=== PATIENT | female | born 1960 | race Caucasian/White ===

== ENCOUNTER 2019-06-02 14:32 | Outpatient (CLI) | payer OTHER, SELFPAY ==
[2019-06-02 16:37] LABS: Vitamin D 25 Hydroxy 18.7 ng/mL
== END 2019-06-02 14:33 | disposition home or self-care (01) ==
LOC: ANHIMG 14:39
PROVIDERS: PCP Family Medicine; Visit Provider Family Medicine
DX: E55.9 Vitamin D deficiency, unspecified (principal)
CPT/HCPCS: 36415; 82306

== ENCOUNTER 2019-06-17 10:12 | Outpatient (CLI) | payer OTHER, SELFPAY ==
--- NOTE | ~2019-06-17 | US_ITS ---
EXAMINATION: US carotid duplex BI DATE: 06/17/2019 10:43 INDICATION: Postural dizziness. TECHNIQUE: Grayscale, color Doppler, and pulsed Doppler images of the cervical carotid arteries were obtained. The degree of vessel stenosis is placed in one of the following categories: normal, <50%, 5 0-69%, >=70% but less than near-occlusion, near-occlusion, or total occlusion. Note that percent sten osis relative to normal distal artery lumen diameter is indirectly measured from velocity measurement s as described by Lazarus, et al. Radiology 2003; 229:340-346. COMPARISON: None. FINDINGS: RIGHT: The right common carotid artery (CCA) peak systolic velocity (PSV) is 67 cm/s. The right internal car otid artery (ICA) PSV is 73 cm/s. The right ICA end-diastolic velocity (EDV) is 26 cm/s. The right IC A/CCA PSV ratio is 1.1. Grayscale and color Doppler images yield an estimate of <50% diameter reducti on from plaque in the ICA. There is antegrade flow in the right vertebral artery. LEFT: The left CCA PSV is 85 cm/s. The left ICA PSV is 62 cm/s. The left ICA EDV is 21 cm/s. The left ICA/C CA PSV ratio is 0.7. Grayscale and color Doppler images yield an estimate of <50% diameter reduction from plaque in the ICA. There is antegrade flow in the left vertebral artery. IMPRESSION: 1. <50% stenosis in the right internal carotid artery. 2. <50% stenosis in the left internal carotid artery. Reviewed, dictated and finalized at location A. E BUSINESS SPECIALIST
== END 2019-06-17 10:13 | disposition home or self-care (01) ==
LOC: ANHIMG 10:14
PROVIDERS: PCP Family Medicine; Visit Provider Family Medicine
DX: I65.23 Occlusion and stenosis of bilateral carotid arteries (principal); R42 Dizziness and giddiness
CPT/HCPCS: 93880

== ENCOUNTER 2019-08-30 10:30 | Outpatient (RCR) | payer OTHER, SELFPAY ==
--- NOTE | 2019-06-08 09:20 | PTOPEVAL ---
PHYSICAL THERAPY EVALUATION AND PLAN OF CARE Thank you for referring this patient to [facility]. Katherine will be seen in PT 2x/week for 4-6weeks for treatment of low back pain and balance impairment. Please review, sign, date and return this plan of care TERI. I agree with and certify that the following plan of care is medically necessary. Referring Physician Date Attending Provider: Rashmi Purvis, Assessment Status Evaluation Outpatient Past Medical History Cardiovascular History Hx Mitral Valve Prolapse Yes Evaluation Information Problem Diagnosis back pain; poor balance Onset 05/18/2018 Cause fall Subjective Information Katherine is here today 1 year Query Text:As Reported By Patient/ after a fall resulting in back Family pain and neck pain. She states she has tried to stay mobile and her neck has more motion than it did. Also reports that she is here today because she would really like to impove her balance. She has stairs to enter/exit her home and is able to negotiate them with rails. Medial Spine, Lumbar Reported Pain Level 8 Current Pain Intensity 8 Lowest Pain Intensity 3 Greatest Pain Intensity 10 Pain Aggravating Factors Exercise/Activity,Walking, Weight Bearing/Standing Other Pain Aggravating Factors standing >15minutes Pain Behaviors None Pain Relief Interventions Used By Heat,Lying Supine,Medication Patient Interventions Used By Clinicians Exercise,Heat,Joint Mobilization Lumbar ROM Lumbar Flexion (0-90) 10 Lumbar Extension (0-40) 0 Lateral Rotation Right (0-45) 18 Lateral Rotation Left (0-45) 11 Hip Range of Motion Right Hip Medial Rotation - Passive 33 Left Hip Medial Rotation - Passive 7 Lower Extremity Muscle Strength Testing Hip Strength Right Hip Flexion Strength 4- Good - Hip Abduction Strength 3 Fair Left Hip Flexion Strength 3+ Fair + Hip Extension Strength 3 Fair Hip Abduction Strength 3 Fair Knee Strength Right Knee Flexion Strength 4- Good - Knee Extension Strength 4 Good Left Knee Flexion Strength 3+ Fair + Knee Extension Strength 3+ Fair + Posture Standing Position Posture Evaluation View Posterior Thoracic Spine Posture Increased Kyphosis Lumbar Spine Posture
--- NOTE | 2019-07-06 13:35 | PTOPEVAL ---
PHYSICAL THERAPY PLAN OF CARE UPDATE AND PROGRESS REPORT Thank you for referring this patient to [facility]. I recommend Katherine continue physical therapy 1x/week for 4 weeks. Please review, sign, date and return this plan of care TERI. I agree with and certify that the following plan of care is medically necessary. Referring Physician Date Attending Provider: Rashmi Purvis, Re-evaluation Outpatient Past Medical History Cardiovascular History Hx Mitral Valve Prolapse Yes Evaluation Information Problem Diagnosis back pain; poor balance Onset 05/18/2018 Cause fall Subjective Information Katherine is here today after 4 Query Text:As Reported By Patient/ weeks of physical therapy. Family Feels as though she is improving, but feels like she could benefit from more strengthening to improve her balance. Pain Assessment Self Report Pain Assessment Medial Spine, Lumbar Reported Pain Level 8 Pain Description Throbbing,Tightness Pain Frequency Intermittent Pain Aggravating Factors Walking,Weight Bearing/ Standing Pain Behaviors None Interventions Used By Clinicians Education,Electrical Stimulation,Exercise,Heat Lumbar ROM Lumbar Flexion (0-90) 40 Query Text:Active in Degrees Lumbar Flexion Active Mid Garcia Query Text:Hands to: Lumbar Extension (0-40) 8 Query Text:Active i Degrees Lateral Rotation Right (0-45) 20 Query Text:Active in Degrees Lateral Rotation Left (0-45) 20 Query Text:Active in Degrees Lower Extremity Range of Motion Hip Range of Motion Right Hip Medial Rotation - Passive 20 Left Hip Medial Rotation - Passive 30 Lower Extremity Muscle Strength Testing Hip Strength Right Hip Flexion Strength 4+ Good + Hip Extension Strength 4- Good - Hip Abduction Strength 4- Good - Left Hip Flexion Strength 4+ Good + Hip Extension Strength 4- Good - Hip Abduction Strength 4- Good - Knee Strength Right Knee Flexion Strength 4 Good Knee Extension Strength 4 Good Left Knee Flexion Strength 4 Good Knee Extension Strength 4 Good Muscle Length Testing Muscle Length Testing Left Hamstring Length -35 Query Text:(90 - 90 Position) Right Hamstring Length -30 Query Text:(90 - 90 Position) Posture Posture Standing Position Posture Evaluation View Posterior Thoracic Spine Posture Increased Kyphosis Lumbar Spine Posture Flattened,Flexible Sco
--- NOTE | 2019-08-08 11:00 | PTOPEVAL ---
PHYSICAL THERAPY PLAN OF CARE UPDATE AND PROGRESS REPORT Thank you for referring Katherine Beckett to [facility]. I recommend continuing PT 1x/week for 4 weeks. Please review, sign, date and return this plan of care TERI. I agree with and certify that the following plan of care is medically necessary. Referring Physician Date Attending Provider: Rashmi Purvis, Re-evaluation Diagnosis back pain; poor balance Onset 05/18/2018 Cause fall Subjective Information feels her balance is improving Query Text:As Reported By Patient/ and tries not to use her cane Family at home. Feels as though she could walk to the convenience store but would not be able to get back. Pain Assessment Timing of Pain Assessment Timing of Pain Assessment Pre-Treatment Pain Scale Pain Scale Used Numeric (1 - 10) Self Report Pain Assessment Medial Spine, Lumbar Reported Pain Level 4 Pain Description Throbbing,Tightness Pain Frequency Intermittent Pain Aggravating Factors Walking,Weight Bearing/ Standing Pain Behaviors None Interventions Used By Clinicians Electrical Stimulation, Exercise,Heat Pain Score Pain Score 4: Self Report Additional Pain Score Comments increase in symptoms but not sure why Cervical and Lumbar ROM Lumbar ROM Lumbar Flexion (0-90) 40 Query Text:Active in Degrees Lumbar Flexion Active Mid Garcia Query Text:Hands to: Lumbar Extension (0-40) 10 Query Text:Active in Degrees Lateral Rotation Right (0-45) 20 Query Text:Active in Degrees Lateral Rotation Left (0-45) 20 Query Text:Active in Degrees Lumbar Comments improved segmental motion compared to prior visits Lower Extremity Range of Motion Hip Range of Motion Right Hip Medial Rotation - Passive 30 Left Hip Medial Rotation - Passive 30 Lower Extremity Muscle Strength Testing Hip Strength Right Hip Flexion Strength 5 Normal Hip Extension Strength 4 Good Hip Abduction Strength 4- Good - Left Hip Flexion Strength 5 Normal Hip Extension Strength 4- Good - Hip Abduction Strength 4- Good - Knee Strength Right Knee Flexion Strength 4+ Good + Knee Extension Strength 4+ Good + Left Knee Flexion Strength 4+ Good + Knee Extension Strength 4+ Good + Muscle Length Testing Piriformis w/Hip Flexion >90 Degrees (R) Mild Tightness,(L)
--- NOTE | 2019-09-06 15:12 | PCPTNOTE ---
This treatment is being continued on visit number [id number]. Please see documentation on both accounts to view progress. Completed interventions, outcomes, and problems have been marked as Inactive to facilitate the copying of the Care plan routine for recurring accounts.
== END 2019-09-06 12:35 | disposition home or self-care (01) ==
LOC: ANHPT 10:30
PROVIDERS: PCP Family Medicine; Visit Provider Family Medicine
DX: M54.9 Dorsalgia, unspecified (principal); G89.29 Other chronic pain
CPT/HCPCS: 97014; 97110; 97140; 97161; G0283

== ENCOUNTER 2019-09-14 09:00 | Outpatient (RCR) | payer OTHER, SELFPAY ==
--- NOTE | 2019-09-06 15:19 | PCPTNOTE ---
The treatment documented on this account is a continuation of the treatment documented on visit number [id number]. Please see documentation on both accounts to view progress. The Plan of Care has been transitioned and updated within the new V#. I have addressed and agree with the discipline specific Problems, Interventions, and Goals for the current certification period. Completed interventions, outcomes, and problems have been marked as Inactive to facilitate the copying of the Care plan routine for recurring accounts.
--- NOTE | 2019-09-14 09:51 | PTOPEVAL ---
PHYSICAL THERAPY DISCHARGE NOTE Thank you for referring Katherine Beckett to [facility]. I recommend Katherine discharge from skilled PT at this time and proceed with HEP. Please review, sign, date and return this plan of care TERI. I agree with and certify that the following plan of care is medically necessary. Referring Physician Date Attending Provider: Rashmi Purvis, MD Discharge Outpatient Past Medical History Cardiovascular History Hx Mitral Valve Prolapse Yes Evaluation Information Problem Diagnosis back pain; poor balance Onset 05/18/2018 Cause fall Subjective Information continues to feel improvement Query Text:As Reported By Patient/ and feels like she is able to Family get out and about more. She is walking in her house and her yard. When the weather is nicer, she wants to get out to the park to go for walks where they have benches to be able to rest. Lower Back Reported Pain Level 5 Pain Description Aching,Tightness Pain Frequency Intermittent Pain Aggravating Factors None Interventions Used By Clinicians Exercise Pain Score Pain Score 5: Self Report Lumbar ROM Lumbar Flexion (0-90) 45 Query Text:Active in Degrees Lumbar Flexion Active Mid Garcia Query Text:Hands to: Lumbar Extension (0-40) 15 Query Text:Active in Degrees Lateral Rotation Right (0-45) 25 Query Text:Active in Degrees Lateral Rotation Left (0-45) 25 Query Text:Active in Degrees Lower Extremity Muscle Strength Testing General Lower Extremity Strength Reason Not Measured WFL/Left,WFL/Right Powers Balance Assessment Sitting to Standing Independent w/out Hands Unsupported Stance Ability Safely- 2 minutes Sitting Unsupported, Feet on Floor Safely- 2 minutes Standing to Sitting Safely, Minimal Hand Use Transfer Ability Safely, Minimal Hand Use Unsupported Stance- Eyes Closed Safely, 10 seconds Unsupported Stance- Feet Together Independent, 1 minute Reaching Forward while Standing Safely, 5 inches computer analyst supervisor Object From Floor Supervision Look Behind Shoulder - Standing Shifts Weight Well Turning 360 Degrees Turns Bilateral, < 4 secs Unsupported Stance, Alternating Feet on (I)- 8 Steps in 20 secs Stair Unsupported Tandem Stance Holds Tandem- 30 seconds Unilateral Leg Stance Lifts Leg/Holds 5-10 secs POWERS Balance Evaluation Total Score (/56 52 points) Timed Up and Go Test (TUG) (Seconds) 12 Assistive Devices
== END 2019-09-14 11:34 | disposition home or self-care (01) ==
LOC: ANHPT 09:00
PROVIDERS: PCP Family Medicine; Visit Provider Family Medicine
DX: M54.9 Dorsalgia, unspecified (principal); G89.29 Other chronic pain
CPT/HCPCS: 97014; 97110; G0283

== ENCOUNTER → 2020-03-20 10:06 | Outpatient (CLI) | payer OTHER, SELFPAY ==
--- NOTE | ~2020-03-20 | XR_ITS ---
EXAMINATION: XR knee LT 3V DATE: 03/20/2020 10:41 INDICATION: Left knee pain. TECHNIQUE: 3 views of left knee were obtained. COMPARISON: None. FINDINGS: Bone alignment is normal. There is deformity of the articular surface of lateral tibial clementine teau. There is mild osteoarthritis of medial and patellofemoral compartments and moderate osteoarthri tis of lateral compartment. No knee joint effusion. IMPRESSION: 1. Deformity of the articular surface of lateral tibial plateau, which may be an old fracture deformi ty. 2. Moderate left knee osteoarthritis. Reviewed, dictated and finalized at location A. SETTER IMPRESSION: 1. Deformity of the articular surface of lateral tibial plateau, which may be a n old fracture deformity. 2. Moderate left knee osteoarthritis.
--- NOTE | ~2020-03-20 | XR_ITS ---
[XR ribs LT 2V ] INDICATION: Left rib pain TECHNIQUE: Frontal projection of the upper left ribs, frontal projection of the lower left ribs, obli que projection of all the left ribs, frontal inspiratory chest x-ray for interpretation. FINDINGS: There are no displaced rib fractures identified. There are no soft tissue abnormality see n. The lungs are clear. IMPRESSION: 1:No displaced rib fractures. Reviewed, dictated and finalized at location A. TERIA SUPERVISOR
== END ==
PROVIDERS: PCP Family Medicine; Visit Provider Family Medicine
DX: S20.20XA Contusion of thorax, unspecified, initial encounter (principal); M17.12 Unilateral primary osteoarthritis, left knee; M21.962 Unspecified acquired deformity of left lower leg
CPT/HCPCS: 71100; 73562

== ENCOUNTER 2020-11-02 09:02 | Outpatient (CLI) | payer MEDICARE, SELFPAY ==
--- NOTE | ~2020-11-02 | MM_ITS ---
EXAMINATION: MM screening kemi BI w danita HISTORY: Screening mammogram TECHNIQUE: Craniocaudal and mediolateral oblique 3-D tomosynthesis images were obtained and synthetic 2-D images were generated. CAD analysis was submitted and interpreted. COMPARISON: No prior mammogram is available for comparison at this institution. BREAST PARENCHYMAL COMPOSITION: The breasts are heterogeneously dense, which may obscure small masses . FINDINGS: RIGHT BREAST: There is focal asymmetry in the middle and posterior third of the upper outer quadrant of the breast. LEFT BREAST: There is a possible mass in the middle third of the outer breast best appreciated 6 cm f rom the nipple on mediolateral oblique tomosynthesis image . IMPRESSION: 1. Bilateral breast findings as the above. 2. Additional mammographic views and possible breast ultrasound are recommended. BI-RADS Category 0: Incomplete: Needs additional imaging evaluation. Reviewed, dictated and finalized at location A. IMPRESSION: 1. Bilateral breast findings as the above. 2. Additional mammographic views and possible breast ultrasound are recommended . BI-RADS Category 0: Incomplete: Needs additional imaging evaluation.
== END 2020-11-02 09:03 | disposition home or self-care (01) ==
PROVIDERS: PCP Family Medicine; Visit Provider Family Medicine
DX: Z12.31 Encounter for screening mammogram for malignant neoplasm of breast (principal); R92.8 Other abnormal and inconclusive findings on diagnostic imaging of breast
CPT/HCPCS: 77063; 77067

== ENCOUNTER 2020-12-05 13:44 | Outpatient (CLI) | payer MEDICARE, SELFPAY ==
--- NOTE | ~2020-12-05 | US_ITS ---
Please refer to diagnostic mammogram report dated 12/05/2020 for details. Reviewed, dictated and finalized at location A.
--- NOTE | ~2020-12-05 | MM_ITS ---
EXAMINATION: MM diagnostic kemi BI w danita HISTORY: Follow-up breast asymmetries TECHNIQUE: Additional 3-D tomosynthesis images of the breasts were performed and synthetic 2-D images were generated. CAD analysis was submitted and interpreted. High resolution complete bilateral breas t ultrasound was performed. COMPARISON: 11/02/2020 BREAST PARENCHYMAL COMPOSITION: The breasts are heterogenously dense, which may obscure small masses FINDINGS: MAMMOGRAPHIC FINDINGS: There is persistent asymmetry scattered throughout the upper outer quadrant of the right breast, alth ough no discrete mass identified. In the left breast there is a mass in the lateral aspect of the lef t breast measuring 11 mm. ULTRASOUND: Right breast ultrasound: At 5:00 near the nipple there is an irregular shaped hypoechoic mass measuri ng 5 x 3 x 3 mm with mixed posterior attenuation, no internal vascularity. Left breast ultrasound: At 3:00, 5 cm from the nipple, there is a hypoechoic mass with parallel orien tation, no posterior features and no internal vascularity measuring 11 x 9 x 6 mm. At 10:00, 6 cm fro m the nipple, there is an oval hypoechoic mass measuring 6 mm without posterior features or internal vascularity, likely benign. IMPRESSION: 1. Abnormal bilateral sonographic breast masses including 5 mm mass in the right breast at 5:00 near the nipple and in the left breast at 3:00, 5 cm from the nipple there is an 11 mm mass. 2. Ultrasound-guided bilateral breast biopsy recommended. BI-RADS category 4, suspicious findings. Reviewed, dictated and finalized at location A. IMPRESSION: 1. Abnormal bilateral sonographic breast masses including 5 mm mass in the righ t breast at 5:00 near the nipple and in the left breast at 3:00, 5 cm from the nipple there is an 11 mm mass. 2. Ultrasound-guided bilateral breast biopsy recommended. BI-RADS category 4, suspicious findings.
== END 2020-12-05 13:45 | disposition home or self-care (01) ==
LOC: ANHIMG 13:46
PROVIDERS: PCP Family Medicine; Visit Provider Family Medicine
DX: R92.8 Other abnormal and inconclusive findings on diagnostic imaging of breast (principal)
CPT/HCPCS: 76641; 77062; 77066; G0279

== ENCOUNTER 2021-02-05 12:56 | Outpatient (CLI) | payer MEDICARE, MEDICAID, SELFPAY ==
--- NOTE | ~2021-02-05 | MMUS_ITS ---
US breast biopsy LT w image, MM post biopsy invasive BI, US breast biopsy RT w image EXAMINATION: US GUIDED NEEDLE BIOPSY WITH VACUUM ASSISTANCE DATE: 02/05/2021 15:56 CDT INDICATION: Bilateral breast masses seen on recent examination. Ultrasound-guided core biopsy is req uested to evaluate for malignancy. TECHNIQUE AND FINDINGS: The risks and potential benefits of the procedure were discussed with the patient, and written inform ed consent was obtained. After sterile preparation of the breasts, 1% lidocaine was utilized for loc al anesthesia. 1% lidocaine with epinephrine was used for deep anesthesia. Breast masses were locali zed bilaterally in the right breast at 5:00 near the nipple and in the left breast at 3:00, 5 cm from the nipple. Right breast biopsy: A 10G vacuum-assisted biopsy gun needle was advanced through to the outer edge o f the region of interest from a superior approach utilizing sonographic guidance. A total of 2 tissu e core samples were obtained through the lesion. An Inrad tissue marker clip was then placed at the biopsy site. Hemostasis was achieved. Left breast biopsy: A 10G vacuum-assisted biopsy gun needle was advanced through to the outer edge of the region of interest from a superior approach utilizing sonographic guidance. A total of 4 tissue core samples were obtained through the lesion. An Inrad tissue marker clip was then placed at the b iopsy site. Hemostasis was achieved. The patient tolerated procedure well and there was no evidence of immediate complication. The patien t was given verbal instructions partly is from the department. Bilateral breast mammograms to docume nt tissue marker clip placement. The tissue samples were submitted to surgical pathology for histolog ic analysis. IMPRESSION: 1. Successful ultrasound-guided vacuum-assisted biopsy of bilateral breast masses with tissue marker placement. Please refer to pathology report for histologic analysis. Reviewed, dictated and finalized at location A. IMPRESSION: 1. Successful ultrasound-guided vacuum-assisted biopsy of bilateral breast mas ses with tissue marker placement. Please refer to pathology report for histolog ic analysis. IMPRESSION: 1. Successful ultrasound-guided vacuum-assisted biopsy of bilateral breast mas ses with tissue marker placement. Please refer to pathology report for histolog ic analysis.
== END 2021-02-05 12:57 | disposition home or self-care (01) ==
LOC: ANHIMG 13:02
PROVIDERS: PCP Family Medicine
DX: D24.2 Benign neoplasm of left breast (principal); D24.1 Benign neoplasm of right breast
CPT/HCPCS: 19083; 19084; 88305; A4648

== ENCOUNTER 2021-06-22 09:27 | Outpatient (CLI) | payer MEDICARE, MEDICAID, SELFPAY ==
--- NOTE | 2021-06-22 09:44 | ECG_ITS ---
Measurements Intervals [place] Rate: 129 P: -78 ID: [id number] QRS: -6 QRSD: 122 T: 171 QT: 321 QTc: 471 Interpretive Statements ATRIAL FLUTTER/TACHYCARDIA WITH RAPID VENTRICULAR RESPONSE RSR' IN V1 OR V2, CONSIDER RIGHT VENTRICULAR HYPERTROPHY OR RIGHT VCD ST-T WAVE ABNORMALITY IN HIGH LATERAL LEADS- CONSIDER ISCHEMIA BASELINE ARTIFACT- II, III, AVF ABNORMAL ECG Electronically Signed On 06-22-2021 14:10:58 SIGNAL HELPER by Juan Mcrae D.O.
== END 2021-06-22 09:28 | disposition home or self-care (01) ==
LOC: ANHCARD 09:32
PROVIDERS: PCP Family Medicine; Visit Provider Physician Assistant
DX: R00.0 Tachycardia, unspecified (principal); R94.31 Abnormal electrocardiogram [ECG] [EKG]
CPT/HCPCS: 93005

== ENCOUNTER 2021-07-24 13:07 | Observation (INO) | payer MEDICARE, MEDICAID, SELFPAY ==
[2021-07-24] VITALS (10 sets, daily range): BP systolic 123–156; BP diastolic 62–96; PULSE 64–138; RESP 14–22; TEMP 36.5–36.6; O2SAT 95–100; BMI 27.1
--- NOTE | 2021-07-24 | ECHO_ITS ---
Patient Info Name: Katherine Beckett Age: 61 years : 1960 Gender: Female Ht: 66 in Wt: 156 lbs BSA: 1.83 m2 HR: 101 bpm BP: 140 / 87 mmHg Technical Quality: Fair Exam Date: 07/24/2021 4:38 PM Exam Location: [facility] Patient Status: Outpatient Admit Date: 07/24/2021 Staff Ordering Physician: Freddy Beasley MD Bilingual Branch Manager: Alicia Brown RDCS Attending Provider: Terry Galan MD Exam Type: CA echo doppler color flow Study Info Indications - new onset afib Complete two-dimensional, color flow and Doppler transthoracic echocardiogram is performed. Summary 1. Complete two-dimensional, color flow and Doppler transthoracic echocardiogram is performed. 2. Left ventricular chamber dimension is normal. 3. Left ventricular systolic function is normal, estimated at 60-65%. 4. The left ventricular diastolic function is abnormal. 5. E/e' 10 is mildly elevated. 6. There is mild mitral valve regurgitation. Left Ventricle E/e' 10 is mildly elevated. Left ventricular chamber dimension is normal. Left ventricular systolic function is normal, estimated at 60-65%. The left ventricular diastolic function is abnormal. Right Ventricle Right ventricular chamber dimension is normal. Right ventricular systolic function is normal. Left Atria Left atrial chamber dimension is normal. Right Atria Right atrial chamber dimension is normal. Aortic Valve The aortic valve is probable trileaflet. There is no aortic valve stenosis. There is no aortic valve regurgitation. Pulmonic Valve There is no pulmonic regurgitation. Mitral Valve There is no mitral valve stenosis. There is mild mitral valve regurgitation. Tricuspid Valve There is no tricuspid valve regurgitation. Pericardium/Pleural There is no pericardial effusion. Inferior Vena Cava Normal inferior vena cava with >50% collapse upon inspiration consistent with normal right atrial pressure, 5 mmHg. Aorta The aortic root size at the sinus of Valsalva is normal. Left Ventricular Outflow Tract Name Value Normal LVOT Doppler LVOT Peak Gradient 3 mmHg LVOT Mean Gradient 2 mmHg LVOT VTI 14 cm LVOT VTI/AV VTI Ratio 0.6 Pulmonic Valve Name Value Normal PV Doppler PV Peak Gradient 2 mmHg Mitral Valve Name Value Normal MV Doppler MV Decel Hutchinson 1,061 cm/s2 MV PHT 28 ms MV Area (PHT) 7.8 cm2 4.0-5.0 MV Diastolic Function MV E Peak Velocity
--- NOTE | ~2021-07-24 | XR_ITS ---
EXAMINATION: XR chest 2V EXAM DATE: 07/24/2021 13:54 INDICATION: SOB, palpitations, abnormal EKG , hx: DM, HTN. TECHNIQUE: Frontal and lateral projections of the chest obtained and reviewed. There is no prior alma dy for comparison. FINDINGS: The lungs are clear. There are no pleural effusions. The cardiomediastinal silhouette is within normal limits. There is no pneumothorax suspected. The bones and soft tissues are unremarkab le. IMPRESSION: Unremarkable chest x-ray exam. Reviewed, dictated and finalized at location B.
--- NOTE | 2021-07-24 13:14 | ECG_ITS ---
Measurements Intervals [place] Rate: 137 P: TN: 0 QRS: -14 QRSD: 91 T: 127 QT: 296 QTc: 448 Interpretive Statements ATRIAL FLUTTER/TACHYCARDIA WITH RAPID VENTRICULAR RESPONSE LOW QRS VOLTAGE IN PRECORDIAL LEADS [QRS DEFLECTION < 1.0 mV IN CHEST LEADS] ST DEVIATION AND MODERATE T-WAVE ABNORMALITY, CONSIDER LATERAL ISCHEMIA [-0.1+ mV T WAVE IN I/aVL/V5/V6] RSR' V1 AND V2 CONSIDER RIGHT VENTRICULAR HYPERTROPHY OR RIGHT VENTRICULAR CONDUCTION DELAY ABNORMAL ECG COMPARED TO ECG 06/22/2021 09:49:06 NO SIGNIFICANT CHANGES Electronically Signed On 07-24-2021 13:50:58 CDT by Kamron Dudley M.D.
[2021-07-24] MEDS: SODIUM CHLORIDE 0.9% IV 1,000 ML 150 ML IV CONT (13:38)
[2021-07-24] MEDS: dilTIAZem HCl INJ 25 MG/5 ML VIAL 10 MG IV PUSH (13:38)
[2021-07-24] MEDS: ASPIRIN 81 MG CHEWABLE TABLET 324 MG PO (13:39)
[2021-07-24 13:47] LABS: Basophils Absolute Auto 0.1 K/mm3 (0.0-0.1); Basophils Percent Auto 0.6 % (0.2-1.2); Eosinophils Absolute Auto 0.3 K/mm3 (0-0.3); Eosinophils Percent Auto 2.3 % (0-4.4); Hematocrit 36.2 % (37.0-47.0); Hemoglobin 12.1 g/dL (12.0-15.0); Immature Granulocyte Absolute 0.03 K/mm3 (0.00-0.031); Immature Granulocyte Percent A 0.3 % (0-0.5); Lymphocytes Absolute Auto 2.54 K/mm3 (0.9-3.2); Lymphocytes Percent Auto 23.1 % (18.3-44.2); Mean Corpuscular HGB Conc 33.4 g/dl (32-36); Mean Corpuscular Hemoglobin 31.1 pg (26-34); Mean Corpuscular Volume 93.1 fl (80-100); Mean Platelet Volume 10.6 fl (7.4-10.4); Monocytes Absolute Auto 0.9 K/mm3 (0.1-0.6); Monocytes Percent Auto 7.8 % (2.6-8.5); Neutrophils Absolute Auto 7.3 K/mm3 (1.3-6.7); Neutrophils Percent Auto 65.9 % (45.5-73.1); Platelet Count Result 301 k/mm3 (150-375); Red Blood Count 3.89 M/mm3 (4.2-5.4); Red Cell Distribution Width 12.7 % (11.5-14.5)
[2021-07-24 13:57] LABS: Alanine Aminotransferase 20 U/L (4-35); Albumin Level 4.7 g/dL (3.5-5.1); Alkaline Phosphatase 60 U/L (38-126); Anion Gap 14 mmol/L (8-16); Aspartate Amino Transferase 25 U/L (14-36); Bilirubin,Total 0.7 mg/dL (0.2-1.3); Blood Urea Nitrogen 13 mg/dL (7-17); Calcium 9.3 mg/dL (8.4-10.2); Carbon Dioxide 22 mmol/L (22-30); Chloride 103 mmol/L (98-107); Estimated CRCL calculation 61 ml/min; Estimated Glomerular Filt Rate > 60; Glucose 125 mg/dL (65-110); Lipase 78 U/L (23-300); Sodium 139 mmol/L (137-145)
[2021-07-24 14:07] LABS: Partial Thromboplastin Time 25.9 SECONDS (22.3-36.8); Prothrombin Time 12.8 Seconds (11.1-14.7)
[2021-07-24 14:08] LABS: Troponin I < 0.012 ng/mL (0.000-0.034)
--- NOTE | 2021-07-24 15:00 | ED.ARRPALP ---
HPI - Arrhythmia/Palpitations General Chief Complaint: Arrhythmia/Palpitations Stated Complaint: abnormal ekg Time Seen by Provider: 07/24/21 13:22 Source: patient Mode of arrival: ambulatory Limitations: no limitations History of Present Illness HPI narrative: 61-year-old with a history of hypertension, diabetes here with complaints of palpitations for approximately 1 month. Patient states that she has seen a nurse practitioner a month ago had an EKG done at that time and was notified this morning to come to the ER for abnormal EKG. Patient presently states that her heart rate is in 130s which has been ongoing for 1 month. She denies any chest pain or shortness of breath. She states occasionally she feels dizzy. No history of nausea or vomiting. MD complaint: heart racing Onset (ago): week(s) (4) Duration: constant Severity: moderate Arrhythmia history: atrial fibrillation Associated symptoms: denies other symptoms Related Data Home Medications Medication Instructions Recorded Confirmed amitriptyline 25 mg tablet 25 mg PO BID tablet 07/04/21 07/04/21 amlodipine 5 mg tablet 5 mg PO DAILY 07/04/21 07/04/21 atorvastatin 10 mg tablet 10 mg PO DAILY 07/04/21 07/04/21 cyclobenzaprine 10 mg tablet 10 mg PO TID 07/04/21 07/04/21 empagliflozin 10 mg tablet 10 mg PO DAILY 07/04/21 07/04/21 ergocalciferol (vitamin D2) 1,250 1,250 mcg PO MONTHLY 07/04/21 07/04/21 mcg (50,000 unit) capsule folic acid 1 mg tablet 1 mg PO DAILY 07/04/21 07/04/21 hydrochlorothiazide 25 mg tablet 25 mg PO DAILY 07/04/21 07/04/21 insulin detemir U-100 100 unit/mL 10 unit SUBCUT QHS 07/04/21 07/04/21 (3 mL) subcutaneous pen lisinopril 40 mg tablet 40 mg PO DAILY 07/04/21 07/04/21 meloxicam 15 mg tablet 15 mg PO DAILY 07/04/21 07/04/21 metformin 1,000 mg tablet 1,000 mg PO BID 07/04/21 07/04/21 pantoprazole 40 mg tablet,delayed 40 mg PO BID tablet 07/04/21 07/04/21 release Allergies Allergy/AdvReac Type Severity Reaction Status Date / Time hydrocodone Allergy Unknown Unknown Verified 07/04/21 11:13 iodine Allergy Unknown Unknown Verified 07/04/21 11:13 SHELL FISH Allergy Mild Unknown Uncoded 07/04/21 11:13 CODEINE (Generic Allergy) Allergy Unknown Unknown Uncoded 07/04/21 11:13 SHRIMP Allergy Unknown Unknown Uncoded 07/04/21 11:13 Review of Systems Review of Systems: All systems reviewed & are unremarkable except as noted in HPI and below Constitutional: Constitutional: Reports no additional constitutional complaints Eyes: Eyes: Reports no additional eye complaints ENT: Reports system reviewed and no additional complaints, except as documented Cardiovascular: Cardiovascular: Reports as per HPI Respiratory: Respiratory: Reports no additional respiratory complaints Gastrointestinal: Gastrointestinal: Reports no additional gastrointestinal complaints Musculoskeletal: Musculoskeletal: Reports no additional musculoskeletal complaints Integumentary/Breasts: Skin/Breast: Reports system reviewed and no additional complaints, except as docu Neurologic: Reports system reviewed and no additional complaints, except as documented Psychiatric: Psychiatric: Reports no additional psychiatric complaints PMFSH Past Medical History Medical History Allergies Anxiety Arthritis Diabetes Hypertension Positive colorectal cancer screening using Cologuard test Social History Social History Smoking status: Former smoker Alcohol intake: current Drinks per week: 3 Substance use: current Substance use type: marijuana Exam Narrative: GENERAL: Well-appearing, well-nourished, and in no acute distress. HEAD: Normocephalic, atraumatic. EYES: PERRLA and EOMI. NECK: Supple. CHEST: Clear to auscultation HEART: Tachycardic irregularly irregular ABDOMEN: Soft, nontender, nondistended, normal active bowel sounds. EXTREMITIES: Normal range o
[2021-07-24] MEDS: dilTIAZem 100 MG/100 ML 100 MG/100 ML BAG IV CONT (15:21)
--- NOTE | 2021-07-24 15:59 | PM.IMHP ---
H&P: HPI History of Present Illness Date/Time: Patient was placed observation status for expected length of stay less than 23 hours for management, will plan to re-evaluate tomorrow for improvement. 07/24/21 15:59 Chief Complaint: Abnormal EKG Narrative: Ms. Beckett is a 61-year-old female who presented to the emergency room because she was told to come by her primary care provider. Patient states approximately 1 month ago she was seen by her primary care provider for a routine follow-up and her primary care provider checked her pulse and thought it was very fast and told patient come to the hospital have an EKG performed. Patient states she was also told to follow her pulse daily and she was checking her pulse with her blood pressure cuff at home. Patient states that every day her pulse was running approximately in the 130s. Patient denies any chest pain, shortness a breath, palpitations, lightheadedness, dizziness, syncopal, or near syncopal episodes. Patient denies any past cardiac history except for mitral valve prolapse. Patient denies any abdominal pain, nausea, vomiting, constipation, or diarrhea. Patient denies any dysuria, hematuria, frequency, or urgency. Patient states she does have a history of hypertension diabetes mellitus for which she was recently placed on medication she has been compliant with all of her medication. Patient denies any history of hyper or hypothyroidism. Review of Systems Review of Systems: A 12 point review of systems was completed patient all pertinent positive and negative per HPI the remainder are unremarkable. [facility] Past Medical History Medical History (Updated 07/24/21 @ 16:13 by Denisa Cheney APRN) Allergies Anxiety Arthritis Diabetes Hypertension Positive colorectal cancer screening using Cologuard test Social History Social History (Updated 07/24/21 @ 16:11 by Denisa Cheney APRN) Smoking packs per day: 2 Smoking cigarettes per day: 40.0 Years smoked: 20 Smoking pack-years: 40.00 Smoking status: Former smoker Alcohol intake: current Drinks per week: 3 Substance use: current Substance use type: marijuana Meds Home Medications and Allergies Home Medications Medication Instructions Recorded Confirmed Type amitriptyline 25 mg tablet 25 mg PO BID tablet 07/04/21 07/04/21 History amlodipine 5 mg tablet 5 mg PO DAILY 07/04/21 07/04/21 History atorvastatin 10 mg tablet 10 mg PO DAILY 07/04/21 07/04/21 History cyclobenzaprine 10 mg tablet 10 mg PO TID 07/04/21 07/04/21 History empagliflozin 10 mg tablet 10 mg PO DAILY 07/04/21 07/04/21 History ergocalciferol (vitamin D2) 1,250 1,250 mcg PO MONTHLY 07/04/21 07/04/21 History mcg (50,000 unit) capsule folic acid 1 mg tablet 1 mg PO DAILY 07/04/21 07/04/21 History hydrochlorothiazide 25 mg tablet 25 mg PO DAILY 07/04/21 07/04/21 History lisinopril 40 mg tablet 40 mg PO DAILY 07/04/21 07/04/21 History meloxicam 15 mg tablet 15 mg PO DAILY 07/04/21 07/04/21 History metformin 1,000 mg tablet 1,000 mg PO BID 07/04/21 07/04/21 History pantoprazole 40 mg tablet,delayed 40 mg PO BID tablet 07/04/21 07/04/21 History release insulin detemir U-100 [Levemir 20 unit SUBCUT HS 07/24/21 07/24/21 History Flexpen] Allergies Allergy/AdvReac Type Severity Reaction Status Date / Time hydrocodone Allergy Unknown Unknown Verified 07/24/21 15:23 iodine Allergy Unknown Unknown Verified 07/24/21 15:23 SHELL FISH Allergy Mild Unknown Uncoded 07/04/21 11:13 CODEINE (Generic Allergy) Allergy Unknown Unknown Uncoded 07/04/21 11:13 SHRIMP Allergy Unknown Unknown Uncoded 07/04/21 11:13 Vital Signs Vital Signs - 24 hr 07/24/21 13:19 07/24/21 13:43 07/24/21 13:54 Temperature 36.6 C Pulse Rate 138 H 72 96 Respiratory Rate 22 H 18 Blood Pressure 129/81 123/69 123/69 Pulse Oximetry 98 97 07/24/21 15:00 07/24/21 15:21 Temperature Pulse Rate 98 108 H Respiratory Rate 18 Blood Pressure 140/87 140/87 Pu
[2021-07-24 17:42] LABS: Troponin I < 0.012 ng/mL (0.000-0.034)
[2021-07-24 18:31] LABS: Glucose Point of Care 93 mg/dl (65-105)
--- NOTE | 2021-07-24 18:47 | ADMGEN ---
This patient, Katherine Beckett, was admitted to IMU Room 206-01, at 1720. Patient/family oriented to hospital policies and general routines including ID bracelet, bed and alarms, visiting hours, pain management, procedures, bathroom and other care routines, personal items, smoking policy, room service/diet, and visiting hours. Information on how to activate the Rapid Response Team has been discussed. Patient/Family are encouraged to report perceived risks to care and to ask questions if they do not understand what they are told or what they should do.
[2021-07-24 20:29] LABS: Troponin I < 0.012 ng/mL (0.000-0.034)
[2021-07-24 21:08] LABS: Glucose Point of Care 107 mg/dl (65-105)
[2021-07-24] MEDS: ACETAMINOPHEN 325 MG TABLET 650 MG PO (21:26)
[2021-07-24 23:36] LABS: Glucose Point of Care 92 mg/dl (65-105)
[2021-07-25] VITALS (19 sets, daily range): BP systolic 129–143; BP diastolic 65–79; PULSE 60–94; RESP 16–20; TEMP 36–36.7; O2SAT 95–99
[2021-07-25 05:13] LABS: Basophils Absolute Auto 0.1 K/mm3 (0.0-0.1); Basophils Percent Auto 0.8 % (0.2-1.2); Eosinophils Absolute Auto 0.4 K/mm3 (0-0.3); Eosinophils Percent Auto 4.6 % (0-4.4); Hematocrit 34.6 % (37.0-47.0); Hemoglobin 11.3 g/dL (12.0-15.0); Immature Granulocyte Absolute 0.02 K/mm3 (0.00-0.031); Immature Granulocyte Percent A 0.3 % (0-0.5); Lymphocytes Percent Auto 37.2 % (18.3-44.2); Mean Corpuscular HGB Conc 32.7 g/dl (32-36); Mean Corpuscular Hemoglobin 30.8 pg (26-34); Mean Corpuscular Volume 94.3 fl (80-100); Mean Platelet Volume 10.8 fl (7.4-10.4); Monocytes Absolute Auto 0.7 K/mm3 (0.1-0.6); Monocytes Percent Auto 8.6 % (2.6-8.5); Neutrophils Absolute Auto 3.7 K/mm3 (1.3-6.7); Neutrophils Percent Auto 48.5 % (45.5-73.1); Platelet Count Result 260 k/mm3 (150-375); Red Blood Count 3.67 M/mm3 (4.2-5.4); Red Cell Distribution Width 12.7 % (11.5-14.5); White Blood Count 7.5 K/mm3 (4.5-10.0)
[2021-07-25 05:39] LABS: Anion Gap 9 mmol/L (8-16); Blood Urea Nitrogen 13 mg/dL (7-17); Calcium 9.3 mg/dL (8.4-10.2); Carbon Dioxide 26 mmol/L (22-30); Chloride 102 mmol/L (98-107); Estimated CRCL calculation 57 ml/min; Estimated Glomerular Filt Rate > 60; Glucose 109 mg/dL (65-110); Potassium 3.5 mmol/L (3.4-5.0); Sodium 137 mmol/L (137-145)
[2021-07-25] MEDS: ENOXAPARIN 80 MG/0.8 ML SYRINGE 70 MG SUB-Q (06:22)
--- NOTE | 2021-07-25 09:01 | PM.CNCAR ---
Assessment and Plan Assessment and plan (1) Atrial flutter with rapid ventricular response: Code(s): I48.92 - Unspecified atrial flutter Status: Acute Assessment and Plan: Patient is completely asymptomatic. Heart rate very well control with IV diltiazem 5 milligrams/hour. Transition to oral regimen metoprolol tartrate 25 mg p.o. q.8 hours anticipate need to up titrate to least 50 mg b.i.d.. Monitor for bradycardia. Discussed rate versus rhythm control strategies. Discussed KATLIN guidance prior to cardioversion given unknown duration of her atrial flutter with variable AV block to exclude intracardiac thrombus and reduce stroke risk. Patient states she would prefer to to pursue more conservative medical management and forego cardioversion at this time. Unless her heart rate is poorly controlled this is reasonable as she is currently asymptomatic. Explained potential longer-term risks with ongoing atrial fibrillation and/or atrial flutter. She understands the above but prefers to take a more conservative route at this time. Discussed concept of radiofrequency ablation for atrial flutter reducing risk for recurrent atrial flutter as well as atrial fibrillation. We discussed this would be an outpatient consideration as these procedures are not performed at this institution and would require referral to electrophysiology. CHADS2 Vasc score 3, systemic anticoagulation advised. Discussed balance of bleeding versus embolic stroke risk and the anticoagulation was in her favor in this regard. Caution to monitor for bleeding, ambulate with caution. If she does not respond favorably to metoprolol may transition back to oral diltiazem but discontinuation of amlodipine would be required. Transition to oral anticoagulation with Xarelto 20 mg at bedtime. Care coordination to [place] with insurance. Depending on patient's response to medical therapy and heart rate control we discussed possibility of proceeding with KATLIN guided cardioversion tomorrow morning if she is failing oral medical therapy. She is in agreement with this consideration but wishes to observe response of medications initially. Would recommend to keep patient in house overnight and NPO in a.m. on the off chance she may require and she agrees to proceeding with KATLIN guided cardioversion. Apnea link overnight. (2) Hypertension: Qualifiers: Hypertension type: secondary to endocrine disorders Qualified Code(s): I15.2 - Hypertension secondary to endocrine disorders Code(s): I10 - Essential (primary) hypertension Status: Acute Assessment and Plan: Marginal control at this time. Continue current medical therapy. (3) Mixed hyperlipidemia due to type 2 diabetes mellitus: Code(s): E11.69 - Type 2 diabetes mellitus with other specified complication; E78.2 - Mixed hyperlipidemia Status: Acute Assessment and Plan: Continue atorvastatin. (4) Diabetes: Qualifiers: Diabetes mellitus type: type 2 Diabetes mellitus mcc insulin use: with watermaster use Diabetes mellitus complication status: with other specified complication Qualified Code(s): E11.69 - Type 2 diabetes mellitus with other specified complication; Z79.4 - skilled nursing (current) use of insulin Code(s): E11.9 - Type 2 diabetes mellitus without complications Status: Acute Assessment and Plan: Type 2 diabetes mellitus managed by primary service. History of Present Illness History of Present Illness Consult date/time: Date of service: 07/25/21 09:01 Cardiology consultation at the request of Denisa Cheney of the [facility] service for opinion regarding atrial fibrillation with rapid ventricular response. Requesting physician: Denisa Cheney APRN Consult reason: atrial fibrillation Reason For Visit: New onset Afib with RVR Narrative: Patient is a pleasant 61-year-old female with a past medical history for hypertension
[2021-07-25 09:11] LABS: Glucose Point of Care 128 mg/dl (65-105)
[2021-07-25] MEDS: lisinopriL 20 MG TABLET 40 MG PO (09:23)
[2021-07-25] MEDS: PANTOPRAZOLE 40 MG TABLET PO ×2 (09:23→18:49)
[2021-07-25] MEDS: FOLIC ACID 1 MG TABLET PO (09:23)
[2021-07-25] MEDS: CYCLOBENZAPRINE HCL 10 MG TABLET PO ×3 (09:23→18:49)
[2021-07-25] MEDS: AMITRIPTYLINE HCL 25 MG TABLET PO ×2 (09:23→18:49)
[2021-07-25] MEDS: POTASSIUM CHLORIDE 20 MEQ TABLET 40 MEQ PO (09:23)
[2021-07-25] MEDS: EMPAGLIFLOZIN 10 MG TABLET PO (09:24)
[2021-07-25] MEDS: hydroCHLOROthiazide 25 MG TABLET PO (09:24)
[2021-07-25] MEDS: ATORVASTATIN 10 MG TABLET PO (09:24)
[2021-07-25] MEDS: MELOXICAM 7.5 MG TABLET 15 MG PO (09:24)
--- NOTE | 2021-07-25 09:24 | ECG_ITS ---
Measurements Intervals [place] Rate: 70 P: WV: 0 QRS: -7 QRSD: 94 T: 141 QT: 388 QTc: 420 Interpretive Statements ATRIAL FLUTTER WITH VARIABLE AV BLOCK LOW QRS VOLTAGE IN PRECORDIAL LEADS [QRS DEFLECTION < 1.0 mV IN CHEST LEADS] MODERATE T-WAVE ABNORMALITY, CONSIDER LATERAL ISCHEMIA [-0.1+ mV T WAVE IN I/aVL/V5/V6] RSR' V1 AND V2 ABNORMAL ECG COMPARED TO ECG 07/24/2021 13:16:57 NO SIGNIFICANT CHANGES Electronically Signed On 07-25-2021 15:46:05 CDT by Kamron Dudley M.D.
--- NOTE | 2021-07-25 09:51 | PM.IMPN ---
Progress Note: A&P Assessment and Plan (1) Atrial flutter with rapid ventricular response: Code(s): I48.92 - Unspecified atrial flutter Status: Acute Assessment and Plan: Diltiazem ggt stopped and patient rate controlled asymptomatic. Echo w/ EF 60-65% w/ elevated E/e' and abnormal diastolic function. -Appreciate recommendations from Cardiology -Check TSH with AM labs (2) Atrial fibrillation with RVR: Code(s): I48.91 - Unspecified atrial fibrillation Status: Acute Assessment and Plan: Patient was given 10 mg of IV Cardizem x1 in the emergency room with a started on a Cardizem drip at 5 milligrams/hour. Echo Doppler has been ordered. TSH with reflux per T4 has been ordered. Cardiology has been consult and appreciate further recommendations. Patient has also been placed on full-dose Lovenox at this time. 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 Will check A1C with AM labs. (4) Hypertension: Qualifiers: Hypertension type: secondary to endocrine disorders Qualified Code(s): I15.2 - Hypertension secondary to endocrine disorders Code(s): I10 - Essential (primary) hypertension Status: Acute Assessment and Plan: Hold amlodipine. Continue HCTZ and lisinopril. 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 She denies chest pain, shortness of breath, palpitations, lightheadedness. She says once in the ED when she walked to radiology she felt a little weak but this resolved quickly. Review of Systems Cardiovascular: Cardiovascular: Denies chest pain, Denies lightheadedness and Denies palpitations Respiratory: Respiratory: Denies dyspnea and Denies dyspnea on exertion Exam Narrative: GENERAL: NAD, cooperative HEENT: Normocephalic, atraumatic, anicteric, nares clear, oropharynx moist and clear, poor dentition NECK: Supple CV: Rate regular no murmurs, rubs or gallops RESP: CTAB, Normal work of breathing. EXTREMITIES: Warm and well perfused, no clubbing, cyanosis, or edema. SKIN: warm, dry and intact. NEURO: CN 2-12 grossly intact. Objective Data Vital Signs Vital Signs: Vital Signs - 24 hr 07/24/21 15:00 07/24/21 15:21 07/24/21 16:14 Temperature 97.7 F Pulse Rate 98 108 H 136 H Respiratory Rate 18 14 Blood Pressure 140/87 140/87 156/88 H Pulse Oximetry 98 100 07/24/21 17:15 07/24/21 20:00 07/24/21 20:12 Temperature 98 F Pulse Rate 106 H 106 H Respiratory Rate 22 H 16 Blood Pressure 131/62 130/96 H Pulse Oximetry 98 96 95 07/24/21 22:00 07/25/21 00:00 07/25/21 02:00 Temperature 97.4 F L Pulse Rate 64 63 64 Respiratory Rate 16 Blood Pressure 135/65 Pulse Oximetry 98 07/25/21 04:00 07/25/21 06:00 07/25/21 08:00 Temperature 97.4 F L Pulse Rate 80 66 67 Respiratory Rate 18 Blood Pressure 143/68 H Pulse Oximetry 98 07/25/21 08:53 07/25/21 09:28 07/25/21 10:00 Temperature 98.0 F Pulse Rate 66 94 Respiratory Rate 20 Blood Pressure 136/71 Pulse Oximetry 95 98 07/25/21 12:28 07/25/21 13:00 Temperature 98.1 F Pulse Rate 70 68 Respiratory Rate 20 Blood Pressure 129/72 Pulse Oximetry 95 Intake/Output Intake/Output: Intake & Output 07/22/21 07/23/21 07/24/21 07/25/21 23:59 23:59 23:59 23:59 Intake Total 740 Output Total 2100 Balance -1360 Meds/Results Medications: Active Medications Generic Name Do
[2021-07-25 12:15] LABS: Glucose Point of Care 186 mg/dl (65-105)
[2021-07-25] MEDS: METOPROLOL TARTRATE 25 MG TABLET PO ×2 (12:28→19:17)
[2021-07-25 16:51] LABS: Glucose Point of Care 105 mg/dl (65-105)
[2021-07-25] MEDS: RIVAROXABAN 20 MG TABLET PO (18:49)
[2021-07-25] MEDS: ACETAMINOPHEN 325 MG TABLET 650 MG PO (20:06)
[2021-07-25 21:02] LABS: Glucose Point of Care 131 mg/dl (65-105)
[2021-07-26] VITALS (12 sets, daily range): BP systolic 133–143; BP diastolic 79–92; PULSE 64–96; RESP 18–20; TEMP 36.6–36.7; O2SAT 96–100
[2021-07-26] MEDS: METOPROLOL TARTRATE 25 MG TABLET PO (05:48)
[2021-07-26 06:05] LABS: Basophils Absolute Auto 0.1 K/mm3 (0.0-0.1); Basophils Percent Auto 0.9 % (0.2-1.2); Eosinophils Absolute Auto 0.4 K/mm3 (0-0.3); Eosinophils Percent Auto 4.9 % (0-4.4); Hematocrit 41.9 % (37.0-47.0); Hemoglobin 13.6 g/dL (12.0-15.0); Immature Granulocyte Absolute 0.02 K/mm3 (0.00-0.031); Immature Granulocyte Percent A 0.2 % (0-0.5); Lymphocytes Absolute Auto 3.06 K/mm3 (0.9-3.2); Lymphocytes Percent Auto 34.1 % (18.3-44.2); Mean Corpuscular HGB Conc 32.5 g/dl (32-36); Mean Corpuscular Hemoglobin 30.2 pg (26-34); Mean Corpuscular Volume 93.1 fl (80-100); Mean Platelet Volume 10.6 fl (7.4-10.4); Monocytes Absolute Auto 0.7 K/mm3 (0.1-0.6); Monocytes Percent Auto 7.8 % (2.6-8.5); Neutrophils Absolute Auto 4.7 K/mm3 (1.3-6.7); Neutrophils Percent Auto 52.1 % (45.5-73.1); Platelet Count Result 285 k/mm3 (150-375); Red Cell Distribution Width 12.4 % (11.5-14.5)
[2021-07-26 06:23] LABS: Anion Gap 7 mmol/L (8-16); Blood Urea Nitrogen 13 mg/dL (7-17); Calcium 9.8 mg/dL (8.4-10.2); Carbon Dioxide 26 mmol/L (22-30); Chloride 101 mmol/L (98-107); Estimated CRCL calculation 50 ml/min; Estimated Glomerular Filt Rate > 60; Glucose 147 mg/dL (65-110); Sodium 134 mmol/L (137-145)
[2021-07-26] MEDS: lisinopriL 20 MG TABLET 40 MG PO (08:18)
[2021-07-26] MEDS: MELOXICAM 7.5 MG TABLET 15 MG PO (08:18)
[2021-07-26] MEDS: hydroCHLOROthiazide 25 MG TABLET PO (08:18)
[2021-07-26] MEDS: CYCLOBENZAPRINE HCL 10 MG TABLET PO ×2 (08:18→13:22)
[2021-07-26] MEDS: ATORVASTATIN 10 MG TABLET PO (08:18)
[2021-07-26] MEDS: AMITRIPTYLINE HCL 25 MG TABLET PO (08:19)
[2021-07-26] MEDS: FOLIC ACID 1 MG TABLET PO (08:19)
[2021-07-26] MEDS: EMPAGLIFLOZIN 10 MG TABLET PO (08:19)
[2021-07-26] MEDS: PANTOPRAZOLE 40 MG TABLET PO (08:19)
[2021-07-26 08:30] LABS: Glucose Point of Care 142 mg/dl (65-105)
[2021-07-26 08:41] LABS: Hemoglobin A1C 5.7 % (<5.7)
--- NOTE | 2021-07-26 10:35 | PM.PNCARD ---
Progress Note: A&P Assessment and Plan (1) Atrial flutter with rapid ventricular response: Code(s): I48.92 - Unspecified atrial flutter Status: Acute Assessment and Plan: Patient is completely asymptomatic. Heart rate very well controlled on oral metoprolol. Simplify regimen to 50 mg twice daily. Continue Xarelto 20 mg at bedtime. 72 hour Holter monitor upon discharge from our office. She will follow-up with me in our office in the next 2-3 weeks. Will discuss cardioversion and or referral to electrophysiology for atrial flutter ablation considerations based on her preference is. We discussed his options at length once again. Discussed potential KATLIN guided cardioversion prior to discharge to restore sinus rhythm. Patient is doing very well and is comfortable with her current regimen and does not wish to proceed at this time but was willing to consider at some point in the future. CHADS2 Vasc score 3, systemic anticoagulation advised. Discussed balance of bleeding versus embolic stroke risk and the anticoagulation was in her favor in this regard. Caution to monitor for bleeding, ambulate with caution. Stable for discharge home to follow-up in the next 2-3 weeks as above. Disposition per hospitalist service. All questions answered to patient's satisfaction. She was very comfortable plan of care as outlined. Potential transient intermittent atrial fibrillation observed yet predominant underlying rhythm has been atrial flutter. Ambulate with caution to avoid risk for falls and bleeding. Monitor bright red blood per rectum, black tarry stools. Go to ER with falls and or head injury. (2) Hypertension: Qualifiers: Hypertension type: secondary to endocrine disorders Qualified Code(s): I15.2 - Hypertension secondary to endocrine disorders Code(s): I10 - Essential (primary) hypertension Status: Acute Assessment and Plan: Marginal control at this time. Continue current medical therapy. (3) Mixed hyperlipidemia due to type 2 diabetes mellitus: Code(s): E11.69 - Type 2 diabetes mellitus with other specified complication; E78.2 - Mixed hyperlipidemia Status: Acute Assessment and Plan: Continue atorvastatin. 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 (5) TREVOR (obstructive sleep apnea): Code(s): G47.33 - Obstructive sleep apnea (adult) (pediatric) Status: Acute Assessment and Plan: AHI on apnea link significantly elevated at 22 consistent with suspicion for clinically significant TREVOR. Outpatient sleep study referral advised. Discussed with patient. She agrees. Discussed potential contribution to recurrence of atrial flutter and/or atrial fibrillation. Subjective Date/time seen: Date of service: 07/26/21 10:35 Follow-up for atrial fibrillation with RVR Patient feels very well. No palpitation, dizziness, chest pain or shortness of breath. Apnea link performed overnight. Heart rate very well controlled in the 60s generally 1 occasion were heart rate increased to 130s early this morning with activity. Tolerating medications. She is still not particularly interested in proceeding with cardioversion at this time. Review of Systems Review of Systems: All systems reviewed & are unremarkable except as noted in HPI and below Constitutional: Constitutional: Reports as per HPI, Reports no additional constitutional complaints and Denies fatigue Eyes: Eyes: Reports as per HPI and Reports no additional
[2021-07-26 11:13] LABS: SARS-CoV-2 RNA PCR Negative
[2021-07-26 12:04] LABS: Glucose Point of Care 139 mg/dl (65-105)
--- NOTE | 2021-07-26 14:48 | PM.DS ---
DS: Admitting Diagnosis Discharge Date 07/27/2019 Admitting Diagnosis Atrial Flutter DS: Discharge Diagnosis Discharge Diagnosis (1) Atrial flutter with rapid ventricular response: Code(s): I48.92 - Unspecified atrial flutter Status: Acute Assessment and Plan: Diltiazem ggt stopped and patient rate controlled asymptomatic. Echo w/ EF 60-65% w/ elevated E/e' and abnormal diastolic function. TSH normal. 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 A1c was 5.7. (3) Hypertension: Qualifiers: Hypertension type: secondary to endocrine disorders Qualified Code(s): I15.2 - Hypertension secondary to endocrine disorders Code(s): I10 - Essential (primary) hypertension Status: Acute Assessment and Plan: Controlled. Amlodipine discontinued. Lisinopril and HCTZ continued for discharge. DS: Summary Hospital Course Hospital Course: 61F with a past medical history of mitral valve prolapse, HTN, DM, anxiety, and arthritis who presented to the ED due to a call back from the [employer] she sees for primary care. Patient was asymptomatic with no chest pain, shortness of breath, palpitations, lightheadedness, dizziness, syncopal episodes, or near syncopal episodes but had been checking her heart rate at home per the instruction of the [employer] P[employer] and it had been in the 130s for the past month. In the ED, the patient was found to be in atrial flutter. A diltiazem drip was started and responded well with rate control. Cardiology was consulted and started the patient on metoprolol plus xaralto. Patient was observed overnight on the metoprolol and had appropriate rate control, so patient was discharged with metoprolol 50 mg BID and rivaroxaban 20 mg qhs. Patient instructed to follow up with Cardiology outpatient. Time Spent with Patient Time attestation: Total time spent providing and/or coordinating discharge services: Exam Narrative: GENERAL: NAD, cooperative HEENT: Normocephalic, atraumatic, anicteric, nares clear, oropharynx moist and clear, poor dentition NECK: Supple CV: Rate regular no murmurs, rubs or gallops RESP: CTAB, Normal work of breathing. EXTREMITIES: Warm and well perfused, no clubbing, cyanosis, or edema. SKIN: warm, dry and intact. NEURO: CN 2-12 grossly intact. DS: Data Data Completed and Pending Labs on day of discharge: Labs from last 24 hours 07/26/21 07/26/21 07/26/21 11:50 10:27 08:23 WBC RBC Hgb Hct MCV MCH MCHC RDW Plt Count MPV Immature Gran % (Auto) Neut % (Auto) Lymph % (Auto) Keith % (Auto) Eos % (Auto) Baso % (Auto) Lymph # (Auto) Keith # (Auto) Eos # (Auto) Baso # (Auto) Abs Immat Gran (auto) Absolute Neuts (auto) Absolute Nucleated RBC Nucleated RBC % Sodium Potassium Chloride Carbon Dioxide Anion Gap BUN Creatinine Estim Creat Clear Calc Estimated GFR Glucose POC Capillary Glucose 139 H 142 H Hemoglobin A1c Calcium TSH SARS-CoV-2 RNA (RT-PCR) Negative 07/26/21 07/26/21 07/26/21 05:56 05:56 05:56 WBC 9.0 RBC 4.50 Hgb 13.6 Hct 41.9 MCV 93.1 MCH 30.2 MCHC 32.5 RDW 12.4 Plt Count 285 MPV 10.6 H Immature Gran % (Auto) 0.2 Neut % (Auto) 52.1 Lymph
== END 2021-07-26 15:10 | disposition home or self-care (01) ==
LOC: ANHED 15:08 → ANHIMU 17:32
PROVIDERS: Emergency Medicine; Nurse Practitioner Adult Health; Admitting Provider Internal Medicine; Emergency Provider Family Medicine; PCP Physician Assistant; Visit Provider Family Medicine
DX: I48.92 Unspecified atrial flutter (principal); I48.91 Unspecified atrial fibrillation; I10 Essential (primary) hypertension; I34.1 Nonrheumatic mitral (valve) prolapse; E11.9 Type 2 diabetes mellitus without complications; E78.2 Mixed hyperlipidemia; M19.90 Unspecified osteoarthritis, unspecified site; F41.9 Anxiety disorder, unspecified; Z20.822 Contact with and (suspected) exposure to COVID-19; Z87.891 Personal history of nicotine dependence; G47.33 Obstructive sleep apnea (adult) (pediatric); Z79.4 Long term (current) use of insulin; Z79.84 Long term (current) use of oral hypoglycemic drugs
CPT/HCPCS: 36415; 71046; 80048; 80053; 82948; 83036; 83690; 84443; 84484; 85025; 85610; 85730; 93005; 93306; 94762; 96372; 96374; 96376; 99285; A9270; C9803; G0378; J1650; J7030; U0003; U0005

== ENCOUNTER 2021-11-25 02:16 | Day surgery (SDC) | payer MEDICARE, MEDICAID, SELFPAY ==
[2021-11-15 15:07] VITALS: BMI 27.4
--- NOTE | 2021-11-22 10:08 | SUR.PREOP ---
Spoke with patient, Instructed to not take the magnesium citrate due to recall. Patient voiced understanding.
[2021-11-25 10:17] VITALS: BMI 24.5
[2021-11-25 10:23] VITALS: BP 130/85; PULSE 80; RESP 17; TEMP 36.6; O2SAT 100
[2021-11-25] MEDS: LACTATED RINGERS 1,000 ML 150 ML IV CONT (10:33)
[2021-11-25 10:35] LABS: Glucose Point of Care 117 mg/dl (65-105)
--- NOTE | 2021-11-25 10:54 | WPDANESEPPF ---
Anes - Initial Pre Proc Eval Procedure: Operation Date: 11/25/21 11:30 Proposed Procedures p Colonoscopy - Prateek Benjamin MD Date/Time: 11/25/21 10:54 Surgeon: Prateek Benjamin MD Pre Op Diagnosis: positive cologuard Patient Data Age: 61 Gender: F Height: 1.63 m Weight: 64.8 kg Last Vital Signs Temp 97.8 F 11/25/21 10:23 Pulse 80 11/25/21 10:23 Resp 17 11/25/21 10:23 BP 130/85 11/25/21 10:23 Pulse Ox 100 11/25/21 10:23 O2 Del Method Room Air 11/25/21 10:23 Allergies Allergy/AdvReac Type Severity Reaction Status Date / Time iodine Allergy Severe Anaphylaxis Verified 11/15/21 15:42 hydrocodone AdvReac Mild Nausea and Verified 11/15/21 15:42 Vomiting SHELL FISH Allergy Severe Anaphylaxis Uncoded 11/15/21 15:42 SHRIMP Allergy Severe Anaphylaxis Uncoded 11/15/21 15:42 CODEINE (Generic Allergy) AdvReac Mild Nausea and Uncoded 11/15/21 15:42 Vomiting Home Medications Medication Instructions Recorded Confirmed Type amitriptyline 25 mg tablet 25 mg PO BID 07/04/21 11/15/21 History atorvastatin 10 mg tablet 10 mg PO DAILY 07/04/21 11/15/21 History cyclobenzaprine 10 mg tablet 10 mg PO TID 07/04/21 11/15/21 History empagliflozin 10 mg tablet 10 mg PO DAILY 07/04/21 11/15/21 History (Jardiance) folic acid 1 mg tablet 1 mg PO DAILY 07/04/21 11/15/21 History hydrochlorothiazide 25 mg tablet 25 mg PO DAILY 07/04/21 11/15/21 History lisinopril 40 mg tablet 40 mg PO DAILY 07/04/21 11/15/21 History meloxicam 15 mg tablet 15 mg PO DAILY 07/04/21 11/15/21 History metformin 1,000 mg tablet 1,000 mg PO BID 07/04/21 11/15/21 History pantoprazole 40 mg tablet,delayed 40 mg PO BID 07/04/21 11/15/21 History release metoprolol tartrate 50 mg tablet 50 mg PO BID #60 tabs 07/26/21 11/15/21 Rx rivaroxaban 20 mg tablet (Xarelto) 20 mg PO DAILY@1700 #30 tabs 07/26/21 11/15/21 Rx oxybutynin chloride 5 mg 5 mg PO DAILY 11/15/21 11/15/21 History tablet,extended release 24 hr Laboratory Tests 11/25/21 10:32 POC Capillary Glucose 117 mg/dl H mg/dl (65-105) Patient hx anesthesia problems: none Family hx anesthesia problems: none Results Review: All pre-operative results and documents have been reviewed as part of the pre-operative evaluation. [facility] Past Medical History Medical History Allergies Anxiety Arthritis Diabetes Hypertension Positive colorectal cancer screening using Cologuard test Family History Family History Sibling Cerebrovascular accident Mother Cerebrovascular accident Father Diabetes mellitus Father Hypertension Social History Social History Smoking packs per day: 2 Smoking cigarettes per day: 40.0 Years smoked: 20 Smoking pack-years: 40.00 Smoking status: Former smoker Tobacco type: cigarettes Second hand tobacco smoke exposure: Yes Smoking end date: 07/24/21 Alcohol intake: current Drinks per week: 12 Substance use: current Substance use type: marijuana Other substance usage details: COUPLE TIMES A WEEK Living arrangements: with family Spiritual care concerns: No Anes - Eval Final PreProcedure Day of Procedure 11/25/21 10:54 Patient weight: normal Heart: regular rate and rhythm Lungs: clear to auscultation Airway: Mallampati scale class II Neurological: alert and oriented Last oral intake: >/= 8 hours ASA classification: III Emergent: no Anesthetic plan: proceed Anesthesia type and monitoring: general GIVS and standard monitoring Results Review: All pre-operative results and documents have been reviewed as part of the pre-operative evaluation. Informed Consent: The patient's anesthetic plan and its attendant risks and benefits were discussed with the patient/family/POA. Questions were solicited and answ
--- NOTE | 2021-11-25 10:54 | PM.HPGS ---
History of Present Illness History of Present Illness Consent: Risks, benefits, and alternatives have been discussed and questions answered. Patient agrees to proceed with procedure. Chief complaint: positive cologuard Narrative: Katherine Beckett is a 61 year old female here for first colonoscopy, had + cologuard Review of Systems Constitutional: Constitutional: Denies headache(s) and Denies weakness Eyes: Eyes: Denies blurry vision ENT: Reports Normal hearing present, Denies headache(s) and Denies neck pain Cardiovascular: Cardiovascular: Denies chest pain and Denies dyspnea Respiratory: Respiratory: Denies dyspnea Gastrointestinal: Gastrointestinal: Reports no additional gastrointestinal complaints Genitourinary: Genitourinary: Denies dysuria Musculoskeletal: Musculoskeletal: Denies neck pain Integumentary/Breasts: Skin/Breast: Denies dry skin Neurologic: Reports Normal hearing present, Denies headache(s) and Denies weakness Psychiatric: Psychiatric: Denies anxiety Endocrine: Endocrine: Denies change in body appearance Hematologic/Lymphatic: Hematologic/Lymphatic: Denies easy bleeding Allergic/Immunologic: Allergic/Immunologic: Denies urticaria PMFSH Past Medical History Medical History Allergies Anxiety Arthritis Diabetes Hypertension Positive colorectal cancer screening using Cologuard test Family History Family History Sibling Cerebrovascular accident Mother Cerebrovascular accident Father Diabetes mellitus Father Hypertension Social History Social History Smoking packs per day: 2 Smoking cigarettes per day: 40.0 Years smoked: 20 Smoking pack-years: 40.00 Smoking status: Former smoker Tobacco type: cigarettes Second hand tobacco smoke exposure: Yes Smoking end date: 07/24/21 Alcohol intake: current Drinks per week: 12 Substance use: current Substance use type: marijuana Other substance usage details: COUPLE TIMES A WEEK Living arrangements: with family Spiritual care concerns: No Meds Home Medications and Allergies Home Medications Medication Instructions Recorded Confirmed Type amitriptyline 25 mg tablet 25 mg PO BID 07/04/21 11/15/21 History atorvastatin 10 mg tablet 10 mg PO DAILY 07/04/21 11/15/21 History cyclobenzaprine 10 mg tablet 10 mg PO TID 07/04/21 11/15/21 History empagliflozin 10 mg tablet 10 mg PO DAILY 07/04/21 11/15/21 History (Jardiance) folic acid 1 mg tablet 1 mg PO DAILY 07/04/21 11/15/21 History hydrochlorothiazide 25 mg tablet 25 mg PO DAILY 07/04/21 11/15/21 History lisinopril 40 mg tablet 40 mg PO DAILY 07/04/21 11/15/21 History meloxicam 15 mg tablet 15 mg PO DAILY 07/04/21 11/15/21 History metformin 1,000 mg tablet 1,000 mg PO BID 07/04/21 11/15/21 History pantoprazole 40 mg tablet,delayed 40 mg PO BID 07/04/21 11/15/21 History release metoprolol tartrate 50 mg tablet 50 mg PO BID #60 tabs 07/26/21 11/15/21 Rx rivaroxaban 20 mg tablet (Xarelto) 20 mg PO DAILY@1700 #30 tabs 07/26/21 11/15/21 Rx oxybutynin chloride 5 mg 5 mg PO DAILY 11/15/21 11/15/21 History tablet,extended release 24 hr Allergies Allergy/AdvReac Type Severity Reaction Status Date / Time iodine Allergy Severe Anaphylaxis Verified 11/15/21 15:42 hydrocodone AdvReac Mild Nausea and Verified 11/15/21 15:42 Vomiting SHELL FISH Allergy Severe Anaphylaxis Uncoded 11/15/21 15:42 SHRIMP Allergy Severe Anaphylaxis Uncoded 11/15/21 15:42 CODEINE (Generic Allergy) AdvReac Mild Nausea and Uncoded 11/15/21 15:42 Vomiting Vital Signs Vital Signs - 24 hr 11/25/21 10:23 Temperature 97.8 F Pulse Rate 80 Respiratory Rate 17 Blood Pressure 130/85 Pulse Oximetry 100 Oxygen Delivery Room Air Exam Const: General: comfortable and no acute distress HENMT: General
[2021-11-25 11:21] VITALS: BP 104/68; PULSE 104; RESP 14; O2SAT 100
[2021-11-25 11:31] VITALS: BP 102/66; PULSE 94; RESP 14; O2SAT 100
[2021-11-25 11:41] VITALS: BP 123/75; PULSE 94; RESP 14; O2SAT 98
== END 2021-11-25 11:57 | disposition home or self-care (01) ==
PROVIDERS: PCP Physician Assistant; Visit Provider Internal Medicine Gastroenterology
PROC: 0DJD8ZZ Inspection of Lower Intestinal Tract, Via Natural or Artificial Opening Endoscopic (ICD-10-PCS; CPT 45378; principal; 2021-11-25 11:30)
DX: R19.5 Other fecal abnormalities (principal); D12.2 Benign neoplasm of ascending colon; K63.5 Polyp of colon; K64.8 Other hemorrhoids; K64.4 Residual hemorrhoidal skin tags; F41.9 Anxiety disorder, unspecified; M19.90 Unspecified osteoarthritis, unspecified site; E11.9 Type 2 diabetes mellitus without complications; I10 Essential (primary) hypertension; Z87.891 Personal history of nicotine dependence; F12.90 Cannabis use, unspecified, uncomplicated; Z79.01 Long term (current) use of anticoagulants; Z79.84 Long term (current) use of oral hypoglycemic drugs
CPT/HCPCS: 45380; 82948; 88305; J2704; J7120

== ENCOUNTER 2022-05-14 09:46 | Outpatient (CLI) | payer MEDICARE, MEDICAID, SELFPAY ==
--- NOTE | ~2022-05-14 | MM_ITS ---
EXAMINATION: MM screening kemi BI w danita HISTORY: Screening mammogram TECHNIQUE: Craniocaudal and mediolateral oblique 3-D tomosynthesis images were obtained and synthetic 2-D images were generated. CAD analysis was submitted and interpreted. COMPARISON: 12/05/2020, 11/02/2020 BREAST PARENCHYMAL COMPOSITION: The breasts are heterogeneously dense, which may obscure small masses . FINDINGS: No suspicious mass, calcification, or architectural distortion are identified in either zhang ast to suggest malignancy. There has been no suspicious interval change. IMPRESSION: 1. No mammographic evidence of malignancy. 2. Recommend routine screening mammography in one year. BI-RADS Category 1: Negative Reviewed, dictated and finalized at location A. [employer]
== END 2022-05-14 09:47 | disposition home or self-care (01) ==
LOC: ANHIMG 09:48
PROVIDERS: PCP Physician Assistant; Visit Provider Physician Assistant
DX: Z12.31 Encounter for screening mammogram for malignant neoplasm of breast (principal)
CPT/HCPCS: 77063; 77067

== ENCOUNTER 2022-10-22 10:46 | Outpatient (CLI) | payer MEDICARE, SELFPAY ==
[2022-10-22 11:34] LABS: Basophils Percent Auto 0.7 % (0.2-1.2); Eosinophils Absolute Auto 0.2 K/mm3 (0-0.3); Eosinophils Percent Auto 2.7 % (0-4.4); Hematocrit 32.8 % (37.0-47.0); Hemoglobin 10.7 g/dL (12.0-15.0); Immature Granulocyte Absolute 0.01 K/mm3 (0.00-0.031); Immature Granulocyte Percent A 0.2 % (0-0.5); Lymphocytes Absolute Auto 1.55 K/mm3 (0.9-3.2); Lymphocytes Percent Auto 27.5 % (18.3-44.2); Mean Corpuscular HGB Conc 32.6 g/dl (32-36); Mean Corpuscular Hemoglobin 30.1 pg (26-34); Mean Corpuscular Volume 92.1 fl (80-100); Mean Platelet Volume 11.2 fl (7.4-10.4); Monocytes Absolute Auto 0.6 K/mm3 (0.1-0.6); Monocytes Percent Auto 9.8 % (2.6-8.5); Neutrophils Absolute Auto 3.3 K/mm3 (1.3-6.7); Neutrophils Percent Auto 59.1 % (45.5-73.1); Platelet Count Result 226 k/mm3 (150-375); Red Blood Count 3.56 M/mm3 (4.2-5.4); Red Cell Distribution Width 13.2 % (11.5-14.5); White Blood Count 5.6 K/mm3 (4.5-10.0)
[2022-10-22 11:44] LABS: Alanine Aminotransferase 33 U/L (6-35); Albumin Level 4.2 g/dL (3.5-5.1); Alkaline Phosphatase 92 U/L (38-126); Anion Gap 7 mmol/L (8-16); Aspartate Amino Transferase 24 U/L (14-36); Bilirubin,Total 0.7 mg/dL (0.2-1.3); Blood Urea Nitrogen 20 mg/dL (7-17); Carbon Dioxide 28 mmol/L (22-30); Chloride 100 mmol/L (98-107); Estimated Glomerular Filt Rate 50; Glucose 150 mg/dL (65-110); Magnesium 1.7 mg/dL (1.6-2.3); Sodium 135 mmol/L (137-145)
== END 2022-10-22 10:47 | disposition home or self-care (01) ==
PROVIDERS: PCP Physician Assistant; Visit Provider Internal Medicine Cardiovascular Disease
DX: I49.5 Sick sinus syndrome (principal); R00.1 Bradycardia, unspecified; I48.0 Paroxysmal atrial fibrillation
CPT/HCPCS: 36415; 80053; 83735; 84443; 85025

== ENCOUNTER 2022-10-23 09:07 | Inpatient (IN) | payer MEDICARE, MEDICAID, SELFPAY ==
[2022-10-23] VITALS (17 sets, daily range): BP systolic 158–203; BP diastolic 56–97; PULSE 38–73; RESP 12–20; TEMP 36.2–37.3; O2SAT 95–100; BMI 23.6
--- NOTE | ~2022-10-23 | XR_ITS ---
EXAMINATION: XR chest 1V portable DATE: 10/27/2022 10:19 INDICATION: Pacer placement. TECHNIQUE: A single frontal view of the chest was obtained. COMPARISON: Chest single view 10/23/2022 FINDINGS: There is mild atelectasis in right lower lung zone. No pleural effusion or pneumothorax. Th e heart size is normal. There is a left chest wall pacer with leads in the right atrium and right sindy tricle. IMPRESSION: 1. Mild atelectasis in right lower lung zone. Reviewed, dictated and finalized at location A.
--- NOTE | ~2022-10-23 | XR_ITS ---
EXAMINATION: XR chest 1V portable INDICATION: Irregular heartbeat TECHNIQUE: Portable AP chest at 0944 hours COMPARISON: 07/24/2021 FINDINGS: The heart size is limits of normal for technique. No pleural effusion or pneumothorax. The lungs are free of acute opacities. An electronic device projects over the left upper chest. IMPRESSION: 1. No acute cardiopulmonary abnormality. Reviewed, dictated and finalized at location L.
--- NOTE | ~2022-10-23 | XR_ITS ---
EXAMINATION: XR chest 2V DATE: 10/28/2022 10:09 INDICATION: Pacemaker insertion TECHNIQUE: AP and lateral views of the chest are obtained. COMPARISON: 10/27/2022 FINDINGS: The lungs are free of acute opacities. No pleural effusion or pneumothorax. The cardiomedia stinal silhouette is normal. There is moderate thoracic spondylosis. A dual-lead cardiac pacemaker of the left chest wall ends with leads in expected locations. IMPRESSION: 1. No acute cardiopulmonary abnormality. Reviewed, dictated and finalized at location A.
--- NOTE | 2022-10-23 09:09 | ECG_ITS ---
Measurements Intervals [place] Rate: 57 P: MT: 0 QRS: -11 QRSD: 105 T: 107 QT: 485 QTc: 476 Interpretive Statements SINUS RHYTHM WITH HIGH GRADE AV BLOCK ST DEVIATION AND MODERATE T-WAVE ABNORMALITY, CONSIDER LATERAL ISCHEMIA [-0.1+ mV T- WAVE IN I/aVL/V5/V6] CRITICAL TEST RESULT COMPARED TO ECG 07/25/2021 10:02:44 HIGH GRADE AV BLOCK NOW PRESENT Electronically Signed On 10-23-2022 11:47:33 CDT by Mandy Barahona M.D.
--- NOTE | 2022-10-23 09:13 | ED.ARRPALP ---
HPI - Arrhythmia/Palpitations General Chief Complaint: Arrhythmia/Palpitations <FRANK Mcgowan Last Filed: 10/23/22 16:10> Stated Complaint: irregular reading on heart monitor <FRANK Mcgowan Last Filed: 10/23/22 16:10> Time Seen by Provider: 10/23/22 09:10 <RFANK Mcgowan Last Filed: 10/23/22 16:10> Source: patient and old records reviewed <FRANK Mcgowan Last Filed: 10/23/22 16:10> Mode of arrival: ambulatory <FRANK Mcgowan Last Filed: 10/23/22 16:10> Limitations: no limitations <FRANK Mcgowan Last Filed: 10/23/22 16:10> History of Present Illness HPI narrative: Patient is a 62 y/o female, with PMH of AFIB on Xarelto, who presents to the ED with c/o abnormal reading on her Holter monitor. Patient reports she has been having intermittent/positional dizziness/lightheadedness and a slow heart rate for the last several weeks. She was seen in the office by Dr. Dudley yesterday and taken off of her metoprolol and had a Holter monitor placed. Patient received a phone call from Dr. Dudley this morning stating that he saw abnormal prolonged pauses on her monitor overnight. He advised her to come into the ED. Patient does c/o dizziness currently, denies any further symptoms. She denies feeling any palpitations. She denies any chest pain, no shortness of breath, lower extremity pain or swelling. Denies any nausea, vomiting, vision changes, headache. <FRANK Mcgowan Last Filed: 10/23/22 16:10> Related Data Home Medications: Home Medications Medication Instructions Recorded Confirmed amitriptyline 25 mg tablet 25 mg PO BID 07/04/21 10/23/22 folic acid 1 mg tablet 1 mg PO DAILY 07/04/21 10/23/22 lisinopril 40 mg tablet 40 mg PO DAILY 07/04/21 10/23/22 metformin 1,000 mg tablet 1,000 mg PO BID 07/04/21 10/23/22 pantoprazole 40 mg tablet,delayed 40 mg PO BID 07/04/21 10/23/22 release oxybutynin chloride 5 mg 5 mg PO DAILY 11/15/21 10/23/22 tablet,extended release 24 hr atorvastatin 20 mg tablet 20 mg PO HS 10/23/22 10/23/22 tizanidine 4 mg tablet 4 mg PO Q6H PRN Muscle Spasms 10/23/22 10/23/22 <Giovanna Castillo PA-C - Last Filed: 10/23/22 16:10> Allergies/Adverse Reactions: Allergies Allergy/AdvReac Type Severity Reaction Status Date / Time iodine Allergy Severe Anaphylaxis Verified 10/23/22 09:21 hydrocodone AdvReac Mild Nausea and Verified 10/23/22 12:16 Vomiting SHELL FISH Allergy Severe Anaphylaxis Uncoded 10/23/22 09:21 SHRIMP Allergy Severe Anaphylaxis Uncoded 10/23/22 09:21 CODEINE (Generic Allergy) AdvReac Mild Hives Uncoded 10/23/22 12:16 <Giovanna Castillo PA-C - Last Filed: 10/23/22 16:10> Review of Systems Review of Systems: CONSTITUTIONAL: Denies fever, chills, or sweats. EYES: Denies visual changes. CARDIOVASCULAR: See HPI. RESPIRATORY: Denies cough or dyspnea. GASTROINTESTINAL: Denies abdominal pain, nausea, vomiting. MUSCULOSKELETAL: Denies back pain, joint pain, or myalgia. NEUROLOGIC: See HPI. <Giovanna Castillo PA-C - Last Filed: 10/23/22 16:10> All systems reviewed & are unremarkable except as noted in HPI and below <Giovanna Castillo PA-C - Last Filed: 10/23/22 16:10> [facility] Past Medical History Medical History: Medical History Allergies Anxiety Arthritis Diabetes Hypertension Positive colorectal cancer screening using Cologuard test <Giovanna Castillo PA-C - Last Filed: 10/23/22 16:10> Family History Family History: Family History Sibling Cerebrovascular accident Mother Cerebrovascular accident Father Diabetes mellitus Acute myocardial infarction Father Hypertension <Giovanna Castillo PA-C - Last Filed: 10/23/22 16:10> Social History Social History: Social History
[2022-10-23] MEDS: ASPIRIN 81 MG CHEWABLE TABLET 324 MG PO (09:24)
[2022-10-23] MEDS: hydrALAZINE HCL 20 MG/ML VIAL 10 MG IV PUSH (09:45)
[2022-10-23] MEDS: ATROPINE SULFATE 1 MG/10 ML SYRINGE (09:46)
[2022-10-23 10:10] LABS: Basophils Absolute Auto 0.1 K/mm3 (0.0-0.1); Eosinophils Absolute Auto 0.1 K/mm3 (0-0.3); Eosinophils Percent Auto 2.6 % (0-4.4); Hematocrit 33.6 % (37.0-47.0); Hemoglobin 10.8 g/dL (12.0-15.0); Immature Granulocyte Absolute 0.01 K/mm3 (0.00-0.031); Immature Granulocyte Percent A 0.2 % (0-0.5); Lymphocytes Absolute Auto 1.44 K/mm3 (0.9-3.2); Lymphocytes Percent Auto 28.7 % (18.3-44.2); Mean Corpuscular HGB Conc 32.1 g/dl (32-36); Mean Corpuscular Hemoglobin 29.9 pg (26-34); Mean Corpuscular Volume 93.1 fl (80-100); Mean Platelet Volume 11.2 fl (7.4-10.4); Monocytes Absolute Auto 0.4 K/mm3 (0.1-0.6); Monocytes Percent Auto 8.4 % (2.6-8.5); Neutrophils Percent Auto 59.1 % (45.5-73.1); Platelet Count Result 197 k/mm3 (150-375); Red Blood Count 3.61 M/mm3 (4.2-5.4); Red Cell Distribution Width 13.4 % (11.5-14.5)
[2022-10-23 10:23] LABS: Magnesium 1.8 mg/dL (1.6-2.3)
[2022-10-23 10:24] LABS: Alanine Aminotransferase 33 U/L (6-35); Albumin Level 4.6 g/dL (3.5-5.1); Alkaline Phosphatase 99 U/L (38-126); Anion Gap 9 mmol/L (8-16); Aspartate Amino Transferase 26 U/L (14-36); Bilirubin,Total 0.8 mg/dL (0.2-1.3); Blood Urea Nitrogen 23 mg/dL (7-17); Calcium 9.5 mg/dL (8.4-10.2); Carbon Dioxide 25 mmol/L (22-30); Chloride 104 mmol/L (98-107); Estimated CRCL calculation 41 ml/min; Estimated Glomerular Filt Rate 50; Glucose 143 mg/dL (65-110); Lipase 103 U/L (23-300); Potassium 3.7 mmol/L (3.4-5.0); Sodium 138 mmol/L (137-145)
--- NOTE | 2022-10-23 10:25 | ECG_ITS ---
Measurements Intervals [place] Rate: 58 P: CT: 0 QRS: 3 QRSD: 99 T: 100 QT: 468 QTc: 461 Interpretive Statements SINUS BRADYCARDIA WITH HIGH GRADE AV BLOCK ST DEVIATION AND MODERATE T-WAVE ABNORMALITY, CONSIDER LATERAL ISCHEMIA [-0.1+ mV T- WAVE IN I/aVL/V5/V6] COMPARED TO ECG 10/23/2022 09:16:23 NO SIGNIFICANT CHANGES Electronically Signed On 10-23-2022 11:51:04 CDT by Mandy Barahona M.D.
[2022-10-23 10:27] LABS: INR 2.7; Partial Thromboplastin Time 40.5 SECONDS (22.3-36.8); Prothrombin Time 30.9 Seconds (11.1-14.7)
[2022-10-23 10:36] LABS: Troponin I 0.019 ng/mL (0.000-0.034)
[2022-10-23 11:33] LABS: Glucose Point of Care 116 mg/dl (65-105)
--- NOTE | 2022-10-23 11:56 | ADMGEN ---
This patient, Katherine Beckett, was admitted to IMU Room 209-01. Patient/family oriented to hospital policies and general routines including ID bracelet, bed and alarms, visiting hours, pain management, procedures, bathroom and other care routines, personal items, smoking policy, room service/diet, and visiting hours. Information on how to activate the Rapid Response Team has been discussed. Patient/Family are encouraged to report perceived risks to care and to ask questions if they do not understand what they are told or what they should do.
[2022-10-23 13:12] LABS: Troponin I 0.023 ng/mL (0.000-0.034)
--- NOTE | 2022-10-23 14:44 | PM.IMHP ---
H&P: HPI History of Present Illness Date/Time: 10/23/22 14:44 Chief Complaint: Arrhythmia with palpitations. Narrative: This is a 62-year-old female patient who has a history of atrial fibrillation and is on Xarelto. The patient lost Abhijeet Xarelto yesterday at 5:00 p.m. is with the patient told me. The patient stated that she would has been having some postural dizziness lightheadedness and a slow heart rate for the last several weeks. The patient was seen by Dr. Dudley in his office yesterday. At Holter monitor was placed on the patient she was taken off of her metoprolol. However the patient was called by Dr. Dudley this morning was told that she was having several pauses on her monitor overnight. The patient was advice to come to the emergency room. Cardiology had been consulted. The patient stated that she has been holding her metoprolol. The patient was given aspirin, Apresoline, atropine, prednisone, Benadryl, and Tylenol. The patient is being admitted to inpatient status on the date of service of 10/23/2022 Review of Systems Review of Systems: All systems reviewed & are unremarkable except as noted in HPI and below Constitutional: Constitutional: Reports as per HPI and Reports no additional constitutional complaints Eyes: Eyes: Reports as per HPI and Reports no additional eye complaints ENT: Reports system reviewed and no additional complaints, except as documented and Reports Normal hearing present Cardiovascular: Cardiovascular: Reports no additional cardiovascular complaints Respiratory: Respiratory: Reports no additional respiratory complaints and Reports no additional respiratory complaints Gastrointestinal: Gastrointestinal: Reports as per HPI and Reports no additional gastrointestinal complaints Musculoskeletal: Musculoskeletal: Reports no additional musculoskeletal complaints Integumentary/Breasts: Skin/Breast: Reports system reviewed and no additional complaints, except as docu and Reports as per HPI Neurologic: Reports system reviewed and no additional complaints, except as documented, Reports as per HPI and Reports Normal hearing present Psychiatric: Psychiatric: Reports no additional psychiatric complaints and Reports as per HPI Endocrine: Endocrine: Reports no additional endocrine complaints Hematologic/Lymphatic: Hematologic/Lymphatic: Reports no additional hematologic/lymphatic complaints Allergic/Immunologic: Allergic/Immunologic: Reports no additional allergic/immunologic complaints [facility] Past Medical History Medical History (Updated 10/23/22 @ 22:22 by Angie Pedro NP) Allergies Anxiety Arthritis Asthma Depression Diabetes Hypertension Mitral valve prolapse Positive colorectal cancer screening using Cologuard test Surgical History Surgical History (Updated 10/23/22 @ 22:22 by Angie Pedro NP) H/O section times three H/O tubal ligation Hx of cholecystectomy Family History Family History Sibling Cerebrovascular accident Mother Cerebrovascular accident Father Diabetes mellitus Acute myocardial infarction Father Hypertension Social History Social History (Updated 10/23/22 @ 22:23 by Angie Pedro NP) Social History: The patient lives with her sister and has 3 children. She is . She is not working. She is a former smoker. She does not have a durable power city attorney for healthcare. Code status full code Smoking packs per day: 2 Smoking cigarettes per day: 40.0 Years smoked: 20 Smoking pack-years: 40.00 Smoking status: Former smoker Tobacco type: cigars Second hand tobacco smoke exposure: No Smoking end date: 07/24/21 Alcohol intake: current Drinks per week: 6 Substance use: never Substance use type: marijuana Other substance usage details: COUPLE TIMES A WEEK Lack of Transportation: No Lack of Food: Sometimes True Current Housing: I Have Ho
--- NOTE | 2022-10-23 15:32 | PM.CNCAR ---
Assessment and Plan Assessment and plan (1) Sinus node dysfunction: Code(s): I49.5 - Sick sinus syndrome Status: Acute (2) Tachy-jovita syndrome: Code(s): I49.5 - Sick sinus syndrome Status: Acute (3) Hypertension: Qualifiers: Hypertension type: secondary to endocrine disorders Qualified Code(s): I15.2 - Hypertension secondary to endocrine disorders Code(s): I10 - Essential (primary) hypertension Status: Acute Plan Patient clearly has evidence of sinus node dysfunction, and in setting of known paroxysmal atrial flutter, concern for tachybrady syndrome. I think she would benefit from a pacemaker. Avoid all AV love blocking agents for now. Hold Xarelto in preparation for pacemaker implantation. Will plan for permanent pacemaker placement on 10/[address] Hansen. Patient has iodine allergy -- will premedicate with prednisone 50mg 13 hours, 7 hours, and 1 hour prior to procedure along with Benadryl 50mg 1 hour prior to procedure. As for hypertension, uncontrolled. Resume home Lisinopril. Will add in PRN Hydralazine. If patient needs additional blood pressure control, consider Amlodipine. History of Present Illness History of Present Illness Consult date/time: 10/23/22 15:32 Requesting physician: Giovanna Castillo PA-C Consult reason: Other (Bradycardia) Reason For Visit: Symptomatic bradycardia, abnormarl Holter monitor Narrative: We are consulted for bradycardia. This is a patient with atrial flutter on Metoprolol and Xarelto who has been feeling episodes of lightheadedness for the past few weeks. Saw Dr. Dudley in clinic yesterday where EKG showed junctional escape with competing sinus bradycardia with first-degree AVB. Patient instructed to stop her Metoprolol and HCTZ. A 7 day monitor was placed. Overnight, the monitor showed a junctional rate with HR as low as 20s-30s, along with a 3.9 second pause, 6.9 second pause, and 5 second pause. Patient was then instructed to come to the ER given concerning findings. EKGs in the ER show sinus bradycardia with intermittent junctional beats with concern for possible high grade AVB. No evidence of complete heart block. Review of Systems Review of Systems: All systems reviewed & are unremarkable except as noted in HPI and below (HPI) [facility] Past Medical History Medical History Allergies Anxiety Arthritis Diabetes Hypertension Positive colorectal cancer screening using Cologuard test Family History Family History Sibling Cerebrovascular accident Mother Cerebrovascular accident Father Diabetes mellitus Acute myocardial infarction Father Hypertension Social History Social History Smoking packs per day: 2 Smoking cigarettes per day: 40.0 Years smoked: 20 Smoking pack-years: 40.00 Smoking status: Former smoker Tobacco type: cigars Second hand tobacco smoke exposure: No Smoking end date: 07/24/21 Alcohol intake: current Drinks per week: 6 Substance use: never Substance use type: marijuana Other substance usage details: COUPLE TIMES A WEEK Lack of Transportation: No Lack of Food: Sometimes True Current Housing: I Have Housing Concerned About Future Housing: No Difficulty Paying Gas/Electric Bills: No Difficulty Paying for Meds: No Currently Unemployed: No Education: High School Diploma/GED Difficulty w/ Childcare or Family Care: No Living arrangements: with family Spiritual care concerns: No Meds Home Medications and Allergies Home Medications Medication Instructions Recorded Confirmed Type amitriptyline 25 mg tablet 25 mg PO BID 07/04/21 10/23/22 History folic acid 1 mg tablet 1 mg PO DAILY 07/04/21 10/23/22 History lisinopril 40 mg tablet 40 mg PO DAILY 07/04/21 10/23/22 History metformin 1,000 mg tabl
[2022-10-23 15:38] LABS: Troponin I 0.026 ng/mL (0.000-0.034)
[2022-10-23] MEDS: hydrALAZINE HCL 25 MG TABLET PO ×2 (16:44→22:38)
[2022-10-23] MEDS: ACETAMINOPHEN 325 MG TABLET 650 MG PO ×2 (17:59→22:38)
[2022-10-23] MEDS: AMITRIPTYLINE HCL 25 MG TABLET PO (22:39)
[2022-10-23] MEDS: TIZANIDINE HCL 4 MG TABLET PO (22:39)
[2022-10-23] MEDS: ATORVASTATIN 20 MG TABLET PO (22:39)
[2022-10-24] VITALS (18 sets, daily range): BP systolic 137–204; BP diastolic 59–93; PULSE 37–133; RESP 18–20; TEMP 35.7–37.3; O2SAT 96–100
[2022-10-24 04:52] LABS: Basophils Absolute Auto 0.1 K/mm3 (0.0-0.1); Basophils Percent Auto 0.9 % (0.2-1.2); Eosinophils Absolute Auto 0.2 K/mm3 (0-0.3); Eosinophils Percent Auto 3.6 % (0-4.4); Hematocrit 34.6 % (37.0-47.0); Hemoglobin 11.2 g/dL (12.0-15.0); Lymphocytes Absolute Auto 1.79 K/mm3 (0.9-3.2); Lymphocytes Percent Auto 33.5 % (18.3-44.2); Mean Corpuscular HGB Conc 32.4 g/dl (32-36); Mean Corpuscular Hemoglobin 30.1 pg (26-34); Mean Platelet Volume 11.2 fl (7.4-10.4); Monocytes Absolute Auto 0.5 K/mm3 (0.1-0.6); Monocytes Percent Auto 9.9 % (2.6-8.5); Neutrophils Absolute Auto 2.8 K/mm3 (1.3-6.7); Neutrophils Percent Auto 52.1 % (45.5-73.1); Platelet Count Result 198 k/mm3 (150-375); Red Blood Count 3.72 M/mm3 (4.2-5.4); Red Cell Distribution Width 13.4 % (11.5-14.5); White Blood Count 5.3 K/mm3 (4.5-10.0)
[2022-10-24 05:01] LABS: Alanine Aminotransferase 33 U/L (6-35); Albumin Level 4.2 g/dL (3.5-5.1); Alkaline Phosphatase 86 U/L (38-126); Anion Gap 7 mmol/L (8-16); Aspartate Amino Transferase 33 U/L (14-36); Bilirubin,Total 1.2 mg/dL (0.2-1.3); Blood Urea Nitrogen 19 mg/dL (7-17); Calcium 9.3 mg/dL (8.4-10.2); Carbon Dioxide 26 mmol/L (22-30); Chloride 106 mmol/L (98-107); Estimated CRCL calculation 50 ml/min; Estimated Glomerular Filt Rate > 60; Glucose 125 mg/dL (65-110); Magnesium 1.9 mg/dL (1.6-2.3); Potassium 3.8 mmol/L (3.4-5.0); Sodium 139 mmol/L (137-145)
[2022-10-24 05:32] LABS: Hemoglobin A1C 6.1 % (<5.7)
[2022-10-24 07:57] LABS: Glucose Point of Care 138 mg/dl (65-105)
[2022-10-24] MEDS: AMITRIPTYLINE HCL 25 MG TABLET PO ×2 (09:37→20:08)
[2022-10-24] MEDS: FOLIC ACID 1 MG TABLET PO (09:37)
[2022-10-24] MEDS: lisinopriL 20 MG TABLET 40 MG PO (09:37)
[2022-10-24] MEDS: PANTOPRAZOLE 40 MG TABLET PO ×2 (09:38→17:17)
[2022-10-24] MEDS: oxyBUTYnin CHLORIDE XL 5 MG TAB.ER.24 PO (09:38)
[2022-10-24] MEDS: ACETAMINOPHEN 325 MG TABLET 650 MG PO ×2 (09:52→20:07)
[2022-10-24 11:56] LABS: Glucose Point of Care 143 mg/dl (65-105)
--- NOTE | 2022-10-24 12:15 | PM.IMPN ---
Progress Note: A&P Assessment and Plan (1) Sinus node dysfunction: Code(s): I49.5 - Sick sinus syndrome Status: Acute (2) Mixed hyperlipidemia due to type 2 diabetes mellitus: Code(s): E11.69 - Type 2 diabetes mellitus with other specified complication; E78.2 - Mixed hyperlipidemia Status: Acute Assessment and Plan: Do (3) Tachy-jovita syndrome: Code(s): I49.5 - Sick sinus syndrome Status: Acute Assessment and Plan: A (4) Asthma: Code(s): J45.909 - Unspecified asthma, uncomplicated Status: Acute Assessment and Plan: P.r.n. albuterol (5) Abnormal Holter monitor finding: Code(s): R94.31 - Abnormal electrocardiogram [ECG] [EKG] Status: Acute Assessment and Plan: Please refer to cardiology notes. Patient clearly has evidence of sinus node dysfunction, and in setting of known paroxysmal atrial flutter, concern for tachybrady syndrome. I think she would benefit from a pacemaker. Avoid all AV love blocking agents for now. Hold Xarelto in preparation for pacemaker implantation. Will plan for permanent pacemaker placement on 10/[address] Hansen. Patient has iodine allergy -- will premedicate with prednisone 50mg 13 hours, 7 hours, and 1 hour prior to procedure along with Benadryl 50mg 1 hour prior to procedure. (6) Elevated blood pressure reading with diagnosis of hypertension: Code(s): I10 - Essential (primary) hypertension Status: Acute Assessment and Plan: P.r.n. hydralazine (7) TREVOR (obstructive sleep apnea): Code(s): G47.33 - Obstructive sleep apnea (adult) (pediatric) Status: Acute Assessment and Plan: Continue with home CPAP (8) Diabetes: Qualifiers: Diabetes mellitus type: type 2 Diabetes mellitus longterm insulin use: with longterm use Diabetes mellitus complication status: with other specified complication Qualified Code(s): E11.69 - Type 2 diabetes mellitus with other specified complication; Z79.4 - skilled nursing (current) use of insulin Code(s): E11.9 - Type 2 diabetes mellitus without complications Status: Acute Assessment and Plan: Accu-Cheks AC and HS with sliding scale insulin. Hold metformin. And check A1c (9) Hypertension: Qualifiers: Hypertension type: secondary to endocrine disorders Qualified Code(s): I15.2 - Hypertension secondary to endocrine disorders Code(s): I10 - Essential (primary) hypertension Status: Acute Assessment and Plan: Continue with lisinopril and p.r.n. hydralazine. The patient was taken off metoprolol and hydrochlorothiazide. Plan 10/24/2022: 62-year-old female presented with post oral dizziness lightheadedness and a slow heart rate for last several weeks. She had been on a Holter monitor and noted to have several pauses. She is off metoprolol. Received atropine in the ER and admitted diagnosed with sick sinus syndrome planned for pacemaker implantation however due to Xarelto wound be done until Thursday pacer pads on. Blood pressure elevated. Xarelto on hold. Had amlodipine for blood pressure control. Subjective Date/time seen: 10/24/22 12:15 Interval history: 62-year-old female presented with post oral dizziness lightheadedness and a slow heart rate for last several weeks. She had been on a Holter monitor and noted to have several pauses. She is off metoprolol. Received atropine in the ER and admitted diagnosed with sick sinus syndrome planned for pacemaker implantation however due to Xarelto wound be done until Thursday pacer pads on. Blood pressure elevated. Xarelto on hold Review of Systems Review of Systems: All systems reviewed & are unremarkable except as noted in HPI and below Exam Narrative: GENERAL: The patient is well developed, not in acute distress HEENT: Nonicteric sclerae, PERRLA, EOMI. Oropharynx clear. Moist mucous membranes. Conjunctivae appear well perfused. CHEST:
[2022-10-24] MEDS: amLODIPine BESYLATE 5 MG TABLET PO (13:31)
--- NOTE | 2022-10-24 14:00 | PM.PNCARD ---
Progress Note: A&P Assessment and Plan (1) Sinus node dysfunction: Code(s): I49.5 - Sick sinus syndrome Status: Acute Plan 62-year-old lady with episodes of presyncope found on outpatient Holter monitor to be having intermittent significant AV node dysfunction for which pacemaker implantation has been recommended. Device implant to scheduled for Thursday. All questions were answered to the patient's satisfaction. Wilmer Hansen MD [facility] Subjective Date/time seen: Date of service: 10/24/22 14:00 Interval history: Follow-up visit in this 62-year-old lady with: Intermittent degrees of AV node dysfunction resulting in significant asystolic pauses noted on Holter monitor as an outpatient. Patient has been admitted to the hospital for further treatment and anticipating pacemaker implantation on Thursday. Systemic anticoagulation has to be withdrawn for a sufficient period of time for this to be occur safely. Patient seen in the IMU room 2 known 9 this afternoon along with her family all of their questions were answered regarding the cardiac arrhythmias and the nature of the pacemaker implant procedure. Exam Const: General: comfortable and no acute distress Other: Well-developed well-nourished white female appearing her stated age no distress of any kind HENMT: Mouth: Yes moist mucous membranes Eyes: Sclera: sclerae normal Neck: Neck: supple and no JVD Thyroid: thyroid normal Resp: Effort & Inspection: normal respiratory effort Auscultation: clear to auscultation bilaterally Cardio: Rate: regular rate Rhythm: regular rhythm Other: No murmur no gallop GI: GI Palp: Yes Soft to palpation Auscultation: normal bowel sounds Skin: General skin exam: normal color Neuro: Other: Alert and oriented x3 Extrem: Other: No edema, adequate perfusion Objective Data Vital Signs Vital Signs: Vital Signs - 24 hr 10/23/22 16:18 10/23/22 16:00 10/23/22 18:00 Temperature 36.3 C L Pulse Rate 52 L 56 L 63 Respiratory Rate 20 Blood Pressure 196/66 H Pulse Oximetry 100 Oxygen Delivery 10/23/22 19:53 10/23/22 20:00 10/23/22 20:00 Temperature 36.2 C L Pulse Rate 55 L 55 L 55 L Respiratory Rate 18 Blood Pressure 175/56 H Pulse Oximetry 100 Oxygen Delivery Room Air 10/23/22 22:00 10/23/22 23:03 10/23/22 23:07 Temperature 37.3 C Pulse Rate 57 L 57 L 59 L Respiratory Rate 18 Blood Pressure 188/63 H Pulse Oximetry 100 Oxygen Delivery Room Air 10/24/22 00:00 10/24/22 00:00 10/24/22 04:00 Temperature Pulse Rate 55 L 37 L Respiratory Rate Blood Pressure 172/59 H Pulse Oximetry Oxygen Delivery 10/24/22 04:00 10/24/22 04:00 10/24/22 06:00 Temperature 36.5 C Pulse Rate 47 L 52 L 49 L Respiratory Rate 20 Blood Pressure 137/63 Pulse Oximetry 100 Oxygen Delivery Room Air 10/24/22 07:57 10/24/22 08:34 10/24/22 12:01 Temperature 35.7 C L 35.8 C L Pulse Rate 53 L 58 L Respiratory Rate 20 20 Blood Pressure 185/79 H 198/71 H Pulse Oximetry 100 96 99 Oxygen Delivery Room Air Intake/Output Intake/Output: Intake & Output 10/21/22 10/22/22 10/23/22 10/24/22 23:59 23:59 23:59 23:59 Intake Total 1420 840 Output Total 1000 Balance 420 840 Meds/Results Medications: Active Medications Generic Name Dose Route Start Last Admin Trade Name Freq PRN Reason Stop Dose Admin Acetaminophen 650 mg 10/23/22 22:12 10/24/22 09:52 Acetaminophen 325 Mg Tablet PO 650 mg Q4H PRN Administration Mild Pain (1-3) or Fever Albuterol 2 puff 10/23/22 22:31 Albuterol Sulfate (*Sp) Aerosol 1 Puff INHALATION Q6HRT PRN Shortness Of Breath Amitriptyline HCl 25 mg 10/23/22 22:15 10/24/22 09:37 Amitriptyline Hcl 25 Mg Tablet PO 25 mg Q12HR VALENCIA Administration Amlodipine Besylate 5 mg 10/24/22 13:00 10/24/22 13:31 Amlodipine Besylate 5 Mg Tab
[2022-10-24 16:10] LABS: Glucose Point of Care 112 mg/dl (65-105)
--- NOTE | 2022-10-24 18:13 | PC.NURSE ---
slab lifting supervisor called requesting that a good IV is started in the patient's left arm before her pacemaker placement on Thursday. Sister would also like to make sure that she will be called post procedure with an update. Will pass on to nightshift to pass on in report.
[2022-10-24] MEDS: ATORVASTATIN 20 MG TABLET PO (20:07)
[2022-10-24 20:21] LABS: Glucose Point of Care 119 mg/dl (65-105)
[2022-10-24] MEDS: hydrALAZINE HCL 20 MG/ML VIAL 10 MG IV PUSH (20:42)
--- NOTE | 2022-10-24 22:53 | ECG_ITS ---
Measurements Intervals [place] Rate: 104 P: 67 MA: 214 QRS: -10 QRSD: 93 T: 97 QT: 356 QTc: 469 Interpretive Statements SINUS TACHYCARDIA WITH FIRST DEGREE AV BLOCK POSSIBLE LEFT ATRIAL ENLARGEMENT BORDERLINE R WAVE PROGRESSION, ANTERIOR LEADS MINIMAL Q WAVES- ANTEROLATERAL LEADS CONSIDER INFERIOR INFARCT, AGE INDETERMINATE ST-T WAVE ABNORMALITY IN HIGH LATERAL LEADS- CONSIDER ISCHEMIA BASELINE ARTIFACT- I, II, AVR, AVL, AVF, V1, V3 ABNORMAL ECG COMPARED TO ECG 10/23/2022 10:01:07 SINUS TACHYCARDIA NOW PRESENT FIRST DEGREE AV BLOCK NOW PRESENT Electronically Signed On 10-25-2022 7:30:08 CDT by Juan Mcrae D.O.
[2022-10-24] MEDS: ONDANSETRON INJ 4 MG/2 ML VIAL IV PUSH (23:29)
[2022-10-24 23:36] LABS: Glucose Point of Care 161 mg/dl (65-105)
--- NOTE | 2022-10-24 23:43 | PC.NURSE ---
Pt called c/o nausea. RN obtained order for zofran. Upon entering room pt had vomited a small amount and felt shaky and diaphoretic. Pt reported she had been laying flat when symptoms came on. Ordered zofran administered and blood sugar checked. Blood sugar 161. Pt reported that nausea had subsided a few minutes after administration of zofran.
[2022-10-25] VITALS (16 sets, daily range): BP systolic 150–171; BP diastolic 77–127; PULSE 85–167; RESP 18–20; TEMP 35.8–37.1; O2SAT 96–100
[2022-10-25] MEDS: ACETAMINOPHEN 325 MG TABLET 650 MG PO ×2 (02:06→22:52)
--- NOTE | 2022-10-25 05:45 | PCRCNOTE ---
patient does not use a home cpap unit (refused use of hospital unit)
[2022-10-25 08:08] LABS: Glucose Point of Care 164 mg/dl (65-105)
[2022-10-25] MEDS: PANTOPRAZOLE 40 MG TABLET PO ×2 (09:17→21:32)
[2022-10-25] MEDS: AMITRIPTYLINE HCL 25 MG TABLET PO ×2 (09:17→21:32)
[2022-10-25] MEDS: oxyBUTYnin CHLORIDE XL 5 MG TAB.ER.24 PO (09:17)
[2022-10-25] MEDS: lisinopriL 20 MG TABLET 40 MG PO (09:18)
[2022-10-25] MEDS: amLODIPine BESYLATE 5 MG TABLET PO (09:18)
[2022-10-25] MEDS: FOLIC ACID 1 MG TABLET PO (09:18)
--- NOTE | 2022-10-25 11:29 | PM.PNCARD ---
Progress Note: A&P Assessment and Plan (1) Atrial flutter with rapid ventricular response: Code(s): I48.92 - Unspecified atrial flutter Status: Acute Assessment and Plan: This is a new development this hospitalization which further complicates her management in the interval prior to pacemaker implantation. Patient developed atrial flutter with rapid ventricular response and variable AV block although it appears she may been asymptomatic upon initiation she is not at this time. We discussed the risks in this regard particular she is off systemic anticoagulation which may lead to increased risk for stroke. However, she must remain off anticoagulation in anticipation for pacemaker implantation to minimize bleeding complication risk with that procedure. However given her symptomatic bradycardia, pauses upon presentation necessitating discontinuation metoprolol she has now reverted back to tachyarrhythmia as high as the 160s. Therefore very cautious rate control efforts will be necessary. Discussed with the patient. She verbalized understanding. Will give metoprolol tartrate IV 2.5 mg x 1 and observe tolerance and she remains significantly tachycardic with given additional 2.5 mg IV x1 in attempt to control heart rate. This is a very difficult and risky situation as we need to avoid symptomatic bradycardia and or high-grade AV block and or asystole. Continue close observation. Clearly she must have pacemaker implanted will try to avoid need for temporary transvenous pacemaker in the interval. Furthermore, we were unable to cardiovert due to lack of systemic anticoagulation which has been held in order to reduce bleeding complications with permanent pacemaker implantation. (2) Sinus node dysfunction: Code(s): I49.5 - Sick sinus syndrome Status: Acute Assessment and Plan: Symptomatic sinus node dysfunction with intermittent high-grade AV block, pathologic pauses/asystole on beta-elier therapy prior to admission. She has had intermittent high-grade AV block as well as sinus rhythm noted on telemetry until late last night and early this morning with sustained atrial flutter with variable AV block. See above. Furthermore, she has a contrast allergy necessitating pretreatment with steroids and antihistamines to reduce potential risk for life-threatening allergic reaction. (3) Tachy-jorge syndrome: Code(s): I49.5 - Sick sinus syndrome Status: Acute Assessment and Plan: See above. Pacemaker implantation clearly necessary. Difficult and risky management to avoid symptomatic bradycardia and or hemodynamic collapse with the use of AV love blocking agents but given persistent tachyarrhythmia will need to in the interval attempt to control her heart rate with metoprolol as tolerated. (4) TREVOR (obstructive sleep apnea): Code(s): G47.33 - Obstructive sleep apnea (adult) (pediatric) Status: Acute Assessment and Plan: Abnormal ApneaLink AHI 22 on 07/26/2021. Discussed sleep apnea contribution to Jorge and/or tachyarrhythmias. I encouraged her to wear CPAP if they bring it in this evening. Patient states that she understands she will comply. This could potentially exacerbate risk for tachy-jorge arrhythmias counseled among other risks. Subjective Date/time seen: Date of service: 10/25/22 11:29 Interval history: Follow-up visit in this 62-year-old lady with: Intermittent degrees of high-grade AV block, symptomatic bradycardia and asystolic pauses noted on Holter monitor as an outpatient. Patient has been admitted to the hospital for further treatment and anticipating pacemaker implantation on Thursday morning. Systemic anticoagulation has to be withdrawn for a sufficient period of time for this to be occur safely. Patient seen in the IMU room 2 known 9 this afternoon along with her family all of their questions were answered regarding the cardiac arrhythmias and the nature of the pac
[2022-10-25] MEDS: METOPROLOL TARTRATE INJ 5 MG/5 ML VIAL 2.5 MG IV PUSH ×2 (11:37→13:39)
[2022-10-25 12:00] LABS: Anion Gap 12 mmol/L (8-16); Blood Urea Nitrogen 16 mg/dL (7-17); Carbon Dioxide 20 mmol/L (22-30); Chloride 107 mmol/L (98-107); Estimated CRCL calculation 56 ml/min; Estimated Glomerular Filt Rate > 60; Glucose 158 mg/dL (65-110); Magnesium 1.7 mg/dL (1.6-2.3); Potassium 3.8 mmol/L (3.4-5.0); Sodium 139 mmol/L (137-145)
[2022-10-25 12:12] LABS: Glucose Point of Care 189 mg/dl (65-105)
--- NOTE | 2022-10-25 14:01 | PM.IMPN ---
Progress Note: A&P Assessment and Plan (1) Sinus node dysfunction: Code(s): I49.5 - Sick sinus syndrome Status: Acute (2) Mixed hyperlipidemia due to type 2 diabetes mellitus: Code(s): E11.69 - Type 2 diabetes mellitus with other specified complication; E78.2 - Mixed hyperlipidemia Status: Acute (3) Tachy-jovita syndrome: Code(s): I49.5 - Sick sinus syndrome Status: Acute (4) Asthma: Code(s): J45.909 - Unspecified asthma, uncomplicated Status: Acute (5) Abnormal Holter monitor finding: Code(s): R94.31 - Abnormal electrocardiogram [ECG] [EKG] Status: Acute (6) Elevated blood pressure reading with diagnosis of hypertension: Code(s): I10 - Essential (primary) hypertension Status: Acute (7) TREVOR (obstructive sleep apnea): Code(s): G47.33 - Obstructive sleep apnea (adult) (pediatric) Status: Acute (8) Diabetes: Qualifiers: Diabetes mellitus type: type 2 Diabetes mellitus long term care social worker insulin use: with long term care social worker use Diabetes mellitus complication status: with other specified complication Qualified Code(s): E11.69 - Type 2 diabetes mellitus with other specified complication; Z79.4 - long-term (current) use of insulin Code(s): E11.9 - Type 2 diabetes mellitus without complications Status: Acute (9) Hypertension: Qualifiers: Hypertension type: secondary to endocrine disorders Qualified Code(s): I15.2 - Hypertension secondary to endocrine disorders Code(s): I10 - Essential (primary) hypertension Status: Acute Plan 10/24/2022: 62-year-old female presented with post oral dizziness lightheadedness and a slow heart rate for last several weeks. She had been on a Holter monitor and noted to have several pauses. She is off metoprolol. Received atropine in the ER and admitted diagnosed with sick sinus syndrome planned for pacemaker implantation however due to Xarelto wound be done until Thursday pacer pads on. Blood pressure elevated. Xarelto on hold. Had amlodipine for blood pressure control. 10/25/2022: 62-year-old female presented with post oral dizziness lightheadedness and a slow heart rate for last several weeks. She had been on a Holter monitor and noted to have several pauses. She is off metoprolol. Received atropine in the ER and admitted diagnosed with sick sinus syndrome planned for pacemaker implantation however due to Xarelto wound be done until Thursday pacer pads on. Blood pressure elevated. Xarelto on hold. Had amlodipine for blood pressure control. Overnight 10/24/2022 went into AFib with RVR. Rate control with p.r.n. metoprolol plan per Cardiology. No formal diagnosis of sleep apnea. AHI off 22 on 07/26/2021 noted. Subjective Date/time seen: 10/25/22 14:01 Interval history: 62-year-old female presented with post oral dizziness lightheadedness and a slow heart rate for last several weeks. She had been on a Holter monitor and noted to have several pauses. She is off metoprolol. Received atropine in the ER and admitted diagnosed with sick sinus syndrome planned for pacemaker implantation however due to Xarelto wound be done until Thursday pacer pads on. Blood pressure elevated. Xarelto on hold 10/25/2022: Patient went into a flutter with rapid ventricular rate last night. [place] nauseous dizzy and shaky. Has been getting metoprolol IV p.r.n.. Review of Systems Review of Systems: All systems reviewed & are unremarkable except as noted in HPI and below Exam Narrative: GENERAL: The patient is well developed, not in acute distress HEENT: Nonicteric sclerae, PERRLA, EOMI. Oropharynx clear. Moist mucous membranes. Conjunctivae appear well perfused. CHEST: Chest wall is nontender. HEART: Tachycardic irregular irregular rhythm without murmur, rubs, or gallops LUNGS: Clear to auscultation bilaterally. no respiratory distress ABDOMEN: Soft, positive bowel sounds, non-tender, no organomegal
--- NOTE | 2022-10-25 14:02 | ECG_ITS ---
Measurements Intervals [place] Rate: 126 P: -61 FL: 221 QRS: -16 QRSD: 113 T: 128 QT: 309 QTc: 449 Interpretive Statements ATRIAL FLUTTER/TACHYCARDIA WITH RAPID VENTRICULAR RESPONSE INTRAVENTRICULAR CONDUCTION DELAY DELAYED PRECORDIAL R/S TRANSITION ST-T WAVE ABNORMALITY IN HIGH LATERAL LEADS- CONSIDER ISCHEMIA ABNORMAL ECG COMPARED TO ECG 10/24/2022 22:56:46 ATRIAL FLUTTER/TACHYCARDIA NOW PRESENT Electronically Signed On 10-25-2022 15:56:48 CDT by Juan Mcrae D.O.
[2022-10-25 17:05] LABS: Glucose Point of Care 139 mg/dl (65-105)
[2022-10-25 19:45] LABS: Glucose Point of Care 199 mg/dl (65-105)
[2022-10-25] MEDS: hydrALAZINE HCL 20 MG/ML VIAL 10 MG IV PUSH (21:20)
[2022-10-25] MEDS: ATORVASTATIN 20 MG TABLET PO (21:32)
[2022-10-25] MEDS: METOPROLOL TARTRATE INJ 5 MG/5 ML VIAL IV PUSH (22:20)
[2022-10-25] MEDS: ONDANSETRON INJ 4 MG/2 ML VIAL IV PUSH (22:53)
[2022-10-26] VITALS (89 sets, daily range): BP systolic 97–150; BP diastolic 61–129; PULSE 76–159; RESP 12–39; TEMP 36.7–37.2; O2SAT 94–99
--- NOTE | 2022-10-26 03:59 | PC.NURSE ---
10/31/22 at 2245 patient called with complaint of nausea. Zofran was given at 2253.
[2022-10-26] MEDS: METOPROLOL TARTRATE INJ 5 MG/5 ML VIAL IV PUSH ×3 (04:13→16:51)
[2022-10-26 04:46] LABS: Basophils Absolute Auto 0.1 K/mm3 (0.0-0.1); Basophils Percent Auto 0.7 % (0.2-1.2); Eosinophils Absolute Auto 0.1 K/mm3 (0-0.3); Hematocrit 45.3 % (37.0-47.0); Hemoglobin 13.9 g/dL (12.0-15.0); Immature Granulocyte Absolute 0.04 K/mm3 (0.00-0.031); Immature Granulocyte Percent A 0.4 % (0-0.5); Immature Platelet Fraction Pct 13.6 % (0.9-11.2); Lymphocytes Percent Auto 21.5 % (18.3-44.2); Mean Corpuscular HGB Conc 30.7 g/dl (32-36); Mean Corpuscular Hemoglobin 29.8 pg (26-34); Mean Corpuscular Volume 97.2 fl (80-100); Mean Platelet Volume 12.2 fl (7.4-10.4); Monocytes Absolute Auto 0.8 K/mm3 (0.1-0.6); Monocytes Percent Auto 7.6 % (2.6-8.5); Neutrophils Absolute Auto 7.4 K/mm3 (1.3-6.7); Neutrophils Percent Auto 68.8 % (45.5-73.1); Platelet Count Result 175 k/mm3 (150-375); Red Blood Count 4.66 M/mm3 (4.2-5.4); Red Cell Distribution Width 13.8 % (11.5-14.5); White Blood Count 10.7 K/mm3 (4.5-10.0)
[2022-10-26 04:51] LABS: Alanine Aminotransferase 32 U/L (6-35); Albumin Level 4.5 g/dL (3.5-5.1); Alkaline Phosphatase 106 U/L (38-126); Anion Gap 10 mmol/L (8-16); Aspartate Amino Transferase 35 U/L (14-36); Bilirubin,Total 1.5 mg/dL (0.2-1.3); Blood Urea Nitrogen 17 mg/dL (7-17); Calcium 9.6 mg/dL (8.4-10.2); Carbon Dioxide 22 mmol/L (22-30); Chloride 104 mmol/L (98-107); Estimated CRCL calculation 63 ml/min; Estimated Glomerular Filt Rate > 60; Glucose 167 mg/dL (65-110); Magnesium 1.8 mg/dL (1.6-2.3); Sodium 136 mmol/L (137-145)
[2022-10-26] MEDS: hydrALAZINE HCL 20 MG/ML VIAL 10 MG IV PUSH (05:25)
[2022-10-26] MEDS: amLODIPine BESYLATE 5 MG TABLET PO (08:14)
[2022-10-26] MEDS: PANTOPRAZOLE 40 MG TABLET PO ×2 (08:14→16:50)
[2022-10-26] MEDS: FOLIC ACID 1 MG TABLET PO (08:15)
[2022-10-26] MEDS: lisinopriL 20 MG TABLET 40 MG PO (08:16)
[2022-10-26] MEDS: oxyBUTYnin CHLORIDE XL 5 MG TAB.ER.24 PO (08:16)
[2022-10-26] MEDS: AMITRIPTYLINE HCL 25 MG TABLET PO ×2 (08:16→20:19)
--- NOTE | 2022-10-26 10:39 | PM.IMPN ---
Progress Note: A&P Assessment and Plan (1) Sinus node dysfunction: Code(s): I49.5 - Sick sinus syndrome Status: Acute (2) Mixed hyperlipidemia due to type 2 diabetes mellitus: Code(s): E11.69 - Type 2 diabetes mellitus with other specified complication; E78.2 - Mixed hyperlipidemia Status: Acute (3) Tachy-jovita syndrome: Code(s): I49.5 - Sick sinus syndrome Status: Acute (4) Asthma: Code(s): J45.909 - Unspecified asthma, uncomplicated Status: Acute (5) Abnormal Holter monitor finding: Code(s): R94.31 - Abnormal electrocardiogram [ECG] [EKG] Status: Acute (6) Elevated blood pressure reading with diagnosis of hypertension: Code(s): I10 - Essential (primary) hypertension Status: Acute (7) TREVOR (obstructive sleep apnea): Code(s): G47.33 - Obstructive sleep apnea (adult) (pediatric) Status: Acute (8) Diabetes: Qualifiers: Diabetes mellitus type: type 2 Diabetes mellitus truck terminal manager insulin use: with truck terminal manager use Diabetes mellitus complication status: with other specified complication Qualified Code(s): E11.69 - Type 2 diabetes mellitus with other specified complication; Z79.4 - custodial (current) use of insulin Code(s): E11.9 - Type 2 diabetes mellitus without complications Status: Acute (9) Hypertension: Qualifiers: Hypertension type: secondary to endocrine disorders Qualified Code(s): I15.2 - Hypertension secondary to endocrine disorders Code(s): I10 - Essential (primary) hypertension Status: Acute Plan 10/24/2022: 62-year-old female presented with post oral dizziness lightheadedness and a slow heart rate for last several weeks. She had been on a Holter monitor and noted to have several pauses. She is off metoprolol. Received atropine in the ER and admitted diagnosed with sick sinus syndrome planned for pacemaker implantation however due to Xarelto wound be done until Thursday pacer pads on. Blood pressure elevated. Xarelto on hold. Had amlodipine for blood pressure control. 10/25/2022: 62-year-old female presented with post oral dizziness lightheadedness and a slow heart rate for last several weeks. She had been on a Holter monitor and noted to have several pauses. She is off metoprolol. Received atropine in the ER and admitted diagnosed with sick sinus syndrome planned for pacemaker implantation however due to Xarelto wound be done until Thursday pacer pads on. Blood pressure elevated. Xarelto on hold. Had amlodipine for blood pressure control. Overnight 10/24/2022 went into AFib with RVR. Rate control with p.r.n. metoprolol plan per Cardiology. No formal diagnosis of sleep apnea. AHI off 22 on 07/26/2021 noted. 10/26/2022: 62-year-old female presented with post oral dizziness lightheadedness and a slow heart rate for last several weeks. She had been on a Holter monitor and noted to have several pauses. She is off metoprolol. Received atropine in the ER and admitted diagnosed with sick sinus syndrome planned for pacemaker implantation however due to Xarelto wound be done until Thursday pacer pads on. Blood pressure elevated. Xarelto on hold. Had amlodipine for blood pressure control. Overnight 10/24/2022 went into AFib with RVR. Rate control with p.r.n. metoprolol plan per Cardiology. No formal diagnosis of sleep apnea. AHI off 22 on 07/26/2021 noted. Subjective Date/time seen: 10/26/22 10:39 Interval history: 62-year-old female presented with post oral dizziness lightheadedness and a slow heart rate for last several weeks. She had been on a Holter monitor and noted to have several pauses. She is off metoprolol. Received atropine in the ER and admitted diagnosed with sick sinus syndrome planned for pacemaker implantation however due to Xarelto wound be done until Thursday pacer pads on. Blood pressure elevated. Xarelto on hold 10/25/2022: Patient went into a flutter with rapid sindy
[2022-10-26 10:43] LABS: Glucose Point of Care 189 mg/dl (65-105)
[2022-10-26 11:27] LABS: Glucose Point of Care 180 mg/dl (65-105)
--- NOTE | 2022-10-26 13:23 | PM.PNCARD ---
Progress Note: A&P Assessment and Plan (1) Atrial flutter with rapid ventricular response: Code(s): I48.92 - Unspecified atrial flutter Status: Acute Assessment and Plan: This is a new development this hospitalization which further complicates her management in the interval prior to pacemaker implantation. Patient developed atrial flutter with rapid ventricular response and variable AV block although it appears she may been asymptomatic upon initiation she is not at this time. We discussed the risks in this regard particular she is off systemic anticoagulation which may lead to increased risk for stroke. However, she must remain off anticoagulation in anticipation for pacemaker implantation to minimize bleeding complication risk with that procedure. However given her symptomatic bradycardia, pauses upon presentation necessitating discontinuation metoprolol she has now reverted back to tachyarrhythmia as high as the 160s. Therefore very cautious rate control efforts will be necessary. Discussed with the patient. She verbalized understanding. Need to be extremely cautious in this regard. Patient remains unacceptably tachycardic but unable to cardiovert as she is not on a coagulation and concern for symptomatic bradycardia. She has been receiving metoprolol IV 5 mg q.6h without adequate heart rate control. We need to reasonably control her heart rate but not aggressively. However she frequently finds herself with heart rates 140-160 beats per minute range so will increase metoprolol 5 mg IV to q.4 hours, hold if heart rate less than 100 beats per minute, high-grade AV block, or symptomatic hypotension. NPO after midnight for pacemaker implantation. She is off anticoagulation in preparation for pacemaker. Continue DVT prophylaxis. Continue retail agent. We discussed potentially grave risk in this regard if she were to develop bradycardia on beta-elier therapy used to control her rapid tachyarrhythmia. She is not demonstrating signs or symptoms of heart failure or tachycardia induced cardiomyopathy as yet. (2) Sinus node dysfunction: Code(s): I49.5 - Sick sinus syndrome Status: Acute Assessment and Plan: Symptomatic sinus node dysfunction with intermittent high-grade AV block, pathologic pauses/asystole on beta-elier therapy prior to admission. She has had intermittent high-grade AV block as well as sinus rhythm noted on telemetry until late last night and early this morning with sustained atrial flutter with variable AV block. See above. Furthermore, she has a contrast allergy necessitating pretreatment with steroids and antihistamines to reduce potential risk for life-threatening allergic reaction. She will begin pretreatment for contrast allergy per protocol as ordered with prednisone and diphenhydramine. (3) Tachy-jorge syndrome: Code(s): I49.5 - Sick sinus syndrome Status: Acute Assessment and Plan: See above. Pacemaker implantation clearly necessary. Difficult and risky management to avoid symptomatic bradycardia and or hemodynamic collapse with the use of AV love blocking agents but given persistent tachyarrhythmia will need to in the interval attempt to control her heart rate with metoprolol 5 mg IV q.4 hours as tolerated. (4) TREVOR (obstructive sleep apnea): Code(s): G47.33 - Obstructive sleep apnea (adult) (pediatric) Status: Acute Assessment and Plan: Abnormal ApneaLink AHI 22 on 07/26/2021. Discussed sleep apnea contribution to Jorge and/or tachyarrhythmias. Advised compliance with CPAP and formal sleep study as an outpatient. Subjective Date/time seen: Date of service: 10/26/22 13:23 Interval history: Follow-up visit in this 62-year-old lady with: Intermittent degrees of high-grade AV block, symptomatic bradycardia and asystolic pauses noted on Holter monitor as an outpatient. Patient has been admitted to the hospital for further treatment
[2022-10-26 16:59] LABS: Glucose Point of Care 182 mg/dl (65-105)
[2022-10-26] MEDS: predniSONE 40 MG, predniSONE 10 MG 50 MG PO (20:19)
[2022-10-26] MEDS: ATORVASTATIN 20 MG TABLET PO (20:20)
[2022-10-26 22:45] LABS: Glucose Point of Care 136 mg/dl (65-105)
[2022-10-27] VITALS (26 sets, daily range): BP systolic 116–140; BP diastolic 76–108; PULSE 70–136; RESP 16–20; TEMP 36.2–36.6; O2SAT 97–100
[2022-10-27] MEDS: METOPROLOL TARTRATE INJ 5 MG/5 ML VIAL IV PUSH ×3 (00:23→20:49)
[2022-10-27] MEDS: predniSONE 40 MG, predniSONE 10 MG 50 MG PO ×2 (02:42→08:03)
[2022-10-27 07:54] LABS: Glucose Point of Care 223 mg/dl (65-105)
[2022-10-27] MEDS: diphenhydrAMINE HCl CAP 25 MG CAPSULE 50 MG PO (08:03)
[2022-10-27] MEDS: PANTOPRAZOLE 40 MG TABLET PO ×2 (08:04→16:18)
[2022-10-27] MEDS: lisinopriL 20 MG TABLET 40 MG PO (08:04)
[2022-10-27] MEDS: amLODIPine BESYLATE 5 MG TABLET PO (08:05)
[2022-10-27] MEDS: oxyBUTYnin CHLORIDE XL 5 MG TAB.ER.24 PO (08:05)
[2022-10-27] MEDS: AMITRIPTYLINE HCL 25 MG TABLET PO ×2 (08:05→20:55)
--- NOTE | 2022-10-27 09:46 | ECG_ITS ---
Measurements Intervals [place] Rate: 110 P: SD: 0 QRS: -30 QRSD: 89 T: 126 QT: 359 QTc: 486 Interpretive Statements ATRIAL FLUTTER/TACHYCARDIA WITH RAPID VENTRICULAR RESPONSE BORDERLINE R WAVE PROGRESSION, ANTERIOR LEADS CONSIDER INFERIOR INFARCT, AGE INDETERMINATE ST-T WAVE ABNORMALITY IN HIGH LATERAL LEADS- CONSIDER ISCHEMIA BASELINE ARTIFACT- I, II, AVR ABNORMAL ECG COMPARED TO ECG 10/25/2022 14:49:07 NO SIGNIFICANT CHANGES Electronically Signed On 10-27-2022 10:54:24 CDT by Juan Mcrae D.O.
--- NOTE | 2022-10-27 09:47 | WPDCARDPROC ---
Cardiac Cath Procedure Note Date of procedure:: 10/27/22 Performing physician:: Wilmer Hansen MD Indication:: episodes of high-grade AV block with symptomatic pauses. Paroxysmal atrial fib /flutter Brief clinical history:: this is a 62-year-old patient with a history of paroxysmal AFib who also has history of asthma. She is hospitalized with symptomatic bradycardic pauses and has Holter monitor demonstrating evidence of significant AV node dysfunction. She also has paroxysmal AFib and flutter. Over the weekend she has reverted to atrial flutter with 2-1 conduction. Procedure Procedure performed:: Permanent pacemaker implantation Sedation/Medication given:: fentanyl 50 mg Versed 2 mg Access site:: left subclavian Estimated blood loss:: 20 cc Procedure note:: patient was brought to the cardiac catheterization lab in the postabsorptive state where the left anterior chest wall was prepped and draped in the usual fashion. Anesthesia was provided with 1% lidocaine infiltrated locally. an incision was then made midclavicular line to the deltopectoral groove about 1 in below the clavicle. The electrocautery was used for cutaneous hemostasis. Using blunt dissection the subcutaneous tissue was to the down to the level of the prepectoral fascia. Using blunt dissection a pacemaker pocket was created inferior to the incision and packed with antibiotic soaked 4 x 4. Following this attention was turned to venous access. Using the 2 6 [place] SafeSheath kits the subclavian vein was punctured twice using the modified Seldinger technique and 2 guidewires were placed under fluoroscopic visualization into the venous circulation and advanced to the level of the right atrium. The 2 6 [place] safe sheaths were then used to access the venous circulation and the pacemaker leads detailed below word a placed into the level of the right atrium. Both sheaths were peeled away. Following this I removed the stylet from the ventricular lead formed a J-tip stylet using a 3 cc syringe use this to severely to the right ventricle out into the PA position. A straight set was placed into the lead was withdrawn and placed into the right ventricular apical position. Fixation screw was deployed and using the analyzer appropriate pacing and sensing performance was demonstrated and a 10 volt stimulus failed to show any evidence of extracardiac stimulation. Following this attention was turned to placing the atrial lead. The straight stylet was withdrawn a preformed atrial J was placed into the lead was placed into the right atrial appendage position. The fixation screw was deployed upon withdrawal of the stylet the lead tip was fixed into position and again appropriate pacing and sensing performance was demonstrated. The patient was in atrial flutter with a flutter rate of 290 beats per minute. I attempted several times to burst pace her out of atrial flutter without success. Following this the leads were secured to the base of the pocket using the suture sleeves and 2-0 silk ties. The retained sponge was removed and the pocket was irrigated with antibiotic infused saline. The pacemaker generator was then connected to the leads using the torque wrench the entire assembly was placed into the newly created pocket. The pocket was then closed in layers using 3-0 Vicryl in an interrupted fashion for the subcutaneous tissue and 4-0 Vicryl in a running subcuticular fashion for the skin. The wound was dressed with an Aquacel dressing postop antibiotics chest x-ray and ECG were ordered. Procedure was well tolerated and uncomplicated. Findings:: The patient received a permanent Biotronik dual-chamber pacemaker model Edora [id number]. the serial number is [id number]. The device is programmed in the DDD mode. The atrial lead is a Biotronik screw-in bipolar lead model Solia [id number]. Serial number [id number]. flutter waves are sensed at 3.0 mV impedance 76
[2022-10-27] MEDS: INSULIN ASPART (*BKC) 100 UNITS/ML SUB-Q ×3 (11:51→21:30)
[2022-10-27] MEDS: ACETAMINOPHEN 325 MG TABLET 650 MG PO ×3 (11:52→21:02)
[2022-10-27 12:26] LABS: Glucose Point of Care 240 mg/dl (65-105)
--- NOTE | 2022-10-27 14:22 | PM.IMPN ---
Progress Note: A&P Assessment and Plan (1) Sinus node dysfunction: Code(s): I49.5 - Sick sinus syndrome Status: Acute (2) Mixed hyperlipidemia due to type 2 diabetes mellitus: Code(s): E11.69 - Type 2 diabetes mellitus with other specified complication; E78.2 - Mixed hyperlipidemia Status: Acute (3) Tachy-jovita syndrome: Code(s): I49.5 - Sick sinus syndrome Status: Acute (4) Asthma: Code(s): J45.909 - Unspecified asthma, uncomplicated Status: Acute (5) Abnormal Holter monitor finding: Code(s): R94.31 - Abnormal electrocardiogram [ECG] [EKG] Status: Acute (6) Elevated blood pressure reading with diagnosis of hypertension: Code(s): I10 - Essential (primary) hypertension Status: Acute (7) TREVOR (obstructive sleep apnea): Code(s): G47.33 - Obstructive sleep apnea (adult) (pediatric) Status: Acute (8) Diabetes: Qualifiers: Diabetes mellitus type: type 2 Diabetes mellitus resident services manager insulin use: with resident services manager use Diabetes mellitus complication status: with other specified complication Qualified Code(s): E11.69 - Type 2 diabetes mellitus with other specified complication; Z79.4 - MCFP (current) use of insulin Code(s): E11.9 - Type 2 diabetes mellitus without complications Status: Acute (9) Hypertension: Qualifiers: Hypertension type: secondary to endocrine disorders Qualified Code(s): I15.2 - Hypertension secondary to endocrine disorders Code(s): I10 - Essential (primary) hypertension Status: Acute Plan 10/24/2022: 62-year-old female presented with post oral dizziness lightheadedness and a slow heart rate for last several weeks. She had been on a Holter monitor and noted to have several pauses. She is off metoprolol. Received atropine in the ER and admitted diagnosed with sick sinus syndrome planned for pacemaker implantation however due to Xarelto wound be done until Thursday pacer pads on. Blood pressure elevated. Xarelto on hold. Had amlodipine for blood pressure control. 10/25/2022: 62-year-old female presented with post oral dizziness lightheadedness and a slow heart rate for last several weeks. She had been on a Holter monitor and noted to have several pauses. She is off metoprolol. Received atropine in the ER and admitted diagnosed with sick sinus syndrome planned for pacemaker implantation however due to Xarelto wound be done until Thursday pacer pads on. Blood pressure elevated. Xarelto on hold. Had amlodipine for blood pressure control. Overnight 10/24/2022 went into AFib with RVR. Rate control with p.r.n. metoprolol plan per Cardiology. No formal diagnosis of sleep apnea. AHI off 22 on 07/26/2021 noted. 10/26/2022: 62-year-old female presented with post oral dizziness lightheadedness and a slow heart rate for last several weeks. She had been on a Holter monitor and noted to have several pauses. She is off metoprolol. Received atropine in the ER and admitted diagnosed with sick sinus syndrome planned for pacemaker implantation however due to Xarelto wound be done until Thursday pacer pads on. Blood pressure elevated. Xarelto on hold. Had amlodipine for blood pressure control. Overnight 10/24/2022 went into AFib with RVR. Rate control with p.r.n. metoprolol plan per Cardiology. No formal diagnosis of sleep apnea. AHI off 22 on 07/26/2021 noted. 10/27/2022:62-year-old female presented with post oral dizziness lightheadedness and a slow heart rate for last several weeks. She had been on a Holter monitor and noted to have several pauses. She is off metoprolol. Received atropine in the ER and admitted diagnosed with sick sinus syndrome planned for pacemaker implantation however due to Xarelto wound be done until Thursday pacer pads on. Blood pressure elevated. Xarelto on hold. Had amlodipine for blood pressure control. Overnight 10/24/2022 went into AFib with RVR. Rate control with p.r
[2022-10-27] MEDS: METOPROLOL TARTRATE 50 MG TAB PO ×2 (16:09→23:49)
[2022-10-27] MEDS: ceFAZolin 1 GM/NS 50 ML 1 GM/50 ML BAG IVPB ×2 (16:17→23:48)
[2022-10-27 16:55] LABS: Glucose Point of Care 306 mg/dl (65-105)
[2022-10-27 20:12] LABS: Glucose Point of Care 334 mg/dl (65-105)
[2022-10-27] MEDS: ATORVASTATIN 20 MG TABLET PO (20:55)
[2022-10-28] VITALS (20 sets, daily range): BP systolic 111–141; BP diastolic 69–93; PULSE 64–122; RESP 16–20; TEMP 36.3–36.6; O2SAT 98–100
[2022-10-28 05:13] LABS: Basophils Absolute Auto 0.1 K/mm3 (0.0-0.1); Basophils Percent Auto 0.3 % (0.2-1.2); Hematocrit 41.2 % (37.0-47.0); Hemoglobin 13.3 g/dL (12.0-15.0); Immature Granulocyte Absolute 0.15 K/mm3 (0.00-0.031); Immature Granulocyte Percent A 0.6 % (0-0.5); Lymphocytes Absolute Auto 2.08 K/mm3 (0.9-3.2); Mean Corpuscular HGB Conc 32.3 g/dl (32-36); Mean Corpuscular Hemoglobin 30.2 pg (26-34); Mean Corpuscular Volume 93.4 fl (80-100); Mean Platelet Volume 11.4 fl (7.4-10.4); Monocytes Absolute Auto 1.2 K/mm3 (0.1-0.6); Monocytes Percent Auto 5.4 % (2.6-8.5); Neutrophils Absolute Auto 19.6 K/mm3 (1.3-6.7); Neutrophils Percent Auto 84.7 % (45.5-73.1); Platelet Count Result 294 k/mm3 (150-375); Red Blood Count 4.41 M/mm3 (4.2-5.4); Red Cell Distribution Width 13.1 % (11.5-14.5); White Blood Count 23.1 K/mm3 (4.5-10.0)
[2022-10-28] MEDS: ACETAMINOPHEN 325 MG TABLET 650 MG PO ×2 (05:13→12:21)
[2022-10-28 05:44] LABS: Alanine Aminotransferase 39 U/L (6-35); Albumin Level 4.6 g/dL (3.5-5.1); Alkaline Phosphatase 101 U/L (38-126); Anion Gap 11 mmol/L (8-16); Aspartate Amino Transferase 35 U/L (14-36); Bilirubin,Total 0.9 mg/dL (0.2-1.3); Blood Urea Nitrogen 20 mg/dL (7-17); Calcium 10.3 mg/dL (8.4-10.2); Carbon Dioxide 22 mmol/L (22-30); Chloride 102 mmol/L (98-107); Estimated CRCL calculation 63 ml/min; Estimated Glomerular Filt Rate > 60; Glucose 171 mg/dL (65-110); Magnesium 1.8 mg/dL (1.6-2.3); Sodium 135 mmol/L (137-145)
[2022-10-28 08:12] LABS: Glucose Point of Care 178 mg/dl (65-105)
[2022-10-28] MEDS: oxyBUTYnin CHLORIDE XL 5 MG TAB.ER.24 PO (09:13)
[2022-10-28] MEDS: lisinopriL 20 MG TABLET 40 MG PO (09:13)
[2022-10-28] MEDS: FOLIC ACID 1 MG TABLET PO (09:13)
[2022-10-28] MEDS: METOPROLOL TARTRATE 50 MG TAB PO ×3 (09:14→22:53)
[2022-10-28] MEDS: AMITRIPTYLINE HCL 25 MG TABLET PO ×2 (09:14→21:27)
[2022-10-28] MEDS: amLODIPine BESYLATE 5 MG TABLET PO (09:14)
[2022-10-28] MEDS: PANTOPRAZOLE 40 MG TABLET PO ×2 (09:15→18:57)
--- NOTE | 2022-10-28 10:02 | PM.PNCARD ---
Progress Note: A&P Assessment and Plan (1) Atrial flutter with rapid ventricular response: Code(s): I48.92 - Unspecified atrial flutter Status: Acute Assessment and Plan: Currently rate controlled on metoprolol. Holding anticoagulation for now given recent pacer implant. (2) Sinus node dysfunction: Code(s): I49.5 - Sick sinus syndrome Status: Acute Assessment and Plan: Status post Biotronik device, dual chamber: Function normally. Chest x-ray pending. (3) Tachy-jovita syndrome: Code(s): I49.5 - Sick sinus syndrome Status: Acute Assessment and Plan: See above. Dual-chamber pacer implantation yesterday. (4) TREVOR (obstructive sleep apnea): Code(s): G47.33 - Obstructive sleep apnea (adult) (pediatric) Status: Acute Assessment and Plan: Abnormal ApneaLink AHI 22 on 07/26/2021. Discussed sleep apnea contribution to Jovita and/or tachyarrhythmias. Advised compliance with CPAP and formal sleep study as an outpatient. (5) Elevated white blood cell count: Code(s): D72.829 - Elevated white blood cell count, unspecified Status: Acute Assessment and Plan: White count has significantly risen. Could be related to prednisone from yesterday but given her poor dentition and recent implant, would like to keep her in observation another 24 hours and repeat a CBC tomorrow. Hospitalist to be notified. Consider Panorex and cultures Subjective Date/time seen: 10/28/22 10:02 Interval history: Follow-up visit in this 62-year-old lady with: Intermittent degrees of high-grade AV block, symptomatic bradycardia and asystolic pauses noted on Holter monitor as an outpatient. Patient has been admitted to the hospital for further treatment and anticipating pacemaker implantation on Thursday morning. Systemic anticoagulation has to be withdrawn for a sufficient period of time for this to be occur safely. Patient seen in the IMU room 2 known 9 this afternoon along with her family all of their questions were answered regarding the cardiac arrhythmias and the nature of the pacemaker implant procedure. Date of service: 10/25/2022 patient felt poorly last night, nauseous, dizzy, near syncopal between 11 and 12 which appeared to correspond to association with intermittent pauses and development of atrial flutter with RVR heart rates in 130s to 140s. However, patient states she feels fine now after receiving Zofran last night. Denies palpitations, shortness of breath or chest pain or dizziness. She currently is in atrial flutter with variable AV block heart rates in the 130s to 150 beat per minute range. She denies chest pain, fevers, chills. Apparently they tried to apply CPAP last night which she refused stating she did not know why this is being brought in as nobody told her she needed to wear it. I discussed this with her she is agreeable now. Date of service 10/26/2022: Patient states she feels fine this morning. No chest pain, heart racing or shortness of breath. Patient had mild nausea last night but no where near severe the day before. She remains in atrial flutter with variable AV block with rapid ventricular response heart rate in 120s 150s. She has been receiving IV metoprolol 5 mg q.6 hours remains tachycardic although tolerating well hemodynamically. She was transferred to a room in the ICU due to bed availability and flooding in her room secondary to the extreme whether the night before and not due to a change in her clinical status. Date of service 10/28/2022: Intermittent heart block/pauses status post dual-chamber Biotronik device. Still or an atrial flutter. Feels okay and denies any chest pain or shortness breath. Review of Systems Review of Systems: Remainder of the review of systems is otherwise negative aside from that noted in the HPI. All systems reviewed & are unremarkable except as noted in HPI and below Constitutional: Constitutional
[2022-10-28 12:01] LABS: Glucose Point of Care 280 mg/dl (65-105)
[2022-10-28] MEDS: INSULIN ASPART (*BKC) 100 UNITS/ML SUB-Q (12:22)
--- NOTE | 2022-10-28 13:35 | PM.IMPN ---
Progress Note: A&P Assessment and Plan (1) Sinus node dysfunction: Code(s): I49.5 - Sick sinus syndrome Status: Acute (2) Mixed hyperlipidemia due to type 2 diabetes mellitus: Code(s): E11.69 - Type 2 diabetes mellitus with other specified complication; E78.2 - Mixed hyperlipidemia Status: Acute (3) Tachy-jovita syndrome: Code(s): I49.5 - Sick sinus syndrome Status: Acute (4) Asthma: Code(s): J45.909 - Unspecified asthma, uncomplicated Status: Acute (5) Abnormal Holter monitor finding: Code(s): R94.31 - Abnormal electrocardiogram [ECG] [EKG] Status: Acute (6) Elevated blood pressure reading with diagnosis of hypertension: Code(s): I10 - Essential (primary) hypertension Status: Acute (7) TREVOR (obstructive sleep apnea): Code(s): G47.33 - Obstructive sleep apnea (adult) (pediatric) Status: Acute (8) Diabetes: Qualifiers: Diabetes mellitus type: type 2 Diabetes mellitus intermediate manager insulin use: with intermediate manager use Diabetes mellitus complication status: with other specified complication Qualified Code(s): E11.69 - Type 2 diabetes mellitus with other specified complication; Z79.4 - alf (current) use of insulin Code(s): E11.9 - Type 2 diabetes mellitus without complications Status: Acute (9) Hypertension: Qualifiers: Hypertension type: secondary to endocrine disorders Qualified Code(s): I15.2 - Hypertension secondary to endocrine disorders Code(s): I10 - Essential (primary) hypertension Status: Acute Plan 10/24/2022: 62-year-old female presented with post oral dizziness lightheadedness and a slow heart rate for last several weeks. She had been on a Holter monitor and noted to have several pauses. She is off metoprolol. Received atropine in the ER and admitted diagnosed with sick sinus syndrome planned for pacemaker implantation however due to Xarelto wound be done until Thursday pacer pads on. Blood pressure elevated. Xarelto on hold. Had amlodipine for blood pressure control. 10/25/2022: 62-year-old female presented with post oral dizziness lightheadedness and a slow heart rate for last several weeks. She had been on a Holter monitor and noted to have several pauses. She is off metoprolol. Received atropine in the ER and admitted diagnosed with sick sinus syndrome planned for pacemaker implantation however due to Xarelto wound be done until Thursday pacer pads on. Blood pressure elevated. Xarelto on hold. Had amlodipine for blood pressure control. Overnight 10/24/2022 went into AFib with RVR. Rate control with p.r.n. metoprolol plan per Cardiology. No formal diagnosis of sleep apnea. AHI off 22 on 07/26/2021 noted. 10/26/2022: 62-year-old female presented with post oral dizziness lightheadedness and a slow heart rate for last several weeks. She had been on a Holter monitor and noted to have several pauses. She is off metoprolol. Received atropine in the ER and admitted diagnosed with sick sinus syndrome planned for pacemaker implantation however due to Xarelto wound be done until Thursday pacer pads on. Blood pressure elevated. Xarelto on hold. Had amlodipine for blood pressure control. Overnight 10/24/2022 went into AFib with RVR. Rate control with p.r.n. metoprolol plan per Cardiology. No formal diagnosis of sleep apnea. AHI off 22 on 07/26/2021 noted. 10/27/2022:62-year-old female presented with post oral dizziness lightheadedness and a slow heart rate for last several weeks. She had been on a Holter monitor and noted to have several pauses. She is off metoprolol. Received atropine in the ER and admitted diagnosed with sick sinus syndrome planned for pacemaker implantation however due to Xarelto wound be done until Thursday pacer pads on. Blood pressure elevated. Xarelto on hold. Had amlodipine for blood pressure control. Overnight 10/24/2022 went into AFib with RVR. Rate control with p.r
[2022-10-28 14:07] LABS: Basophils Absolute Auto 0.1 K/mm3 (0.0-0.1); Basophils Percent Auto 0.3 % (0.2-1.2); Eosinophils Percent Auto 0.2 % (0-4.4); Hematocrit 41.1 % (37.0-47.0); Hemoglobin 13.1 g/dL (12.0-15.0); Immature Granulocyte Absolute 0.07 K/mm3 (0.00-0.031); Immature Granulocyte Percent A 0.4 % (0-0.5); Lymphocytes Absolute Auto 3.42 K/mm3 (0.9-3.2); Lymphocytes Percent Auto 19.4 % (18.3-44.2); Mean Corpuscular HGB Conc 31.9 g/dl (32-36); Mean Corpuscular Hemoglobin 29.9 pg (26-34); Mean Corpuscular Volume 93.8 fl (80-100); Mean Platelet Volume 11.3 fl (7.4-10.4); Monocytes Absolute Auto 1.3 K/mm3 (0.1-0.6); Monocytes Percent Auto 7.3 % (2.6-8.5); Neutrophils Absolute Auto 12.8 K/mm3 (1.3-6.7); Neutrophils Percent Auto 72.4 % (45.5-73.1); Platelet Count Result 282 k/mm3 (150-375); Red Blood Count 4.38 M/mm3 (4.2-5.4); Red Cell Distribution Width 13.2 % (11.5-14.5); White Blood Count 17.6 K/mm3 (4.5-10.0)
[2022-10-28 16:32] LABS: Glucose Point of Care 144 mg/dl (65-105)
[2022-10-28 20:18] LABS: Glucose Point of Care 161 mg/dl (65-105)
[2022-10-28] MEDS: ATORVASTATIN 20 MG TABLET PO (21:27)
[2022-10-29] VITALS (9 sets, daily range): BP systolic 137; BP diastolic 87; PULSE 68–73; RESP 16; TEMP 36.6; O2SAT 99
[2022-10-29 04:29] LABS: Hematocrit 40.9 % (37.0-47.0); Mean Corpuscular HGB Conc 31.8 g/dl (32-36); Mean Corpuscular Hemoglobin 29.5 pg (26-34); Mean Corpuscular Volume 92.7 fl (80-100); Mean Platelet Volume 11.3 fl (7.4-10.4); Platelet Count Result 239 k/mm3 (150-375); Red Blood Count 4.41 M/mm3 (4.2-5.4); White Blood Count 13.8 K/mm3 (4.5-10.0)
[2022-10-29 04:41] LABS: Anion Gap 6 mmol/L (8-16); Blood Urea Nitrogen 22 mg/dL (7-17); Calcium 9.5 mg/dL (8.4-10.2); Carbon Dioxide 26 mmol/L (22-30); Chloride 104 mmol/L (98-107); Estimated CRCL calculation 63 ml/min; Estimated Glomerular Filt Rate > 60; Glucose 148 mg/dL (65-110); Sodium 136 mmol/L (137-145)
[2022-10-29 07:50] LABS: Glucose Point of Care 185 mg/dl (65-105)
[2022-10-29] MEDS: AMITRIPTYLINE HCL 25 MG TABLET PO (08:15)
[2022-10-29] MEDS: oxyBUTYnin CHLORIDE XL 5 MG TAB.ER.24 PO (08:15)
[2022-10-29] MEDS: amLODIPine BESYLATE 5 MG TABLET PO (08:15)
[2022-10-29] MEDS: METOPROLOL TARTRATE 50 MG TAB PO ×2 (08:15→09:36)
[2022-10-29] MEDS: lisinopriL 20 MG TABLET 40 MG PO (08:15)
[2022-10-29] MEDS: FOLIC ACID 1 MG TABLET PO (08:16)
[2022-10-29] MEDS: PANTOPRAZOLE 40 MG TABLET PO (08:16)
[2022-10-29] MEDS: ACETAMINOPHEN 325 MG TABLET 650 MG PO (08:19)
--- NOTE | 2022-10-29 08:20 | PM.IMPN ---
Progress Note: A&P Assessment and Plan (1) Sinus node dysfunction: Code(s): I49.5 - Sick sinus syndrome Status: Acute (2) Mixed hyperlipidemia due to type 2 diabetes mellitus: Code(s): E11.69 - Type 2 diabetes mellitus with other specified complication; E78.2 - Mixed hyperlipidemia Status: Acute (3) Tachy-jovita syndrome: Code(s): I49.5 - Sick sinus syndrome Status: Acute (4) Asthma: Code(s): J45.909 - Unspecified asthma, uncomplicated Status: Acute (5) Abnormal Holter monitor finding: Code(s): R94.31 - Abnormal electrocardiogram [ECG] [EKG] Status: Acute (6) Elevated blood pressure reading with diagnosis of hypertension: Code(s): I10 - Essential (primary) hypertension Status: Acute (7) TREVOR (obstructive sleep apnea): Code(s): G47.33 - Obstructive sleep apnea (adult) (pediatric) Status: Acute (8) Diabetes: Qualifiers: Diabetes mellitus complication status: with other specified complication Diabetes mellitus usp insulin use: with usp use Diabetes mellitus type: type 2 Qualified Code(s): E11.69 - Type 2 diabetes mellitus with other specified complication; Z79.4 - jail (current) use of insulin Code(s): E11.9 - Type 2 diabetes mellitus without complications Status: Acute (9) Hypertension: Qualifiers: Hypertension type: secondary to endocrine disorders Qualified Code(s): I15.2 - Hypertension secondary to endocrine disorders Code(s): I10 - Essential (primary) hypertension Status: Acute Plan 10/24/2022: 62-year-old female presented with post oral dizziness lightheadedness and a slow heart rate for last several weeks. She had been on a Holter monitor and noted to have several pauses. She is off metoprolol. Received atropine in the ER and admitted diagnosed with sick sinus syndrome planned for pacemaker implantation however due to Xarelto wound be done until Thursday pacer pads on. Blood pressure elevated. Xarelto on hold. Had amlodipine for blood pressure control. 10/25/2022: 62-year-old female presented with post oral dizziness lightheadedness and a slow heart rate for last several weeks. She had been on a Holter monitor and noted to have several pauses. She is off metoprolol. Received atropine in the ER and admitted diagnosed with sick sinus syndrome planned for pacemaker implantation however due to Xarelto wound be done until Thursday pacer pads on. Blood pressure elevated. Xarelto on hold. Had amlodipine for blood pressure control. Overnight 10/24/2022 went into AFib with RVR. Rate control with p.r.n. metoprolol plan per Cardiology. No formal diagnosis of sleep apnea. AHI off 22 on 07/26/2021 noted. 10/26/2022: 62-year-old female presented with post oral dizziness lightheadedness and a slow heart rate for last several weeks. She had been on a Holter monitor and noted to have several pauses. She is off metoprolol. Received atropine in the ER and admitted diagnosed with sick sinus syndrome planned for pacemaker implantation however due to Xarelto wound be done until Thursday pacer pads on. Blood pressure elevated. Xarelto on hold. Had amlodipine for blood pressure control. Overnight 10/24/2022 went into AFib with RVR. Rate control with p.r.n. metoprolol plan per Cardiology. No formal diagnosis of sleep apnea. AHI off 22 on 07/26/2021 noted. 10/27/2022:62-year-old female presented with post oral dizziness lightheadedness and a slow heart rate for last several weeks. She had been on a Holter monitor and noted to have several pauses. She is off metoprolol. Received atropine in the ER and admitted diagnosed with sick sinus syndrome planned for pacemaker implantation however due to Xarelto wound be done until Thursday pacer pads on. Blood pressure elevated. Xarelto on hold. Had amlodipine for blood pressure control. Overnight 10/24/2022 went into AFib with RVR. Rate control with p.r
--- NOTE | 2022-10-29 09:32 | PCNWS ---
Weekly nutritional screen. Patient is tolerating current diet with adequate intake. No weight loss reported. No nutritional needs at this time.
[2022-10-29 12:09] LABS: Glucose Point of Care 247 mg/dl (65-105)
[2022-10-29] MEDS: INSULIN ASPART (*BKC) 100 UNITS/ML SUB-Q (12:09)
--- NOTE | 2022-10-29 12:40 | PCPTNOTE ---
On 10/29/22, the student, [Niki Warner], provided care and completed [facility] documentation on this patient. I have reviewed the student's documentation and agree with the findings.
--- NOTE | 2022-10-29 12:50 | PM.DS ---
DS: Admitting Diagnosis Discharge Date Today Admitting Diagnosis [facility] [address] [place] [address] Hospitalist Progress Note Signed Patient: Katherine Beckett MR#: [id number] : 1960 Acct:[id number] Age/Sex: 62 / F ADM Date: 10/23/22 Loc: [facility] [id number]: Valeria Molina MD cc: ~ Progress Note: A&P Assessment and Plan (1) Sinus node dysfunction: ?Code(s): I49.5 - Sick sinus syndrome ?Status:?Acute (2) Mixed hyperlipidemia due to type 2 diabetes mellitus: ?Code(s): E11.69 - Type 2 diabetes mellitus with other specified complication; E78.2 - Mixed hyperlipidemia ?Status:?Acute (3) Tachy-jovita syndrome: ?Code(s): I49.5 - Sick sinus syndrome ?Status:?Acute (4) Asthma: ?Code(s): J45.909 - Unspecified asthma, uncomplicated ?Status:?Acute (5) Abnormal Holter monitor finding: ?Code(s): R94.31 - Abnormal electrocardiogram [ECG] [EKG] ?Status:?Acute (6) Elevated blood pressure reading with diagnosis of hypertension: ?Code(s): I10 - Essential (primary) hypertension ?Status:?Acute (7) TREVOR (obstructive sleep apnea): ?Code(s): G47.33 - Obstructive sleep apnea (adult) (pediatric) ?Status:?Acute (8) Diabetes: DS: Discharge Diagnosis Discharge Diagnosis (1) Sinus node dysfunction: Code(s): I49.5 - Sick sinus syndrome Status: Acute (2) Mixed hyperlipidemia due to type 2 diabetes mellitus: Code(s): E11.69 - Type 2 diabetes mellitus with other specified complication; E78.2 - Mixed hyperlipidemia Status: Acute (3) Tachy-jovita syndrome: Code(s): I49.5 - Sick sinus syndrome Status: Acute (4) Asthma: Code(s): J45.909 - Unspecified asthma, uncomplicated Status: Acute (5) Abnormal Holter monitor finding: Code(s): R94.31 - Abnormal electrocardiogram [ECG] [EKG] Status: Acute (6) Elevated blood pressure reading with diagnosis of hypertension: Code(s): I10 - Essential (primary) hypertension Status: Acute (7) TREVOR (obstructive sleep apnea): Code(s): G47.33 - Obstructive sleep apnea (adult) (pediatric) Status: Acute (8) Diabetes: Qualifiers: Diabetes mellitus type: type 2 Diabetes mellitus chcf insulin use: with chcf use Diabetes mellitus complication status: with other specified complication Qualified Code(s): E11.69 - Type 2 diabetes mellitus with other specified complication; Z79.4 - nursing home (current) use of insulin Code(s): E11.9 - Type 2 diabetes mellitus without complications Status: Acute (9) Hypertension: Qualifiers: Hypertension type: secondary to endocrine disorders Qualified Code(s): I15.2 - Hypertension secondary to endocrine disorders Code(s): I10 - Essential (primary) hypertension Status: Acute Plan 10/24/2022: 62-year-old female presented with post oral dizziness lightheadedness and a slow heart rate for last several weeks. She had been on a Holter monitor and noted to have several pauses. She is off metoprolol. Received atropine in the ER and admitted diagnosed with sick sinus syndrome planned for pacemaker implantation however due to Xarelto wound be done until Thursday pacer pads on. Blood pressure elevated. Xarelto on hold. Had amlodipine for blood pressure control. 10/25/2022: 62-year-old female presented with post oral dizziness lightheadedness and a slow heart rate for last several weeks. She had been on a Holter monitor and noted to have several pauses. She is off metoprolol. Received atropine in the ER and admitted diagnosed with sick sinus syndrome planned for pacemaker implantation however due to Xarelto wound be done until Thursday pacer pads on. Blood pressure elevated. Xarelto on hold. Had amlodipine for blood pressure control. Overnight 10/24/2022 went into [facility]
--- NOTE | 2022-10-29 14:35 | PM.PNCARD ---
Progress Note: A&P Assessment and Plan (1) Atrial flutter with rapid ventricular response: Code(s): I48.92 - Unspecified atrial flutter Status: Acute Assessment and Plan: Currently rate controlled on metoprolol. Holding anticoagulation for now given recent pacer implant which will continue 5 days post implant per Dr. Hansen to resume Xarelto 20 mg at bedtime on 11/02/2022. Metoprolol tartrate increased to 100 mg twice daily for better control of heart rate with intermittent RVR in atrial flutter. When she is back on anticoagulation when safe if persistent atrial flutter rate consider repeat cardioversion on an outpatient basis. Patient stable for discharge from cardiac perspective at this time. Follow up as an outpatient as scheduled within the next 2-4 weeks. Post pacemaker precautions per Dr Hansen. Routine pacemaker interrogation in the office. (2) Sinus node dysfunction: Code(s): I49.5 - Sick sinus syndrome Status: Acute Assessment and Plan: Status post Biotronik device, dual chamber 10/28/2022: Function normally. Chest x-ray stable. (3) Tachy-jorge syndrome: Code(s): I49.5 - Sick sinus syndrome Status: Acute Assessment and Plan: Atrial flutter and symptomatic bradycardia, high-grade AV block. See above. Dual-chamber pacer implantation 10/28/2022. (4) TREVOR (obstructive sleep apnea): Code(s): G47.33 - Obstructive sleep apnea (adult) (pediatric) Status: Acute Assessment and Plan: Abnormal ApneaLink AHI 22 on 07/26/2021. Discussed sleep apnea contribution to Jorge and/or tachyarrhythmias. Advised compliance with CPAP and formal sleep study as an outpatient. (5) Elevated white blood cell count: Code(s): D72.829 - Elevated white blood cell count, unspecified Status: Acute Assessment and Plan: White count has significantly risen now improving likely secondary to prednisone for pretreatment of contrast allergy. Subjective Date/time seen: Date of service: 10/29/22 14:35 Interval history: Follow-up visit in this 62-year-old lady with: Intermittent degrees of high-grade AV block, symptomatic bradycardia and asystolic pauses noted on Holter monitor as an outpatient. Patient has been admitted to the hospital for further treatment and anticipating pacemaker implantation on Rohan morning. Systemic anticoagulation has to be withdrawn for a sufficient period of time for this to be occur safely. Patient seen in the IMU room 2 known 9 this afternoon along with her family all of their questions were answered regarding the cardiac arrhythmias and the nature of the pacemaker implant procedure. Date of service: 10/25/2022 patient felt poorly last night, nauseous, dizzy, near syncopal between 11 and 12 which appeared to correspond to association with intermittent pauses and development of atrial flutter with RVR heart rates in 130s to 140s. However, patient states she feels fine now after receiving Zofran last night. Denies palpitations, shortness of breath or chest pain or dizziness. She currently is in atrial flutter with variable AV block heart rates in the 130s to 150 beat per minute range. She denies chest pain, fevers, chills. Apparently they tried to apply CPAP last night which she refused stating she did not know why this is being brought in as nobody told her she needed to wear it. I discussed this with her she is agreeable now. Date of service 10/26/2022: Patient states she feels fine this morning. No chest pain, heart racing or shortness of breath. Patient had mild nausea last night but no where near severe the day before. She remains in atrial flutter with variable AV block with rapid ventricular response heart rate in 120s 150s. She has been receiving IV metoprolol 5 mg q.6 hours remains tachycardic although tolerating well hemodynamically. She was transferred to a room in the ICU due to bed availability and flooding in her flavio
== END 2022-10-29 14:00 | disposition home or self-care (01) | DRG 243 ==
LOC: ANHED 10:25 → ANHIMU 10:50 → ANHICU 10-25 17:26 → ANHIMU 10-26 17:15
PROVIDERS: Emergency Medicine; Internal Medicine; Internal Medicine Cardiovascular Disease; Nurse Practitioner; Specialist; Admitting Provider Family Medicine; Emergency Provider Physician Assistant; PCP Physician Assistant; Visit Provider Hospitalist
PROC: 0JH606Z Insertion of Pacemaker, Dual Chamber into Chest Subcutaneous Tissue and Fascia, Open Approach (ICD-10-PCS; CPT 33208; principal; 2022-10-27 08:30)
DX: I49.5 Sick sinus syndrome (principal); I48.20 Chronic atrial fibrillation, unspecified; I48.92 Unspecified atrial flutter; I10 Essential (primary) hypertension; I44.30 Unspecified atrioventricular block; J45.909 Unspecified asthma, uncomplicated; E11.9 Type 2 diabetes mellitus without complications; M19.90 Unspecified osteoarthritis, unspecified site; G47.33 Obstructive sleep apnea (adult) (pediatric); F41.9 Anxiety disorder, unspecified; Z79.01 Long term (current) use of anticoagulants; Z87.891 Personal history of nicotine dependence
CPT/HCPCS: 33208; 36415; 71045; 71046; 80048; 80053; 82948; 83036; 83690; 83735; 84443; 84484; 85025; 85027; 85055; 85610; 85730; 93005; 96374; 96375; 97161; 97165; 97530; 97535; 99285; A9270; C1779; C1785; G0378; J0360; J0461; J0690; J1815; J2250; J2405; J3010; J7040; J7512

== ENCOUNTER 2022-12-07 01:29 | Emergency (ER) | payer MEDICARE, MEDICAID, SELFPAY ==
--- NOTE | ~2022-12-07 | XR_ITS ---
EXAMINATION: XR ankle RT min 3V INDICATION: Right ankle pain, initial encounter TECHNIQUE: Four views of the right ankle are obtained. COMPARISON: None available FINDINGS: There is an oblique fracture of the distal fibula which extends to the level of the tibial plafond. There is a transverse fracture of the medial malleolus. There is an oblique fracture of the posterior malleolus of the distal tibia. The talus demonstrates 5 mm of lateral subluxation relative to the tibial plafond. There is also minimal posterior subluxation of the talus relative to the dista l tibia. There is soft tissue swelling of ankle. Posterior and plantar calcaneal enthesophytes are no kendra. IMPRESSION: 1. Trimalleolar fracture/subluxation of the right ankle. Reviewed, dictated and finalized at location A.
--- NOTE | ~2022-12-07 | XR_ITS ---
EXAMINATION: XR ankle RT min 3V INDICATION: Right ankle fracture post reduction TECHNIQUE: Three views of the right ankle are obtained. COMPARISON: 0154 hours FINDINGS: A trimalleolar fracture of the right ankle is again seen. Overall alignment of the fracture fragments is not significantly changed. A posterior splint has been applied. IMPRESSION: 1. Splinted trimalleolar fracture of the right ankle without significant change in alignment of fract ure fragments. Reviewed, dictated and finalized at location A. IMPRESSION: 1. Splinted trimalleolar fracture of the right ankle without significant change in alignment of fracture fragments.
[2022-12-07 01:30] VITALS: BP 118/80; PULSE 61; RESP 16; TEMP 36.4; O2SAT 100
--- NOTE | 2022-12-07 01:36 | ED.GENADULT ---
HPI - General Adult General Chief complaint: Extremity Injury, Lower Stated complaint: fall, ankle deformity Time Seen by Provider: 12/07/22 01:31 History of Present Illness HPI narrative: This is a 62-year-old female presenting ED with chief complaint of ankle pain. Patient is coming out bathroom when she slipped and twisted her right ankle. She notes she had swelling over the medial aspect. She has been unable to bear weight and called an ambulance, hospital. Patient denies any other injuries. She did not strike her head. Patient is on anti-coagulation Related Data Home Medications Medication Instructions Recorded Confirmed amitriptyline 25 mg tablet 25 mg PO BID 07/04/21 10/23/22 folic acid 1 mg tablet 1 mg PO DAILY 07/04/21 10/23/22 lisinopril 40 mg tablet 40 mg PO DAILY 07/04/21 10/23/22 metformin 1,000 mg tablet 1,000 mg PO BID 07/04/21 10/23/22 pantoprazole 40 mg tablet,delayed 40 mg PO BID 07/04/21 10/23/22 release oxybutynin chloride 5 mg 5 mg PO DAILY 11/15/21 10/23/22 tablet,extended release 24 hr atorvastatin 20 mg tablet 20 mg PO HS 10/23/22 10/23/22 tizanidine 4 mg tablet 4 mg PO Q6H PRN Muscle Spasms 10/23/22 10/23/22 Allergies Allergy/AdvReac Type Severity Reaction Status Date / Time iodine Allergy Severe Anaphylaxis Verified 10/23/22 09:21 codeine Allergy Mild Hives, N/V Verified 10/27/22 11:12 hydrocodone AdvReac Mild Nausea and Verified 10/23/22 12:16 Vomiting SHELL FISH Allergy Severe Anaphylaxis Uncoded 10/23/22 09:21 SHRIMP Allergy Severe Anaphylaxis Uncoded 10/23/22 09:21 [facility] Past Medical History Medical History (Updated 12/07/22 @ 06:32 by Quang Sims MD) Allergies Anxiety Arthritis Asthma Depression Diabetes Hypertension Mitral valve prolapse Positive colorectal cancer screening using Cologuard test Surgical History Surgical History (Updated 10/23/22 @ 22:22 by Angie Pedro NP) H/O section times three H/O tubal ligation Hx of cholecystectomy Family History Family History Sibling Cerebrovascular accident Mother Cerebrovascular accident Father Diabetes mellitus Acute myocardial infarction Father Hypertension Social History Social History (Updated 10/23/22 @ 22:23 by Angie Pedro NP) Social History: The patient lives with her sister and has 3 children. She is . She is not working. She is a former smoker. She does not have a durable power trade mark attorney for healthcare. Code status full code Smoking packs per day: 2 Smoking cigarettes per day: 40.0 Years smoked: 20 Smoking pack-years: 40.00 Smoking status: Former smoker Tobacco type: cigars Second hand tobacco smoke exposure: No Smoking end date: 07/24/21 Alcohol intake: current Drinks per week: 6 Substance use: never Substance use type: marijuana Other substance usage details: COUPLE TIMES A WEEK Lack of Transportation: No Lack of Food: Sometimes True Current Housing: I Have Housing Concerned About Future Housing: No Difficulty Paying Gas/Electric Bills: No Difficulty Paying for Meds: No Currently Unemployed: No Education: High School Diploma/GED Difficulty w/ Childcare or Family Care: No Living arrangements: with family Spiritual care concerns: No Course Vital Signs Vital signs: Vital Signs Temperature 97.6 F 12/07/22 01:30 Pulse Rate 61 12/07/22 01:30 Respiratory Rate 16 12/07/22 01:30 Blood Pressure 118/80 12/07/22 01:30 Pulse Oximetry 100 12/07/22 01:30 Oxygen Delivery Room Air 12/07/22 01:30 Temperature 97.6 F 12/07/22 01:30 Pulse Rate 60 12/07/22 02:49 Respiratory Rate 15 12/07/22 02:49 Blood Pressure 123/76 12/07/22 02:49 Pulse Oximetry 100 12/07/22 02:49 Oxygen Delivery Room Air 12/07/22 01:30 Procedures Orthopedic Fracture Reduction Fracture #1: Fracture Reduction date: 12/07/22
[2022-12-07] MEDS: ACETAMINOPHEN 500 MG TABLET 1000 MG PO (01:41)
[2022-12-07] MEDS: oxyCODONE HCL (*CRX) 5 MG TAB IR PO (02:37)
[2022-12-07 02:49] VITALS: BP 123/76; PULSE 60; RESP 15; O2SAT 100
[2022-12-07 06:54] VITALS: BP 125/77; PULSE 65; RESP 15; O2SAT 100
--- NOTE | 2022-12-07 06:56 | PC.NURSE ---
Posterior and stirrup splint applied to pt's right leg by this RN per verbal order from Dr. Sims. CSM intact following splint application.
== END 2022-12-07 06:57 | disposition home or self-care (01) ==
PROVIDERS: Emergency Provider Emergency Medicine; PCP Physician Assistant
DX: S82.851A Displaced trimalleolar fracture of right lower leg, initial encounter for closed fracture (principal); J45.909 Unspecified asthma, uncomplicated; E11.9 Type 2 diabetes mellitus without complications; I10 Essential (primary) hypertension; I34.1 Nonrheumatic mitral (valve) prolapse; M19.90 Unspecified osteoarthritis, unspecified site; F41.9 Anxiety disorder, unspecified; Z87.891 Personal history of nicotine dependence; Z90.49 Acquired absence of other specified parts of digestive tract; Z79.84 Long term (current) use of oral hypoglycemic drugs; W01.0XXA Fall on same level from slipping, tripping and stumbling without subsequent striking against object, initial encounter; X50.9XXA Other and unspecified overexertion or strenuous movements or postures, initial encounter
CPT/HCPCS: 27818; 73610; 99285; A9270

== ENCOUNTER 2022-12-09 12:21 | Outpatient (CLI) | payer MEDICARE, MEDICAID, SELFPAY ==
--- NOTE | ~2022-12-09 | CT_ITS ---
EXAMINATION: CT ankle RT wo con DATE: 12/09/2022 12:58 INDICATION: Right ankle fracture. TECHNIQUE: Computed tomography (CT) of the right ankle was performed without intravenous contrast. Au tomated exposure control and iterative reconstruction technique were employed. The dose-length produc t was 424.31 mGy-cm. COMPARISON: Right ankle radiographs 12/07/2022 FINDINGS: There is a comminuted fracture of posterior malleolus with 10 mm fracture gap at the articu lar surface. There is a transverse fracture of medial malleolus. The distal fracture fragment demonst rates 11 mm lateral displacement and 4 mm posterior displacement. There is an oblique fracture of dis alexander fibula with medial aspect of the fracture line at the level of the tibial plafond. The distal fra cture fragment demonstrates one shaft width posterior displacement, 28 degrees posterior angulation, shortening, and 20 degrees lateral angulation. The talar dome is normal. Other joint spaces are luis miguel l. There are enthesophytes at the posterior and plantar aspects of calcaneal tuberosity. There is ank le soft tissue swelling. IMPRESSION: 1. Trimalleolar ankle fracture. Reviewed, dictated and finalized at location A.
== END 2022-12-09 12:22 | disposition home or self-care (01) ==
PROVIDERS: PCP Physician Assistant; Visit Provider Orthopaedic Surgery
DX: S82.851A Displaced trimalleolar fracture of right lower leg, initial encounter for closed fracture (principal)
CPT/HCPCS: 73700

== ENCOUNTER 2022-12-16 02:31 | Day surgery (SDC) | payer MEDICARE, MEDICAID, SELFPAY ==
[2022-12-10 14:49] VITALS: BMI 24.0
--- NOTE | 2022-12-10 15:02 | PC.NURSE ---
Report to the Outpatient Waiting Room, entrance under the green pavilion located off [facility], at time _1130_ on date 12-16-2022_. Planned Procedure Time: _130pm_. Time changes happen often and if your time is changed the preop area will call you the afternoon before. - You and your visitor will be asked to self-screen and do not enter if you have any COVID symptoms. - A mask is optional within the hospital at this time. Patients may have clear liquids (water, carbonated beverages, clear teas, apple juice) until 3 hours prior to surgery with a maximum of 20 ounces. - No food from midnight until time of surgery Take the following medications with a SIP of water the morning of surgery: __Metoprolol and Amitriptyline DO NOT STOP ANY OF YOUR OTHER PRESCRIPTION MEDICATIONS PRIOR TO SURGERY ?EXCEPT THE FOLLOWING Medications to discontinue per physician ____Taking last dose of Xarelto 12-13-[address] Caballero's instructions. Date to take last dose Please no make-up, nail kazakh, hairspray, perfume, deodorant, or body powder the day of surgery. No jewelry (including any body piercings) or valuables the day of surgery, leave them at home. Please take a shower or bath the night before, or the morning of, surgery with an antibacterial soap. Wear comfortable, loose fitting clothing. - Jewelry must be removed prior to entering the operating room. Rings and piercings that are not removed may be cut off. - The hospital will not accept responsibility for valuables. - Please leave all valuables, including medications, at home the day of surgery. If you are going home after surgery, a licensed water truck driver must drive you home. - NO public transportation without another adult if you receive anesthesia. - We recommend that an adult stay with you for 24 hours following discharge. - We also recommend that you do not drive, make important decision, drink alcoholic beverages, or take any drugs that were not prescribed by your health care provider for at least 24 hours after your discharge time. Follow any additional instructions given to you from your surgeon. If you or anyone in your household have experienced Covid symptoms in the past week, please notify your surgeon or the nurse liaison at the phone number below for possible testing. Telephone instructions given to __Patient___and asked if any additional questions and then verbalized understanding. Patient advised to call surgeon office or pre surgery nurse liaison [phone] if any additional questions.
[2022-12-16] VITALS (15 sets, daily range): BP systolic 118–180; BP diastolic 62–118; PULSE 56–133; RESP 12–24; TEMP 36.1–37.2; O2SAT 92–100; BMI 23.8
--- NOTE | ~2022-12-16 | XR_ITS ---
EXAMINATION: XR surgery orthopedic DATE: 12/16/2022 15:20 INDICATION: ORIF right ankle fracture TECHNIQUE: 6 fluoroscopic images of the right ankle were obtained during procedure performed by Dr. Daisy mendes. Radiologist was not present for the imaging or procedure. The amount of fluoroscopy time u sed during this procedure was 1.3 minutes. COMPARISON: 12/09/2022 FINDINGS: Interval open reduction internal fixation of the previously seen right ankle trimalleolar f racture which is now near-anatomic alignment. The medial malleolar fractures fixed with a pair of can nulated lag screws. The lateral malleolar fractures fixed with a lateral plate and screws. The incident engineer ior malleolar fracture is been reduced but remains unfixed. There is a congruent ankle mortise. Joint spaces appear normal with expected small amount of postoperative gas in the anterior recess of the a nkle joint. IMPRESSION: 1. Near-anatomic alignment post open reduction internal fixation of a previously noted right ankle tr imalleolar fracture. Reviewed, dictated and finalized at location A. IMPRESSION: 1. Near-anatomic alignment post open reduction internal fixation of a previousl y noted right ankle trimalleolar fracture.
--- NOTE | 2022-12-16 10:12 | WPDHPUPDATE1 ---
History and Physical Update Update Date/Time: 12/16/22 10:12 History and Physical has been reviewed, including an updated exam of the patient. There are NO changes in the patient's condition. Risks, benefits, and alternatives have been discussed and questions answered. Patient agrees to proceed with procedure.
--- NOTE | 2022-12-16 11:10 | ECG_ITS ---
Measurements Intervals [place] Rate: 65 P: [place]: 0 QRS: 37 QRSD: 103 T: 1 QT: 427 QTc: 445 Interpretive Statements ATRIAL FLUTTER/TACHYCARDIA POSSIBLE LATERAL MYOCARDIAL INFARCTION , OF INDETERMINATE AGE [30 ms Q WAVE IN I/aVL/V5/V6] COMPARED TO ECG 10/27/2022 10:21:22 NO SIGNIFICANT CHANGES Electronically Signed On 12-17-2022 11:27:39 CDT by Mandy Barahona M.D.
[2022-12-16] MEDS: ACETAMINOPHEN 500 MG TABLET 1000 MG PO (11:49)
[2022-12-16] MEDS: KETOROLAC 15 MG/ML VIAL (*BKC) IV PUSH (12:11)
[2022-12-16 12:12] LABS: Glucose Point of Care 150 mg/dl (65-105)
[2022-12-16] MEDS: LACTATED RINGERS 1,000 ML 30 ML IV CONT ×2 (12:15→15:25)
[2022-12-16 12:27] LABS: Prothrombin Time 13.4 Seconds (11.1-14.7)
[2022-12-16 12:28] LABS: Partial Thromboplastin Time 27.8 SECONDS (22.3-36.8)
--- NOTE | 2022-12-16 13:17 | WPDANESEPPF ---
Anes - Initial Pre Proc Eval Procedure: Operation Date: 12/16/22 13:30 Proposed Procedures p Right Ankle Open Reduction Internal Fixation Trimalleolar Fracture - Alexis Caballero MD Date/Time: 12/16/22 13:17 Surgeon: Alexis Caballero MD Pre Op Diagnosis: right ankle trimalleolar fracture Patient Data Age: 62 Gender: F Height: 1.63 m Weight: 63.1 kg Last Vital Signs Temp 36.2 C L 12/16/22 12:17 Pulse 65 12/16/22 12:17 Resp 16 12/16/22 12:17 BP 152/69 H 12/16/22 12:17 Pulse Ox 100 12/16/22 12:17 O2 Del Method Room Air 12/16/22 12:17 Allergies Allergy/AdvReac Type Severity Reaction Status Date / Time iodine Allergy Severe Anaphylaxis Verified 12/16/22 11:45 shellfish derived Allergy Severe Anaphylaxis Verified 12/16/22 11:45 codeine Allergy Mild Hives, N/V Verified 12/16/22 11:45 Home Medications Medication Instructions Recorded Confirmed Type folic acid 1 mg tablet 1 mg PO DAILY 07/04/21 12/11/22 History lisinopril 40 mg tablet 40 mg PO DAILY 07/04/21 12/11/22 History pantoprazole 40 mg tablet,delayed 40 mg PO BID 07/04/21 12/11/22 History release rivaroxaban 20 mg tablet (Xarelto) 20 mg PO DAILY@1700 #30 tabs 07/26/21 12/11/22 Rx oxybutynin chloride 5 mg 5 mg PO DAILY 11/15/21 12/11/22 History tablet,extended release 24 hr atorvastatin 20 mg tablet 20 mg PO HS 10/23/22 12/11/22 History tizanidine 4 mg tablet 4 mg PO Q6H PRN Muscle Spasms 10/23/22 12/11/22 History metoprolol tartrate 50 mg tablet 100 mg PO BID #60 tabs 10/29/22 12/11/22 Rx methocarbamol 750 mg tablet 1,500 mg PO TID #35 tabs 12/07/22 12/11/22 Rx cyclobenzaprine 10 mg tablet 10 mg PO TID #10 tabs 12/09/22 12/10/22 Rx acetaminophen 500 mg tablet 1,000 mg PO TID PRN Pain 12/10/22 12/10/22 History amitriptyline 25 mg tablet 25 mg PO BID 12/10/22 12/10/22 History oxycodone-acetaminophen 5 mg-325 1 - 2 tablet PO Q4-6H PRN pain #30 12/16/22 Rx mg tablet tabs Laboratory Tests 12/16/22 12/16/22 12:01 12:10 PT 13.4 Seconds (11.1-14.7) INR 1.0 APTT 27.8 SECONDS (22.3-36.8) POC Capillary Glucose 150 H mg/dl (65-105) Patient hx anesthesia problems: none Family hx anesthesia problems: none Results Review: All pre-operative results and documents have been reviewed as part of the pre-operative evaluation. [facility] Past Medical History Medical History Allergies Anxiety Arthritis Asthma Depression Diabetes Hypertension Mitral valve prolapse Positive colorectal cancer screening using Cologuard test Surgical History Surgical History H/O section times three H/O tubal ligation Hx of cholecystectomy Family History Family History Sibling Cerebrovascular accident Mother Cerebrovascular accident Father Diabetes mellitus Acute myocardial infarction Father Hypertension Social History Social History Social History: The patient lives with her sister and has 3 children. She is . She is not working. She is a former smoker. 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 Code status full code Smoking packs per day: 2 Smoking cigarettes per day: 40.0 Years smoked: 30 Smoking pack-years: 60.00 Smoking status: Former smoker Tobacco type: cigarettes Second hand tobacco smoke exposure: No Smoking end date: 07/09/21 Alcohol intake: current Drinks per week: 6 Substance use: never Substance use type: marijuana Other substance usage details: cbd for anxiety Lack of Transportation: No Lack of Food: Sometimes True Current Housing: I Have Housing Concerned About Future Housing: No Difficulty Paying Gas/Electric Bills: No Difficulty Paying for Meds: No Currently Unempl
[2022-12-16] MEDS: ceFAZolin 2 GM/D5W 50 ML 2 GM/50 ML BAG IVPB (13:44)
[2022-12-16] MEDS: BUPIVACAINE/EPINEPHRINE 0.5% 50 ML VIAL 30 ML INFILTRATE (14:10)
[2022-12-16] MEDS: fentaNYL CITRATE INJ (*CRX) 100 MCG/2 ML VIAL 25 MCG IV PUSH ×4 (15:45→16:39)
[2022-12-16 15:58] LABS: Glucose Point of Care 127 mg/dl (65-105)
--- NOTE | 2022-12-16 15:58 | P.OP_ITS ---
Procedure Note - Detailed Date of Procedure 12/16/22 Pre-op Diagnosis Right ankle trimalleolar fracture dislocation. Post-op Diagnosis Same Procedure Performed ORIF trimalleolar ankle fracture dislocation with internal fixation of the med ial and lateral malleoli. Surgeon Alexis Caballero MD Anesthesia General Findings The previous blister healed with there was an additional more posterior medial blister out of the way of the incision. No signs of infection. Remainder of the skin was quite soft and had good wrinkles. The syndesmosis was stable confirmed by CT scan and clinically. Posterior fragment was fairly small and did not involve the syndesmosis. Reduction of the medial and lateral malleoli rendered the ankle very stable and congruous. Description of Procedure A general anesthetic was administered. The limb was prepped and draped in the usual sterile fashion with a well-padded tourniquet high on the thigh. A bump was placed under the hip. The limb was exsanguinated and the tourniquet inflated to 275 millimeters of mercury during the procedure. A longitudinal incision was created at the distal fibula. Careful dissection was carried down to bone. Perineal nerve branches were identified in the proximal wound, and protected. The fracture was carefully exposed. Callus and debris was irrigated from the wound. The fracture was brought out to length. Reduction was accomplished with the reduction forceps. The fixation plate was precontoured, and fit very nicely. Fixation was performed with a locking screws due to the poor bone quality. Fluoroscopy was used throughout the procedure to confirm anatomic reduction and appropriate placement of the implants. The medial malleolus was exposed with a longitudinal incision. The fracture was cleared of debris and irrigated. Anatomic reduction was obtained with the reduction tool. Biplanar fluoroscopy was used to assess the fracture reduction and guide placement of the K-wire. Two K-wires were placed parallel across the fracture site. The screw lengths were measured and drilled distally only. The long, partially threaded screws were placed, and the K-wires removed. The tourniquet was released. Meticulous hemostasis was obtained. Wound was closed in layers with 2-0 Vicryl suture 3-0 Monocryl suture and kaycee. A sterile dressing with well padded splint was applied. The patient was extubated and brought to the recovery room in stable condition. There were no c omplications. Estimated Blood Loss 100
--- NOTE | 2022-12-16 16:06 | SUR.PHASEI ---
1605: Simple mask removed.
[2022-12-16] MEDS: diphenhydrAMINE HCl INJ 50 MG/ML VIAL 12.5 MG IV PUSH ×2 (16:44→16:59)
--- NOTE | 2022-12-16 17:31 | ADMGEN ---
This patient, Katherine Beckett, was admitted to 3 [facility] Surg Room 300-01. Patient/family oriented to hospital policies and general routines including ID bracelet, bed and alarms, visiting hours, pain management, procedures, bathroom and other care routines, personal items, smoking policy, room service/diet, and visiting hours. Information on how to activate the Rapid Response Team has been discussed. Patient/Family are encouraged to report perceived risks to care and to ask questions if they do not understand what they are told or what they should do.
[2022-12-16] MEDS: SODIUM CHLORIDE 0.9% IV 1,000 ML 125 ML IV CONT (17:48)
[2022-12-16] MEDS: SENNA/DOCUSATE SODIUM TABLET 2 TAB PO (17:50)
[2022-12-16] MEDS: methocarbamoL 750 MG TABLET 1500 MG PO (17:50)
[2022-12-16] MEDS: AMITRIPTYLINE HCL 25 MG TABLET PO (17:50)
[2022-12-16] MEDS: PANTOPRAZOLE 40 MG TABLET PO ×2 (17:51→21:08)
[2022-12-16] MEDS: oxyCODONE HCL (*CRX) 5 MG TAB IR 10 MG PO ×2 (17:52→21:57)
[2022-12-16 20:43] LABS: Glucose Point of Care 139 mg/dl (65-105)
[2022-12-16] MEDS: ATORVASTATIN 20 MG TABLET PO (21:06)
[2022-12-16] MEDS: METOPROLOL TARTRATE 50 MG TAB 100 MG PO (21:06)
[2022-12-16] MEDS: TIZANIDINE HCL 4 MG TABLET PO (21:06)
[2022-12-16] MEDS: ceFAZolin 1 GM/NS 50 ML 1 GM/50 ML BAG IVPB (21:58)
[2022-12-16] MEDS: lisinopriL 20 MG TABLET 40 MG PO (23:32)
[2022-12-17] VITALS (9 sets, daily range): BP systolic 101–160; BP diastolic 57–96; PULSE 50–114; RESP 14–18; TEMP 37–37.5; O2SAT 96–99
[2022-12-17] MEDS: oxyCODONE HCL (*CRX) 5 MG TAB IR 10 MG PO ×3 (01:52→09:41)
[2022-12-17] MEDS: TIZANIDINE HCL 4 MG TABLET PO ×2 (03:33→09:42)
[2022-12-17] MEDS: ceFAZolin 1 GM/NS 50 ML 1 GM/50 ML BAG IVPB (05:43)
[2022-12-17 07:07] LABS: Hematocrit 28.1 % (37.0-47.0); Mean Corpuscular Volume 93.7 fl (80-100); Mean Platelet Volume 9.7 fl (7.4-10.4); Platelet Count Result 225 k/mm3 (150-375); Red Cell Distribution Width 13.5 % (11.5-14.5); White Blood Count 8.1 K/mm3 (4.5-10.0)
[2022-12-17 07:16] LABS: Alanine Aminotransferase 38 U/L (6-35); Albumin Level 3.5 g/dL (3.5-5.1); Alkaline Phosphatase 130 U/L (38-126); Anion Gap 7 mmol/L (8-16); Aspartate Amino Transferase 37 U/L (14-36); Bilirubin,Total 0.6 mg/dL (0.2-1.3); Blood Urea Nitrogen 14 mg/dL (7-17); Calcium 8.6 mg/dL (8.4-10.2); Carbon Dioxide 25 mmol/L (22-30); Chloride 98 mmol/L (98-107); Estimated CRCL calculation 56 ml/min; Estimated Glomerular Filt Rate > 60; Glucose 174 mg/dL (65-110); Sodium 130 mmol/L (137-145)
[2022-12-17 08:00] LABS: Glucose Point of Care 162 mg/dl (65-105)
--- NOTE | 2022-12-17 08:02 | PM.IMCN ---
Assessment and Plan Assessment and plan (1) Closed right trimalleolar fracture: Code(s): S82.851A - Displaced trimalleolar fracture of right lower leg, initial encounter for closed fracture Status: Acute Assessment and Plan: Management per orthopedic surgery. Pain control postoperative, possibly might need rehabilitation but she describes she gets into and out of her home with steps and is able to pivot on the other foot. (2) Tachy-jovita syndrome: Code(s): I49.5 - Sick sinus syndrome Status: Acute Assessment and Plan: Patient currently in a rapid AFib but will also get is bradycardic at 50 with pacemaker backup. Telemetry ordered to monitor for severe tachycardia (3) Sinus node dysfunction: Code(s): I49.5 - Sick sinus syndrome Status: Acute Assessment and Plan: See 2. (4) Diabetes: Qualifiers: Diabetes mellitus complication status: with other specified complication Diabetes mellitus terminal clerk insulin use: with terminal clerk use Diabetes mellitus type: type 2 Qualified Code(s): E11.69 - Type 2 diabetes mellitus with other specified complication; Z79.4 - group home (current) use of insulin Code(s): E11.9 - Type 2 diabetes mellitus without complications Status: Acute Assessment and Plan: Patient reports she is in the prediabetic range with good glycemic control at home. Monitor a.c. HS Accu-Cheks with supplemental insulin as needed (5) Hypertension: Qualifiers: Hypertension type: secondary to endocrine disorders Qualified Code(s): I15.2 - Hypertension secondary to endocrine disorders Code(s): I10 - Essential (primary) hypertension Status: Acute Assessment and Plan: Continue home medications (6) Mixed hyperlipidemia due to type 2 diabetes mellitus: Code(s): E11.69 - Type 2 diabetes mellitus with other specified complication; E78.2 - Mixed hyperlipidemia Status: Acute Assessment and Plan: Continue home medications (7) Anxiety: Code(s): F41.9 - Anxiety disorder, unspecified Status: Acute Assessment and Plan: Continue home medications Plan Pain control per primary service. PT OT for discharge recommendations, possible rehabilitation placement Continue home medications. Telemetry monitoring for tachy-jovita syndrome with pacemaker backup HPI Data of Consult Consult date: 12/17/22 Requesting Physician: Alexis Caballero MD Primary Care Provider: Kathleen Perera, PA Consult Narrative Narrative: Katherine Beckett is a 62 year old female with right trimalleolar ankle fracture underwent ORIF. Patient has history of tachy-jovita syndrome with recent pacemaker placement as well as type 2 diabetes and anxiety. Hospitalist Service asked to consult on medical comorbidities into manage patient if prolonged hospitalization became necessary. Patient reports significant right ankle pain but denies any other acute complaints at this time. No chest pain no shortness of breath no vomiting. She did have some nausea overnight due to pain but that is resolved and she is eating breakfast. Patient denies any abdominal pain, constipation, diarrhea. Review of Systems Review of Systems: All systems reviewed & are unremarkable except as noted in HPI and below PMFSH Past Medical History Medical History Allergies Anxiety Arthritis Asthma Depression Diabetes Hypertension Mitral valve prolapse Positive colorectal cancer screening using Cologuard test Surgical History Surgical History H/O section times three H/O tubal ligation Hx of cholecystectomy Family History Family History Sibling Cerebrovascular accident Mother Cerebrovascular accident Father Diabetes mellitus Acute myocardial infarc
[2022-12-17] MEDS: METOPROLOL TARTRATE 50 MG TAB 100 MG PO (09:05)
[2022-12-17] MEDS: oxyBUTYnin CHLORIDE XL 5 MG TAB.ER.24 PO (09:09)
[2022-12-17] MEDS: SENNA/DOCUSATE SODIUM TABLET 2 TAB PO (09:09)
[2022-12-17] MEDS: methocarbamoL 750 MG TABLET 1500 MG PO ×2 (09:09→14:46)
[2022-12-17] MEDS: FOLIC ACID 1 MG TABLET PO (09:09)
[2022-12-17] MEDS: PANTOPRAZOLE 40 MG TABLET PO (09:09)
[2022-12-17] MEDS: lisinopriL 20 MG TABLET 40 MG PO (09:09)
[2022-12-17] MEDS: AMITRIPTYLINE HCL 25 MG TABLET PO (09:09)
[2022-12-17 11:53] LABS: Glucose Point of Care 239 mg/dl (65-105)
--- NOTE | 2022-12-17 12:18 | PM.DS ---
DS: Admitting Diagnosis Discharge Date 12/17/22 Admitting Diagnosis Right ankle trimalleolar fracture dislocation. DS: Discharge Diagnosis Discharge Diagnosis Plan Postop day 1: ORIF trimalleolar ankle fracture dislocation with internal fixation of the medial and lateral malleoli. Patient tolerated procedure well. No complications. Pain manageable with pain medication. No numbness or tingling. Leave splint intact. She has an ankle sprain on the left ankle. She will need a wheelchair at home. She is toe touch weight bearing. Agree with recommendation for home health. Follow up in office. DS: Summary Hospital Course Hospital Course: Patient tolerated surgery well. Admitted for initial edema and pain control. Has had physical therapy. Time Spent with Patient Time attestation: Total time spent providing and/or coordinating discharge services: Exam Narrative: 62 y/o normal weight female. Resting comfortably in chair. Splint intact. Wiggles toes. Good capillary refill. Light touch sensation intact. DS: Data Data Completed and Pending Labs on day of discharge: Labs from last 24 hours 12/17/22 12/17/22 12/17/22 11:50 07:51 06:58 WBC 8.1 RBC 3.00 L Hgb 9.0 L D Hct 28.1 L MCV 93.7 MCH 30.0 MCHC 32.0 RDW 13.5 Plt Count 225 MPV 9.7 PT INR APTT Sodium 130 L Potassium 4.0 Chloride 98 Carbon Dioxide 25 Anion Gap 7 L BUN 14 D Creatinine 0.80 Estim Creat Clear Calc 56 Estimated GFR > 60 Glucose 174 H POC Capillary Glucose 239 H 162 H Calcium 8.6 Total Bilirubin 0.6 AST 37 H ALT 38 H Alkaline Phosphatase 130 H Total Protein 7.0 Albumin 3.5 12/16/22 12/16/22 12/16/22 20:41 15:54 12:01 WBC RBC Hgb Hct MCV MCH MCHC RDW Plt Count MPV PT 13.4 INR 1.0 APTT 27.8 Sodium Potassium Chloride Carbon Dioxide Anion Gap BUN Creatinine Estim Creat Clear Calc Estimated GFR Glucose POC Capillary Glucose 139 H 127 H Calcium Total Bilirubin AST ALT Alkaline Phosphatase Total Protein Albumin Discharge Plan Discharge Patient Disposition: Home, Self-Care Discharge Instructions: Toe-touch weight bearing. Use wheelchair or walker. See green instruction sheets. Stand Alone Forms: General Discharge Instructions Follow-up/Referrals: Karine Vaughan PA [Physician Supervisor [facility]chlor[facility] Area] - Discharge Medications: New oxycodone-acetaminophen 5-325 mg tablet 1 - 2 tablet PO Q4-6H MDD 6 PRN (Reason: pain) Qty: 30 0RF Continued folic acid 1 mg tablet 1 mg PO DAILY lisinopril 40 mg tablet 40 mg PO DAILY pantoprazole 40 mg tablet,delayed release (DR/EC) 40 mg PO BID cyclobenzaprine 10 mg tablet 10 mg PO TID Qty: 10 0RF Rx Instructions: Do not take muscle relaxer and oxycodone at the same time. oxybutynin chloride 5 mg tablet extended release 24hr 5 mg PO DAILY atorvastatin 20 mg tablet 20 mg PO HS tizanidine 4 mg tablet 4 mg PO Q6H PRN (Reason: Muscle Spasms) metoprolol tartrate 50 mg Tablet 100 mg PO BID Qty: 60 1RF Xarelto 20 mg Tablet 20 mg PO DAILY@1700 Qty: 30 3RF Hold Instructions: Resume on 10/29/22. Per silk soaker recommendation methocarbamol 750 mg tablet 1,500 mg PO TID Qty: 35 0RF amitriptyline 25 mg tablet 25 mg PO BID acetaminophen 500 mg tablet 1,000 mg PO TID PRN (Reason: Pain) Discontinued oxycodone-acetaminophen [Percocet] 5-325 mg tablet 1 - 2 tablet PO Q4-6H PRN (Reason: pain) Qty: 40 0RF oxycodone 5 mg tablet 5 mg PO Q4H PRN (Reason: pain) Qty: 14 0RF
== END 2022-12-17 15:52 | disposition home health service (06) ==
LOC: ANHSURGERY 11:20 → ANH3MEDSUR 17:09
PROVIDERS: Anesthesiology; Nurse Practitioner; PCP Physician Assistant; Visit Provider Orthopaedic Surgery
PROC: (CPT 27814; principal; 2022-12-16 13:30)
DX: S82.851A Displaced trimalleolar fracture of right lower leg, initial encounter for closed fracture (principal); X50.0XXA Overexertion from strenuous movement or load, initial encounter; I10 Essential (primary) hypertension; I34.1 Nonrheumatic mitral (valve) prolapse; E11.9 Type 2 diabetes mellitus without complications; J45.909 Unspecified asthma, uncomplicated; E78.2 Mixed hyperlipidemia; I49.5 Sick sinus syndrome; F41.9 Anxiety disorder, unspecified; F32.A Depression, unspecified; Z87.891 Personal history of nicotine dependence; F12.90 Cannabis use, unspecified, uncomplicated; Z79.01 Long term (current) use of anticoagulants
CPT/HCPCS: 27814; 36415; 80053; 82948; 85027; 85610; 85730; 93005; 97161; 97166; 99199; A9270; C1713; C1769; J0690; J1170; J1200; J1885; J2250; J2405; J2704; J3010; J7030; J7120

== ENCOUNTER 2023-08-19 13:38 | Outpatient (CLI) | payer MEDICARE, MEDICAID, SELFPAY ==
--- NOTE | ~2023-08-19 | MM_ITS ---
EXAMINATION: MM screening kemi BI w danita HISTORY: Screening mammogram TECHNIQUE: Craniocaudal and mediolateral oblique 3-D tomosynthesis images were obtained and synthetic 2-D images were generated. CAD analysis was submitted and interpreted. COMPARISON: 05/14/2022 bilateral screening mammogram BREAST PARENCHYMAL COMPOSITION: The breasts are heterogeneously dense, which may obscure small masses . FINDINGS: Biopsy marker on the left. No suspicious mass, calcification, or architectural distortion t o suggest malignancy is noted in either breast. There has been no suspicious interval change. IMPRESSION: 1. No mammographic evidence of malignancy. 2. Recommend routine screening mammography in one year. BI-RADS Category 1: Negative Reviewed, dictated and finalized at location A.
== END 2023-08-19 13:39 | disposition home or self-care (01) ==
LOC: ANHIMG 13:41
PROVIDERS: PCP Physician Assistant; Visit Provider Physician Assistant
DX: Z12.31 Encounter for screening mammogram for malignant neoplasm of breast (principal)
CPT/HCPCS: 77063; 77067

== ENCOUNTER 2023-09-23 13:38 | Outpatient (CLI) | payer MEDICARE, MEDICAID, SELFPAY ==
--- NOTE | ~2023-09-23 | CT_ITS ---
CT Scan of the Chest without Contrast: Clinical Indication: Lung cancer screening, nicotine dependence Technique: Contiguous sections were acquired throughout the chest without intravenous contrast. Dose reduction technique was used on this scan by utilizing automated exposure control and iterative recon struction technique. The dose-length product (DLP) was 105.64 mGy-cm. Findings: There is no evidence of any significant mediastinal, hilar or axillary lymphadenopathy. Pacemaker dev ice in place. There is atherosclerotic calcifications of the aorta and coronary arteries. There is no evidence of pleural or pericardial effusion. There is linear bibasilar scarring or atelectasis. No discrete pulmonary nodule evident. Images through the upper abdomen reveal no abnormalities. Impression: Lung RADS 1: Negative. 12 month follow-up screening CT advised. Reviewed, dictated and finalized at [facility]. Impression: Lung RADS 1: Negative. 12 month follow-up screening CT advised.
== END 2023-09-23 13:39 | disposition home or self-care (01) ==
PROVIDERS: PCP Physician Assistant; Visit Provider Physician Assistant
DX: Z12.2 Encounter for screening for malignant neoplasm of respiratory organs (principal); Z87.891 Personal history of nicotine dependence
CPT/HCPCS: 71271

== ENCOUNTER 2024-03-23 20:31 | Inpatient (IN) | payer MEDICARE, MEDICAID, SELFPAY ==
--- NOTE | ~2024-03-23 | XR_ITS ---
EXAMINATION: XR knee RT 3V DATE: 03/23/2024 21:38 INDICATION: Right knee pain post fall TECHNIQUE: Anteroposterior, oblique and crosstable lateral views of the affected knee were obtained COMPARISON: None. FINDINGS: Alignment is normal. No fracture. There is mild patellofemoral osteoarthritis with mild narrowing of the profiled portion of the joint space and small marginal osteophytes. Small marginal heterotopic o ssicle projecting along the superficial margin of the distal quadriceps tendon. No joint effusion/lay ering lipohemarthrosis. Soft tissues are unremarkable. IMPRESSION: 1. No right knee joint effusion or acute osseous abnormality. Reviewed, dictated and finalized at location A. GER PAYER
--- NOTE | ~2024-03-23 | XR_ITS ---
EXAMINATION: XR ankle RT 2V DATE: 03/23/2024 21:38 INDICATION: Right ankle post fall TECHNIQUE: Anteroposterior and lateral views of the right ankle were obtained. COMPARISON: 02/25/2023 FINDINGS: Diffuse osteopenia. Bone alignment is normal. No acute fracture. Lateral plate and screw fixation kai ng the distal fibula and pair of cannulated lag screws, one with washer at the medial malleolus. Mild osteoarthritis at a few of the profiled tarsal metatarsal joints. Small Achilles and plantar calcane al spurs. IMPRESSION: 1. No acute osseous abnormality. Reviewed, dictated and finalized at location A. MONIUM HYDROXIDE OPERATOR
--- NOTE | ~2024-03-23 | XR_ITS ---
XR hip RT min 2V DATE: 03/26/2024 11:12 INDICATION: Postoperative examination TECHNIQUE: Postoperative AP and cross table lateral views of right hip COMPARISON: 03/24/2024 right hip FINDINGS: Status post right femoral head and neck resection and placement of a right total hip prosth esis in expected position with normal alignment of the acetabular and femoral components. There is expected postoperative mild subcutaneous emphysema. IMPRESSION: Status post right total hip arthroplasty Reviewed, dictated and finalized at location A. GER IMMUNOLOGY
--- NOTE | ~2024-03-23 | XR_ITS ---
EXAMINATION: XR chest 1V DATE: 03/23/2024 21:38 INDICATION: Chest pain post fall TECHNIQUE: frontal view of the chest was obtained. COMPARISON: Chest radiograph dated 10/28/[address] dated 09/23/2023 FINDINGS: Chronic mild linear and bandlike discoid atelectasis/scarring at the left lower lung zone and medial aspect of the right lower lung zone. No new airspace opacities, pulmonary edema, pleural effusion or pneumothorax. The cardiomediastinal silhouette is normal. Dual lead pacemaker seen with leads project ing over the expected locations of the right atrium and right ventricle. Cholecystectomy clips in rig ht upper quadrant. IMPRESSION: 1. Chronic linear discoid atelectasis/scarring in the bilateral lower lungs. Reviewed, dictated and finalized at location A. APPLIANCE TECH
--- NOTE | ~2024-03-23 | XR_ITS ---
EXAMINATION: XR hip RT 1V DATE: 03/24/2024 10:22 INDICATION: Right hip fracture TECHNIQUE: Anteroposterior view of the right hip were obtained. COMPARISON: None. FINDINGS: Again seen is a transcervical fracture of the proximal right femur with no significant change in appr oximately 1 cm superomedial displacement. No other fractures identified. Mild right hip osteoarthriti s. IMPRESSION: 1. 1 cm superomedial displacement of a transcervical fracture of the proximal right femur. Reviewed, dictated and finalized at location A. RICT RESOURCE OFFICER IMPRESSION: 1. 1 cm superomedial displacement of a transcervical fracture of the proximal r ight femur.
--- NOTE | ~2024-03-23 | CT_ITS ---
EXAMINATION: CT cervical spine wo con DATE: 03/23/2024 22:07 INDICATION: Fall down stairs TECHNIQUE: Computed tomography (CT) of the cervical spine was performed without intravenous contrast. Automated exposure control and iterative reconstruction technique were employed. The dose-length pro duct was 535.44 mGy-cm. COMPARISON: 05/18/2018 FINDINGS: Alignment is normal. The previously seen fracture at the anterior-inferior endplate of C4 has healed with no significant residual deformity. No acute fractures identified. Moderate disc height loss at C 6-C7. Mild disc height loss at the remaining cervical levels. Disc bulge at C5-C6 and posterior disc osteophyte complex at C6-C7 contribute to mild central canal stenosis at both levels. There is multil evel mild to moderate lower cervical predominant uncovertebral osteoarthritis. There is also multilev el mild bilateral cervical facet osteoarthritis and moderate to severe facet osteoarthritis in the vi sualized upper thoracic spine. There is moderate neural foraminal stenosis on the left at C6-C7 with mild neural from stenosis on the right at C5-C6 and C6-C7. Small amount of atherosclerotic calcificat ions at the bilateral carotid bulbs. Cervical soft tissues are otherwise unremarkable. Partially visu alized cardiac pacemaker leads extending across the left subclavian vein into the superior vena cava and beyond the inferior margin of the [id number]. Visualized portions of the upper lungs are clear . IMPRESSION: 1. Mild to moderate cervical spondylosis with no acute osseous abnormality. Reviewed, dictated and finalized at location A. ING TESTER
--- NOTE | ~2024-03-23 | XR_ITS ---
EXAMINATION: XR hip RT 2V w AP pelvis DATE: 03/23/2024 21:38 INDICATION: Right hip pain post fall TECHNIQUE: Anteroposterior view of the pelvis and anteroposterior and cross-table lateral views of th e right hip were obtained. COMPARISON: None. FINDINGS: Approximately 1 cm medial and proximal displacement of a transcervical fracture of the proximal right femur. No other fractures identified. Mild right hip and bilateral sacroiliac osteoarthritis. IMPRESSION: 1. Displaced transcervical fracture of the proximal right femur. Reviewed, dictated and finalized at location A. P ROOMS COORDINATOR
--- NOTE | ~2024-03-23 | CT_ITS ---
EXAMINATION: CT brain wo con DATE: 03/23/2024 22:07 INDICATION: Fall down stairs TECHNIQUE: Computed tomography (CT) of the head was performed without intravenous contrast. Sagittal and coronal reconstructions were performed. The mA was adjusted according to patient size. Iterative reconstruction technique was employed. The dose-length product was 756.67 mGy-cm. COMPARISON: head CT dated 05/18/2018 FINDINGS: No fracture. No acute intracranial hemorrhage, acute infarction or abnormal extra axial fluid collect ion. There is mild scattered white matter hypoattenuation consistent with chronic small vessel ischem ic disease. Symmetric prominence of the sulci consistent with mild age-appropriate diffuse cerebral v olume loss. Ventricles are normal and symmetric. No mass/mass effect. Mucous retention cyst in the ri ght sphenoid sinus. The orbits and mastoid air cells are normal. IMPRESSION: 1. Normal aging brain. No fracture or acute intracranial process Reviewed, dictated and finalized at location A. WRECKER
[2024-03-23 20:29] VITALS: BP 157/90; PULSE 78; RESP 19; TEMP 36.6; O2SAT 95
[2024-03-23 21:53] LABS: Alanine Aminotransferase 25 U/L (6-35); Albumin Level 4.7 g/dL (3.5-5.1); Alkaline Phosphatase 69 U/L (38-126); Anion Gap 20 mmol/L (4-12); Aspartate Amino Transferase 27 U/L (14-36); Bilirubin,Total 0.6 mg/dL (0.2-1.3); Blood Urea Nitrogen 20 mg/dL (7-17); Calcium 9.2 mg/dL (8.4-10.2); Carbon Dioxide 15 mmol/L (22-30); Chloride 104 mmol/L (98-107); Estimated CRCL calculation 36 ml/min; Estimated Glomerular Filt Rate 38; Glucose 214 mg/dL (65-110); Potassium 3.8 mmol/L (3.4-5.0); Sodium 139 mmol/L (137-145)
[2024-03-23] MEDS: MORPHINE SULFATE (*CRX) 4 MG/ML INJ IV PUSH (21:55)
[2024-03-23] MEDS: ONDANSETRON INJ 4 MG/2 ML VIAL IV PUSH (21:55)
[2024-03-23 22:01] LABS: Basophils Absolute Auto 0.1 K/mm3 (0.0-0.1); Basophils Percent Auto 0.4 % (0.2-1.2); Eosinophils Absolute Auto 0.3 K/mm3 (0-0.3); Eosinophils Percent Auto 2.4 % (0-4.4); Hematocrit 35.8 % (37.0-47.0); Hemoglobin 11.6 g/dL (12.0-15.0); Immature Granulocyte Absolute 0.06 K/mm3 (0.00-0.031); Immature Granulocyte Percent A 0.5 % (0-0.5); Lymphocytes Absolute Auto 2.19 K/mm3 (0.9-3.2); Lymphocytes Percent Auto 19.5 % (18.3-44.2); Mean Corpuscular HGB Conc 32.4 g/dl (32-36); Mean Corpuscular Hemoglobin 30.6 pg (26-34); Mean Corpuscular Volume 94.5 fl (80-100); Mean Platelet Volume 11.2 fl (7.4-10.4); Monocytes Absolute Auto 0.7 K/mm3 (0.1-0.6); Monocytes Percent Auto 5.9 % (2.6-8.5); Neutrophils Percent Auto 71.3 % (45.5-73.1); Platelet Count Result 244 k/mm3 (150-375); Red Blood Count 3.79 M/mm3 (4.2-5.4); Red Cell Distribution Width 13.1 % (11.5-14.5); White Blood Count 11.3 K/mm3 (4.5-10.0)
[2024-03-23 22:10] LABS: INR 1.4; Partial Thromboplastin Time 28.5 Seconds (22.3-36.8); Prothrombin Time 17.5 Seconds (11.1-14.7)
--- NOTE | 2024-03-23 22:11 | ED_ITS ---
HPI - General Adult General Chief complaint: Extremity Injury, Lower Stated complaint: FALL, R HIP PAIN AND DEFORMITY Time Seen by Provider: 03/23/24 20:39 History of Present Illness HPI narrative: patient is a 7-year-old female who presents emergency department with chief complaint of right hip pain Patient reports that she slipped down approximately 2 steps and reports that she landed on her right hip the patient reports that she has pain and shortening of her right leg the patient states she feels as though she has a hip fracture the patient states she is on anticoagulants rep orts she had no loss of consciousness reports that she has a pacemaker. Related Data Home Medications Medication Instructions Recorded Confirmed folic acid 1 mg tablet 1 mg PO DAILY 07/04/21 01/02/23 lisinopril 40 mg tablet 40 mg PO DAILY 07/04/21 01/02/23 pantoprazole 40 mg tablet,delayed 40 mg PO BID 07/04/21 01/02/23 release oxybutynin chloride 5 mg 5 mg PO DAILY 11/15/21 01/02/23 tablet,extended release 24 hr atorvastatin 20 mg tablet 20 mg PO HS 10/23/22 01/02/23 tizanidine 4 mg tablet 4 mg PO Q6H PRN Muscle Spasms 10/23/22 01/02/23 acetaminophen 500 mg tablet 1,000 mg PO TID PRN Pain 12/10/22 01/02/23 amitriptyline 25 mg tablet 25 mg PO BID 12/10/22 01/02/23 Allergies Allergy/AdvReac Type Severity Reaction Status Date / Time iodine Allergy Severe Anaphylaxis Verified 03/27/23 10:48 shellfish derived Allergy Severe Anaphylaxis Verified 03/27/23 10:48 codeine Allergy Mild Hives, N/V Verified 03/27/23 10:48 Review of Systems Review of Systems: A 10 system review of systems was completed on the patient and is negative except for what is stated in the HPI. Nursing and ancillary documentation was reviewed. [facility] Past Medical History Medical History Allergies Anxiety Arthritis Asthma Depression Diabetes Hypertension Mitral valve prolapse Positive colorectal cancer screening using Cologuard test Surgical History Surgical History H/O section times three H/O tubal ligation Hx of cholecystectomy Status post ORIF of fracture of ankle (~12/16/22) Rt Family History Family History Sibling Cerebrovascular accident Mother Cerebrovascular accident Father Diabetes mellitus Acute myocardial infarction Father Hypertension Social History Social History Social History: The patient lives with her sister and has 3 children. She is . She is not working. She is a former smoker. She does not have a durable power insurance attorney for healthcare. Code status full code Smoking packs per day: 2 Smoking cigarettes per day: 40.0 Years smoked: 30 Smoking pack-years: 60.00 Smoking status: Former smoker Second hand tobacco smoke exposure: No Alcohol intake: current Drinks per week: 6 Substance use: never Substance use type: marijuana Other substance usage details: cbd for anxiety Lack of Transportation: No Lack of Food: Sometimes True Current Housing: I Have Housing Concerned About Future Housing: No Difficulty Paying Gas/Electric Bills: No Difficulty Paying for Meds: No Currently Unemployed: No Education: High School Diploma/GED Difficulty w/ Childcare or Family Care: No Living arrangements: with family Spiritual care concerns: No Exam Narrative: GENERAL: Well-appearing, well-nourished, and in no acute distress. HEAD: Normocephalic, atraumatic. EYES: PERRLA and EOMI. ENT: Nares clear, no rhinorrhea or epistaxis. Mucous membranes moist. NECK: Supple. CHEST: Clear to auscultation. No respiratory distress. HEART: Regular rate and rhythm. No murmur heard. Normal peripheral pulses. ABDOMEN: Soft, nontender, nondistended, normal active bowel sounds. EXTREMITIES: Normal range of motion In all extremities except for right lower extremity. Right lower extremity shortened and externally rotated intact pulses. No edema. SKIN: Warm, dry, no rash. NEURO: No focal deficits. Alert and oriented x3. PSYCH: Normal mood and affect. Course Vital Signs Vital signs: Vital Signs Temperature 36.6 C 03/23/24 20:29 Pulse Rate 78 03/23/24 20:29 Respiratory Rate 19 03/23/24 20:29 Blood Pressure 157/90 H 03/23/24 20:29 Pulse Oximetry 95 03/23/24 20:29 Oxygen Delivery Room Air 03/23/24 20:29 Temperature 36.6 C 03/23/24 20:29 Pulse Rate 76 03/24/24 01:13 Respiratory Rate 13 03/24/24 01:13 Blood Pressure 133/72 03/24/24 01:13 Pulse Oximetry 97 03/24/24 01:13 Oxygen Delivery Room Air 03/23/24 20:29 Medical Decision Making Vital Signs Vital Signs: Vital Signs Temperature 36.6 C 03/23/24 20:29 Pulse Rate 78 03/23/24 20:29 Respiratory Rate 19 03/23/24 20:29 Blood Pressure 157/90 H 03/23/24 20:29 Pulse Oximetry 95 03/23/24 20:29 Oxygen Delivery Room Air 03/23/24 20:29 Temperature 36.6 C 03/23/24 20:29 Pulse Rate 76 03/24/24 01:13 Respiratory Rate 13 03/24/24 01:13 Blood Pressure 133/72 03/24/24 01:13 Pulse Oximetry 97 03/24/24 01:13 Oxygen Delivery Room Air 03/23/24 20:29 Lab Data 03/23/24 21:37 03/23/24 21:37 Labs: Lab Results 03/23/24 03/23/24 Range/Units 21:37 22:46 WBC 11.3 H (4.5-10.0) K/mm3 RBC 3.79 L (4.2-5.4) M/mm3 Hgb 11.6 L (12.0-15.0) g/dL Hct 35.8 L (37.0-47.0) % MCV 94.5 (80-100) fl MCH 30.6 (26-34) pg MCHC 32.4 (32-36) g/dl RDW 13.1 (11.5-14.5) % Plt Count 244 (150-375) k/mm3 MPV 11.2 H (7.4-10.4) fl Immature Gran % (Auto) 0.5 (0-0.5) % Neut % (Auto) 71.3 (45.5-73.1) % Lymph % (Auto) 19.5 (18.3-44.2) % [place] % (Auto) 5.9 (2.6-8.5) % Eos % (Auto) 2.4 (0-4.4) % Baso % (Auto) 0.4 (0.2-1.2) % Lymph # (Auto) 2.19 (0.9-3.2) K/mm3 [place] # (Auto) 0.7 H (0.1-0.6) K/mm3 Eos # (Auto) 0.3 (0-0.3) K/mm3 Baso # (Auto) 0.1 (0.0-0.1) K/mm3 Abs Immat Gran (auto) 0.06 H (0.00-0.031) K/mm3 Absolute Neuts (auto) 8.0 H (1.3-6.7) K/mm3 Absolute Nucleated RBC 0.000 (0.0-0.012) K/mm3 Nucleated RBC % 0.0 (0.0-0.2) % PT 17.5 H (11.1-14.7) Seconds INR 1.4 APTT 28.5 (22.3-36.8) Seconds Sodium 139 (137-145) mmol/L Potassium 3.8 (3.4-5.0) mmol/L Chloride 104 (98-107) mmol/L Carbon Dioxide 15 L (22-30) mmol/L Anion Gap 20 H (4-12) mmol/L BUN 20 H (7-17) mg/dL Creatinine 1.40 H (0.7-1.0) mg/dL Estim Creat Clear Calc 36 ml/min Estimated GFR 38 L (59 - ) Glucose 214 H (65-110) mg/dL Calcium 9.2 (8.4-10.2) mg/dL Total Bilirubin 0.6 (0.2-1.3) mg/dL AST 27 (14-36) U/L ALT 25 (6-35) U/L Alkaline Phosphatase 69 (38-126) U/L Total Protein 8.0 (6.3-8.2) g/dL Albumin 4.7 (3.5-5.1) g/dL Urine Color Yellow (Yellow) Urine Appearance Clear (Clear) Urine pH 5.0 (5.0-9.0) Ur Specific [place] 1.024 (1.001-1.035) Urine Protein Negative (Negative) mg/dL Urine Glucose (UA) 3+ H (Negative) mg/dL Urine Ketones Negative (Negative) mg/dL Ur Blood (Man) Negative (Negative) Urine Nitrate Negative (Negative) Urine Bilirubin Negative (Negative) Urine Urobilinogen 0.2 (<2.0) mg/dL Leukocyte Esterase Rfl Trace H (Negative) SARAH/UL Urine RBC 0-2 (0-2) /hpf Urine WBC 21-50 H (0-3) /hpf Ur Squamous Epith Cells Occasional (Few) /hpf Urine Bacteria None seen /hpf Urine Casts 3-5 Discharge Plan Discharge Clinical Impression: Closed fracture of right hip Patient Disposition: Still a Patient Condition: Stable
[2024-03-23] MEDS: diazePAM INJ (*CRX) 10 MG/2 ML SYRINGE 2.5 MG IV PUSH (22:44)
--- NOTE | 2024-03-23 22:44 | ECG_ITS ---
Test Date: 2024-03-23 22:55:46 Measurements Intervals [place] Rate: 81 P: 50 ME: 315 QRS: 11 QRSD: 101 T: 101 QT: 398 QTc: 464 Interpretive Statements ELECTRONIC ATRIAL PACEMAKER NONSPECIFIC ST-T WAVE ABNORMALITY- HIGH LATERAL LEADS BASELINE ARTIFACT- I, II, III, AVR, AVL, AVF BORDERLINE ECG No previous ECG available for comparison Electronically Signed On 03-24-2024 07:15:06 FAMILY RESOURCE SPECIALIST by Juan Mcrae D.O.
[2024-03-23 23:00] LABS: Add Urine Microscopic? YES; Appearance Urine Clear (Clear); Bacteria Urine None Seen /hpf; Bilirubin Urine Negative (Negative); Blood Urine Negative (Negative); Color Urine Yellow (Yellow); Glucose Urine UA 3+ mg/dL (Negative); Ketones Urine Negative (Negative); Leukocyte Esterase Ur Trace LEU/UL (Negative); Nitrate Urine Negative (Negative); Protein Urine Negative (Negative); RBC Urine 0-2 /hpf (0-2); Specific Grav Ur 1.024 (1.001-1.035); Squamous Epithelial Cell Urine Occasional /hpf (Few); Urobilinogen Urine 0.2 mg/dL (<2.0); WBC Urine 21-50 /hpf (0-3)
[2024-03-23 23:44] VITALS: BP 113/63; PULSE 79; RESP 15; O2SAT 97
[2024-03-24] MEDS: MORPHINE SULFATE (*CRX) 2 MG/ML INJ IV PUSH ×6 (00:35→20:41)
[2024-03-24] MEDS: ONDANSETRON INJ 4 MG/2 ML VIAL IV PUSH (00:35)
[2024-03-24] MEDS: SODIUM CHLORIDE 0.9% IV 1,000 ML 125 ML IV CONT ×2 (00:35→09:08)
[2024-03-24 01:13] VITALS: BP 133/72; PULSE 76; RESP 13; O2SAT 97
[2024-03-24 01:39] VITALS: BP 115/70; PULSE 69; RESP 16; TEMP 36.6; O2SAT 94; BMI 28.5
--- NOTE | 2024-03-24 01:39 | ADMGEN ---
This patient, Katherine Beckett, was admitted to [facility] Surg Room 328-01. Patient/family oriented to hospital policies and general routines including ID bracelet, bed and alarms, visiting hours, pain management, procedures, bathroom and other care routines, personal items, smoking policy, room service/diet, and visiting hours. Information on how to activate the Rapid Response Team has been discussed. Patient/Family are encouraged to report perceived risks to care and to ask questions if they do not understand what they are told or what they should do.
[2024-03-24 05:49] VITALS: BP 121/61; PULSE 60; RESP 14; TEMP 36.1; O2SAT 94
--- NOTE | 2024-03-24 07:09 | P.HP_ITS ---
H&P: HPI History of Present Illness Date/Time: 03/24/24 07:09 Chief Complaint: Fall Narrative: This is a 63 year old female with a past medical history of arthritis, asthma, depression, diabetes, HTN, dual chamber pacemaker, and mitral valve prolapse who presented after sustaining a ground level fall. The patient provides the following history. She lives in a split level home and was walking down to the landing when she slipped, missing the last two steps and fell on her right hip. She struck her right elbow on the wall trying to catch herself and suffered a skin tear. She did not hit her head or experience loss of consciousness. She lives with her sister and each of their sons who contacted EMS for emergency room evaluation. In the ED labs were significant for a white blood cell count mildly elevated at 11.3, hemoglobin 11.6, CO2 15, anion gap 20, BUN 20, creatinine 1.4, and glucose 214. UA shows 3+ glucose, trace leukocyte, and wbc's 21-50 per high-power field with no bacteria seen. Chest x-ray showed chronic linear discoid atelectasis and scarring to the bilateral lower lung bases. Right knee x-ray completed showing no knee joint effusion or acute osseous abnormality. Right ankle x-ray with no acute osseous abnormality. Right hip x-ray showed a displaced transcervical fracture of the proximal right femur. Head CT and cervical spine CT showed no acute fracture or intracranial process. The patient was started on normal saline at 1:25 a.m. mils an hour, given a 1 time dose of Valium 2.5 mg, Zofran 4 mg, and 4 mg of IV morphine. Orthopedics was consulted for right hip fracture. Patient was admitted in this setting for further pain management surgical intervention. Review of Systems Review of Systems: All systems reviewed & are unremarkable except as noted in HPI and below PMFSH Past Medical History Medical History Allergies Anxiety Arthritis Asthma Cardiac pacemaker Depression Diabetes Fracture of C3-C4 vertebra, open Hypertension Mitral valve prolapse Right orbital fracture Surgical History Surgical History H/O section times three H/O tubal ligation Hx of cholecystectomy Status post ORIF of fracture of ankle (~12/16/22) Rt Family History Family History Sibling Cerebrovascular accident Mother Cerebrovascular accident Father Diabetes mellitus Acute myocardial infarction Father Hypertension Social History Social History Social History: The patient lives with her sister and has 3 children. She is . She is not working. She is a former smoker, quit four years ago. She does not have a durable power water quality control engineer for healthcare. She lists her sister, Sherri Jeronimo as her emergency contact. Code status full code Smoking packs per day: 2 Smoking cigarettes per day: 40.0 Years smoked: 30 Smoking pack-years: 60.00 Smoking status: Former smoker Second hand tobacco smoke exposure: No Alcohol intake: current Drinks per week: 9 Alcohol use details: no history of withdrawal Substance use: unknown Substance use type: marijuana Other substance usage details: cbd for anxiety Do You Feel Safe in your Home?: Yes Lack of Transportation: No Lack of Food: Never True Current Housing: I Have Housing Concerned About Future Housing: No Difficulty Paying Gas/Electric Bills: No Difficulty Paying for Meds: No Currently Unemployed: No Education: High School Diploma/GED Difficulty w/ Childcare or Family Care: No Living arrangements: with family Occupation/Education: unemployed Spiritual care concerns: No Meds Home Medications and Allergies Home Medications Medication Instructions Recorded Confirmed Type lisinopril 40 mg tablet 40 mg PO DAILY 07/04/21 03/24/24 History pantoprazole 40 mg tablet,delayed 40 mg PO BID 07/04/21 03/24/24 History release rivaroxaban 20 mg tablet (Xarelto) 20 mg PO DAILY@1700 #30 tabs 07/26/21 03/24/24 Rx oxybutynin chloride 5 mg 5 mg PO DAILY 11/15/21 03/24/24 History tablet,extended release 24 hr atorvastatin 20 mg tablet 20 mg PO HS 10/23/22 03/24/24 History tizanidine 4 mg tablet 4 mg PO Q6H PRN Muscle Spasms 10/23/22 03/24/24 History metoprolol tartrate 50 mg tablet 100 mg PO BID #60 tabs 10/29/22 03/24/24 Rx acetaminophen 500 mg tablet 1,000 mg PO TID PRN Pain 12/10/22 03/24/24 History amitriptyline 25 mg tablet 25 mg PO BID 12/10/22 03/24/24 History empagliflozin 25 mg tablet 25 mg PO DAILY 03/24/24 03/24/24 History (Jardiance) hydrochlorothiazide 25 mg tablet 20 mg PO DAILY 03/24/24 03/24/24 History metformin 500 mg tablet 500 mg PO BID 03/24/24 03/24/24 History Allergies Allergy/AdvReac Type Severity Reaction Status Date / Time iodine Allergy Severe Anaphylaxis Verified 03/27/23 10:48 shellfish derived Allergy Severe Anaphylaxis Verified 03/27/23 10:48 codeine Allergy Mild Hives, N/V Verified 03/27/23 10:48 Vital Signs Vital Signs - 24 hr 03/23/24 20:29 03/23/24 23:44 03/24/24 01:13 Temperature 97.9 F Pulse Rate 78 79 76 Respiratory Rate 19 15 13 Blood Pressure 157/90 H 113/63 133/72 Pulse Oximetry 95 97 97 Oxygen Delivery Room Air 03/24/24 01:39 03/24/24 05:05 03/24/24 05:49 Temperature 97.8 F 96.9 F L Pulse Rate 69 60 Respiratory Rate 16 14 Blood Pressure 115/70 121/61 Pulse Oximetry 94 94 Oxygen Delivery Room Air Exam Narrative: General: appears comfortable, in no acute distress Respiratory: breathing is unlabored with even chest rise/fall, lungs are clear without wheezing, rhonchi, and crackles Cardiovascular: Rate and rhythm regular, normal s1s2, no murmur Abdomen: Soft, round, non-tender, active bowel sounds Extremities: No cyanosis, edema, clubbing. Pulses 2/2, limited ROM to right hip Neuro: A&O x 4 Skin: Warm, dry, intact. Skin tear to right elbow covered with mepilex dressing. H&P: Results Labs Labs: Short CBC 03/23/24 Range/Units 21:37 WBC 11.3 H (4.5-10.0) K/mm3 Hgb 11.6 L (12.0-15.0) g/dL Hct 35.8 L (37.0-47.0) % Plt Count 244 (150-375) k/mm3 BMP 03/23/24 21:37 Sodium 139 Potassium 3.8 Chloride 104 Carbon Dioxide 15 L BUN 20 H Creatinine 1.40 H Glucose 214 H Calcium 9.2 Liver Function 03/23/24 Range/Units 21:37 Total Bilirubin 0.6 (0.2-1.3) mg/dL AST 27 (14-36) U/L ALT 25 (6-35) U/L Alkaline Phosphatase 69 (38-126) U/L Albumin 4.7 (3.5-5.1) g/dL Urine 03/23/24 Range/Units 22:46 Urine Color Yellow (Yellow) Urine Appearance Clear (Clear) Urine pH 5.0 (5.0-9.0) Ur Specific [place] 1.024 (1.001-1.035) Urine Protein Negative (Negative) mg/dL Urine Glucose (UA) 3+ H (Negative) mg/dL Assessment and Plan Assessment and plan (1) Closed fracture of right hip: Code(s): S72.001A - Fracture of unspecified part of neck of right femur, initial encounter for closed fracture Status: Acute Assessment and Plan: Patient is seen a fall after slipping on the stairs and landing on her right hip. X-ray imaging concerning for displaced transcervical fracture of the proximal right femur. * Bed rest * Orthopedics was consulted, recs appreciated. * NPO at midnight. Hoping to go for hip replacement tomorrow, 03/25 * Tylenol, [place], and Morphine as needed for pain. Flexeril PRN for muscle spasms. Zofran for nausea. * SCD for DVT prophylaxis pending possible surgery. Patient is normally on Xarelto for a-fib. Last dose was 03/22. (2) VARGHESE (acute kidney injury): Code(s): N17.9 - Acute kidney failure, unspecified Status: Acute Assessment and Plan: Creatinine bump 1.4 on admission. No history of CKD. Suspect pre-renal. * started on IV fluids at 125 ml per hour. Rate decreased to 75 ml per hour since taking a diet. * Repeat BMP this morning shows improved Cr at 1.2 and resolution of metabolic acidosis. (3) Diabetes: Qualifiers: Diabetes mellitus complication status: with other specified complication Diabetes mellitus longwall shearer operator insulin use: with longwall shearer operator use Diabetes mellitus type: type 2 Qualified Code(s): E11.69 - Type 2 diabetes mellitus with other specified complication; Z79.4 - terminal manager (current) use of insulin Code(s): E11.9 - Type 2 diabetes mellitus without complications Status: Acute Assessment and Plan: Hemoglobin A1C 6.3% from last year. Hemoglobin A1C today 7.4%. On Metformin 500 mg BID * AC/HS accu checks * Low dose SSI, holding metformin while inpatient * Hypoglycemia protocol * Diabetic diet when okay with surgery (4) Mixed hyperlipidemia due to type 2 diabetes mellitus: Code(s): E11.69 - Type 2 diabetes mellitus with other specified complication; E78.2 - Mixed hyperlipidemia Status: Acute Assessment and Plan: Continue atorvastatin (5) Hypertension: Qualifiers: Hypertension type: secondary to endocrine disorders Qualified Code(s): I15.2 - Hypertension secondary to endocrine disorders Code(s): I10 - Essential (primary) hypertension Status: Acute Assessment and Plan: On hydrochlorothiazide 20 mg daily, lisinopril 40 mg daily, metoprolol tartrate 100 mg p.o. b.i.d. * Blood pressures reviewed and are stable 121/61, pulse 60 * Resume metoprolol. Holding hydrochlorothiazide and lisinopril in setting of VARGHESE. (6) Atrial fibrillation with RVR: Code(s): I48.91 - Unspecified atrial fibrillation Status: Acute Assessment and Plan: History of atrial fibrillation and sinus node dysfunction with dual chamber pacemaker. Patient is on metoprolol and Xarelto. * EKG in the ER showed electronic atrial pacemaker with nonspecific ST-T wave abnormality with heart rate of 81. * Continue metoprolol. Xarelto was on hold for possible surgery. Quality VTE Prophylaxis VTE prophylaxis: mechanical ordered Hospitalist MIPS Advance Care Plan I have confirmed that the patient's Advanced Care Plan is present, code status is documented, or surrogate decision maker is listed in patient medical record.: Yes Medication Reconciliation I have utilized all available resources to obtain, update and review the patients current medications (includes all prescriptions, OTC, herbals, cannabis, and nutritional supplements).: Yes
[2024-03-24 08:39] LABS: Basophils Absolute Auto 0.1 K/mm3 (0.0-0.1); Basophils Percent Auto 0.6 % (0.2-1.2); Eosinophils Absolute Auto 0.3 K/mm3 (0-0.3); Hematocrit 34.7 % (37.0-47.0); Hemoglobin 10.9 g/dL (12.0-15.0); Immature Granulocyte Absolute 0.02 K/mm3 (0.00-0.031); Immature Granulocyte Percent A 0.2 % (0-0.5); Lymphocytes Percent Auto 26.7 % (18.3-44.2); Mean Corpuscular HGB Conc 31.4 g/dl (32-36); Mean Corpuscular Volume 95.6 fl (80-100); Mean Platelet Volume 10.8 fl (7.4-10.4); Monocytes Absolute Auto 0.8 K/mm3 (0.1-0.6); Monocytes Percent Auto 9.1 % (2.6-8.5); Neutrophils Absolute Auto 4.9 K/mm3 (1.3-6.7); Neutrophils Percent Auto 59.4 % (45.5-73.1); Platelet Count Result 188 k/mm3 (150-375); Red Blood Count 3.63 M/mm3 (4.2-5.4); Red Cell Distribution Width 13.1 % (11.5-14.5); White Blood Count 8.2 K/mm3 (4.5-10.0)
[2024-03-24 08:44] LABS: Alanine Aminotransferase 40 U/L (6-35); Albumin Level 3.9 g/dL (3.5-5.1); Alkaline Phosphatase 70 U/L (38-126); Anion Gap 9 mmol/L (4-12); Aspartate Amino Transferase 43 U/L (14-36); Bilirubin,Total 0.7 mg/dL (0.2-1.3); Blood Urea Nitrogen 19 mg/dL (7-17); Calcium 8.6 mg/dL (8.4-10.2); Carbon Dioxide 24 mmol/L (22-30); Chloride 105 mmol/L (98-107); Estimated CRCL calculation 43 ml/min; Estimated Glomerular Filt Rate 46; Glucose 147 mg/dL (65-110); Sodium 138 mmol/L (137-145)
[2024-03-24 08:58] LABS: Hemoglobin A1C 7.4 % (<5.7)
[2024-03-24 09:14] LABS: Glucose Point of Care 135 mg/dl (65-105)
[2024-03-24] MEDS: EMPAGLIFLOZIN 25 MG TABLET PO (09:15)
[2024-03-24] MEDS: oxyBUTYnin CHLORIDE XL 5 MG TAB.ER.24 PO (09:15)
[2024-03-24] MEDS: PANTOPRAZOLE 40 MG TABLET PO ×2 (09:15→17:11)
[2024-03-24] MEDS: METOPROLOL TARTRATE 50 MG TAB 100 MG PO ×2 (09:15→20:41)
[2024-03-24] MEDS: AMITRIPTYLINE HCL 25 MG TABLET PO ×2 (09:15→17:11)
--- NOTE | 2024-03-24 10:10 | PM.CNOR ---
Assessment and Plan Assessment and plan (1) Fractured femoral neck: Qualifiers: Encounter type: initial encounter Fracture type: closed Laterality: right Qualified Code(s): S72.001A - Fracture of unspecified part of neck of right femur, initial encounter for closed fracture Code(s): S72.009A - Fracture of unspecified part of neck of unspecified femur, initial encounter for closed fracture Status: Acute Plan KATELYNN IS HERE FOR S/P FALL AND INJURY TO THE RIGHT HIP. SHE NOW HAS A RIGHT DISPLACED FEMORAL NECK FRACTURE. SHE WILL REQUIRE OPERATIVE TREATMENT WITH RIGHT TOTAL HIP REPLACEMENT. SHE IS ON XARELTO SO IT WOULD BE TO HER ADVANTAGE IF WE WAITED AT LEAST ANOTHER DAY TO PREFORM SURGERY. SHE WILL NEED INTERNAL MEDICINE AND CARDIAC CLEARANCE HISTORY, EXAM AND RADIOGRAPHS REVIEWED WITH THE PATIENT. REFERRING PHYSICIAN RECORDS AND IMAGES REVIEWED. CONDITION, NATURE, ETIOLOGY AND COURSE OF NATURAL HISTORY REVIEWED. CONSERVATIVE AND OPERATIVE TREATMENT OPTIONS REVIEWED WELL THE RISKS AND BENEFITS OF EACH. DISCUSSED NONOPERATIVE AND OPERATIVE TREATMENT OPTIONS WITH THE PATIENT. THE PATIENT'S QUESTIONS WERE ANSWERED. THE PATIENT DESIRES OPERATIVE TREATMENT. DISCUSSED RIGHT HIP REPLACEMENT . RISKS OF SURGERY INCLUDING BUT NOT LIMITED TO NEUROVASCULAR DAMAGE, WOUND COMPLICATIONS, BLOOD CLOT, PULMONARY EMBOLUS, STROKE, KS, ANESTHETIC RISKS UP TO AND INCLUDING WERE REVIEWED. CONTINUED PAIN AND POSSIBLE DYSFUNCTION WERE EXPLAINED. NO GUARANTEES WERE OFFERED. THE PATIENT UNDERSTANDS AND WISHES TO PROCEED. WE WILL PROCEED ONCE SHE IS CLEARED BY MEDICINE History of Present Illness HPI Consult date: 03/24/24 Chief complaint: right hip fracture Narrative: KATELYNN IS HERE FOR RIGHT HIP ,PAIN AFTER A FALL. SHE HAS PAIN AND INABILITY TO BEAR WEIGHT OR MOVE THE RIGHT HIP. SHE DENIES ANY OTHER EXTREMITY PROBLEMS OR BACKOR NECK PAIN. HISTORY, EXAM AND RADIOGRAPHS REVIEWED WITH THE PATIENT. REFERRING PHYSICIAN RECORDS AND IMAGES REVIEWED. CONDITION, NATURE, ETIOLOGY AND COURSE OF NATURAL HISTORY REVIEWED. CONSERVATIVE AND OPERATIVE TREATMENT OPTIONS REVIEWED WELL THE RISKS AND BENEFITS OF EACH. Review of Systems Review of Systems: All systems reviewed & are unremarkable except as noted in HPI and below PMFSH Past Medical History Medical History Allergies Anxiety Arthritis Asthma Depression Diabetes Hypertension Mitral valve prolapse Positive colorectal cancer screening using Cologuard test Surgical History Surgical History H/O section times three H/O tubal ligation Hx of cholecystectomy Status post ORIF of fracture of ankle (~12/16/22) Rt Family History Family History Sibling Cerebrovascular accident Mother Cerebrovascular accident Father Diabetes mellitus Acute myocardial infarction Father Hypertension Social History Social History Social History: The patient lives with her sister and has 3 children. She is . She is not working. She is a former smoker. She does not have a durable power criminal attorney for healthcare. Code status full code Smoking packs per day: 2 Smoking cigarettes per day: 40.0 Years smoked: 30 Smoking pack-years: 60.00 Smoking status: Former smoker Second hand tobacco smoke exposure: No Alcohol intake: current Drinks per week: 9 Substance use: unknown Substance use type: marijuana Other substance usage details: cbd for anxiety Do You Feel Safe in your Home?: Yes Lack of Transportation: No Lack of Food: Never True Current Housing: I Have Housing Concerned About Future Housing: No Difficulty Paying Gas/Electric Bills: No Difficulty Paying for Meds: No Currently Unemployed: No Education: High School Diploma/GED Difficulty w/ Childcare or Family Care: No Living arrangements: with family Spiritual care concerns: No Meds Home Medications and Allergies Home Medications Medication Instructions Recorded Confirmed Type lisinopril 40 mg tablet 40 mg PO DAILY 07/04/21 03/24/24 History pantoprazole 40 mg tablet,delayed 40 mg PO BID 07/04/21 03/24/24 History release rivaroxaban 20 mg tablet (Xarelto) 20 mg PO DAILY@1700 #30 tabs 07/26/21 03/24/24 Rx oxybutynin chloride 5 mg 5 mg PO DAILY 11/15/21 03/24/24 History tablet,extended release 24 hr atorvastatin 20 mg tablet 20 mg PO HS 10/23/22 03/24/24 History tizanidine 4 mg tablet 4 mg PO Q6H PRN Muscle Spasms 10/23/22 03/24/24 History metoprolol tartrate 50 mg tablet 100 mg PO BID #60 tabs 10/29/22 03/24/24 Rx acetaminophen 500 mg tablet 1,000 mg PO TID PRN Pain 12/10/22 03/24/24 History amitriptyline 25 mg tablet 25 mg PO BID 12/10/22 03/24/24 History empagliflozin 25 mg tablet 25 mg PO DAILY 03/24/24 03/24/24 History (Jardiance) hydrochlorothiazide 25 mg tablet 20 mg PO DAILY 03/24/24 03/24/24 History metformin 500 mg tablet 500 mg PO BID 03/24/24 03/24/24 History Allergies Allergy/AdvReac Type Severity Reaction Status Date / Time iodine Allergy Severe Anaphylaxis Verified 03/27/23 10:48 shellfish derived Allergy Severe Anaphylaxis Verified 03/27/23 10:48 codeine Allergy Mild Hives, N/V Verified 03/27/23 10:48 Vital Signs Vital Signs - 24 hr 03/23/24 20:29 03/23/24 23:44 03/24/24 01:13 Temperature 36.6 C Pulse Rate 78 79 76 Respiratory Rate 19 15 13 Blood Pressure 157/90 H 113/63 133/72 Pulse Oximetry 95 97 97 Oxygen Delivery Room Air 03/24/24 01:39 03/24/24 05:05 03/24/24 05:49 Temperature 36.6 C 36.1 C L Pulse Rate 69 60 Respiratory Rate 16 14 Blood Pressure 115/70 121/61 Pulse Oximetry 94 94 Oxygen Delivery Room Air Exam Back/Spine/Pelvis: Back: No back tenderness Cervical Spine: normal cervical lordosis, cervical ROM normal, No cervical muscular tenderness, No pain with cervical ROM and No Cervical spine tenderness Thoracic/Lumbar Spine: thoracic and lumbar spine normal to inspection, thoraco-lumbar ROM normal, No paraspinal muscle tenderness, No thoracic spinal tenderness and No lumbar spinal tenderness Sacrum: no tenderness Extrem: Right upper extremity: normal to inspection, shoulder/upper arm normal to inspection and normal ROM; no tenderness, elbow/forearm normal to inspection and normal ROM; no tenderness and no swelling, wrist normal to inspection and swelling; no tenderness and Extremity exam: right hand normal to inspection, normal capillary refill, neuromotor exam normal and tendon exam normal Left upper extremity: shoulder/upper arm inspection abnormal, axillary nerve sensory function normal and normal ROM; no tenderness and no swelling, elbow/forearm normal to inspection and normal ROM; no tenderness and no swelling, wrist normal to inspection and normal ROM; no tenderness and no swelling and hand normal to inspection, normal capillary refill, neuromotor exam normal, neurosensory exam normal and tendon exam normal Right lower extremity: hip/thigh Details: tenderness, swelling, abnormal ROM, ecchymosis and crepitus, knee Details: normal to inspection and normal ROM; no tenderness and no swelling, lower leg Details: normal to inspection and palpable cord; no tenderness, ankle Details: normal to inspection and normal ROM; no tenderness and no swelling and foot Details: normal capillary refill, toes with normal ROM, vascular exam Details: dorsalis pedis pulse present and posterior tibial pulse present and motor-sensory exam Details: light-touch normal; no tenderness Left lower extremity: normal to inspection, hip/thigh Details: normal to inspection and normal ROM; no tenderness, knee Details: normal to inspection and normal ROM; no tenderness and no swelling, lower leg Details: normal to inspection and palpable cord; no tenderness and no localized swelling, ankle Details: normal to inspection and normal ROM; no tenderness and no swelling and foot Details: normal capillary refill, toes with normal ROM, vascular exam Details: dorsalis pedis pulse present and posterior tibial pulse present, tendon exam active flexion normal and active extension normal and motor-sensory exam light-touch normal; no tenderness Results Labs 03/24/24 08:12 03/24/24 08:12 Labs: Abnormal lab results 03/23/24 03/23/24 03/24/24 Range/Units 21:37 22:46 08:12 WBC 11.3 H (4.5-10.0) K/mm3 RBC 3.79 L 3.63 L (4.2-5.4) M/mm3 Hgb 11.6 L 10.9 L (12.0-15.0) g/dL Hct 35.8 L 34.7 L (37.0-47.0) % MCHC 31.4 L (32-36) g/dl MPV 11.2 H 10.8 H (7.4-10.4) fl [place] % (Auto) 9.1 H (2.6-8.5) % [place] # (Auto) 0.7 H 0.8 H (0.1-0.6) K/mm3 Abs Immat Gran (auto) 0.06 H (0.00-0.031) K/mm3 Absolute Neuts (auto) 8.0 H (1.3-6.7) K/mm3 PT 17.5 H (11.1-14.7) Seconds Carbon Dioxide 15 L (22-30) mmol/L Anion Gap 20 H (4-12) mmol/L BUN 20 H 19 H (7-17) mg/dL Creatinine 1.40 H 1.20 H (0.7-1.0) mg/dL Estimated GFR 38 L 46 L (59 - ) Glucose 214 H 147 H (65-110) mg/dL POC Capillary Glucose (65-105) mg/dl Hemoglobin A1c 7.4 H (<5.7) % AST 43 H (14-36) U/L ALT 40 H (6-35) U/L Urine Glucose (UA) 3+ H (Negative) mg/dL Leukocyte Esterase Rfl Trace H (Negative) SARAH/UL Urine WBC 21-50 H (0-3) /hpf 03/24/24 Range/Units 09:12 WBC (4.5-10.0) K/mm3 RBC (4.2-5.4) M/mm3 Hgb (12.0-15.0) g/dL Hct (37.0-47.0) % MCHC (32-36) g/dl MPV (7.4-10.4) fl [place] % (Auto) (2.6-8.5) % [place] # (Auto) (0.1-0.6) K/mm3 Abs Immat Gran (auto) (0.00-0.031) K/mm3 Absolute Neuts (auto) (1.3-6.7) K/mm3 PT (11.1-14.7) Seconds Carbon Dioxide (22-30) mmol/L Anion Gap (4-12) mmol/L BUN (7-17) mg/dL Creatinine (0.7-1.0) mg/dL Estimated GFR (59 - ) Glucose (65-110) mg/dL POC Capillary Glucose 135 H (65-105) mg/dl Hemoglobin A1c (<5.7) % AST (14-36) U/L ALT (6-35) U/L Urine Glucose (UA) (Negative) mg/dL Leukocyte Esterase Rfl (Negative) SARAH/UL Urine WBC (0-3) /hpf H & H 03/23/24 03/24/24 Range/Units 21:37 08:12 Hgb 11.6 L 10.9 L (12.0-15.0) g/dL Hct 35.8 L 34.7 L (37.0-47.0) % Coagulation 03/23/24 Range/Units 21:37 INR 1.4 All other labs normal.
[2024-03-24] MEDS: HYDROcodone/acetaminophen (*CRX) 5-325 MG TABLET 1 TAB PO ×3 (11:53→22:47)
[2024-03-24] MEDS: INSULIN ASPART (*BKC) 100 UNITS/ML SUB-Q (11:55)
[2024-03-24 12:00] LABS: Glucose Point of Care 207 mg/dl (65-105)
[2024-03-24 14:00] VITALS: BP 134/73; PULSE 72; RESP 16; TEMP 36.4; O2SAT 93
[2024-03-24] MEDS: CYCLOBENZAPRINE HCL 5 MG TABLET PO ×2 (15:30→23:47)
[2024-03-24 16:32] LABS: Glucose Point of Care 145 mg/dl (65-105)
[2024-03-24] MEDS: SODIUM CHLORIDE 0.9% IV 1,000 ML 75 ML IV CONT (17:11)
[2024-03-24 20:16] LABS: Glucose Point of Care 221 mg/dl (65-105)
[2024-03-24 20:21] VITALS: BP 147/73; PULSE 69; RESP 19; TEMP 37; O2SAT 90
[2024-03-24 20:41] VITALS: PULSE 72
[2024-03-24] MEDS: ATORVASTATIN 20 MG TABLET PO (20:41)
[2024-03-24] MEDS: diphenhydrAMINE HCl CAP 25 MG CAPSULE PO (22:32)
[2024-03-25] VITALS (7 sets, daily range): BP systolic 137–158; BP diastolic 67–80; PULSE 69–82; RESP 16–20; TEMP 36.8–37.8; O2SAT 90–99
[2024-03-25] MEDS: SODIUM CHLORIDE 0.9% IV 1,000 ML 75 ML IV CONT ×2 (06:01→19:52)
[2024-03-25] MEDS: MORPHINE SULFATE (*CRX) 2 MG/ML INJ IV PUSH ×6 (06:01→23:53)
[2024-03-25 06:21] LABS: Basophils Absolute Auto 0.1 K/mm3 (0.0-0.1); Basophils Percent Auto 0.6 % (0.2-1.2); Eosinophils Absolute Auto 0.4 K/mm3 (0-0.3); Eosinophils Percent Auto 4.4 % (0-4.4); Hematocrit 35.1 % (37.0-47.0); Hemoglobin 11.5 g/dL (12.0-15.0); Immature Granulocyte Absolute 0.03 K/mm3 (0.00-0.031); Immature Granulocyte Percent A 0.3 % (0-0.5); Lymphocytes Absolute Auto 1.71 K/mm3 (0.9-3.2); Lymphocytes Percent Auto 19.6 % (18.3-44.2); Mean Corpuscular HGB Conc 32.8 g/dl (32-36); Mean Corpuscular Hemoglobin 30.7 pg (26-34); Mean Corpuscular Volume 93.6 fl (80-100); Mean Platelet Volume 10.9 fl (7.4-10.4); Monocytes Absolute Auto 0.7 K/mm3 (0.1-0.6); Neutrophils Absolute Auto 5.9 K/mm3 (1.3-6.7); Neutrophils Percent Auto 67.1 % (45.5-73.1); Platelet Count Result 162 k/mm3 (150-375); Red Blood Count 3.75 M/mm3 (4.2-5.4); Red Cell Distribution Width 13.2 % (11.5-14.5); White Blood Count 8.7 K/mm3 (4.5-10.0)
[2024-03-25 06:33] LABS: INR 1.1; Prothrombin Time 14.6 Seconds (11.1-14.7)
[2024-03-25 06:34] LABS: Partial Thromboplastin Time 27.7 Seconds (22.3-36.8)
[2024-03-25 06:40] LABS: Alanine Aminotransferase 46 U/L (6-35); Albumin Level 3.8 g/dL (3.5-5.1); Alkaline Phosphatase 78 U/L (38-126); Anion Gap 9 mmol/L (4-12); Aspartate Amino Transferase 33 U/L (14-36); Bilirubin,Total 0.9 mg/dL (0.2-1.3); Blood Urea Nitrogen 17 mg/dL (7-17); Carbon Dioxide 26 mmol/L (22-30); Chloride 102 mmol/L (98-107); Estimated CRCL calculation 51 ml/min; Estimated Glomerular Filt Rate 56; Glucose 176 mg/dL (65-110); Magnesium 1.5 mg/dL (1.6-2.3); Potassium 4.1 mmol/L (3.4-5.0); Sodium 137 mmol/L (137-145)
[2024-03-25 07:42] LABS: Glucose Point of Care 162 mg/dl (65-105)
--- NOTE | 2024-03-25 08:11 | P.PNIM_ITS ---
Progress Note: A&P Assessment and Plan (1) Closed fracture of right hip: Code(s): S72.001A - Fracture of unspecified part of neck of right femur, initial encounter for closed fracture Status: Acute Assessment and Plan: Patient is seen a fall after slipping on the stairs and landing on her right hip. X-ray imaging concerning for displaced transcervical fracture of the proximal right femur. * Bed rest * Orthopedics was consulted, recs appreciated. * NPO at midnight. Hoping to go for hip replacement tomorrow, 03/26 * Tylenol, Cambria, and Morphine as needed for pain. Flexeril for muscle spasms. Zofran for nausea. * SCD for DVT prophylaxis pending possible surgery. Patient is normally on Xarelto for a-fib. Last dose was 03/22. * 1 time dose of 40 mg of Lovenox given on 03/25 (2) VARGHESE (acute kidney injury): Code(s): N17.9 - Acute kidney failure, unspecified Status: Acute Assessment and Plan: Creatinine bump 1.4 on admission. No history of CKD. Suspect pre-renal. resolved (3) UTI (urinary tract infection): Code(s): N39.0 - Urinary tract infection, site not specified Status: Acute Assessment and Plan: started on Rocephin (4) Diabetes: Qualifiers: Diabetes mellitus complication status: with other specified complication Diabetes mellitus terminal manager insulin use: with [facility] use Diabetes mellitus type: type 2 Qualified Code(s): E11.69 - Type 2 diabetes mellitus with other specified complication; Z79.4 - FPC (current) use of insulin Code(s): E11.9 - Type 2 diabetes mellitus without complications Status: Acute Assessment and Plan: Hemoglobin A1C 6.3% from last year. Hemoglobin A1C today 7.4%. On Metformin 500 mg BID * AC/HS accu checks * Low dose SSI, holding metformin while inpatient * Hypoglycemia protocol * Diabetic diet when okay with surgery (5) Atrial fibrillation with RVR: Code(s): I48.91 - Unspecified atrial fibrillation Status: Acute Assessment and Plan: History of atrial fibrillation and sinus node dysfunction with dual chamber pacemaker. Patient is on metoprolol and Xarelto. * EKG in the ER showed electronic atrial pacemaker with nonspecific ST-T wave abnormality with heart rate of 81. * Continue metoprolol. Xarelto was on hold for possible surgery. (6) Hypertension: Qualifiers: Hypertension type: secondary to endocrine disorders Qualified Code(s): I15.2 - Hypertension secondary to endocrine disorders Code(s): I10 - Essential (primary) hypertension Status: Acute Assessment and Plan: On hydrochlorothiazide 20 mg daily, lisinopril 40 mg daily, metoprolol tartrate 100 mg p.o. b.i.d. * Blood pressures reviewed and are stable 121/61, pulse 60 * Resume metoprolol. Holding hydrochlorothiazide and lisinopril in setting of VARGHESE. (7) Mixed hyperlipidemia due to type 2 diabetes mellitus: Code(s): E11.69 - Type 2 diabetes mellitus with other specified complication; E78.2 - Mixed hyperlipidemia Status: Acute Assessment and Plan: Continue atorvastatin Time Spent With Patient Time with patient: Greater than 35 minutes Subjective Date/time seen: 03/25/24 08:11 Interval history: 63 year old female with a past medical history of arthritis, asthma, depression, diabetes, HTN, dual chamber pacemaker, and mitral valve prolapse who presented after sustaining a ground level fall with a right hip fracture Patient's urinary culture is positive for Gram-negative bacilli started on Rocephin Review of Systems Review of Systems: All systems reviewed & are unremarkable except as noted in HPI and below Exam Narrative: General: appears comfortable, in no acute distress Respiratory: breathing is unlabored with even chest rise/fall, lungs are clear without wheezing, rhonchi, and crackles Cardiovascular: Rate and rhythm regular, normal s1s2, no murmur Abdomen: Soft, round, non-tender, active bowel sounds Extremities: No cyanosis, edema, clubbing. Pulses 2/2, limited ROM to right hip Neuro: A&O x 4 Skin: Warm, dry, intact. Skin tear to right elbow covered with mepilex dressing. Objective Data Vital Signs Vital Signs: Vital Signs - 24 hr 03/24/24 14:00 03/24/24 20:21 03/24/24 20:41 Temperature 97.5 F L 98.6 F Pulse Rate 72 69 72 Respiratory Rate 16 19 Blood Pressure 134/73 147/73 H Pulse Oximetry 93 90 Oxygen Delivery 03/24/24 20:00 03/25/24 05:33 Temperature 98.2 F Pulse Rate 70 Respiratory Rate 19 Blood Pressure 158/80 H Pulse Oximetry 91 Oxygen Delivery Room Air Intake/Output Intake/Output: Intake & Output 03/22/24 03/23/24 03/24/24 03/25/24 23:59 23:59 23:59 23:59 Intake Total 2338.0 962.5 Output Total 1900 2650 Balance 438.0 -1687.5 Meds/Results Medications: Active Medications Generic Name Dose Route Start Last Admin Trade Name Freq PRN Reason Stop Dose Admin Acetaminophen 1,000 mg 03/24/24 07:41 Acetaminophen 500 Mg Tablet PO TID PRN Pain Rated 1-3 Hydrocodone Bitart/Acetaminophen 1 tab 03/24/24 07:40 03/24/24 22:47 Hydrocodone/Acetaminophen (*Crx) 5-325 Mg Tablet PO 1 tab Q4H PRN Administration Pain Rated 4-6 Amitriptyline HCl 25 mg 03/24/24 09:00 03/24/24 17:11 Amitriptyline Hcl 25 Mg Tablet PO 25 mg BID VALENCIA Administration Atorvastatin Calcium 20 mg 03/24/24 21:00 03/24/24 20:41 Atorvastatin 20 Mg Tablet PO 20 mg HS VALENCIA Administration Cyclobenzaprine HCl 5 mg 03/24/24 07:41 03/24/24 23:47 Cyclobenzaprine Hcl 5 Mg Tablet PO 5 mg Q8HR PRN Administration Muscle spasm Dextrose 12.5 gm 03/24/24 07:49 Dextrose 50% 25 Gm/50 Ml Syringe IV PUSH PRN PRN Hypoglycemia Protocol Diphenhydramine HCl 25 mg 03/24/24 07:40 03/24/24 22:32 Diphenhydramine Hcl Cap 25 Mg Capsule PO 25 mg Q6H PRN Administration Itching Empagliflozin 25 mg 03/24/24 09:00 03/24/24 09:15 Empagliflozin 25 Mg Tablet PO 25 mg DAILY VALENCIA Administration Glucagon 1 mg 03/24/24 07:49 Glucagon For Inj 1 Mg Vial IM PRN PRN Hypoglycemia Protocol Glucose 15 gm 03/24/24 07:49 Glucose Oral Gel 15 Gm Of Glucse In 37.5 Gm Tube PO PRN PRN Hypoglycemia Protocol Hydrochlorothiazide 20 mg 03/24/24 09:00 Hydrochlorothiazide 25 Mg Tablet PO DAILY VALENCIA Sodium Chloride 1,000 mls @ 75 mls/hr 03/23/24 23:50 03/25/24 06:01 Normal Saline Iv IV CONT 75 mls/hr .[id number] VALENCIA Administration Dextrose 1,000 mls @ 100 mls/hr 03/24/24 07:49 Dextrose 5% 1,000 Ml IVPB PRN PRN Hypoglycemia Protocol Insulin Aspart 2 - 5 units 03/24/24 08:00 03/25/24 07:58 Insulin Aspart (*Bkc) 100 Units/Ml SUB-Q Not Given TIDWM [facility] Protocol Lisinopril 40 mg 03/24/24 09:00 Lisinopril 20 Mg Tablet PO DAILY [facility] Metoprolol Tartrate 100 mg 03/24/24 09:00 03/24/24 20:41 Metoprolol Tartrate 50 Mg Tab PO 100 mg Q12HR VALENCIA Administration Morphine Sulfate 2 mg 03/23/24 23:50 03/25/24 06:01 Morphine Sulfate (*Crx) 2 Mg/Ml Inj IV PUSH 2 mg Q2H PRN Administration Pain Rated 7-10 Ondansetron HCl 4 mg 03/23/24 23:50 03/24/24 00:35 Ondansetron Inj 4 Mg/2 Ml Vial IV PUSH 4 mg Q4H PRN Administration Nausea Oxybutynin Chloride 5 mg 03/24/24 09:00 03/24/24 09:15 Oxybutynin Chloride Xl 5 Mg Tab.Er.24 PO 5 mg DAILY VALENCIA Administration Pantoprazole Sodium 40 mg 03/24/24 09:00 03/24/24 17:11 Pantoprazole 40 Mg Tablet PO 40 mg BID VALENCIA Administration Radiology Results: ITS Impressions Chest X-Ray 03/23/24 21:42 IMPRESSION: 1. Chronic linear discoid atelectasis/scarring in the bilateral lower lungs. Knee X-Ray 03/23/24 21:44 IMPRESSION: 1. No right knee joint effusion or acute osseous abnormality. Ankle X-Ray 03/23/24 21:46 IMPRESSION: 1. No acute osseous abnormality. Hip/Pelvis X-Ray 03/23/24 21:49 IMPRESSION: 1. Displaced transcervical fracture of the proximal right femur. Head CT 03/23/24 22:10 IMPRESSION: 1. Normal aging brain. No fracture or acute intracranial process Cervical Spine CT 03/23/24 22:13 IMPRESSION: 1. Mild to moderate cervical spondylosis with no acute osseous abnormality. Hip X-Ray 03/24/24 10:34 IMPRESSION: 1. 1 cm superomedial displacement of a transcervical fracture of the proximal right femur. Labs Labs: Laboratory Results - last 24 hr 03/24/24 03/24/24 03/24/24 08:12 09:12 10:39 WBC 8.2 RBC 3.63 L Hgb 10.9 L Hct 34.7 L MCV 95.6 MCH 30.0 MCHC 31.4 L RDW 13.1 Plt Count 188 MPV 10.8 H Immature Gran % (Auto) 0.2 Neut % (Auto) 59.4 Lymph % (Auto) 26.7 [place] % (Auto) 9.1 H Eos % (Auto) 4.0 Baso % (Auto) 0.6 Lymph # (Auto) 2.20 [place] # (Auto) 0.8 H Eos # (Auto) 0.3 Baso # (Auto) 0.1 Abs Immat Gran (auto) 0.02 Absolute Neuts (auto) 4.9 Absolute Nucleated RBC 0.000 Nucleated RBC % 0.0 PT INR APTT Sodium 138 Potassium 4.0 Chloride 105 Carbon Dioxide 24 Anion Gap 9 BUN 19 H Creatinine 1.20 H Estim Creat Clear Calc 43 Estimated GFR 46 L Glucose 147 H POC Capillary Glucose 135 H Hemoglobin A1c 7.4 H Calcium 8.6 Magnesium Total Bilirubin 0.7 AST 43 H ALT 40 H Alkaline Phosphatase 70 Total Protein 7.0 Albumin 3.9 Blood Type A Negative Antibody Screen Negative 03/24/24 03/24/24 03/24/24 11:54 16:29 20:02 WBC RBC Hgb Hct MCV MCH MCHC RDW Plt Count MPV Immature Gran % (Auto) Neut % (Auto) Lymph % (Auto) [place] % (Auto) Eos % (Auto) Baso % (Auto) Lymph # (Auto) [place] # (Auto) Eos # (Auto) Baso # (Auto) Abs Immat Gran (auto) Absolute Neuts (auto) Absolute Nucleated RBC Nucleated RBC % PT INR APTT Sodium Potassium Chloride Carbon Dioxide Anion Gap BUN Creatinine Estim Creat Clear Calc Estimated GFR Glucose POC Capillary Glucose 207 H 145 H 221 H Hemoglobin A1c Calcium Magnesium Total Bilirubin AST ALT Alkaline Phosphatase Total Protein Albumin Blood Type Antibody Screen 03/25/24 03/25/24 06:07 07:32 WBC 8.7 RBC 3.75 L Hgb 11.5 L Hct 35.1 L MCV 93.6 MCH 30.7 MCHC 32.8 RDW 13.2 Plt Count 162 MPV 10.9 H Immature Gran % (Auto) 0.3 Neut % (Auto) 67.1 Lymph % (Auto) 19.6 [place] % (Auto) 8.0 Eos % (Auto) 4.4 Baso % (Auto) 0.6 Lymph # (Auto) 1.71 [place] # (Auto) 0.7 H Eos # (Auto) 0.4 H Baso # (Auto) 0.1 Abs Immat Gran (auto) 0.03 Absolute Neuts (auto) 5.9 Absolute Nucleated RBC 0.000 Nucleated RBC % 0.0 PT 14.6 INR 1.1 APTT 27.7 Sodium 137 Potassium 4.1 Chloride 102 Carbon Dioxide 26 Anion Gap 9 BUN 17 Creatinine 1.00 Estim Creat Clear Calc 51 Estimated GFR 56 L Glucose 176 H POC Capillary Glucose 162 H Hemoglobin A1c Calcium 9.0 Magnesium 1.5 L Total Bilirubin 0.9 AST 33 ALT 46 H Alkaline Phosphatase 78 Total Protein 7.0 Albumin 3.8 Blood Type Antibody Screen Quality VTE Prophylaxis VTE prophylaxis: mechanical ordered Hospitalist MIPS Advance Care Plan I have confirmed that the patient's Advanced Care Plan is present, code status is documented, or surrogate decision maker is listed in patient medical record.: Yes Medication Reconciliation I have utilized all available resources to obtain, update and review the patients current medications (includes all prescriptions, OTC, herbals, cannabis, and nutritional supplements).: Yes
[2024-03-25] MEDS: EMPAGLIFLOZIN 25 MG TABLET PO (08:13)
[2024-03-25] MEDS: METOPROLOL TARTRATE 50 MG TAB 100 MG PO ×2 (08:13→19:51)
[2024-03-25] MEDS: oxyBUTYnin CHLORIDE XL 5 MG TAB.ER.24 PO (08:13)
[2024-03-25] MEDS: AMITRIPTYLINE HCL 25 MG TABLET PO ×2 (08:13→17:12)
[2024-03-25] MEDS: PANTOPRAZOLE 40 MG TABLET PO ×2 (08:17→17:12)
[2024-03-25] MEDS: diphenhydrAMINE HCl CAP 25 MG CAPSULE PO (08:20)
[2024-03-25] MEDS: CYCLOBENZAPRINE HCL 5 MG TABLET PO ×2 (11:26→19:51)
[2024-03-25 11:44] LABS: Glucose Point of Care 187 mg/dl (65-105)
[2024-03-25] MEDS: HYDROcodone/acetaminophen (*CRX) 5-325 MG TABLET 1 TAB PO ×2 (13:55→19:52)
[2024-03-25] MEDS: ENOXAPARIN 40 MG/0.4 ML SYRINGE SUB-Q (13:55)
[2024-03-25 16:11] LABS: Glucose Point of Care 189 mg/dl (65-105)
[2024-03-25 19:21] LABS: Glucose Point of Care 207 mg/dl (65-105)
[2024-03-25] MEDS: ATORVASTATIN 20 MG TABLET PO (19:51)
[2024-03-26] VITALS (15 sets, daily range): BP systolic 86–147; BP diastolic 53–83; PULSE 65–83; RESP 10–17; TEMP 36.2–36.8; O2SAT 91–100
[2024-03-26] MEDS: MORPHINE SULFATE (*CRX) 2 MG/ML INJ IV PUSH ×2 (03:30→05:57)
[2024-03-26] MEDS: CYCLOBENZAPRINE HCL 5 MG TABLET PO ×3 (05:08→20:21)
[2024-03-26 07:24] LABS: Basophils Absolute Auto 0.1 K/mm3 (0.0-0.1); Basophils Percent Auto 0.6 % (0.2-1.2); Eosinophils Absolute Auto 0.2 K/mm3 (0-0.3); Eosinophils Percent Auto 2.5 % (0-4.4); Hematocrit 30.9 % (37.0-47.0); Hemoglobin 9.8 g/dL (12.0-15.0); Immature Granulocyte Absolute 0.02 K/mm3 (0.00-0.031); Immature Granulocyte Percent A 0.3 % (0-0.5); Lymphocytes Absolute Auto 1.39 K/mm3 (0.9-3.2); Lymphocytes Percent Auto 17.7 % (18.3-44.2); Mean Corpuscular HGB Conc 31.7 g/dl (32-36); Mean Corpuscular Hemoglobin 30.2 pg (26-34); Mean Corpuscular Volume 95.1 fl (80-100); Mean Platelet Volume 11.1 fl (7.4-10.4); Monocytes Absolute Auto 0.7 K/mm3 (0.1-0.6); Monocytes Percent Auto 8.9 % (2.6-8.5); Neutrophils Absolute Auto 5.5 K/mm3 (1.3-6.7); Platelet Count Result 175 k/mm3 (150-375); Red Blood Count 3.25 M/mm3 (4.2-5.4); Red Cell Distribution Width 13.1 % (11.5-14.5); White Blood Count 7.9 K/mm3 (4.5-10.0)
--- NOTE | 2024-03-26 07:39 | P.PNAN_ITS ---
Anes - Initial Pre Proc Eval Procedure: Operation Date: 03/26/24 08:00 Proposed Procedures p Right Total Hip Arthroplasty(Right) - Rick William MD Date/Time: 03/26/24 07:39 Surgeon: Stewart Pre Op Diagnosis: right hip fracture Patient Data Age: 63 Gender: F Height: 1.63 m Weight: 75.3 kg Last Vital Signs Temp 36.8 C 03/26/24 06:00 Pulse 83 03/26/24 06:00 Resp 12 03/26/24 06:00 BP 124/78 03/26/24 06:00 Pulse Ox 99 03/26/24 06:00 O2 Del Method Room Air 03/25/24 20:00 Allergies Allergy/AdvReac Type Severity Reaction Status Date / Time iodine Allergy Severe Anaphylaxis Verified 03/27/23 10:48 shellfish derived Allergy Severe Anaphylaxis Verified 03/27/23 10:48 codeine Allergy Mild Hives, N/V Verified 03/27/23 10:48 Home Medications Medication Instructions Recorded Confirmed Type lisinopril 40 mg tablet 40 mg PO DAILY 07/04/21 03/24/24 History pantoprazole 40 mg tablet,delayed 40 mg PO BID 07/04/21 03/24/24 History release rivaroxaban 20 mg tablet (Xarelto) 20 mg PO DAILY@1700 #30 tabs 07/26/21 03/24/24 Rx oxybutynin chloride 5 mg 5 mg PO DAILY 11/15/21 03/24/24 History tablet,extended release 24 hr atorvastatin 20 mg tablet 20 mg PO HS 10/23/22 03/24/24 History tizanidine 4 mg tablet 4 mg PO Q6H PRN Muscle Spasms 10/23/22 03/24/24 History metoprolol tartrate 50 mg tablet 100 mg PO BID #60 tabs 10/29/22 03/24/24 Rx acetaminophen 500 mg tablet 1,000 mg PO TID PRN Pain 12/10/22 03/24/24 History amitriptyline 25 mg tablet 25 mg PO BID 12/10/22 03/24/24 History empagliflozin 25 mg tablet 25 mg PO DAILY 03/24/24 03/24/24 History (Jardiance) hydrochlorothiazide 25 mg tablet 20 mg PO DAILY 03/24/24 03/24/24 History metformin 500 mg tablet 500 mg PO BID 03/24/24 03/24/24 History Laboratory Tests 03/25/24 03/25/24 03/25/24 07:32 11:22 15:57 WBC RBC Hgb Hct MCV MCH MCHC RDW Plt Count MPV Immature Gran % (Auto) Neut % (Auto) Lymph % (Auto) [place] % (Auto) Eos % (Auto) Baso % (Auto) Lymph # (Auto) [place] # (Auto) Eos # (Auto) Baso # (Auto) Abs Immat Gran (auto) Absolute Neuts (auto) Absolute Nucleated RBC Nucleated RBC % Sodium Potassium Chloride Carbon Dioxide Anion Gap BUN Creatinine Estim Creat Clear Calc Estimated GFR Glucose POC Capillary Glucose 162 H mg/dl 187 H mg/dl 189 H mg/dl (65-105) (65-105) (65-105) Calcium Magnesium Total Bilirubin AST ALT Alkaline Phosphatase Total Protein Albumin 03/25/24 03/26/24 19:16 07:08 WBC 7.9 K/mm3 (4.5-10.0) RBC 3.25 L M/mm3 (4.2-5.4) Hgb 9.8 L g/dL (12.0-15.0) Hct 30.9 L % (37.0-47.0) MCV 95.1 fl (80-100) MCH 30.2 pg (26-34) MCHC 31.7 L g/dl (32-36) RDW 13.1 % (11.5-14.5) Plt Count 175 k/mm3 (150-375) MPV 11.1 H fl (7.4-10.4) Immature Gran % (Auto) 0.3 % (0-0.5) Neut % (Auto) 70.0 % (45.5-73.1) Lymph % (Auto) 17.7 L % (18.3-44.2) [place] % (Auto) 8.9 H % (2.6-8.5) Eos % (Auto) 2.5 % (0-4.4) Baso % (Auto) 0.6 % (0.2-1.2) Lymph # (Auto) 1.39 K/mm3 (0.9-3.2) [place] # (Auto) 0.7 H K/mm3 (0.1-0.6) Eos # (Auto) 0.2 K/mm3 (0-0.3) Baso # (Auto) 0.1 K/mm3 (0.0-0.1) Abs Immat Gran (auto) 0.02 K/mm3 (0.00-0.031) Absolute Neuts (auto) 5.5 K/mm3 (1.3-6.7) Absolute Nucleated RBC 0.000 K/mm3 (0.0-0.012) Nucleated RBC % 0.0 % (0.0-0.2) Sodium Pending Potassium Pending Chloride Pending Carbon Dioxide Pending Anion Gap Pending BUN Pending Creatinine Pending Estim Creat Clear Calc Pending Estimated GFR Pending Glucose Pending POC Capillary Glucose 207 H mg/dl (65-105) Calcium Pending Magnesium Pending Total Bilirubin Pending AST Pending ALT Pending Alkaline Phosphatase Pending Total Protein Pending Albumin Pending Patient hx anesthesia problems: none Family hx anesthesia problems: none Results Review: All pre-operative results and documents have been reviewed as part of the pre- operative evaluation. [facility] Past Medical History Medical History (Updated 03/26/24 @ 07:40 by Neptali Carrera DO) Allergies Anxiety Arthritis Asthma Atrial fibrillation Cardiac pacemaker Depression Diabetes Fracture of C3-C4 vertebra, open Hyperlipidemia Hypertension Mitral valve prolapse Right orbital fracture Surgical History Surgical History H/O section times three H/O tubal ligation Hx of cholecystectomy Status post ORIF of fracture of ankle (~12/16/22) Rt Family History Family History Sibling Cerebrovascular accident Mother Cerebrovascular accident Father Diabetes mellitus Acute myocardial infarction Father Hypertension Social History Social History Social History: The patient lives with her sister and has 3 children. She is . She is not working. She is a former smoker, quit four years ago. She does not have a durable power assistant attorney general for healthcare. She lists her sister, Sherri Jeronimo as her emergency contact. Code status full code Smoking packs per day: 2 Smoking cigarettes per day: 40.0 Years smoked: 30 Smoking pack-years: 60.00 Smoking status: Former smoker Second hand tobacco smoke exposure: No Alcohol intake: current Drinks per week: 9 Alcohol use details: no history of withdrawal Substance use: unknown Substance use type: marijuana Other substance usage details: cbd for anxiety Do You Feel Safe in your Home?: Yes Lack of Transportation: No Lack of Food: Never True Current Housing: I Have Housing Concerned About Future Housing: No Difficulty Paying Gas/Electric Bills: No Difficulty Paying for Meds: No Currently Unemployed: No Education: High School Diploma/GED Difficulty w/ Childcare or Family Care: No Living arrangements: with family Occupation/Education: unemployed Spiritual care concerns: No Anes - Eval Final PreProcedure Day of Procedure 03/26/24 07:39 Patient weight: overweight Heart: regular rate and rhythm Lungs: clear to auscultation Airway: Mallampati scale class II and special considerations poor dentition Neurological: alert and oriented Last oral intake: >/= 8 hours ASA classification: III Emergent: no Anesthetic plan: proceed Anesthesia type and monitoring: general ETT and standard monitoring Results Review: All pre-operative results and documents have been reviewed as part of the pre- operative evaluation. Informed Consent: The patient's anesthetic plan and its attendant risks and benefits were discussed with the patient/family/POA. Questions were solicited and answers provided to the satisfaction of the patient/family/POA.
[2024-03-26 07:45] LABS: Alanine Aminotransferase 55 U/L (6-35); Alkaline Phosphatase 107 U/L (38-126); Anion Gap 10 mmol/L (4-12); Aspartate Amino Transferase 44 U/L (14-36); Bilirubin,Total 1.5 mg/dL (0.2-1.3); Blood Urea Nitrogen 15 mg/dL (7-17); Calcium 9.1 mg/dL (8.4-10.2); Carbon Dioxide 22 mmol/L (22-30); Chloride 104 mmol/L (98-107); Estimated CRCL calculation 51 ml/min; Estimated Glomerular Filt Rate 56; Glucose 158 mg/dL (65-110); Magnesium 1.5 mg/dL (1.6-2.3); Sodium 136 mmol/L (137-145)
--- NOTE | 2024-03-26 07:59 | WPDHPUPDATE1 ---
History and Physical Update Update Date/Time: 03/26/24 07:59 History and Physical has been reviewed, including an updated exam of the patient. There are NO changes in the patient's condition. Risks, benefits, and alternatives have been discussed and questions answered. Patient agrees to proceed with procedure.
[2024-03-26] MEDS: ceFAZolin 2 GM/D5W 50 ML 2 GM/50 ML BAG IVPB ×2 (08:00→17:13)
[2024-03-26] MEDS: SODIUM CHLORIDE 0.9% IV 37.7 ML, MORPHINE SULFATE INJ (*CRX) 2 MG, ROPivacaine HCL 1% 2... INFILTRATE (10:00)
[2024-03-26] MEDS: LACTATED RINGERS 1,000 ML 30 ML IV CONT ×2 (10:33→10:35)
[2024-03-26 11:04] LABS: Glucose Point of Care 169 mg/dl (65-105)
--- NOTE | 2024-03-26 11:22 | W.PM.PROC2 ---
Procedure Note - Detailed Date of Procedure 03/26/24 Pre-op Diagnosis right femoral neck fracture Post-op Diagnosis Same Procedure Performed R LISBETH Surgeon Rick William MD Anesthesia General Description of Procedure THE PATIENT WAS TAKEN TO THE OPERATING ROOM IN STABLE CONDITION AND WAS PLACED IN THE LATERAL DECUBITUS AND THE RIGHT LOWER EXTREMITY WAS PREPPED AND DRAPED IN THE STERILE FASHION. INCISION WAS MADE IN THE POSTERIOR LATERAL SIDE OF THE HIP, DOWN TO THE FASCIA LAYER. THE FASCIA WAS INCISED. THE HIP WAS EXPOSED. THE SHORT EXTERNAL ROTATORS WERE EXPOSED. THE SCIATIC NERVE WAS IDENTIFIED. THERE WAS A HIGH BIFURCATION OF THE NERVE. INCISION WAS MADE THROUGH THE SORT EXTERNAL ROTATORS AND THE CAPSULE OF THE HIP JOINT. THE HIP WAS DISLOCATED. AN OSTEOTOMY WAS MADE TO THE FEMORAL NECK ABOUT 1 CM PROXIMAL TO THE LESSER TROCHANTER. THE ACETABULUM WAS EXPOSED. THERE WAS SEVERE DJD SEEN. BEGINNING WITH A 43 REAMER THE ACETABULUM WAS REAMED TO 49 MM. A 53 MM TRIAL WAS PLACED IN 35 DEG OF ABDUCTION AND ANTEVERSION WAS IN ALIGNMENT WITH THE TRANS ACETABULAR LIGAMENT. THE FIT WAS EXCELLENT. THE TRIAL WAS REMOVED. A 50 MM BIOMET G7 COMPONENT WAS THEN TAPPED IN TO PLACE IN 35 DEG OF ABDUCTION AND ANTEVERSION IN ALIGNMENT WITH THE TRANSVERSE ACETABULAR LIGAMENT. THE FIT WAS EXCELLENT. THREE SCREWS WERE PLACED AND HAD GOOD BITES. THE ACETABULAR LINER WAS PLACED AND CHECKED FOR STABILITY. NEXT THE FEMUR WAS PREPARED WITH INITIAL CANAL FINDER THEN SEQUENTIAL BROACHING WITH A TAPERLOC HIP SYSTEM, UNTIL A 16 BROACH FIT WELL IN 15 OF ANTEVERSION. A +3 STANDARD OFFSET NECK WITH 36 MM HEAD TRIAL WAS PLACED. THE SHUCK TEST WAS EXCELLENT AND THE STABILITY IN FLEXION AND ROTATION WAS EXCELLENT. LEG LENGTHS WERE GROSSLY EQUAL. TRIALS WERE REMOVED. A BIOMET TAPERLOC 16 STEM WAS PLACED WITH A STANDARD OFFSET NECK THE FIT WAS EXCELLENT IN 15 DEG OF ANTEVERSION. A +3 CERAMIC 36 MM FEMORAL HEAD WAS PLACED. THE HIP WAS TRIALED AND THE STABILITY WAS EXCELLENT WERE THE LEG LENGTHS AND THE SHUCK TEST. THE WOUND WAS IRRIGATED WITH STERILE BETADINE AND WATER FOR 3 MIN. THEN WASHED AGAIN. THE CAPSULE AND THE EXTERNAL ROTATORS WERE APPROXIMATED WITH NUMBER 1 VICRYL. THE FASCIA WITH No 2 QUIL AND THE SUB CUTANEOUS LAYER WITH 2-0 ABSORBABLE SUTURE WITH A RUNNING 3-0 SUBCUTICULAR LAYER WELL. DERMABOND WAS PLACED AND STERILE DRESSING WAS APPLIED. PATIENT WAS PLACED BACK ON TO THE SUPINE POSITION AND WAS EXTUBATED Estimated Blood Loss 200 Urine Output 750 Complications No immediate complications Condition Stable Disposition PACU
--- NOTE | 2024-03-26 11:29 | SUR.PHASEI ---
1129: Simple mask removed.
[2024-03-26] MEDS: EMPAGLIFLOZIN 25 MG TABLET PO (13:31)
[2024-03-26] MEDS: AMITRIPTYLINE HCL 25 MG TABLET PO ×2 (13:31→17:12)
[2024-03-26] MEDS: SODIUM CHLORIDE 0.9% IV 1,000 ML 125 ML IV CONT (13:31)
[2024-03-26] MEDS: PANTOPRAZOLE 40 MG TABLET PO ×2 (13:32→17:12)
[2024-03-26] MEDS: oxyBUTYnin CHLORIDE XL 5 MG TAB.ER.24 PO (13:32)
[2024-03-26] MEDS: KETOROLAC 15 MG/ML VIAL (*BKC) IV PUSH ×2 (13:33→18:56)
[2024-03-26 16:58] LABS: Glucose Point of Care 219 mg/dl (65-105)
[2024-03-26] MEDS: SENNA/DOCUSATE SODIUM TABLET 2 TAB PO (17:11)
[2024-03-26] MEDS: polyethylene glycoL 3350 17 GM POWD.PACK PO (17:12)
[2024-03-26] MEDS: metFORMIN HCL 500 MG TABLET PO (17:12)
[2024-03-26] MEDS: RIVAROXABAN 20 MG TABLET PO (17:14)
[2024-03-26] MEDS: INSULIN ASPART (*BKC) 100 UNITS/ML SUB-Q (17:15)
--- NOTE | 2024-03-26 17:50 | P.PNIM_ITS ---
Progress Note: A&P Assessment and Plan (1) Closed fracture of right hip: Code(s): S72.001A - Fracture of unspecified part of neck of right femur, initial encounter for closed fracture Status: Acute Assessment and Plan: Patient is seen a fall after slipping on the stairs and landing on her right hip. X-ray imaging concerning for displaced transcervical fracture of the proximal right femur. * Bed rest * Orthopedics was consulted, recs appreciated. * NPO at midnight. Hoping to go for hip replacement tomorrow, 03/26 * Tylenol, Percocet, and Morphine as needed for pain. Tizanidine prn for muscle spasms. Zofran for nausea. * SCD/ALIE hose for DVT prophylaxis * 1 time dose of 40 mg of Lovenox given on 03/25, resumed xarelto today per surgery (2) VARGHESE (acute kidney injury): Code(s): N17.9 - Acute kidney failure, unspecified Status: Acute Assessment and Plan: Creatinine bump 1.4 on admission. No history of CKD. Suspect pre-renal. resolved On scheduled toradol 15 q6 post op. 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 Hemoglobin A1C 03/24 7.4%. On Metformin 500 mg BID * AC/HS accu checks * Low dose SSI, holding metformin while inpatient * Hypoglycemia protocol * Diabetic diet (5) Atrial fibrillation with RVR: Code(s): I48.91 - Unspecified atrial fibrillation Status: Acute Assessment and Plan: History of atrial fibrillation and sinus node dysfunction with dual chamber pacemaker. Patient is on metoprolol and Xarelto. * EKG in the ER showed electronic atrial pacemaker with nonspecific ST-T wave abnormality with heart rate of 81. * Continue metoprolol. 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 b.i.d. Blood pressure controlld * Blood pressures reviewed and are stable 121/61, pulse 60 * Continue metoprolol. Held hydrochlorothiazide and lisinopril in setting of VARGHESE, was resumed * Continue lisinopril. Hold HCTZ today (7) Mixed hyperlipidemia due to type 2 diabetes mellitus: Code(s): E11.69 - Type 2 diabetes mellitus with other specified complication; E78.2 - Mixed hyperlipidemia Status: Acute Assessment and Plan: Continue atorvastatin (8) Hypomagnesemia: Code(s): E83.42 - Hypomagnesemia Status: Acute Assessment and Plan: Mag 1.5, s/p 2G IV 03/26 Check magnesium in AM, add potassium (9) Elevated bilirubin: Code(s): R17 - Unspecified jaundice Status: Acute Assessment and Plan: Bilirubin 0.6<1.5 AST 44, ALT 25<55, alk phos 107 Follow LFT's and check direct bili Time Spent With Patient Time: 57 minutes Subjective Date/time seen: 03/26/24 17:50 Interval history: s/p OR today for total right hip replacement. Doing well post op. Sitting up in a chair, pain controlled. Patient's urinary culture is growing ecoli, started on Rocephin. Wylie catheter in place, likely remove 03/27 Mag 1.5, repleted 63 year old female with a past medical history of arthritis, asthma, depression, diabetes, HTN, dual chamber pacemaker, and mitral valve prolapse who presented a fter sustaining a ground level fall with a right hip fracture. S/p ORIF 03/26 right total hip Review of Systems Review of Systems: All systems reviewed & are unremarkable except as noted in HPI and below Exam Narrative: General: appears comfortable, in no acute distress Respiratory: breathing is unlabored with even chest rise/fall, lungs are clear without wheezing, rhonchi, and crackles Cardiovascular: Rate and rhythm regular, normal s1s2, no murmur Abdomen: Soft, round, non-tender, active bowel sounds Extremities: No cyanosis, edema, clubbing. Pulses 2/2, post op dressing right hip. Limited ROM Neuro: A&O x 4, PERRLA moves all extremities Skin: Warm, dry, intact. Skin tear to right elbow covered with Mepilex dressing. Objective Data Vital Signs Vital Signs: Vital Signs - 24 hr 03/25/24 19:00 03/25/24 19:51 03/25/24 20:00 Temperature 99.1 F Pulse Rate 69 72 Respiratory Rate 20 Blood Pressure 148/76 H Pulse Oximetry 95 Oxygen Delivery Room Air Oxygen Flow Rate 03/25/24 22:00 03/25/24 23:00 03/26/24 06:00 Temperature 100.0 F H 98.7 F 98.2 F Pulse Rate 81 83 Respiratory Rate 20 12 Blood Pressure 137/75 124/78 Pulse Oximetry 99 99 Oxygen Delivery Oxygen Flow Rate 03/26/24 10:33 03/26/24 10:45 03/26/24 11:00 Temperature 97.7 F Pulse Rate 82 75 72 Respiratory Rate 14 12 10 L Blood Pressure 86/53 L 108/62 121/76 Pulse Oximetry 97 100 100 Oxygen Delivery Simple Face Mask Simple Face Mask Simple Face Mask Oxygen Flow Rate 12 12 12 03/26/24 11:15 03/26/24 11:30 03/26/24 11:45 Temperature Pulse Rate 72 79 68 Respiratory Rate 10 L 14 14 Blood Pressure 147/83 H 138/75 139/80 Pulse Oximetry 100 100 97 Oxygen Delivery Simple Face Mask Room Air Nasal Cannula Oxygen Flow Rate 12 4 03/26/24 12:00 03/26/24 12:15 03/26/24 13:05 Temperature 97.1 F L Pulse Rate 72 72 65 Respiratory Rate 12 12 16 Blood Pressure 146/76 H 119/68 94/60 L Pulse Oximetry 100 98 99 Oxygen Delivery Nasal Cannula Nasal Cannula Oxygen Flow Rate 3 2 03/26/24 08:00 03/26/24 13:48 03/26/24 14:35 Temperature 97.4 F L Pulse Rate 71 Respiratory Rate 16 Blood Pressure 112/60 Pulse Oximetry 99 97 Oxygen Delivery Nasal Cannula Nasal Cannula Oxygen Flow Rate 2 2 Intake/Output Intake/Output: Intake & Output 03/23/24 03/24/24 03/25/24 03/26/24 23:59 23:59 23:59 23:59 Intake Total 2338.0 2625.5 900 Output Total 1900 5500 3150 Balance 438.0 -2874.5 -2250 Meds/Results Medications: Active Medications Generic Name Dose Route Start Last Admin Trade Name Freq PRN Reason Stop Dose Admin Acetaminophen 500 mg 03/26/24 08:15 Acetaminophen 500 Mg Tablet PO Q6H PRN Pain Rated 1-3 Amitriptyline HCl 25 mg 03/24/24 09:00 03/26/24 17:12 Amitriptyline Hcl 25 Mg Tablet PO 25 mg BID VALENCIA Administration Atorvastatin Calcium 20 mg 03/24/24 21:00 03/25/24 19:51 Atorvastatin 20 Mg Tablet PO 20 mg HS VALENCIA Administration Cyclobenzaprine HCl 5 mg 03/25/24 20:00 03/26/24 13:33 Cyclobenzaprine Hcl 5 Mg Tablet PO 5 mg Q8HR VALENCIA Administration Dextrose 12.5 gm 03/24/24 07:49 Dextrose 50% 25 Gm/50 Ml Syringe IV PUSH PRN PRN Hypoglycemia Protocol Diazepam 5 mg 03/26/24 08:15 Diazepam (*Crx) 5 Mg Tablet PO Q6H PRN Anxiety/Muscle Spasm Diphenhydramine HCl 25 mg 03/26/24 08:15 Diphenhydramine Hcl Inj 50 Mg/Ml Vial IV PUSH Q6H PRN Itching Empagliflozin 25 mg 03/24/24 09:00 03/26/24 13:31 Empagliflozin 25 Mg Tablet PO 25 mg DAILY VALENCIA Administration Famotidine 20 mg 03/26/24 09:00 Famotidine 20 Mg Tablet PO Q12HR VALENCIA Glucagon 1 mg 03/24/24 07:49 Glucagon For Inj 1 Mg Vial IM PRN PRN Hypoglycemia Protocol Glucose 15 gm 03/24/24 07:49 Glucose Oral Gel 15 Gm Of Glucse In 37.5 Gm Tube PO PRN PRN Hypoglycemia Protocol Hydrochlorothiazide 25 mg 03/27/24 09:00 Hydrochlorothiazide 25 Mg Tablet PO DAILY VALENCIA Hydromorphone HCl 1 mg 03/26/24 08:15 Hydromorphone Hcl Inj (*Crx) 1 Mg/Ml Syr IV PUSH Q2H PRN Breakthrough Pain Rated 7-10 or NPO Hydromorphone HCl 0.5 mg 03/26/24 08:15 Hydromorphone Hcl Inj (*Crx) 1 Mg/Ml Syr IV PUSH Q2H PRN Breakthrough Pain Rated 4-6 or NPO Hydroxyzine HCl 50 mg 03/26/24 08:15 Hydroxyzine Hcl 25 Mg Tablet PO Q4H PRN Itching Dextrose 1,000 mls @ 100 mls/hr 03/24/24 07:49 Dextrose 5% 1,000 Ml IVPB PRN PRN Hypoglycemia Protocol Ceftriaxone Sodium 1 gm in 50 mls @ 100 mls/hr 03/25/24 09:00 03/26/24 13:31 Rocephin 1 Gm/Ns 50 Ml IVPB 100 mls/hr Q24H VALENCIA Administration Sodium Chloride 1,000 mls @ 125 mls/hr 03/26/24 08:15 03/26/24 13:31 Normal Saline Iv IV CONT 125 mls/hr .Q8H VALENCIA Administration Ibuprofen 800 mg in 200 mls @ 400 mls/hr 03/26/24 08:15 Caldolor 800 Mg/200 Ml IVPB Q6H PRN Breakthrough Pain Rated 1-3 or NPO Cefazolin Sodium 2 gm in 50 mls @ 100 mls/hr 03/26/24 16:00 03/26/24 17:13 Ancef 2 Gm/D5w 50 Ml IVPB 03/27/24 08:29 100 mls/hr Q8H VALENCIA Administration Insulin Aspart 2 - 5 units 03/24/24 08:00 03/26/24 17:15 Insulin Aspart (*Bkc) 100 Units/Ml SUB-Q 2 units TIDWM VALENCIA Administration Protocol Ketorolac Tromethamine 15 mg 03/26/24 12:00 03/26/24 13:33 Ketorolac 15 Mg/Ml Vial (*Bkc) IV PUSH 03/27/24 12:01 15 mg Q6HR VALENCIA Administration Lisinopril 40 mg 03/24/24 09:00 03/26/24 13:32 Lisinopril 20 Mg Tablet PO Not Given DAILY VALENCIA Metformin HCl 500 mg 03/26/24 17:00 03/26/24 17:12 Metformin Hcl 500 Mg Tablet PO 500 mg BIDWM VALENCIA Administration Metoprolol Tartrate 100 mg 03/24/24 09:00 03/26/24 13:32 Metoprolol Tartrate 50 Mg Tab PO Not Given Q12HR [facility] Miscellaneous Information 1 each 03/26/24 00:01 Pepcid/Protonix Duplication Of Therapy. D/C One? XX 04/25/24 00:00 CLARIFY [facility] Naloxone HCl 0.1 mg 03/26/24 08:15 Naloxone Hcl 0.4 Mg/Ml Vial IV PUSH Q2M PRN Opiate Reversal Ondansetron HCl 4 mg 03/26/24 08:15 Ondansetron Inj 4 Mg/2 Ml Vial IV PUSH Q4H PRN Nausea And Vomiting Oxybutynin Chloride 5 mg 03/24/24 09:00 03/26/24 13:32 Oxybutynin Chloride Xl 5 Mg Tab.Er.24 PO 5 mg DAILY VALENCIA Administration Oxycodone/Acetaminophen 1 tablet 03/26/24 08:15 Oxycodone/Acetaminophen (*Crx) 5-325 Mg Tablet PO Q4H PRN Pain Rated 4-6 Oxycodone/Acetaminophen 1 tab 03/26/24 08:15 Oxycodone/Acetaminophen (*Crx) 10-325 Mg Tablet PO Q6H PRN Pain Rated 7-10 Pantoprazole Sodium 40 mg 03/24/24 09:00 03/26/24 17:12 Pantoprazole 40 Mg Tablet PO 40 mg BID [facility] Administration Polyethylene Glycol 17 gm 03/26/24 17:00 03/26/24 17:12 Polyethylene Glycol 3350 17 Gm Powd.Pack PO 17 gm QAM [facility] Administration Rivaroxaban 20 mg 03/26/24 17:00 03/26/24 17:14 Rivaroxaban 20 Mg Tablet PO 20 mg DAILY@1700 [facility] Administration Senna/Docusate Sodium 2 tab 03/26/24 17:00 03/26/24 17:11 Senna/Docusate Sodium Tablet PO 2 tab BID [facility] Administration Tizanidine HCl 4 mg 03/26/24 08:15 Tizanidine Hcl 4 Mg Tablet PO Q6H PRN Muscle Spasms Radiology Results: ITS Impressions Chest X-Ray 03/23/24 21:42 IMPRESSION: 1. Chronic linear discoid atelectasis/scarring in the bilateral lower lungs. Knee X-Ray 03/23/24 21:44 IMPRESSION: 1. No right knee joint effusion or acute osseous abnormality. Ankle X-Ray 03/23/24 21:46 IMPRESSION: 1. No acute osseous abnormality. Hip/Pelvis X-Ray 03/23/24 21:49 IMPRESSION: 1. Displaced transcervical fracture of the proximal right femur. Head CT 03/23/24 22:10 IMPRESSION: 1. Normal aging brain. No fracture or acute intracranial process Cervical Spine CT 03/23/24 22:13 IMPRESSION: 1. Mild to moderate cervical spondylosis with no acute osseous abnormality. Hip X-Ray 03/26/24 13:17 IMPRESSION: Status post right total hip arthroplasty Labs Labs: Laboratory Results - last 24 hr 03/25/24 03/26/24 03/26/24 19:16 07:08 10:40 WBC 7.9 RBC 3.25 L Hgb 9.8 L Hct 30.9 L MCV 95.1 MCH 30.2 MCHC 31.7 L RDW 13.1 Plt Count 175 MPV 11.1 H Immature Gran % (Auto) 0.3 Neut % (Auto) 70.0 Lymph % (Auto) 17.7 L [place] % (Auto) 8.9 H Eos % (Auto) 2.5 Baso % (Auto) 0.6 Lymph # (Auto) 1.39 [place] # (Auto) 0.7 H Eos # (Auto) 0.2 Baso # (Auto) 0.1 Abs Immat Gran (auto) 0.02 Absolute Neuts (auto) 5.5 Absolute Nucleated RBC 0.000 Nucleated RBC % 0.0 Sodium 136 L Potassium 4.0 Chloride 104 Carbon Dioxide 22 Anion Gap 10 BUN 15 Creatinine 1.00 Estim Creat Clear Calc 51 Estimated GFR 56 L Glucose 158 H POC Capillary Glucose 207 H 169 H Calcium 9.1 Magnesium 1.5 L Total Bilirubin 1.5 H AST 44 H ALT 55 H Alkaline Phosphatase 107 Total Protein 7.0 Albumin 4.0 03/26/24 16:43 WBC RBC Hgb Hct MCV MCH MCHC RDW Plt Count MPV Immature Gran % (Auto) Neut % (Auto) Lymph % (Auto) [place] % (Auto) Eos % (Auto) Baso % (Auto) Lymph # (Auto) [place] # (Auto) Eos # (Auto) Baso # (Auto) Abs Immat Gran (auto) Absolute Neuts (auto) Absolute Nucleated RBC Nucleated RBC % Sodium Potassium Chloride Carbon Dioxide Anion Gap BUN Creatinine Estim Creat Clear Calc Estimated GFR Glucose POC Capillary Glucose 219 H Calcium Magnesium Total Bilirubin AST ALT Alkaline Phosphatase Total Protein Albumin Quality VTE Prophylaxis VTE prophylaxis: mechanical ordered Hospitalist MIPS Advance Care Plan I have confirmed that the patient's Advanced Care Plan is present, code status is documented, or surrogate decision maker is listed in patient medical record.: Yes Medication Reconciliation I have utilized all available resources to obtain, update and review the patients current medications (includes all prescriptions, OTC, herbals, cannabis, and nutritional supplements).: Yes
[2024-03-26] MEDS: MAGNESIUM SULF 2 GM/WATER 50ML 2 GM/50 ML BAG IVPB (18:58)
[2024-03-26 19:55] LABS: Glucose Point of Care 274 mg/dl (65-105)
[2024-03-26] MEDS: METOPROLOL TARTRATE 50 MG TAB 100 MG PO (20:21)
[2024-03-26] MEDS: ATORVASTATIN 20 MG TABLET PO (20:21)
[2024-03-26] MEDS: IBUPROFEN IV 800 MG/200 ML 800 MG/200 ML BAG 400 MG IVPB (20:22)
[2024-03-27] VITALS (8 sets, daily range): BP systolic 100–135; BP diastolic 59–84; PULSE 66–80; RESP 14–22; TEMP 35.8–36.3; O2SAT 95–100
[2024-03-27] MEDS: ceFAZolin 2 GM/D5W 50 ML 2 GM/50 ML BAG IVPB ×2 (00:55→10:43)
[2024-03-27] MEDS: KETOROLAC 15 MG/ML VIAL (*BKC) IV PUSH ×3 (01:34→11:24)
[2024-03-27] MEDS: CYCLOBENZAPRINE HCL 5 MG TABLET PO ×3 (05:31→21:44)
[2024-03-27 06:46] LABS: Basophils Absolute Auto 0.1 K/mm3 (0.0-0.1); Basophils Percent Auto 0.5 % (0.2-1.2); Eosinophils Percent Auto 0.3 % (0-4.4); Hematocrit 25.7 % (37.0-47.0); Hemoglobin 8.2 g/dL (12.0-15.0); Immature Granulocyte Absolute 0.03 K/mm3 (0.00-0.031); Immature Granulocyte Percent A 0.3 % (0-0.5); Lymphocytes Absolute Auto 0.93 K/mm3 (0.9-3.2); Lymphocytes Percent Auto 9.3 % (18.3-44.2); Mean Corpuscular HGB Conc 31.9 g/dl (32-36); Mean Corpuscular Hemoglobin 29.9 pg (26-34); Mean Corpuscular Volume 93.8 fl (80-100); Mean Platelet Volume 11.4 fl (7.4-10.4); Monocytes Absolute Auto 0.9 K/mm3 (0.1-0.6); Neutrophils Percent Auto 80.6 % (45.5-73.1); Platelet Count Result 157 k/mm3 (150-375); Red Blood Count 2.74 M/mm3 (4.2-5.4); Red Cell Distribution Width 13.2 % (11.5-14.5)
[2024-03-27 07:04] LABS: Alanine Aminotransferase 33 U/L (6-35); Albumin Level 3.4 g/dL (3.5-5.1); Alkaline Phosphatase 92 U/L (38-126); Anion Gap 6 mmol/L (4-12); Aspartate Amino Transferase 35 U/L (14-36); Bilirubin,Total 0.5 mg/dL (0.2-1.3); Blood Urea Nitrogen 25 mg/dL (7-17); Calcium 8.3 mg/dL (8.4-10.2); Carbon Dioxide 25 mmol/L (22-30); Chloride 102 mmol/L (98-107); Estimated CRCL calculation 47 ml/min; Estimated Glomerular Filt Rate 50; Glucose 165 mg/dL (65-110); Magnesium 2.1 mg/dL (1.6-2.3); Potassium 3.8 mmol/L (3.4-5.0); Sodium 133 mmol/L (137-145)
--- NOTE | 2024-03-27 08:03 | P.PNAN_ITS ---
Anes - Prog Note Post-Op Date/Time: 03/27/24 08:03 Cardiovascular status: other (anemia, Hypotension) Respiratory status: normal Airway patency: baseline Mental status: baseline Post-Op hydration status: normal Vital Signs: Last Vital Signs Temp 36.2 C L 03/27/24 05:38 Pulse 80 03/27/24 05:38 Resp 14 03/27/24 05:38 BP 100/84 03/27/24 05:38 Pulse Ox 99 03/27/24 05:38 O2 Del Method Nasal Cannula 03/26/24 20:00 O2 Flow Rate 2 03/26/24 20:00 Pain Score (VAS): 08/04 I/O: Intake & Output 03/26/24 03/27/24 03/27/24 23:59 07:59 15:59 Intake Total 290 550 Output Total 275 1800 Balance 15 -1250 Laboratory Tests 03/27/24 06:06 03/27/24 06:06 03/26/24 03/26/24 03/26/24 10:40 16:43 19:43 WBC RBC Hgb Hct MCV MCH MCHC RDW Plt Count MPV Immature Gran % (Auto) Neut % (Auto) Lymph % (Auto) [place] % (Auto) Eos % (Auto) Baso % (Auto) Lymph # (Auto) [place] # (Auto) Eos # (Auto) Baso # (Auto) Abs Immat Gran (auto) Absolute Neuts (auto) Absolute Nucleated RBC Nucleated RBC % Sodium Potassium Chloride Carbon Dioxide Anion Gap BUN Creatinine Estim Creat Clear Calc Estimated GFR Glucose POC Capillary Glucose 169 H 219 H 274 H Calcium Magnesium Total Bilirubin AST ALT Alkaline Phosphatase Total Protein Albumin 03/27/24 06:06 WBC 10.0 RBC 2.74 L Hgb 8.2 L Hct 25.7 L MCV 93.8 MCH 29.9 MCHC 31.9 L RDW 13.2 Plt Count 157 MPV 11.4 H Immature Gran % (Auto) 0.3 Neut % (Auto) 80.6 H Lymph % (Auto) 9.3 L [place] % (Auto) 9.0 H Eos % (Auto) 0.3 Baso % (Auto) 0.5 Lymph # (Auto) 0.93 [place] # (Auto) 0.9 H Eos # (Auto) 0.0 Baso # (Auto) 0.1 Abs Immat Gran (auto) 0.03 Absolute Neuts (auto) 8.0 H Absolute Nucleated RBC 0.000 Nucleated RBC % 0.0 Sodium 133 L Potassium 3.8 Chloride 102 Carbon Dioxide 25 Anion Gap 6 BUN 25 H D Creatinine 1.10 H Estim Creat Clear Calc 47 Estimated GFR 50 L Glucose 165 H POC Capillary Glucose Calcium 8.3 L Magnesium 2.1 Total Bilirubin 0.5 AST 35 ALT 33 Alkaline Phosphatase 92 Total Protein 6.0 L Albumin 3.4 L Post-procedural complaints: none Patient Feedback: Patient satisfied with anesthetic care.
[2024-03-27 08:13] LABS: Glucose Point of Care 142 mg/dl (65-105)
--- NOTE | 2024-03-27 08:16 | PM.IMPN ---
Progress Note: A&P Assessment and Plan (1) Closed fracture of right hip: Code(s): S72.001A - Fracture of unspecified part of neck of right femur, initial encounter for closed fracture Status: Acute Assessment and Plan: Patient is seen a fall after slipping on the stairs and landing on her right hip. X-ray imaging concerning for displaced transcervical fracture of the proximal right femur. Bed rest Orthopedics was consulted, Tylenol, Percocet, and Morphine as needed for pain. Zofran for nausea. SCD/ALIE hose for DVT prophylaxis 1 time dose of 40 mg of Lovenox given on 03/25, resumed xarelto today per surgery (2) VARGHESE (acute kidney injury): Code(s): N17.9 - Acute kidney failure, unspecified Status: Acute Assessment and Plan: Improving Creatinine bump 1.4 on admission. No history of CKD. Suspect pre-renal. resolved Follow creatinine closely and continue hydration, (3) UTI (urinary tract infection): Code(s): N39.0 - Urinary tract infection, site not specified Status: Acute Assessment and Plan: started on Rocephin 03/25, continue Growing e coli 03/23 follow sensitivities (4) Diabetes: Qualifiers: Diabetes mellitus complication status: with other specified complication Diabetes mellitus long term care pharmacist insulin use: with senior living use Diabetes mellitus type: type 2 Qualified Code(s): E11.69 - Type 2 diabetes mellitus with other specified complication; Z79.4 - residential (current) use of insulin Code(s): E11.9 - Type 2 diabetes mellitus without complications Status: Acute Assessment and Plan: Hemoglobin A1C 6.3% from last year. Hemoglobin A1C 03/24 7.4%. On Metformin 500 mg BID AC/HS accu checks Low dose SSI, holding metformin while inpatient Hypoglycemia protocol Diabetic diet (5) Atrial fibrillation with RVR: Code(s): I48.91 - Unspecified atrial fibrillation Status: Acute Assessment and Plan: History of atrial fibrillation and sinus node dysfunction with dual chamber pacemaker. Patient is on metoprolol and Xarelto. EKG in the ER showed electronic atrial pacemaker with nonspecific ST-T wave abnormality with heart rate of 81. Continue metoprolol. resumed today per surgery (6) Hypertension: Qualifiers: Hypertension type: secondary to endocrine disorders Qualified Code(s): I15.2 - Hypertension secondary to endocrine disorders Code(s): I10 - Essential (primary) hypertension Status: Acute Assessment and Plan: On hydrochlorothiazide 20 mg daily, lisinopril 40 mg daily, metoprolol tartrate 100 mg p.o. b.i.d. Blood pressure controlld Blood pressures reviewed and are stable 121/61, pulse 60 Continue metoprolol. Held hydrochlorothiazide and lisinopril in setting of VARGHESE, was resumed Continue lisinopril and HCTZ (7) Mixed hyperlipidemia due to type 2 diabetes mellitus: Code(s): E11.69 - Type 2 diabetes mellitus with other specified complication; E78.2 - Mixed hyperlipidemia Status: Acute Assessment and Plan: Continue atorvastatin (8) Hypomagnesemia: Code(s): E83.42 - Hypomagnesemia Status: Acute Assessment and Plan: Mag 1.5, s/p 2G IV 03/26 Check magnesium in AM, add potassium (9) Elevated bilirubin: Code(s): R17 - Unspecified jaundice Status: Acute Assessment and Plan: Bilirubin 0.6<1.5 AST 44, ALT 25<55, alk phos 107 Follow LFT's and check direct bili-improving Time Spent With Patient Time with patient: Greater than 35 minutes Subjective Date/time seen: 03/27/24 08:16 Interval history: 63 year old female with a past medical history of arthritis, asthma, depression, diabetes, HTN, dual chamber pacemaker, and mitral valve prolapse who presented after sustaining a ground level fall with a right hip fracture. S/p ORIF 03/26 right total hip patient having a hard time keeping focused when working with PT and OT only able to make it to chair at bedside Review of Systems Review of Systems: All systems reviewed & are unremarkable except as noted in HPI and below Exam Narrative: General: appears comfortable, in no acute distress Respiratory: breathing is unlabored with even chest rise/fall, lungs are clear without wheezing, rhonchi, and crackles Cardiovascular: Rate and rhythm regular, normal s1s2, no murmur Abdomen: Soft, round, non-tender, active bowel sounds Extremities: No cyanosis, edema, clubbing. Pulses 2/2, post op dressing right hip. Limited ROM Neuro: A&O x 4, PERRLA moves all extremities Skin: Warm, dry, intact. Skin tear to right elbow covered with Mepilex dressing. Objective Data Vital Signs Vital Signs: Vital Signs - 24 hr 03/26/24 10:33 03/26/24 10:45 03/26/24 11:00 Temperature 97.7 F Pulse Rate 82 75 72 Respiratory Rate 14 12 10 L Blood Pressure 86/53 L 108/62 121/76 Pulse Oximetry 97 100 100 Oxygen Delivery Simple Face Mask Simple Face Mask Simple Face Mask Oxygen Flow Rate 12 12 12 03/26/24 11:15 03/26/24 11:30 03/26/24 11:45 Temperature Pulse Rate 72 79 68 Respiratory Rate 10 L 14 14 Blood Pressure 147/83 H 138/75 139/80 Pulse Oximetry 100 100 97 Oxygen Delivery Simple Face Mask Room Air Nasal Cannula Oxygen Flow Rate 12 4 03/26/24 12:00 03/26/24 12:15 03/26/24 13:05 Temperature 97.1 F L Pulse Rate 72 72 65 Respiratory Rate 12 12 16 Blood Pressure 146/76 H 119/68 94/60 L Pulse Oximetry 100 98 99 Oxygen Delivery Nasal Cannula Nasal Cannula Oxygen Flow Rate 3 2 03/26/24 13:48 03/26/24 14:35 03/26/24 18:15 Temperature 97.4 F L 97.1 F L Pulse Rate 71 76 Respiratory Rate 16 12 Blood Pressure 112/60 111/66 Pulse Oximetry 97 98 Oxygen Delivery Nasal Cannula Oxygen Flow Rate 2 03/26/24 20:37 03/26/24 20:00 03/27/24 01:40 Temperature 97.1 F L 97.0 F L Pulse Rate 73 73 66 Respiratory Rate 17 17 14 Blood Pressure 101/75 125/68 Pulse Oximetry 91 91 100 Oxygen Delivery Nasal Cannula Oxygen Flow Rate 2 03/27/24 05:38 Temperature 97.1 F L Pulse Rate 80 Respiratory Rate 14 Blood Pressure 100/84 Pulse Oximetry 99 Oxygen Delivery Oxygen Flow Rate Intake/Output Intake/Output: Intake & Output 03/24/24 03/25/24 03/26/24 03/27/24 23:59 23:59 23:59 23:59 Intake Total 2338.0 2625.5 1190 550 Output Total 1900 5500 3425 1800 Balance 438.0 -2874.5 -9139 -1250 Meds/Results Medications: Active Medications Generic Name Dose Route Start Last Admin Trade Name Freq PRN Reason Stop Dose Admin Acetaminophen 500 mg 03/26/24 08:15 Acetaminophen 500 Mg Tablet PO Q6H PRN Pain Rated 1-3 Amitriptyline HCl 25 mg 03/24/24 09:00 03/26/24 17:12 Amitriptyline Hcl 25 Mg Tablet PO 25 mg BID VALENCIA Administration Atorvastatin Calcium 20 mg 03/24/24 21:00 03/26/24 20:21 Atorvastatin 20 Mg Tablet PO 20 mg HS VALENCIA Administration Cyclobenzaprine HCl 5 mg 03/25/24 20:00 03/27/24 05:31 Cyclobenzaprine Hcl 5 Mg Tablet PO 5 mg Q8HR VALENCIA Administration Dextrose 12.5 gm 03/24/24 07:49 Dextrose 50% 25 Gm/50 Ml Syringe IV PUSH PRN PRN Hypoglycemia Protocol Diazepam 5 mg 03/26/24 08:15 Diazepam (*Crx) 5 Mg Tablet PO Q6H PRN Anxiety/Muscle Spasm Diphenhydramine HCl 25 mg 03/26/24 08:15 Diphenhydramine Hcl Inj 50 Mg/Ml Vial IV PUSH Q6H PRN Itching Empagliflozin 25 mg 03/24/24 09:00 03/26/24 13:31 Empagliflozin 25 Mg Tablet PO 25 mg DAILY VALENCIA Administration Famotidine 20 mg 03/26/24 09:00 Famotidine 20 Mg Tablet PO Q12HR VALENCIA Glucagon 1 mg 03/24/24 07:49 Glucagon For Inj 1 Mg Vial IM PRN PRN Hypoglycemia Protocol Glucose 15 gm 03/24/24 07:49 Glucose Oral Gel 15 Gm Of Glucse In 37.5 Gm Tube PO PRN PRN Hypoglycemia Protocol Hydrochlorothiazide 25 mg 03/27/24 09:00 Hydrochlorothiazide 25 Mg Tablet PO DAILY VALENCIA Hydromorphone HCl 1 mg 03/26/24 08:15 Hydromorphone Hcl Inj (*Crx) 1 Mg/Ml Syr IV PUSH Q2H PRN Breakthrough Pain Rated 7-10 or NPO Hydromorphone HCl 0.5 mg 03/26/24 08:15 Hydromorphone Hcl Inj (*Crx) 1 Mg/Ml Syr IV PUSH Q2H PRN Breakthrough Pain Rated 4-6 or NPO Hydroxyzine HCl 50 mg 03/26/24 08:15 Hydroxyzine Hcl 25 Mg Tablet PO Q4H PRN Itching Dextrose 1,000 mls @ 100 mls/hr 03/24/24 07:49 Dextrose 5% 1,000 Ml IVPB PRN PRN Hypoglycemia Protocol Ceftriaxone Sodium 1 gm in 50 mls @ 100 mls/hr 03/25/24 09:00 03/26/24 13:31 Rocephin 1 Gm/Ns 50 Ml IVPB 100 mls/hr Q24H VALENCIA Administration Ibuprofen 800 mg in 200 mls @ 400 mls/hr 03/26/24 08:15 03/26/24 20:22 Caldolor 800 Mg/200 Ml IVPB 400 mls/hr Q6H PRN Administration Breakthrough Pain Rated 1-3 or NPO Cefazolin Sodium 2 gm in 50 mls @ 100 mls/hr 03/26/24 16:00 03/27/24 00:55 Ancef 2 Gm/D5w 50 Ml IVPB 03/27/24 08:29 100 mls/hr Q8H VALENCIA Administration Insulin Aspart 2 - 5 units 03/24/24 08:00 03/26/24 17:15 Insulin Aspart (*Bkc) 100 Units/Ml SUB-Q 2 units TIDWM VALENCIA Administration Protocol Ketorolac Tromethamine 15 mg 03/26/24 12:00 03/27/24 05:31 Ketorolac 15 Mg/Ml Vial (*Bkc) IV PUSH 03/27/24 12:01 15 mg Q6HR VALENCIA Administration Lisinopril 40 mg 03/24/24 09:00 03/26/24 13:32 Lisinopril 20 Mg Tablet PO Not Given DAILY VALENCIA Metformin HCl 500 mg 03/26/24 17:00 03/26/24 17:12 Metformin Hcl 500 Mg Tablet PO 500 mg BIDWM VALENCIA Administration Metoprolol Tartrate 100 mg 03/24/24 09:00 03/26/24 20:21 Metoprolol Tartrate 50 Mg Tab PO 100 mg Q12HR VALENCIA Administration Miscellaneous Information 1 each 03/26/24 00:01 Pepcid/Protonix Duplication Of Therapy. D/C One? XX 04/25/24 00:00 CLARIFY VALENCIA Naloxone HCl 0.1 mg 03/26/24 08:15 Naloxone Hcl 0.4 Mg/Ml Vial IV PUSH Q2M PRN Opiate Reversal Ondansetron HCl 4 mg 03/26/24 08:15 Ondansetron Inj 4 Mg/2 Ml Vial IV PUSH Q4H PRN Nausea And Vomiting Oxybutynin Chloride 5 mg 03/24/24 09:00 03/26/24 13:32 Oxybutynin Chloride Xl 5 Mg Tab.Er.24 PO 5 mg DAILY VALENCIA Administration Oxycodone/Acetaminophen 1 tablet 03/26/24 08:15 Oxycodone/Acetaminophen (*Crx) 5-325 Mg Tablet PO Q4H PRN Pain Rated 4-6 Oxycodone/Acetaminophen 1 tab 03/26/24 08:15 Oxycodone/Acetaminophen (*Crx) 10-325 Mg Tablet PO Q6H PRN Pain Rated 7-10 Pantoprazole Sodium 40 mg 03/24/24 09:00 03/26/24 17:12 Pantoprazole 40 Mg Tablet PO 40 mg BID VALENCIA Administration Polyethylene Glycol 17 gm 03/26/24 17:00 03/26/24 17:12 Polyethylene Glycol 3350 17 Gm Powd.Pack PO 17 gm QAM VALENCIA Administration Rivaroxaban 20 mg 03/26/24 17:00 03/26/24 17:14 Rivaroxaban 20 Mg Tablet PO 20 mg DAILY@1700 VALENCIA Administration Senna/Docusate Sodium 2 tab 03/26/24 17:00 03/26/24 17:11 Senna/Docusate Sodium Tablet PO 2 tab BID VALENCIA Administration Tizanidine HCl 4 mg 03/26/24 08:15 Tizanidine Hcl 4 Mg Tablet PO Q6H PRN Muscle Spasms Radiology Results: ITS Impressions Chest X-Ray 03/23/24 21:42 IMPRESSION: 1. Chronic linear discoid atelectasis/scarring in the bilateral lower lungs. Knee X-Ray 03/23/24 21:44 IMPRESSION: 1. No right knee joint effusion or acute osseous abnormality. Ankle X-Ray 03/23/24 21:46 IMPRESSION: 1. No acute osseous abnormality. Hip/Pelvis X-Ray 03/23/24 21:49 IMPRESSION: 1. Displaced transcervical fracture of the proximal right femur. Head CT 03/23/24 22:10 IMPRESSION: 1. Normal aging brain. No fracture or acute intracranial process Cervical Spine CT 03/23/24 22:13 IMPRESSION: 1. Mild to moderate cervical spondylosis with no acute osseous abnormality. Hip X-Ray 03/26/24 13:17 IMPRESSION: Status post right total hip arthroplasty Labs Labs: Laboratory Results - last 24 hr 11/30/24 11/30/24 11/30/24 10:40 16:43 19:43 WBC RBC Hgb Hct MCV MCH MCHC RDW Plt Count MPV Immature Gran % (Auto) Neut % (Auto) Lymph % (Auto) [place] % (Auto) Eos % (Auto) Baso % (Auto) Lymph # (Auto) [place] # (Auto) Eos # (Auto) Baso # (Auto) Abs Immat Gran (auto) Absolute Neuts (auto) Absolute Nucleated RBC Nucleated RBC % Sodium Potassium Chloride Carbon Dioxide Anion Gap BUN Creatinine Estim Creat Clear Calc Estimated GFR Glucose POC Capillary Glucose 169 H 219 H 274 H Calcium Magnesium Total Bilirubin AST ALT Alkaline Phosphatase Total Protein Albumin 03/27/24 03/27/24 06:06 07:48 WBC 10.0 RBC 2.74 L Hgb 8.2 L Hct 25.7 L MCV 93.8 MCH 29.9 MCHC 31.9 L RDW 13.2 Plt Count 157 MPV 11.4 H Immature Gran % (Auto) 0.3 Neut % (Auto) 80.6 H Lymph % (Auto) 9.3 L [place] % (Auto) 9.0 H Eos % (Auto) 0.3 Baso % (Auto) 0.5 Lymph # (Auto) 0.93 [place] # (Auto) 0.9 H Eos # (Auto) 0.0 Baso # (Auto) 0.1 Abs Immat Gran (auto) 0.03 Absolute Neuts (auto) 8.0 H Absolute Nucleated RBC 0.000 Nucleated RBC % 0.0 Sodium 133 L Potassium 3.8 Chloride 102 Carbon Dioxide 25 Anion Gap 6 BUN 25 H D Creatinine 1.10 H Estim Creat Clear Calc 47 Estimated GFR 50 L Glucose 165 H POC Capillary Glucose 142 H Calcium 8.3 L Magnesium 2.1 Total Bilirubin 0.5 AST 35 ALT 33 Alkaline Phosphatase 92 Total Protein 6.0 L Albumin 3.4 L Quality VTE Prophylaxis VTE prophylaxis: mechanical ordered and pharmacologic ordered Hospitalist MIPS Medication Reconciliation I have utilized all available resources to obtain, update and review the patients current medications (includes all prescriptions, OTC, herbals, cannabis, and nutritional supplements).: Yes
--- NOTE | 2024-03-27 08:32 | PC.NURSE ---
Pt refused to get moore removed.
[2024-03-27] MEDS: METOPROLOL TARTRATE 50 MG TAB 100 MG PO ×2 (10:40→20:16)
[2024-03-27] MEDS: polyethylene glycoL 3350 17 GM POWD.PACK PO (10:41)
[2024-03-27] MEDS: lisinopriL 20 MG TABLET 40 MG PO (10:41)
[2024-03-27] MEDS: AMITRIPTYLINE HCL 25 MG TABLET PO ×2 (10:41→16:35)
[2024-03-27] MEDS: hydroCHLOROthiazide 25 MG TABLET PO (10:41)
[2024-03-27] MEDS: metFORMIN HCL 500 MG TABLET PO ×2 (10:41→16:21)
[2024-03-27] MEDS: EMPAGLIFLOZIN 25 MG TABLET PO (10:41)
[2024-03-27] MEDS: PANTOPRAZOLE 40 MG TABLET PO ×2 (10:41→16:21)
[2024-03-27] MEDS: oxyBUTYnin CHLORIDE XL 5 MG TAB.ER.24 PO (10:41)
[2024-03-27] MEDS: SENNA/DOCUSATE SODIUM TABLET 2 TAB PO ×2 (10:50→16:21)
[2024-03-27] MEDS: oxyCODONE/ACETAMINOPHEN (*CRX) 10-325 MG TABLET 1 TAB PO ×2 (10:50→20:17)
[2024-03-27 11:44] LABS: Glucose Point of Care 212 mg/dl (65-105)
[2024-03-27] MEDS: INSULIN ASPART (*BKC) 100 UNITS/ML SUB-Q ×2 (12:32→16:22)
[2024-03-27] MEDS: RIVAROXABAN 20 MG TABLET PO (16:21)
[2024-03-27 16:35] LABS: Glucose Point of Care 209 mg/dl (65-105)
[2024-03-27] MEDS: ATORVASTATIN 20 MG TABLET PO (20:16)
[2024-03-27 20:59] LABS: Glucose Point of Care 187 mg/dl (65-105)
[2024-03-28] MEDS: oxyCODONE/ACETAMINOPHEN (*CRX) 10-325 MG TABLET 1 TAB PO ×3 (04:53→21:26)
[2024-03-28] MEDS: CYCLOBENZAPRINE HCL 5 MG TABLET PO (05:57)
[2024-03-28 06:06] VITALS: BP 116/68; PULSE 69; RESP 22; TEMP 37.1; O2SAT 99
[2024-03-28 06:48] LABS: Basophils Absolute Auto 0.1 K/mm3 (0.0-0.1); Basophils Percent Auto 0.6 % (0.2-1.2); Eosinophils Absolute Auto 0.4 K/mm3 (0-0.3); Hematocrit 25.5 % (37.0-47.0); Hemoglobin 7.9 g/dL (12.0-15.0); Immature Granulocyte Absolute 0.03 K/mm3 (0.00-0.031); Immature Granulocyte Percent A 0.4 % (0-0.5); Lymphocytes Absolute Auto 1.68 K/mm3 (0.9-3.2); Lymphocytes Percent Auto 21.6 % (18.3-44.2); Mean Platelet Volume 11.3 fl (7.4-10.4); Monocytes Absolute Auto 0.9 K/mm3 (0.1-0.6); Monocytes Percent Auto 11.3 % (2.6-8.5); Neutrophils Absolute Auto 4.8 K/mm3 (1.3-6.7); Neutrophils Percent Auto 61.1 % (45.5-73.1); Platelet Count Result 190 k/mm3 (150-375); Red Blood Count 2.63 M/mm3 (4.2-5.4); Red Cell Distribution Width 13.3 % (11.5-14.5); White Blood Count 7.8 K/mm3 (4.5-10.0)
[2024-03-28 07:00] LABS: Alanine Aminotransferase 22 U/L (6-35); Albumin Level 3.4 g/dL (3.5-5.1); Alkaline Phosphatase 95 U/L (38-126); Anion Gap 8 mmol/L (4-12); Aspartate Amino Transferase 34 U/L (14-36); Bilirubin,Total 0.6 mg/dL (0.2-1.3); Blood Urea Nitrogen 25 mg/dL (7-17); Calcium 8.5 mg/dL (8.4-10.2); Carbon Dioxide 26 mmol/L (22-30); Chloride 103 mmol/L (98-107); Estimated CRCL calculation 47 ml/min; Estimated Glomerular Filt Rate 50; Glucose 169 mg/dL (65-110); Potassium 3.9 mmol/L (3.4-5.0); Sodium 137 mmol/L (137-145)
[2024-03-28 07:46] LABS: Glucose Point of Care 157 mg/dl (65-105)
[2024-03-28] MEDS: METOPROLOL TARTRATE 50 MG TAB 100 MG PO ×2 (08:52→21:20)
[2024-03-28] MEDS: SENNA/DOCUSATE SODIUM TABLET 2 TAB PO ×2 (08:52→18:17)
[2024-03-28] MEDS: oxyBUTYnin CHLORIDE XL 5 MG TAB.ER.24 PO (08:52)
[2024-03-28] MEDS: lisinopriL 20 MG TABLET 40 MG PO (08:52)
[2024-03-28] MEDS: EMPAGLIFLOZIN 25 MG TABLET PO (08:52)
[2024-03-28] MEDS: metFORMIN HCL 500 MG TABLET PO ×2 (08:53→18:17)
[2024-03-28] MEDS: PANTOPRAZOLE 40 MG TABLET PO ×2 (08:53→18:17)
[2024-03-28] MEDS: hydroCHLOROthiazide 25 MG TABLET PO (08:53)
[2024-03-28] MEDS: polyethylene glycoL 3350 17 GM POWD.PACK PO (08:53)
[2024-03-28] MEDS: AMITRIPTYLINE HCL 25 MG TABLET PO ×2 (08:53→18:17)
--- NOTE | 2024-03-28 09:06 | P.PNOP_ITS ---
Progress Note: A&P Assessment and Plan (1) Fractured femoral neck: Qualifiers: Encounter type: initial encounter Fracture type: closed Laterality: right Qualified Code(s): S72.001A - Fracture of unspecified part of neck of right femur, initial encounter for closed fracture Code(s): S72.009A - Fracture of unspecified part of neck of unspecified femur, initial encounter for closed fracture Status: Acute Assessment and Plan: POD #2 : Right LISBETH Continue PT/OT. WBAT. Walker. HIGH FALL RISK. Continue pain control. Ice Hip. Protect skin. DVT prophylaxis with Xarelto. Remove moore. SCDs. Incentive Spirometry Use reviewed. Monitor Dressing. Change prior to discharge. Bowel Regimen. Dispo: [facility] vs. SNF pending progress with PT/OT and medical clearance. Plan Reviewed history, exam, radiographs and current labs with attending MD and covering surgeon, Dr. William, who agrees with current plan as indicated above. No further recommendations from Dr. William at this time. Subjective Subjective Date/Time Seen: 03/28/24 09:06 Post Op day: 2 Interval history: POD #2: Right LISBETH s/p femoral neck fracture right hip Patient doing well. Pain well controlled. No new concerns. Review of Systems Review of Systems: All systems reviewed & are unremarkable except as noted in HPI and below Constitutional: Constitutional: Denies chills, Denies fever(s), Denies headache(s), Denies lethargy and Reports weakness ENT: Denies headache(s) Cardiovascular: Cardiovascular: Denies chest pain, Denies diaphoresis, Denies lightheadedness, Denies palpitations, Denies dyspnea and Denies dyspnea on exertion Respiratory: Respiratory: Denies cough, Denies dyspnea and Denies dyspnea on exertion Gastrointestinal: Gastrointestinal: Denies constipation, Denies diarrhea, Denies nausea and Denies vomiting Genitourinary: Genitourinary: Reports urinary frequency, Denies dysuria and Denies urinary hesitancy Musculoskeletal: Musculoskeletal: Reports joint swelling (Right Hip ) and Reports limited range of motion (Right Hip due to recent surgery ) Neurologic: Denies headache(s) and Reports weakness Endocrine: Endocrine: Denies palpitations Exam Const: General: comfortable and no acute distress Resp: Effort & Inspection: normal respiratory effort Cardio: Rate: regular rate Rhythm: regular rhythm GI: Inspection: non-distended Skin: General skin exam: normal color Other: Incision right hip c/d/i. Surrounding tissue without redness/warmth. Mild swelling consistent with recent surgery. No drainage. Neuro: Cognition (Neuro): normal cognition Speech: normal speech Extrem: Right lower extremity: normal to inspection, normal capillary refill, hip/thigh Details: tenderness Location: of the hip (Thigh soft ) Location: laterally and anteriorly, swelling Location: at the hip, abnormal ROM (limited consistent with recent surgery ) Details: pain with active ROM during and pain with passive ROM during and other (Incision c/d/i. ); no deformity and no unusual warmth, knee Details: normal to inspection; no tenderness and no swelling, lower leg (Negative Dia's Sign ) Details: normal to inspection and no edema; no tenderness, ankle (+ankle dorsiflexion/plantarflexion) Details: nor mal to inspection and no edema; no tenderness, no swelling and no ecchymosis and foot Details: normal capillary refill, toes with normal ROM, vascular exam Details: dorsalis pedis pulse present and motor-sensory exam Details: light- touch normal; no tenderness Objective Data Vital Signs Vital Signs: Vital Signs - 24 hr 03/27/24 10:00 03/27/24 12:00 03/27/24 20:16 Temperature 35.8 C L 36.3 C L Pulse Rate 76 71 67 Respiratory Rate 20 18 Blood Pressure 119/67 135/69 Pulse Oximetry 100 100 Oxygen Delivery Oxygen Flow Rate 03/27/24 21:29 03/27/24 20:00 03/28/24 06:06 Temperature 36.2 C L 37.1 C Pulse Rate 79 69 Respiratory Rate 22 H 22 H Blood Pressure 129/59 L 116/68 Pulse Oximetry 100 95 99 Oxygen Delivery Nasal Cannula Oxygen Flow Rate 1.5 Intake/Output Intake/Output: Intake & Output 03/25/24 03/26/24 03/27/24 03/28/24 23:59 23:59 23:59 23:59 Intake Total 2625.5 1240 1560 450 Output Total 5500 3425 3550 2750 Balance -2874.5 -2185 -1990 -2300 Meds/Results Medications: Active Medications Generic Name Dose Route Start Last Admin Trade Name Freq PRN Reason Stop Dose Admin Acetaminophen 500 mg 03/26/24 08:15 Acetaminophen 500 Mg Tablet PO Q6H PRN Pain Rated 1-3 Amitriptyline HCl 25 mg 03/24/24 09:00 03/28/24 08:53 Amitriptyline Hcl 25 Mg Tablet PO 25 mg BID VALENICA Administration Atorvastatin Calcium 20 mg 03/24/24 21:00 03/27/24 20:16 Atorvastatin 20 Mg Tablet PO 20 mg HS VALENCIA Administration Cyclobenzaprine HCl 5 mg 03/25/24 20:00 03/28/24 05:57 Cyclobenzaprine Hcl 5 Mg Tablet PO 5 mg Q8HR VALENCIA Administration Dextrose 12.5 gm 03/24/24 07:49 Dextrose 50% 25 Gm/50 Ml Syringe IV PUSH PRN PRN Hypoglycemia Protocol Diazepam 5 mg 03/26/24 08:15 Diazepam (*Crx) 5 Mg Tablet PO Q6H PRN Anxiety/Muscle Spasm Diphenhydramine HCl 25 mg 03/26/24 08:15 Diphenhydramine Hcl Inj 50 Mg/Ml Vial IV PUSH Q6H PRN Itching Empagliflozin 25 mg 03/24/24 09:00 03/28/24 08:52 Empagliflozin 25 Mg Tablet PO 25 mg DAILY VALENCIA Administration Famotidine 20 mg 03/26/24 09:00 Famotidine 20 Mg Tablet PO Q12HR VALENCIA Glucagon 1 mg 03/24/24 07:49 Glucagon For Inj 1 Mg Vial IM PRN PRN Hypoglycemia Protocol Glucose 15 gm 03/24/24 07:49 Glucose Oral Gel 15 Gm Of Glucse In 37.5 Gm Tube PO PRN PRN Hypoglycemia Protocol Hydrochlorothiazide 25 mg 03/27/24 09:00 03/28/24 08:53 Hydrochlorothiazide 25 Mg Tablet PO 25 mg DAILY VALENCIA Administration Hydromorphone HCl 1 mg 03/26/24 08:15 Hydromorphone Hcl Inj (*Crx) 1 Mg/Ml Syr IV PUSH Q2H PRN Breakthrough Pain Rated 7-10 or NPO Hydromorphone HCl 0.5 mg 03/26/24 08:15 Hydromorphone Hcl Inj (*Crx) 1 Mg/Ml Syr IV PUSH Q2H PRN Breakthrough Pain Rated 4-6 or NPO Hydroxyzine HCl 50 mg 03/26/24 08:15 Hydroxyzine Hcl 25 Mg Tablet PO Q4H PRN Itching Dextrose 1,000 mls @ 100 mls/hr 03/24/24 07:49 Dextrose 5% 1,000 Ml IVPB PRN PRN Hypoglycemia Protocol Ceftriaxone Sodium 1 gm in 50 mls @ 100 mls/hr 03/25/24 09:00 03/27/24 12:24 Rocephin 1 Gm/Ns 50 Ml IVPB 100 mls/hr Q24H VALENCIA Administration Ibuprofen 800 mg in 200 mls @ 400 mls/hr 03/26/24 08:15 03/26/24 20:22 Caldolor 800 Mg/200 Ml IVPB 400 mls/hr Q6H PRN Administration Breakthrough Pain Rated 1-3 or NPO Insulin Aspart 2 - 5 units 03/24/24 08:00 03/28/24 08:03 Insulin Aspart (*Bkc) 100 Units/Ml SUB-Q Not Given TIDWM [facility] Protocol Lisinopril 40 mg 03/24/24 09:00 03/28/24 08:52 Lisinopril 20 Mg Tablet PO 40 mg DAILY VALENCIA Administration Metformin HCl 500 mg 03/26/24 17:00 03/28/24 08:53 Metformin Hcl 500 Mg Tablet PO 500 mg BIDWM VALENCIA Administration Metoprolol Tartrate 100 mg 03/24/24 09:00 03/28/24 08:52 Metoprolol Tartrate 50 Mg Tab PO 100 mg Q12HR VALENCIA Administration Miscellaneous Information 1 each 03/26/24 00:01 Pepcid/Protonix Duplication Of Therapy. D/C One? XX 04/25/24 00:00 CLARIFY VALENCIA Naloxone HCl 0.1 mg 03/26/24 08:15 Naloxone Hcl 0.4 Mg/Ml Vial IV PUSH Q2M PRN Opiate Reversal Ondansetron HCl 4 mg 03/26/24 08:15 Ondansetron Inj 4 Mg/2 Ml Vial IV PUSH Q4H PRN Nausea And Vomiting Oxybutynin Chloride 5 mg 03/24/24 09:00 03/28/24 08:52 Oxybutynin Chloride Xl 5 Mg Tab.Er.24 PO 5 mg DAILY VALENCIA Administration Oxycodone/Acetaminophen 1 tablet 03/26/24 08:15 Oxycodone/Acetaminophen (*Crx) 5-325 Mg Tablet PO Q4H PRN Pain Rated 4-6 Oxycodone/Acetaminophen 1 tab 03/26/24 08:15 03/28/24 04:53 Oxycodone/Acetaminophen (*Crx) 10-325 Mg Tablet PO 1 tab Q6H PRN Administration Pain Rated 7-10 Pantoprazole Sodium 40 mg 03/24/24 09:00 03/28/24 08:53 Pantoprazole 40 Mg Tablet PO 40 mg BID VALENCIA Administration Polyethylene Glycol 17 gm 03/26/24 17:00 03/28/24 08:53 Polyethylene Glycol 3350 17 Gm Powd.Pack PO 17 gm QAM VALENCIA Administration Rivaroxaban 20 mg 03/26/24 17:00 03/27/24 16:21 Rivaroxaban 20 Mg Tablet PO 20 mg DAILY@1700 VALENCIA Administration Senna/Docusate Sodium 2 tab 03/26/24 17:00 03/28/24 08:52 Senna/Docusate Sodium Tablet PO 2 tab BID VALENCIA Administration Tizanidine HCl 4 mg 03/26/24 08:15 Tizanidine Hcl 4 Mg Tablet PO Q6H PRN Muscle Spasms Radiology Results: ITS Impressions Chest X-Ray 03/23/24 21:42 IMPRESSION: 1. Chronic linear discoid atelectasis/scarring in the bilateral lower lungs. Knee X-Ray 03/23/24 21:44 IMPRESSION: 1. No right knee joint effusion or acute osseous abnormality. Ankle X-Ray 03/23/24 21:46 IMPRESSION: 1. No acute osseous abnormality. Hip/Pelvis X-Ray 03/23/24 21:49 IMPRESSION: 1. Displaced transcervical fracture of the proximal right femur. Head CT 03/23/24 22:10 IMPRESSION: 1. Normal aging brain. No fracture or acute intracranial process Cervical Spine CT 03/23/24 22:13 IMPRESSION: 1. Mild to moderate cervical spondylosis with no acute osseous abnormality. Hip X-Ray 03/26/24 13:17 IMPRESSION: Status post right total hip arthroplasty Labs Labs: Laboratory Results - last 24 hr 03/27/24 03/27/24 03/27/24 11:36 16:15 20:06 WBC RBC Hgb Hct MCV MCH MCHC RDW Plt Count MPV Immature Gran % (Auto) Neut % (Auto) Lymph % (Auto) [place] % (Auto) Eos % (Auto) Baso % (Auto) Lymph # (Auto) [place] # (Auto) Eos # (Auto) Baso # (Auto) Abs Immat Gran (auto) Absolute Neuts (auto) Absolute Nucleated RBC Nucleated RBC % Sodium Potassium Chloride Carbon Dioxide Anion Gap BUN Creatinine Estim Creat Clear Calc Estimated GFR Glucose POC Capillary Glucose 212 H 209 H 187 H Calcium Magnesium Total Bilirubin AST ALT Alkaline Phosphatase Total Protein Albumin 03/28/24 03/28/24 06:16 07:36 WBC 7.8 RBC 2.63 L Hgb 7.9 L Hct 25.5 L MCV 97.0 MCH 30.0 MCHC 31.0 L RDW 13.3 Plt Count 190 MPV 11.3 H Immature Gran % (Auto) 0.4 Neut % (Auto) 61.1 Lymph % (Auto) 21.6 [place] % (Auto) 11.3 H Eos % (Auto) 5.0 H Baso % (Auto) 0.6 Lymph # (Auto) 1.68 [place] # (Auto) 0.9 H Eos # (Auto) 0.4 H Baso # (Auto) 0.1 Abs Immat Gran (auto) 0.03 Absolute Neuts (auto) 4.8 Absolute Nucleated RBC 0.000 Nucleated RBC % 0.0 Sodium 137 Potassium 3.9 Chloride 103 Carbon Dioxide 26 Anion Gap 8 BUN 25 H Creatinine 1.10 H Estim Creat Clear Calc 47 Estimated GFR 50 L Glucose 169 H POC Capillary Glucose 157 H Calcium 8.5 Magnesium 2.0 Total Bilirubin 0.6 AST 34 ALT 22 Alkaline Phosphatase 95 Total Protein 7.0 Albumin 3.4 L Quality VTE Prophylaxis VTE prophylaxis: mechanical ordered
--- NOTE | 2024-03-28 10:28 | P.PNIM_ITS ---
Progress Note: A&P Assessment and Plan (1) Closed fracture of right hip: Code(s): S72.001A - Fracture of unspecified part of neck of right femur, initial encounter for closed fracture Status: Acute Assessment and Plan: Patient is seen a fall after slipping on the stairs and landing on her right hip. X-ray imaging concerning for displaced transcervical fracture of the proximal right femur. * Bed rest * Orthopedics was consulted, * Tylenol, Percocet, and Morphine as needed for pain. Zofran for nausea. * SCD/ALIE hose for DVT prophylaxis * 1 time dose of 40 mg of Lovenox given on 03/25, resumed xarelto today per surgery * Okay to discharge per Ortho (2) VARGHESE (acute kidney injury): Code(s): N17.9 - Acute kidney failure, unspecified Status: Acute Assessment and Plan: resolved Creatinine bump 1.4 on admission. No history of CKD. Suspect pre-renal. Follow creatinine closely and continue hydration, (3) UTI (urinary tract infection): Code(s): N39.0 - Urinary tract infection, site not specified Status: Acute Assessment and Plan: started on Rocephin 03/25, continue Growing e coli 03/23 follow sensitivities patient transition to p.o. Keflex (4) Diabetes: Qualifiers: Diabetes mellitus complication status: with other specified complication Diabetes mellitus long term care phlebotomist insulin use: with long term care phlebotomist use Diabetes mellitus type: type 2 Qualified Code(s): E11.69 - Type 2 diabetes mellitus with other specified complication; Z79.4 - FPC (current) use of insulin Code(s): E11.9 - Type 2 diabetes mellitus without complications Status: Acute Assessment and Plan: Hemoglobin A1C 6.3% from last year. Hemoglobin A1C 03/24 7.4%. On Metformin 500 mg BID * AC/HS accu checks * Low dose SSI, holding metformin while inpatient * Hypoglycemia protocol * Diabetic diet (5) Atrial fibrillation with RVR: Code(s): I48.91 - Unspecified atrial fibrillation Status: Acute Assessment and Plan: History of atrial fibrillation and sinus node dysfunction with dual chamber pacemaker. Patient is on metoprolol and Xarelto. * EKG in the ER showed electronic atrial pacemaker with nonspecific ST-T wave abnormality with heart rate of 81. * Continue metoprolol. * resumed today per surgery (6) Hypertension: Qualifiers: Hypertension type: secondary to endocrine disorders Qualified Code(s): I15.2 - Hypertension secondary to endocrine disorders Code(s): I10 - Essential (primary) hypertension Status: Acute Assessment and Plan: On hydrochlorothiazide 20 mg daily, lisinopril 40 mg daily, metoprolol tartrate 100 mg p.o. b.i.d. Blood pressure controlld * Blood pressures reviewed and are stable 121/61, pulse 60 * Continue metoprolol. Held hydrochlorothiazide and lisinopril in setting of VARGHESE, was resumed * Continue lisinopril and HCTZ (7) Mixed hyperlipidemia due to type 2 diabetes mellitus: Code(s): E11.69 - Type 2 diabetes mellitus with other specified complication; E78.2 - Mixed hyperlipidemia Status: Acute Assessment and Plan: Continue atorvastatin (8) Hypomagnesemia: Code(s): E83.42 - Hypomagnesemia Status: Acute Assessment and Plan: Mag 1.5, s/p 2G IV 03/26 Check magnesium in AM, add potassium (9) Elevated bilirubin: Code(s): R17 - Unspecified jaundice Status: Acute Assessment and Plan: Bilirubin 0.6<1.5 AST 44, ALT 25<55, alk phos 107 Follow LFT's and check direct bili-improving (10) Acute blood loss anemia: Code(s): D62 - Acute posthemorrhagic anemia Status: Acute Assessment and Plan: hemoglobin trending down likely due to hip fracture and delusional no acute signs of bleeding, VVS daily CBC patient will be medically ready for discharge when hemoglobin is stable Plan patient will be medically ready for discharge when hemoglobin is stable Time Spent With Patient Time with patient: Greater than 35 minutes Subjective Date/time seen: 03/28/24 10:28 Interval history: 63-year-old female with Right LISBETH s/p femoral neck fracture right hip 03/26 patient's hemoglobin is still down, no signs of active bleeding likely due to fracture, Orthopedic surgery and delusional, patient will be ready for discharge within hemoglobin is stable. Patient still complaining of severe muscle spasms, Flexeril increase. Review of Systems Review of Systems: All systems reviewed & are unremarkable except as noted in HPI and below Exam Narrative: General: appears comfortable, in no acute distress Respiratory: breathing is unlabored with even chest rise/fall, lungs are clear without wheezing, rhonchi, and crackles Cardiovascular: Rate and rhythm regular, normal s1s2, no murmur Abdomen: Soft, round, non-tender, active bowel sounds Extremities: No cyanosis, edema, clubbing. Pulses 2/2, post op dressing right hip. Limited ROM Neuro: A&O x 4, PERRLA moves all extremities Skin: Warm, dry, intact. Skin tear to right elbow covered with Mepilex dressing. Objective Data Vital Signs Vital Signs: Vital Signs - 24 hr 03/27/24 12:00 03/27/24 20:16 03/27/24 21:29 Temperature 97.3 F L 97.2 F L Pulse Rate 71 67 79 Respiratory Rate 18 22 H Blood Pressure 135/69 129/59 L Pulse Oximetry 100 100 Oxygen Delivery Oxygen Flow Rate 03/27/24 20:00 03/28/24 06:06 Temperature 98.8 F Pulse Rate 69 Respiratory Rate 22 H Blood Pressure 116/68 Pulse Oximetry 95 99 Oxygen Delivery Nasal Cannula Oxygen Flow Rate 1.5 Intake/Output Intake/Output: Intake & Output 03/25/24 03/26/24 03/27/24 03/28/24 23:59 23:59 23:59 23:59 Intake Total 2625.5 1240 1560 690 Output Total 5500 3425 3550 2750 Balance -2874.5 -2185 -1989 -2059 Meds/Results Medications: Active Medications Generic Name Dose Route Start Last Admin Trade Name Freq PRN Reason Stop Dose Admin Acetaminophen 500 mg 03/26/24 08:15 Acetaminophen 500 Mg Tablet PO Q6H PRN Pain Rated 1-3 Amitriptyline HCl 25 mg 03/24/24 09:00 03/28/24 08:53 Amitriptyline Hcl 25 Mg Tablet PO 25 mg BID VALENCIA Administration Atorvastatin Calcium 20 mg 03/24/24 21:00 03/27/24 20:16 Atorvastatin 20 Mg Tablet PO 20 mg HS VALENCIA Administration Cephalexin HCl 500 mg 03/28/24 10:00 Cephalexin 500 Mg Capsule PO 03/31/24 21:01 Q12HR VALENCIA Cyclobenzaprine HCl 5 mg 03/25/24 20:00 03/28/24 05:57 Cyclobenzaprine Hcl 5 Mg Tablet PO 5 mg Q8HR VALENCIA Administration Dextrose 12.5 gm 03/24/24 07:49 Dextrose 50% 25 Gm/50 Ml Syringe IV PUSH PRN PRN Hypoglycemia Protocol Diazepam 5 mg 03/26/24 08:15 Diazepam (*Crx) 5 Mg Tablet PO Q6H PRN Anxiety/Muscle Spasm Diphenhydramine HCl 25 mg 03/26/24 08:15 Diphenhydramine Hcl Inj 50 Mg/Ml Vial IV PUSH Q6H PRN Itching Empagliflozin 25 mg 03/24/24 09:00 03/28/24 08:52 Empagliflozin 25 Mg Tablet PO 25 mg DAILY VALENCIA Administration Famotidine 20 mg 03/26/24 09:00 Famotidine 20 Mg Tablet PO Q12HR VALENCIA Glucagon 1 mg 03/24/24 07:49 Glucagon For Inj 1 Mg Vial IM PRN PRN Hypoglycemia Protocol Glucose 15 gm 03/24/24 07:49 Glucose Oral Gel 15 Gm Of Glucse In 37.5 Gm Tube PO PRN PRN Hypoglycemia Protocol Hydrochlorothiazide 25 mg 03/27/24 09:00 03/28/24 08:53 Hydrochlorothiazide 25 Mg Tablet PO 25 mg DAILY VALENCIA Administration Hydromorphone HCl 1 mg 03/26/24 08:15 Hydromorphone Hcl Inj (*Crx) 1 Mg/Ml Syr IV PUSH Q2H PRN Breakthrough Pain Rated 7-10 or NPO Hydromorphone HCl 0.5 mg 03/26/24 08:15 Hydromorphone Hcl Inj (*Crx) 1 Mg/Ml Syr IV PUSH Q2H PRN Breakthrough Pain Rated 4-6 or NPO Hydroxyzine HCl 50 mg 03/26/24 08:15 Hydroxyzine Hcl 25 Mg Tablet PO Q4H PRN Itching Dextrose 1,000 mls @ 100 mls/hr 03/24/24 07:49 Dextrose 5% 1,000 Ml IVPB PRN PRN Hypoglycemia Protocol Ibuprofen 800 mg in 200 mls @ 400 mls/hr 03/26/24 08:15 03/26/24 20:22 Caldolor 800 Mg/200 Ml IVPB 400 mls/hr Q6H PRN Administration Breakthrough Pain Rated 1-3 or NPO Insulin Aspart 2 - 5 units 03/24/24 08:00 03/28/24 08:03 Insulin Aspart (*Bkc) 100 Units/Ml SUB-Q Not Given TIDWM [facility] Protocol Lisinopril 40 mg 03/24/24 09:00 03/28/24 08:52 Lisinopril 20 Mg Tablet PO 40 mg DAILY VALENCIA Administration Metformin HCl 500 mg 03/26/24 17:00 03/28/24 08:53 Metformin Hcl 500 Mg Tablet PO 500 mg BIDWM VALENCIA Administration Metoprolol Tartrate 100 mg 03/24/24 09:00 03/28/24 08:52 Metoprolol Tartrate 50 Mg Tab PO 100 mg Q12HR VALENCIA Administration Miscellaneous Information 1 each 03/26/24 00:01 Pepcid/Protonix Duplication Of Therapy. D/C One? XX 04/25/24 00:00 CLARIFY VALENCIA Naloxone HCl 0.1 mg 03/26/24 08:15 Naloxone Hcl 0.4 Mg/Ml Vial IV PUSH Q2M PRN Opiate Reversal Ondansetron HCl 4 mg 03/26/24 08:15 Ondansetron Inj 4 Mg/2 Ml Vial IV PUSH Q4H PRN Nausea And Vomiting Oxybutynin Chloride 5 mg 03/24/24 09:00 03/28/24 08:52 Oxybutynin Chloride Xl 5 Mg Tab.Er.24 PO 5 mg DAILY VALENCIA Administration Oxycodone/Acetaminophen 1 tablet 03/26/24 08:15 Oxycodone/Acetaminophen (*Crx) 5-325 Mg Tablet PO Q4H PRN Pain Rated 4-6 Oxycodone/Acetaminophen 1 tab 03/26/24 08:15 03/28/24 04:53 Oxycodone/Acetaminophen (*Crx) 10-325 Mg Tablet PO 1 tab Q6H PRN Administration Pain Rated 7-10 Pantoprazole Sodium 40 mg 03/24/24 09:00 03/28/24 08:53 Pantoprazole 40 Mg Tablet PO 40 mg BID VALENCIA Administration Polyethylene Glycol 17 gm 03/26/24 17:00 03/28/24 08:53 Polyethylene Glycol 3350 17 Gm Powd.Pack PO 17 gm QAM VALENCIA Administration Rivaroxaban 20 mg 03/26/24 17:00 03/27/24 16:21 Rivaroxaban 20 Mg Tablet PO 20 mg DAILY@1700 VALENCIA Administration Senna/Docusate Sodium 2 tab 03/26/24 17:00 03/28/24 08:52 Senna/Docusate Sodium Tablet PO 2 tab BID VALENCIA Administration Tizanidine HCl 4 mg 03/26/24 08:15 Tizanidine Hcl 4 Mg Tablet PO Q6H PRN Muscle Spasms Radiology Results: ITS Impressions Chest X-Ray 03/23/24 21:42 IMPRESSION: 1. Chronic linear discoid atelectasis/scarring in the bilateral lower lungs. Knee X-Ray 03/23/24 21:44 IMPRESSION: 1. No right knee joint effusion or acute osseous abnormality. Ankle X-Ray 03/23/24 21:46 IMPRESSION: 1. No acute osseous abnormality. Hip/Pelvis X-Ray 03/23/24 21:49 IMPRESSION: 1. Displaced transcervical fracture of the proximal right femur. Head CT 03/23/24 22:10 IMPRESSION: 1. Normal aging brain. No fracture or acute intracranial process Cervical Spine CT 03/23/24 22:13 IMPRESSION: 1. Mild to moderate cervical spondylosis with no acute osseous abnormality. Hip X-Ray 03/26/24 13:17 IMPRESSION: Status post right total hip arthroplasty Labs Labs: Laboratory Results - last 24 hr 03/27/24 03/27/24 03/27/24 11:36 16:15 20:06 WBC RBC Hgb Hct MCV MCH MCHC RDW Plt Count MPV Immature Gran % (Auto) Neut % (Auto) Lymph % (Auto) [place] % (Auto) Eos % (Auto) Baso % (Auto) Lymph # (Auto) [place] # (Auto) Eos # (Auto) Baso # (Auto) Abs Immat Gran (auto) Absolute Neuts (auto) Absolute Nucleated RBC Nucleated RBC % Sodium Potassium Chloride Carbon Dioxide Anion Gap BUN Creatinine Estim Creat Clear Calc Estimated GFR Glucose POC Capillary Glucose 212 H 209 H 187 H Calcium Magnesium Total Bilirubin AST ALT Alkaline Phosphatase Total Protein Albumin 03/28/24 03/28/24 06:16 07:36 WBC 7.8 RBC 2.63 L Hgb 7.9 L Hct 25.5 L MCV 97.0 MCH 30.0 MCHC 31.0 L RDW 13.3 Plt Count 190 MPV 11.3 H Immature Gran % (Auto) 0.4 Neut % (Auto) 61.1 Lymph % (Auto) 21.6 [place] % (Auto) 11.3 H Eos % (Auto) 5.0 H Baso % (Auto) 0.6 Lymph # (Auto) 1.68 [place] # (Auto) 0.9 H Eos # (Auto) 0.4 H Baso # (Auto) 0.1 Abs Immat Gran (auto) 0.03 Absolute Neuts (auto) 4.8 Absolute Nucleated RBC 0.000 Nucleated RBC % 0.0 Sodium 137 Potassium 3.9 Chloride 103 Carbon Dioxide 26 Anion Gap 8 BUN 25 H Creatinine 1.10 H Estim Creat Clear Calc 47 Estimated GFR 50 L Glucose 169 H POC Capillary Glucose 157 H Calcium 8.5 Magnesium 2.0 Total Bilirubin 0.6 AST 34 ALT 22 Alkaline Phosphatase 95 Total Protein 7.0 Albumin 3.4 L Quality VTE Prophylaxis VTE prophylaxis: mechanical ordered
[2024-03-28 11:27] LABS: Glucose Point of Care 217 mg/dl (65-105)
[2024-03-28] MEDS: INSULIN ASPART (*BKC) 100 UNITS/ML SUB-Q (11:40)
[2024-03-28] MEDS: CEPHALEXIN 500 MG CAPSULE PO ×2 (11:40→21:20)
--- NOTE | 2024-03-28 13:00 | PC.NURSE ---
RN assumed care
[2024-03-28 14:41] VITALS: BP 110/61; PULSE 68; RESP 20; TEMP 36.4; O2SAT 94
[2024-03-28] MEDS: CYCLOBENZAPRINE HCL 10 MG TABLET PO ×2 (14:58→21:20)
[2024-03-28 16:12] LABS: Glucose Point of Care 170 mg/dl (65-105)
[2024-03-28] MEDS: RIVAROXABAN 20 MG TABLET PO (18:17)
[2024-03-28 20:00] VITALS: PULSE 71; RESP 18; O2SAT 92
[2024-03-28 20:07] LABS: Glucose Point of Care 193 mg/dl (65-105)
[2024-03-28] MEDS: ATORVASTATIN 20 MG TABLET PO (21:20)
[2024-03-28 21:44] VITALS: BP 125/56; PULSE 71; RESP 18; TEMP 36.9; O2SAT 92
[2024-03-29 05:47] VITALS: BP 110/66; PULSE 68; RESP 20; TEMP 36.2; O2SAT 91
[2024-03-29] MEDS: CYCLOBENZAPRINE HCL 10 MG TABLET PO ×2 (06:08→13:06)
[2024-03-29 06:48] LABS: Basophils Percent Auto 0.6 % (0.2-1.2); Eosinophils Absolute Auto 0.3 K/mm3 (0-0.3); Eosinophils Percent Auto 5.1 % (0-4.4); Hematocrit 25.8 % (37.0-47.0); Hemoglobin 8.1 g/dL (12.0-15.0); Immature Granulocyte Absolute 0.03 K/mm3 (0.00-0.031); Immature Granulocyte Percent A 0.5 % (0-0.5); Lymphocytes Percent Auto 24.2 % (18.3-44.2); Mean Corpuscular HGB Conc 31.4 g/dl (32-36); Mean Corpuscular Hemoglobin 29.8 pg (26-34); Mean Corpuscular Volume 94.9 fl (80-100); Mean Platelet Volume 11.2 fl (7.4-10.4); Monocytes Absolute Auto 0.8 K/mm3 (0.1-0.6); Monocytes Percent Auto 11.8 % (2.6-8.5); Neutrophils Absolute Auto 3.8 K/mm3 (1.3-6.7); Neutrophils Percent Auto 57.8 % (45.5-73.1); Platelet Count Result 220 k/mm3 (150-375); Red Blood Count 2.72 M/mm3 (4.2-5.4); Red Cell Distribution Width 13.4 % (11.5-14.5); White Blood Count 6.6 K/mm3 (4.5-10.0)
[2024-03-29 07:08] LABS: Alanine Aminotransferase 29 U/L (6-35); Albumin Level 3.5 g/dL (3.5-5.1); Alkaline Phosphatase 114 U/L (38-126); Anion Gap 4 mmol/L (4-12); Aspartate Amino Transferase 43 U/L (14-36); Bilirubin,Total 0.6 mg/dL (0.2-1.3); Blood Urea Nitrogen 22 mg/dL (7-17); Calcium 8.9 mg/dL (8.4-10.2); Carbon Dioxide 29 mmol/L (22-30); Chloride 103 mmol/L (98-107); Estimated CRCL calculation 57 ml/min; Estimated Glomerular Filt Rate > 60; Glucose 204 mg/dL (65-110); Magnesium 1.9 mg/dL (1.6-2.3); Potassium 4.1 mmol/L (3.4-5.0); Sodium 136 mmol/L (137-145)
[2024-03-29 07:39] LABS: Glucose Point of Care 173 mg/dl (65-105)
[2024-03-29] MEDS: polyethylene glycoL 3350 17 GM POWD.PACK PO (08:07)
[2024-03-29] MEDS: oxyBUTYnin CHLORIDE XL 5 MG TAB.ER.24 PO (08:08)
[2024-03-29] MEDS: SENNA/DOCUSATE SODIUM TABLET 2 TAB PO (08:08)
[2024-03-29] MEDS: EMPAGLIFLOZIN 25 MG TABLET PO (08:08)
[2024-03-29 08:09] VITALS: PULSE 77
[2024-03-29] MEDS: METOPROLOL TARTRATE 50 MG TAB 100 MG PO (08:09)
[2024-03-29] MEDS: PANTOPRAZOLE 40 MG TABLET PO (08:09)
[2024-03-29] MEDS: AMITRIPTYLINE HCL 25 MG TABLET PO (08:09)
[2024-03-29] MEDS: lisinopriL 20 MG TABLET 40 MG PO (08:10)
[2024-03-29] MEDS: hydroCHLOROthiazide 25 MG TABLET PO (08:10)
[2024-03-29] MEDS: metFORMIN HCL 500 MG TABLET PO (08:10)
[2024-03-29] MEDS: CEPHALEXIN 500 MG CAPSULE PO (08:10)
--- NOTE | 2024-03-29 09:41 | P.PNOP_ITS ---
Progress Note: A&P Assessment and Plan (1) Fractured femoral neck: Qualifiers: Encounter type: initial encounter Fracture type: closed Laterality: right Qualified Code(s): S72.001A - Fracture of unspecified part of neck of right femur, initial encounter for closed fracture Code(s): S72.009A - Fracture of unspecified part of neck of unspecified femur, initial encounter for closed fracture Status: Acute Assessment and Plan: POD #3: Right LISBETH Continue PT/OT. WBAT. Walker. HIGH FALL RISK. Continue pain control. Ice Hip. Protect skin. DVT prophylaxis with Warfarin. Remove moore. SCDs. Incentive Spirometry Use reviewed. Monitor Dressing. Change prior to discharge. Bowel Regimen. Dispo: ADAL vs. SNF pending progress with PT/OT and medical clearance. Plan Reviewed history, exam, radiographs and current labs with attending MD and covering surgeon, Dr. William, who agrees with current plan as indicated above. No further recommendations from Dr. William at this time. Time Spent With Patient Time with patient: less than 15 minutes Subjective Subjective Date/Time Seen: 03/29/24 09:41 Post Op day: 3 Interval history: POD #3: Right LISBETH s/p femoral neck fracture right hip Patient doing well. Pain well controlled. No new concerns. Review of Systems Review of Systems: All systems reviewed & are unremarkable except as noted in HPI and below Constitutional: Constitutional: Denies chills, Denies fever(s), Denies headache(s), Denies lethargy and Reports weakness ENT: Denies headache(s) Cardiovascular: Cardiovascular: Denies chest pain, Denies diaphoresis, Denies lightheadedness, Denies palpitations, Denies dyspnea and Denies dyspnea on exertion Respiratory: Respiratory: Denies cough, Denies dyspnea and Denies dyspnea on exertion Gastrointestinal: Gastrointestinal: Denies constipation, Denies diarrhea, Denies nausea and Denies vomiting Genitourinary: Genitourinary: Reports urinary frequency, Denies dysuria and Denies urinary hesitancy Musculoskeletal: Musculoskeletal: Reports joint swelling (Right Hip ) and Reports limited range of motion (Right Hip due to recent surgery ) Neurologic: Denies headache(s) and Reports weakness Endocrine: Endocrine: Denies palpitations Exam Const: General: comfortable and no acute distress Resp: Effort & Inspection: normal respiratory effort Cardio: Rate: regular rate Rhythm: regular rhythm GI: Inspection: non-distended Skin: General skin exam: normal color Other: Incision right hip c/d/i. Surrounding tissue without redness/warmth. Mild swelling consistent with recent surgery. No drainage. Neuro: Cognition (Neuro): normal cognition Speech: normal speech Extrem: Right lower extremity: normal to inspection, normal capillary refill, hip/thigh Details: tenderness Location: of the hip (Thigh soft ) Location: laterally and anteriorly, swelling Location: at the hip, abnormal ROM (limited consistent with recent surgery ) Details: pain with active ROM during and pain with passive ROM during and other (Incision c/d/i. ); no deformity and no unusual warmth, knee Details: normal to inspection; no tenderness and no swelling, lower leg (Negative Dia's Sign ) Details: normal to inspection and no edema; no tenderness, ankle (+ankle dorsiflexion/plantarflexion) Details: normal to inspection and no edema; no tenderness, no swelling and no ecchymosis and foot Details: normal capillary refill, toes with normal ROM, vascular exam Details: dorsalis pedis pulse present and motor-sensory exam Details: light- touch normal; no tenderness Objective Data Vital Signs Vital Signs: Vital Signs - 24 hr 03/28/24 14:41 03/28/24 21:44 03/28/24 20:00 Temperature 36.4 C L 36.9 C Pulse Rate 68 71 71 Respiratory Rate 20 18 18 Blood Pressure 110/61 125/56 L Pulse Oximetry 94 92 92 Oxygen Delivery Room Air 03/29/24 05:47 03/29/24 08:09 Temperature 36.2 C L Pulse Rate 68 77 Respiratory Rate 20 Blood Pressure 110/66 Pulse Oximetry 91 Oxygen Delivery Intake/Output Intake/Output: Intake & Output 03/26/24 03/27/24 03/28/24 03/29/24 23:59 23:59 23:59 23:59 Intake Total 1240 1560 1161 690 Output Total 8055 1997 1442 [facility] -[phone] Meds/Results Medications: Active Medications Generic Name Dose Route Start Last Admin Trade Name Freq PRN Reason Stop Dose Admin Acetaminophen 500 mg 03/26/24 08:15 Acetaminophen 500 Mg Tablet PO Q6H PRN Pain Rated 1-3 Amitriptyline HCl 25 mg 03/24/24 09:00 03/29/24 08:09 Amitriptyline Hcl 25 Mg Tablet PO 25 mg BID VALENCIA Administration Atorvastatin Calcium 20 mg 03/24/24 21:00 03/28/24 21:20 Atorvastatin 20 Mg Tablet PO 20 mg HS VALENCIA Administration Cephalexin HCl 500 mg 03/28/24 10:00 03/29/24 08:10 Cephalexin 500 Mg Capsule PO 03/31/24 21:01 500 mg Q12HR VALENCIA Administration Cyclobenzaprine HCl 10 mg 03/28/24 14:00 03/29/24 06:08 Cyclobenzaprine Hcl 10 Mg Tablet PO 10 mg Q8HR VALENCIA Administration Dextrose 12.5 gm 03/24/24 07:49 Dextrose 50% 25 Gm/50 Ml Syringe IV PUSH PRN PRN Hypoglycemia Protocol Diazepam 5 mg 03/26/24 08:15 Diazepam (*Crx) 5 Mg Tablet PO Q6H PRN Anxiety/Muscle Spasm Diphenhydramine HCl 25 mg 03/26/24 08:15 Diphenhydramine Hcl Inj 50 Mg/Ml Vial IV PUSH Q6H PRN Itching Empagliflozin 25 mg 03/24/24 09:00 03/29/24 08:08 Empagliflozin 25 Mg Tablet PO 25 mg DAILY VALENCIA Administration Famotidine 20 mg 03/26/24 09:00 Famotidine 20 Mg Tablet PO Q12HR VALENCIA Glucagon 1 mg 03/24/24 07:49 Glucagon For Inj 1 Mg Vial IM PRN PRN Hypoglycemia Protocol Glucose 15 gm 03/24/24 07:49 Glucose Oral Gel 15 Gm Of Glucse In 37.5 Gm Tube PO PRN PRN Hypoglycemia Protocol Hydrochlorothiazide 25 mg 03/27/24 09:00 03/29/24 08:10 Hydrochlorothiazide 25 Mg Tablet PO 25 mg DAILY VALENCIA Administration Hydromorphone HCl 1 mg 03/26/24 08:15 Hydromorphone Hcl Inj (*Crx) 1 Mg/Ml Syr IV PUSH Q2H PRN Breakthrough Pain Rated 7-10 or NPO Hydromorphone HCl 0.5 mg 03/26/24 08:15 Hydromorphone Hcl Inj (*Crx) 1 Mg/Ml Syr IV PUSH Q2H PRN Breakthrough Pain Rated 4-6 or NPO Hydroxyzine HCl 50 mg 03/26/24 08:15 Hydroxyzine Hcl 25 Mg Tablet PO Q4H PRN Itching Dextrose 1,000 mls @ 100 mls/hr 03/24/24 07:49 Dextrose 5% 1,000 Ml IVPB PRN PRN Hypoglycemia Protocol Ibuprofen 800 mg in 200 mls @ 400 mls/hr 03/26/24 08:15 03/26/24 20:22 Caldolor 800 Mg/200 Ml IVPB 400 mls/hr Q6H PRN Administration Breakthrough Pain Rated 1-3 or NPO Insulin Aspart 2 - 5 units 03/24/24 08:00 03/29/24 07:45 Insulin Aspart (*Bkc) 100 Units/Ml SUB-Q Not Given TIDWM [facility] Protocol Lisinopril 40 mg 03/24/24 09:00 03/29/24 08:10 Lisinopril 20 Mg Tablet PO 40 mg DAILY VALENCIA Administration Metformin HCl 500 mg 03/26/24 17:00 03/29/24 08:10 Metformin Hcl 500 Mg Tablet PO 500 mg BIDWM VALENCIA Administration Metoprolol Tartrate 100 mg 03/24/24 09:00 03/29/24 08:09 Metoprolol Tartrate 50 Mg Tab PO 100 mg Q12HR VALENCIA Administration Miscellaneous Information 1 each 03/26/24 00:01 Pepcid/Protonix Duplication Of Therapy. D/C One? XX 04/25/24 00:00 CLARIFY [facility] Naloxone HCl 0.1 mg 03/26/24 08:15 Naloxone Hcl 0.4 Mg/Ml Vial IV PUSH Q2M PRN Opiate Reversal Ondansetron HCl 4 mg 03/26/24 08:15 Ondansetron Inj 4 Mg/2 Ml Vial IV PUSH Q4H PRN Nausea And Vomiting Oxybutynin Chloride 5 mg 03/24/24 09:00 03/29/24 08:08 Oxybutynin Chloride Xl 5 Mg Tab.Er.24 PO 5 mg DAILY VALENCIA Administration Oxycodone/Acetaminophen 1 tablet 03/26/24 08:15 Oxycodone/Acetaminophen (*Crx) 5-325 Mg Tablet PO Q4H PRN Pain Rated 4-6 Oxycodone/Acetaminophen 1 tab 03/26/24 08:15 03/28/24 21:26 Oxycodone/Acetaminophen (*Crx) 10-325 Mg Tablet PO 1 tab Q6H PRN Administration Pain Rated 7-10 Pantoprazole Sodium 40 mg 03/24/24 09:00 03/29/24 08:09 Pantoprazole 40 Mg Tablet PO 40 mg BID VALENCIA Administration Polyethylene Glycol 17 gm 03/26/24 17:00 03/29/24 08:07 Polyethylene Glycol 3350 17 Gm Powd.Pack PO 17 gm QAM VALENCIA Administration Rivaroxaban 20 mg 03/26/24 17:00 03/28/24 18:17 Rivaroxaban 20 Mg Tablet PO 20 mg DAILY@1700 VALENCIA Administration Senna/Docusate Sodium 2 tab 03/26/24 17:00 03/29/24 08:08 Senna/Docusate Sodium Tablet PO 2 tab BID VALENCIA Administration Tizanidine HCl 4 mg 03/26/24 08:15 Tizanidine Hcl 4 Mg Tablet PO Q6H PRN Muscle Spasms Radiology Results: ITS Impressions Chest X-Ray 03/23/24 21:42 IMPRESSION: 1. Chronic linear discoid atelectasis/scarring in the bilateral lower lungs. Knee X-Ray 03/23/24 21:44 IMPRESSION: 1. No right knee joint effusion or acute osseous abnormality. Ankle X-Ray 03/23/24 21:46 IMPRESSION: 1. No acute osseous abnormality. Hip/Pelvis X-Ray 03/23/24 21:49 IMPRESSION: 1. Displaced transcervical fracture of the proximal right femur. Head CT 03/23/24 22:10 IMPRESSION: 1. Normal aging brain. No fracture or acute intracranial process Cervical Spine CT 03/23/24 22:13 IMPRESSION: 1. Mild to moderate cervical spondylosis with no acute osseous abnormality. Hip X-Ray 03/26/24 13:17 IMPRESSION: Status post right total hip arthroplasty Labs Labs: Laboratory Results - last 24 hr 03/28/24 03/28/24 03/28/24 11:25 16:08 19:31 WBC RBC Hgb Hct MCV MCH MCHC RDW Plt Count MPV Immature Gran % (Auto) Neut % (Auto) Lymph % (Auto) Curry % (Auto) Eos % (Auto) Baso % (Auto) Lymph # (Auto) Curry # (Auto) Eos # (Auto) Baso # (Auto) Abs Immat Gran (auto) Absolute Neuts (auto) Absolute Nucleated RBC Nucleated RBC % Sodium Potassium Chloride Carbon Dioxide Anion Gap BUN Creatinine Estim Creat Clear Calc Estimated GFR Glucose POC Capillary Glucose 217 H 170 H 193 H Calcium Magnesium Total Bilirubin AST ALT Alkaline Phosphatase Total Protein Albumin 03/29/24 03/29/24 06:18 07:19 WBC 6.6 RBC 2.72 L Hgb 8.1 L Hct 25.8 L MCV 94.9 MCH 29.8 MCHC 31.4 L RDW 13.4 Plt Count 220 MPV 11.2 H Immature Gran % (Auto) 0.5 Neut % (Auto) 57.8 Lymph % (Auto) 24.2 Curry % (Auto) 11.8 H Eos % (Auto) 5.1 H Baso % (Auto) 0.6 Lymph # (Auto) 1.60 Curry # (Auto) 0.8 H Eos # (Auto) 0.3 Baso # (Auto) 0.0 Abs Immat Gran (auto) 0.03 Absolute Neuts (auto) 3.8 Absolute Nucleated RBC 0.000 Nucleated RBC % 0.0 Sodium 136 L Potassium 4.1 Chloride 103 Carbon Dioxide 29 Anion Gap 4 BUN 22 H Creatinine 0.90 Estim Creat Clear Calc 57 Estimated GFR > 60 Glucose 204 H POC Capillary Glucose 173 H Calcium 8.9 Magnesium 1.9 Total Bilirubin 0.6 AST 43 H ALT 29 Alkaline Phosphatase 114 Total Protein 6.0 L Albumin 3.5
[2024-03-29 11:08] VITALS: BP 110/70
[2024-03-29] MEDS: oxyCODONE/ACETAMINOPHEN (*CRX) 10-325 MG TABLET 1 TAB PO (11:15)
[2024-03-29 11:40] LABS: Glucose Point of Care 283 mg/dl (65-105)
[2024-03-29] MEDS: INSULIN ASPART (*BKC) 100 UNITS/ML SUB-Q (11:41)
[2024-03-29 14:00] VITALS: BP 107/60; PULSE 99; RESP 20; TEMP 36.7; O2SAT 96
--- NOTE | 2024-03-31 07:46 | PM.DS ---
DS: Admitting Diagnosis Discharge Date 03/29/24 Admitting Diagnosis Closed fracture right hip, VARGHESE, diabetes, mixed hyperlipidemia due to type 2 diabetes, hypertension atrial fibrillation with RVR DS: Discharge Diagnosis Discharge Diagnosis (1) Closed fracture of right hip: Code(s): S72.001A - Fracture of unspecified part of neck of right femur, initial encounter for closed fracture Status: Acute (2) VARGHESE (acute kidney injury): Code(s): N17.9 - Acute kidney failure, unspecified Status: Acute (3) UTI (urinary tract infection): Code(s): N39.0 - Urinary tract infection, site not specified Status: Acute (4) Diabetes: Qualifiers: Diabetes mellitus type: type 2 Diabetes mellitus care home insulin use: with terminal operations manager use Diabetes mellitus complication status: with other specified complication Qualified Code(s): E11.69 - Type 2 diabetes mellitus with other specified complication; Z79.4 - longterm (current) use of insulin Code(s): E11.9 - Type 2 diabetes mellitus without complications Status: Acute (5) Atrial fibrillation with RVR: Code(s): I48.91 - Unspecified atrial fibrillation Status: Acute (6) Hypertension: Qualifiers: Hypertension type: secondary to endocrine disorders Qualified Code(s): I15.2 - Hypertension secondary to endocrine disorders Code(s): I10 - Essential (primary) hypertension Status: Acute (7) Mixed hyperlipidemia due to type 2 diabetes mellitus: Code(s): E11.69 - Type 2 diabetes mellitus with other specified complication; E78.2 - Mixed hyperlipidemia Status: Acute (8) Hypomagnesemia: Code(s): E83.42 - Hypomagnesemia Status: Acute (9) Elevated bilirubin: Code(s): R17 - Unspecified jaundice Status: Acute (10) Acute blood loss anemia: Code(s): D62 - Acute posthemorrhagic anemia Status: Acute DS: Summary Hospital Course Reason for hospitalization: Fall with right hip fracture Hospital Course: Patient admitted after a fall resulting in right hip fracture. Patient found to have UTI treated initially with Rocephin then oral Levaquin. Patient had surgical repair with right hip replacement on 03/26/24 with subsequent drop in hemoglobin. Patient worked with therapy and made some improvements but not ready to go home with steps and no help. Hemoglobin remained stable. Attempted to place patient at [facility] but Peer to Peer was requested and denial was upheld. Patient discharged to [facility]. Status at Discharge Cognitive/behavioral status at discharge: Awake, alert, oriented and pleasant Functional status at discharge: uses cane/walker Overall status at discharge: patient is progressing back to baseline Time Spent with Patient Time attestation: Total time spent providing and/or coordinating discharge services: 90 minutes Time spent: Greater than 30 minutes Specific discharge activities: Inclusive of examining patient, documentation, Peer to Peer and med reconciliation Exam Narrative: General: appears comfortable, in no acute distress Respiratory: breathing is unlabored with even chest rise/fall, lungs are clear without wheezing, rhonchi, and crackles Cardiovascular: Rate and rhythm regular, normal s1s2, no murmur Abdomen: Soft, round, non-tender, active bowel sounds Extremities: No cyanosis, edema, clubbing. Pulses 2/2, post op dressing right hip. Limited ROM Neuro: A&O x 4, PERRLA moves all extremities Skin: Warm, dry, intact. Skin tear to right elbow covered with Mepilex dressing. Discharge Plan Discharge Consulting providers: Rick William; Femi Bang; Juan Mcrae; Tj Walsh; Yesenia Peña; Neptali Carrera; Camille Boland; Mauricio Hancock; Estefanía Spencer; Lian Jeronimo Discharging Clinician: Tj Liu Anticipated Discharge Date/Time: 03/29/24 14:27 Patient Disposition: SNF Activity: may shower and no driving Diet: as tolerated Wound Care Instructions: follow printed instructions Discharge Instructions: Postoperative Hip Fracture Instructions Dr. Rick William [phone] Dressing to be changed daily with an island dressing beginning on post op day #2. May stop dressing changes at post op day #14 (04/09/2024). No sutures/kaycee will need to be removed. Can allow Dermabond to fall off naturally. Weight bearing: Weight bearing as tolerated. You may shower with your dressing but do not submerge in a bath tub. Do not drive or operate machinery until you are released by your surgeon. Do not walk without a walker for any reason until you are released by your surgeon. DVT prophylaxis x28 days (04/23/24) post op. Continue to apply ice to the hip intermittently for additional pain relief. Protect your skin with a towel or pillow case. Continue to follow strict hip fracture precautions. Please contact our office with any questions/concerns regarding your hip at [phone]. Follow up appointment instructions indicated below. Patient Instructions: Joint Replacement Surgery (DC) Stand Alone Forms: General Discharge Information, Senior Living Discharge Follow-up/Referrals: Rick William MD [Physician] - 05/09/24 11:00 am Discharge Medications: New oxycodone-acetaminophen 5-325 mg Tablet 1 - 2 tablet PO Q4-6H PRN (Reason: pain) Qty: 40 0RF cyclobenzaprine 10 mg Tablet 10 mg PO Q8HR Qty: 0 0RF sennosides-docusate sodium [Senokot-S] 8.6-50 mg Tablet 2 tab-cap PO BID Qty: 0 0RF diazepam 5 mg Tablet 5 mg PO Q6H PRN (Reason: Anxiety/Muscle Spasm) Qty: 30 0RF famotidine 20 mg Tablet 20 mg PO Q12HR Qty: 0 0RF insulin aspart U-100 [Novolog U-100 Insulin aspart] 100 unit/mL Solution 2 - 5 unit subcut TIDWM Qty: 0 0RF Protocol: Insulin Corrective Low-Dose Condition: glucose < 70 mg/dl Dose/Route: Follow Hypoglycemia Order Condition: glucose 70-200 mg/dl Dose/Route: No additional insulin Condition: glucose 201-250 mg/dl Dose/Route: 2 units sub-Q Condition: glucose 251-300 mg/dl Dose/Route: 3 units sub-Q Condition: glucose 301-350 mg/dl Dose/Route: 4 units sub-Q Condition: glucose 351-400 mg/dl Dose/Route: 5 units sub-Q Condition: glucose > 400 mg/dl Dose/Route: Call MD Protocol Text: *No Correction Dose at Bedtime* hydroxyzine HCl 25 mg Tablet 50 mg PO Q4H PRN (Reason: Itching) Qty: 0 0RF cephalexin 500 mg Capsule 500 mg PO Q12HR Qty: 0 0RF Continued lisinopril 40 mg tablet 40 mg PO DAILY pantoprazole 40 mg tablet,delayed release (DR/EC) 40 mg PO BID oxybutynin chloride 5 mg tablet extended release 24hr 5 mg PO DAILY atorvastatin 20 mg tablet 20 mg PO HS tizanidine 4 mg tablet 4 mg PO Q6H PRN (Reason: Muscle Spasms) metoprolol tartrate 50 mg Tablet 100 mg PO BID Qty: 60 1RF metformin 500 mg tablet 500 mg PO BID Jardiance 25 mg tablet 25 mg PO DAILY Xarelto 20 mg Tablet 20 mg PO DAILY@1700 Qty: 30 3RF Hold Instructions: Resume on 10/29/22. Per woolen suiting shrinker recommendation amitriptyline 25 mg tablet 25 mg PO BID acetaminophen 500 mg tablet 1,000 mg PO TID PRN (Reason: Pain) Changed hydrochlorothiazide 25 mg tablet 25 mg PO DAILY Qty: 30 0RF Date of admission: 03/23/24 23:51 Primary Care Provider: JazielKathleen Admitting Provider: Lore Doll Attending physician on admission: Tj Liu Condition: Stable Quality VTE Prophylaxis VTE prophylaxis: mechanical ordered Hospitalist MIPS Heart Failure (Exclusion) Patient has history of Heart Transplant or Left Ventricular Assistive Device?: No IF YES, STOP HERE Heart Failure (Qualifier) Patient has current or prior documentation of LVEF less than or equal to 40%, or mod/servere depressed LVSF?: No IF NO, STOP HERE
== END 2024-03-29 16:05 | DRG 522 ==
LOC: ANHED 20:51 → ANH3MEDSUR 03-24 00:56
PROVIDERS: Nurse Practitioner Acute Care; Orthopaedic Surgery; Admitting Provider Internal Medicine; Emergency Provider Emergency Medicine; PCP Physician Assistant; Visit Provider Nurse Practitioner
PROC: 0SR903A Replacement of Right Hip Joint with Ceramic Synthetic Substitute, Uncemented, Open Approach (ICD-10-PCS; CPT 27130; principal; 2024-03-26 08:00)
DX: S72.031A Displaced midcervical fracture of right femur, initial encounter for closed fracture (principal); N17.9 Acute kidney failure, unspecified; N39.0 Urinary tract infection, site not specified; I48.20 Chronic atrial fibrillation, unspecified; D62 Acute posthemorrhagic anemia; I10 Essential (primary) hypertension; I34.1 Nonrheumatic mitral (valve) prolapse; E83.42 Hypomagnesemia; E11.9 Type 2 diabetes mellitus without complications; E80.6 Other disorders of bilirubin metabolism; E78.2 Mixed hyperlipidemia; B96.20 Unspecified Escherichia coli [E. coli] as the cause of diseases classified elsewhere; J45.909 Unspecified asthma, uncomplicated; M19.90 Unspecified osteoarthritis, unspecified site; F32.A Depression, unspecified; F41.9 Anxiety disorder, unspecified; W10.9XXA Fall (on) (from) unspecified stairs and steps, initial encounter; Z95.0 Presence of cardiac pacemaker; Z87.891 Personal history of nicotine dependence; Z79.01 Long term (current) use of anticoagulants
CPT/HCPCS: 36415; 70450; 71045; 72125; 73501; 73502; 73562; 73600; 80053; 81001; 82948; 83036; 83735; 85025; 85610; 85730; 86850; 86900; 86901; 87086; 87186; 93005; 96365; 97110; 97116; 97161; 97165; 97530; 97535; 99285; A9270; C1776; J0171; J0690; J0696; J1100; J1171; J1650; J1741; J1815; J1885; J2003; J2250; J2270; J2405; J2704; J2795; J3010; J3360; J3475; J7030; J7120

== ENCOUNTER 2024-11-03 07:01 | Outpatient (CLI) | payer MEDICARE, MEDICAID, SELFPAY ==
--- NOTE | ~2024-11-03 | MM_ITS ---
EXAMINATION: MM screening kemi BI w danita HISTORY: Screening mammogram TECHNIQUE: Craniocaudal and mediolateral oblique 3-D tomosynthesis images were obtained and synthetic 2-D images were generated. CAD analysis was submitted and interpreted. COMPARISON: 07/30/2023, 05/14/2022, 11/02/2020 BREAST PARENCHYMAL COMPOSITION:Dense: The breasts are heterogeneously dense, which may obscure small masses. FINDINGS: No suspicious mass, calcification, or architectural distortion are identified in either zhang ast to suggest malignancy. There has been no suspicious interval change. IMPRESSION: No mammographic evidence of malignancy. Recommend routine screening mammography in one year. BI-RADS Category 1: Negative Reviewed, dictated and finalized at location .
--- OUTSIDE RECORDS SUMMARY | 2024-11-03 07:06 | XMS_ITS | Clinical Summary ---
Author Organization [facility] [place] [address] Address [address] [place] [address] Care Team Providers Care Photocopying Equipment Mechanic Name Role Phone Kathleen Perera Primary Care Provider [phone] Unknown, Notinfile Unavailable Unavailable Allergies Active Allergy Reactions Criticality Noted Date Comments Codeine Nausea & Vomiting Low 05/18/2018 Grass Pollen-Red Top, Standard Shortness of breath High 12/23/2018 Hydrocodone Rash,Nausea only Medium 08/16/2021 Iodinated Contrast Media Nausea & Vomiting Low 04/28 Iodine Itching Low 08/16/2021 Povidone-Iodine Urticaria Medium 12/23/2018 Shellfish Containing Products Shortness of breath High 12/23/2018 Medications diphenhydrAMINE (diphenhydrAMINE) 25 mg capsule Take 1 tablet/capsul e (25 mg total) by mouth every 6 (six) hours as needed for itching Active acetaminophen 500 mg capsuleIndication s:Pain Take 2 capsules (1,000 mg total) by mouth every 6 (six) hours. 60 tablet 9 Active amitriptyline (ELAVIL) 25 mg tablet 2 Active folic acid (FOLVITE) 1 mg tablet 2 Active lisinopriL (PRINIVIL,ZESTRIL ) 40 mg tablet [address] (PROTONIX) 40 mg EC tablet 2 Active hydroCHLOROthiazi de (HYDRODIURIL) 25 mg tablet 2 Active oxybutynin XL (DITROPAN-XL) 5 mg 24 hr tablet 2 Active atorvastatin (LIPITOR) 20 mg tablet 3 Active tiZANidine (ZANAFLEX) 4 mg tablet 4 Active Jardiance 25 mg tablet TAKE 1 TABLET BY MOUTH EVERY DAY IN THE MORNING FOR DIABETES 4 Active rivaroxaban (Xarelto) 20 mg tabletIndications :Paroxysmal atrial fibrillation (HCC) TAKE 1 TABLET BY MOUTH DAILY WITH DINNER 100 tablet 1 5 Active metoprolol tartrate (LOPRESSOR) 50 mg immediate release tabletIndications :Paroxysmal atrial flutter (HCC),Paroxysmal atrial fibrillation (HCC) TAKE 2 TABLETS BY MOUTH TWICE DAILY 400 tablet 3 5 Active Active Problems Problem Noted Date Diagnosed Date PONCE (dyspnea on exertion) 05/16/2024 Cardiac pacemaker in situ 10/27/2022 Overview (10/29/2022): Biotronik Edora Dual Pacemaker. Dx; Joreg/Tachy, Afib/Aflutter. DOI 10/27/2022-Jade. Biotronik remote monitoring. Sinus node dysfunction 10/22/2022 Near syncope 10/22/2022 Bradycardia 10/22/2022 Dizziness 10/22/2022 Mixed diabetic hyperlipidemi a associated with type 2 diabetes mellitus 12/09/2021 Paroxysmal atrial fibrillation 08/16/2021 Chronic anticoagulation 08/16/2021 Hypertension associated with diabetes 08/16/2021 Closed fracture of fourth cervical vertebra 04/28 Orbital fracture, closed, initial encounter 04/28 Forehead laceration, initial encounter 9 ETOH abuse 05/19/2018 Deviated nasal septum 05/19/2018 Wrist pain, acute, left 05/19/2018 Resolved Problems Problem Noted Date Diagnosed Date Resolved Date Mixed hyperlipidemia 12/09/2021 022 Dyslipidemia 08/16/2021 12/09/2021 Encounters Date Type Department Care Team Description 09/06/2024 10:00 AM CDT Ancillary Procedure [facility] [address] [place] [address] [place] [id number] Cardiac pacemaker in situ [Z95.0] (Primary Dx); Jorge-tachy syndrome (HCC); Atrial fibrillation, unspecified type (HCC) from Last 3 Months Surgical History Surgery Date Site/Laterality Comments SECTION CHOLECYSTECTOMY TOTAL HIP ARTHROPLASTY 04/27/2023 - 04/26/2024 Right Medical History Medical History Date Comments Mitral valve prolapse Hypertension Obesity Hyperlipidemia Diabetes mellitus (HCC) Arthritis Anxiety and depression Atrial fibrillation (HCC) Family History Medical History Relation Name Comments No Known Problems Brother Stroke Father Aneurysm Mother Aneurysm Sister Relation Name Status Comments Brother (Age 62) Father (Age 92) Mother (Age 66) Sister (Age 54) Social History Tobacco Use Types Packs/Day Years Used Date Smoking Tobacco: Former Cigarettes 1 4.3 S tarted: 07/16/2020 Smokeless Tobacco: Never Tobacco Cessation:Counseling Given: Not Answered Alcohol Use Standard Drinks/Week Comments Yes 42 (1 standard drink = 0.6 oz pu re alcohol) AUDIT-C Answer Date Recorded Q1: How often do you have a drink containing alc ohol? 2-3 times a week 08/16/2021 Q2: How many drinks containi ng alcohol do you have on a typical day when you are drinking? 1 or 2 08/16/2021 Q3: How often do you have si x or more drinks on one occasion? Less than monthly 08/16/2021 Comments No Sex and Gender Information Value Date Recorded Sex Assigned at Not on file Legal Sex Female 12:00 AM PRIVATE DUTY RN Gender Identity Not on file Sexual Orientation Not on file Obstetrics History Last Filed Vital Signs Vital Sign Reading Time Taken Comments Blood Pressure 106/60 05/16/2024 12:11 PM PRIVATE DUTY RN Pulse 76 05/16/2024 12:11 PM PRIVATE DUTY RN Temperature 36.6 C (97.9 F) 05/19/2018 5:48 AM PRIVATE DUTY RN Respiratory Rate 16 05/19/2018 5:48 AM PRIVATE DUTY RN Oxygen Saturation 98% 05/16/2024 12: 11 PM PRIVATE DUTY RN Inhaled Oxygen Concentration - - Weight 66.6 kg (146 lb 14.4 oz) 025 12:11 PM PRIVATE DUTY RN Height 162.6 cm (5' 4) 05/16/2024 12:1 1 PM PRIVATE DUTY RN Body Mass Index 25.22 05/16/2024 12:11 PM PRIVATE DUTY RN Plan of Treatment Health Maintenance Due Date Last Done Comments Albumin Creatinine Ratio, Urine 1961 Cervical Cancer Screening 1961 Colon Cancer Screening-Colonoscopy 1961 Depression Screening 1961 Hepatitis C Screening 1961 eGFR 1961 Dilated Eye Exam 1961 Foot Exam 1961 Hepatitis B Screening 07/23/1979 Regular Well Visit/Exam 18-64 07/23/1979 Zoster Vaccine (1 of 2) 07/23/2011 Pneumococcal vaccine <65 (2 of 2 - PPSV23) 05/14/2020 03/19/2020 Hemoglobin A1C 01/12/2021 07/12/2020, 07/11/2020 Covid-19 Vaccine (4 - 2023-2 5 season) 2023 05/22/2021, 08/24/2020, 08/03/2020 Breast Cancer Screening-Mammogram 08/18/2024 08/19/2023, 05/14/2022, 11/02/2020 Influenza Vaccine (#1) 2024 , 02/20/2023, 03/13/2022, Additional history exists Lipid Panel 05/16/2025 05/16/2024, 07/0 04/2023, 10/22/2022, Additional history exists DTaP/Tdap/Td Vaccine (2 - Td or Tdap) 05/18/2028 05/18/2018 Procedures Procedure Name Priority Date/Time Associated Diagnosis Comments DEVICE CHECK - REMOTE Routine 09/06/2024 2:24 PM CDT Jorge-tachy syndrome (HCC) Atrial fibrillation, unspecified type (HCC) POCT LIPID PANEL Routine 05/16/2024 12:2 2 PM PRIVATE DUTY RN Essential hypertension from Last 3 Months or Most Recently Relevant to Health Maintenance Results * DEVICE CHECK - REMOTE (09/06/2024 2:24 PM CDT) Anatomical Region Laterality Modality Other Narrative 09/16/2024 12:50 PM CDT Biotronik Edora Dual Pacemaker. Dx; Jorge/Tachy, Afib/Aflutter. DOI 10/27/2022-Jade. Biotronik remote monitoring. Routine DDD Pacemaker Remote. Transmission attached. Battery status-Ok, 85% remaining to JORDAN. Stable lead impedances, pacing and sensing thresholds. Presenting rhythm: AP-VS. AP-99 %, TENNIS NET MAKER-2 %. No AT/AF episodes noted. No Ventricular arrhythmias detected. Medication: Xarelto, Lopressor. Follow up: biotronik remote f/u 12/13/2024. Bernice Vazquez RN us Wilmer Hansen MD [facility] PROC EDURES Final Result * POCT lipid panel (05/16/2024 12:22 PM PRIVATE DUTY RN) Cholesterol, POC 173 mg/dL Comment:GLU = 201 HDL, POC 40 mg/dL Triglycerides, POC 427 mg/dL LDL Cholesterol POC 80 mg/dL Chol/HDL Ratio, POC N/A Non-HDL Cholesterol, POC 133 mg/dL Cholesterol Total, POC 173 mg/dL Capillary blood 05/16/2024 1 2:22 PM PRIVATE DUTY RN us Jann Foote MD POINT OF CARE TEST O RDERABLES Final Result from Last 3 Months or Most Recently Relevant to [place] [address] [facility] MEDICARE ADVANTAGE IDPA [facility] MEDICARE ADVANTAGE IDPA Advance Directives For more information, please contact: [phone] * Full Code (Latest Code Status on File) Date Activated Date Inactivated Comments 05/19/2018 5:48 AM 05/19/2018 9:14 PM Care Teams Photocopying Equipment Mechanic Relationship Specialty Start Date End Date Kathleen Perera PA [address] [place] [id number] PCP - General Physician Adult Parole Officer 12/09/21 Unknown, Notinfile 05/20/18
--- OUTSIDE RECORDS SUMMARY | 2024-11-03 07:06 | XMS_ITS | Referral Summary ---
Author Organization [facility] [place] [address] Address [address] [place] [address] Care Team Providers Care Frozen Foods Manager Name Role Phone Kathleen Perera Primary Care Provider [phone] Unknown, Notinfile Unavailable Unavailable Encounters Date Type Department Care Team Description 09/06/2024 10:00 AM CDT Ancillary Procedure [facility] [address] [facility] [address] [place] [phone] Cardiac pacemaker in situ [Z95.0] (Primary Dx); Jorge-tachy syndrome (HCC); Atrial fibrillation, unspecified type (HCC) from Last 3 Months Allergies Active Allergy Reactions Criticality Noted Date [...] Overview (10/29/2022): Biotronik Edora Dual Pacemaker. Dx; Jorge/Tachy, Afib/Aflutter. DOI 10/27/2022-Jade. Biotronik remote monitoring. Sinus [...] Mixed hyperlipidemia 12/09/2021 022 Dyslipidemia 08/16/2021 12/09/2021 Social History Tobacco Use Types Packs/Day Years [...] on file Legal Sex Female 12:00 AM MACHINE OPERATOR HOP PICKER Gender Identity Not on file Sexual Orientation Not on file Last Filed Vital Signs Vital Sign Reading Time Taken Comments Blood Pressure 106/60 05/16/2024 12:11 PM MACHINE OPERATOR HOP PICKER Pulse 76 05/16/2024 12:11 PM MACHINE OPERATOR HOP PICKER Temperature 36.6 C (97.9 F) 05/19/2018 5:48 AM MACHINE OPERATOR HOP PICKER Respiratory Rate 16 05/19/2018 5:48 AM MACHINE OPERATOR HOP PICKER Oxygen Saturation 98% 05/16/2024 12: 11 PM MACHINE OPERATOR HOP PICKER Inhaled Oxygen Concentration - - Weight 66.6 kg (146 lb 14.4 oz) 025 12:11 PM MACHINE OPERATOR HOP PICKER Height 162.6 cm (5' 4) 05/16/2024 12:1 1 PM MACHINE OPERATOR HOP PICKER Body Mass Index 25.22 05/16/2024 12:11 PM MACHINE OPERATOR HOP PICKER Plan of Treatment Not on file Procedures Procedure Name Priority Date/Time Associated Diagnosis Comments DEVICE CHECK - REMOTE Routine 09/06/2024 2:24 PM CDT Jorge-tachy syndrome (HCC) Atrial fibrillation, unspecified type (HCC) POCT LIPID PANEL Routine 05/16/2024 12:2 2 PM MACHINE OPERATOR HOP PICKER Essential hypertension from Last 3 Months or [...] sensing thresholds. Presenting rhythm: AP-VS. AP-99 %, CLIENT SUCCESS MANAGER-2 %. No AT/AF episodes noted. No Ventricular arrhythmias detected. Medication: Xarelto, Lopressor. Follow up: biotronik remote f/u 12/13/2024. Bernice Vazquez RN Wilmer Hansen MD [facility] PROC EDURES Final Result * POCT lipid panel (05/16/2024 12:22 PM MACHINE OPERATOR HOP PICKER) Cholesterol, POC 173 mg/dL Comment:GLU = 201 HDL, POC 40 mg/dL Triglycerides, POC 427 mg/dL LDL Cholesterol POC 80 mg/dL Chol/HDL Ratio, POC N/A Non-HDL Cholesterol, POC 133 mg/dL Cholesterol Total, POC 173 mg/dL Capillary blood 05/16/2024 1 2:22 PM MACHINE OPERATOR HOP PICKER Jann Foote MD POINT OF CARE TEST O RDERABLES Final Result from Last 3 Months or Most Recently Relevant to Health Maintenance Insurance [facility] MEDICARE ADVANTAGE IDPA [employer] [facility] MEDICARE ADVANTAGE IDPA Advance Directives For more information, please contact: [phone] * Full Code (Latest Code Status on File) Date Activated Date Inactivated Comments 05/19/2018 5:48 AM 05/19/2018 9:14 PM Care Teams Frozen Foods Manager Relationship Specialty Start Date End Date Kathleen Perera PA [facility] [place], [place] [id number] PCP - General Physician Sales Designer 12/09/21 Unknown, Notinfile 05/20/18
--- OUTSIDE RECORDS SUMMARY | 2024-11-03 07:07 | XMS_ITS | Data Portability ---
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 I agree with the exam findings, assessment and plan except where specifically documented or amended. -JOHNNY Beckham PA-C [email or web address] Not available 08/20/2023 09:48:06 11/18/2023 11/18/2023 Sections of the HPI, exam and assessment completed by NELA Matamoros student and have been reviewed by me. I agree with the exam findings, assessment and plan except where specifically documented or amended. -JOHNNY Beckham PA-C [email or web address] Not available 11/18/2023 09:56:24 Plan of Treatment Reminders Order Date Submit Date Provider Last Modified By Organization Details Last Modified Time Details Appointments ANY 15 2024 08:00A M NELA BECKHAM Not available Not available Not available Lab CMP, serum or plasma 2024 025 NICOLE [facility], [address], [place], [address], 09/29/2024 11:14:00 lipid panel, serum or plasma 2024 025 NICOLE [facility], [address], [place], [address], 09/29/2024 11:13:58 CBC w/ auto diff 2024 025 [place] [facility], [address], [place], [address], 09/29/2024 11:14:01 TSH + free T4, serum 2024 025 [place] [facility], [address], [place], [address], 09/29/2024 11:13:57 HbA1c (hemoglob in A1c), blood 2024 025 [email or web address] In-Office Order, Internal Use Only DO Not Attach Compendium DO Not Attach Compendium, Do Not Delete/merge, 09/28/2024 09:20:01 microalbu min/creat inine, mass ratio, urine 2024 025 [place] [facility], [address], [place], [address], 09/29/2024 11:13:55 HbA1c (hemoglob in A1c), blood 2024 025 [email or web address] In-Office Order, Internal Use Only DO Not Attach Compendium DO Not Attach Compendium, Do Not Delete/merge, 06/24/2024 08:52:40 CMP, serum or plasma 2024 025 [email or web address] [facility], [address], [place], [address], 07/19/2024 08:09:07 CMP, serum or plasma 2023 024 [place] [facility], [address], [place], [address], 02/19/2024 08:31:49 lipid panel, serum 2023 024 [place] [facility], [address], [place], [address], 02/19/2024 08:31:48 CBC w/ auto diff 2023 024 [place] [facility], [address], [place], [address], 02/19/2024 08:31:50 TSH + free T4, serum 2023 024 [place] [facility], [address], [place], [address], 02/19/2024 08:31:47 HbA1c (hemoglob in A1c), blood 2023 [email or web address] In-Office Order, Internal Use Only DO Not Attach Compendium DO Not Attach Compendium, Do Not Delete/merge, [id number] 02/18/2024 10:37:06 HbA1c (hemoglob in A1c), blood 2023 024 [email or web address] In-Office Order, Internal Use Only DO Not Attach Compendium DO Not Attach Compendium, Do Not Delete/merge, [id number] 11/18/2023 09:58:33 HbA1c (hemoglob in A1c), blood 2023 [facility], [address], [place], [address], 08/21/2023 06:20:36 Referral None recorded. Procedures None recorded. Surgeries None recorded. Imaging DEXA, axial skeleton + vertebral fracture assessmen t - PT HAS PACEMAKER [address] (Rad), [address] [facility] , [place], [address], 02/26/2024 07:51:47 LDCT, chest, for lung cancer screening [address] (Imaging), [address] [facility] [address], [place], [address], 09/23/2023 16:39:49 Medication Orders amitripty line 25 mg tablet 2024 025 [email or web address] [facility], [address], [facility] [address], [place], [id number], 10/06/2024 13:36:11 hydrochlo rothiazid e 25 mg tablet 2024 025 [email or web address] [facility], [address], [facility] [address], [place], [id number], 09/28/2024 09:20:00 amitripty line 25 mg tablet 2024 025 [id number], [address] [place], [place], [id number], 06/24/2024 09:05:25 amitripty line 25 mg tablet 2023 024 [id number], [address], [place], [id number], 11/18/2023 10:18:24 amitripty line 25 mg tablet 2023 024 [id number], [address], [place], [id number], 08/20/2023 10:00:10 Jardiance 25 mg tablet 2023 024 [id number], [address], [place], [id number], 08/21/2023 11:07:55 Patient TargetsNo targets recorded. Patient Instructions Encounter Date Encounter Id Patient Instructions Last Modified By Organization Details Last Modified Time 02/18/2024 [id number] A healthy lifestyle: care instructions [email or web address] Not available 02/19/2024 10:11:57 09/28/2024 [id number] A healthy lifestyle: care instructions [email or web address] Not available 09/28/2024 09:23:11 Reason for Referral None Reported. Results Created Date Observation Date Name Description Value Unit Range Abnormal Flag Note LastModifiedBy Organization Detail LastModifiedTime 08/20/1908/21/2023 HEMOG LOBIN A1C hemoglobin A1C 8.2 % 4.8-5. 6 above high normal Predi abete s: 5.7 - 6.4 Diabe case: >6.4 Glyce aleksander contr ol for adult s with diabe case: <7.0 Not Available [facility] ([facility]) [address] [facility], [place], [address], 08/21/2023 06:20:36 11/18/1911/18/2023 HbA1c (hemo globi n A1c), blood HbA1c 6.6% Not Available In-Office Order Internal Use Only DO Not Attach Compendium DO Not Attach Compendium, Do Not Delete/merge, [id number] 11/18/2023 09:58:24 02/18/2002/19/2024 TSH+F REE T4 TSH 2.710 uIU/m L 0.450- 4.500 Not Available [facility] ([facility]) [address] [place], [address], 02/19/2024 08:31:47 02/18/2002/19/2024 TSH+F REE T4 T4,free(dire ct) 1.39 NG/dL 0.82-1 .77 Not Available [facility] ([facility]) [address] [place], [address], 02/19/2024 08:31:47 02/18/2002/19/2024 LIPID PANEL WITH LDL/H DL RATIO cholesterol, total 172 mg/dL 100-19 9 Not Available [facility] ([facility]) [address] [place], [address], 02/19/2024 08:31:48 02/18/2002/19/2024 LIPID PANEL WITH LDL/H DL RATIO triglyceride s 249 mg/dL 0-149 above high normal Not Available [facility] ([facility]) [address] [facility], [place], [address], 02/19/2024 08:31:48 02/18/2002/19/2024 LIPID PANEL WITH LDL/H DL RATIO HDL cholesterol 62 mg/dL >39 Not Available [facility] ([facility]) [address] [facility], [place], [address], 02/19/2024 08:31:48 02/18/2002/19/2024 LIPID PANEL WITH LDL/H DL RATIO VLDL cholesterol carole 40 mg/dL 5-40 Not Available [facility] ([facility]) [address] [facility], [place], [address], 02/19/2024 08:31:48 02/18/2002/19/2024 LIPID PANEL WITH LDL/H DL RATIO LDL chol calc (nih) 70 mg/dL 0-99 Not Available [facility] ([facility]) [address] [facility], [place], [address], 02/19/2024 08:31:48 02/18/2002/19/2024 LIPID PANEL WITH LDL/H DL RATIO LDL/HDL ratio 1.1 ratio 0.0-3. 2 LDL/H DL Ratio Men Women 1/2 Avg.R isk 1.0 1.5 Avg.R isk 3.6 3.2 2X Avg.R isk 6.2 5.0 3X Avg.R isk 8.0 6.1 Not Available [facility] ([facility]) [address] [place], [address], 02/19/2024 08:31:48 02/18/2002/19/2024 COMP. METAB OLIC PANEL (14) glucose 150 mg/dL 70-99 above high normal Not Available [facility] ([facility]) [address] [place], [address], 02/19/2024 08:31:49 02/18/20 24 02/19/2024 COMP. METAB OLIC PANEL (14) BUN 26 mg/dL 8-27 Not Available [facility] ([facility]) [address] [place], [address], 02/19/2024 08:31:49 02/18/20 24 02/19/2024 COMP. METAB OLIC PANEL (14) creatinine 1.43 mg/dL 0.57-1 .00 above high normal Not Available [facility] ([facility]) [address] [facility], [place], [address], 02/19/2024 08:31:49 02/18/2002/19/2024 COMP. METAB OLIC PANEL (14) eGFR 41 mL/mi n/1.7 3 >59 below low normal Not Available [facility] ([facility]) [address] [facility], [place], [address], 02/19/2024 08:31:49 02/18/2002/19/2024 COMP. METAB OLIC PANEL (14) BUN/creatini ne ratio 18 12-28 Not Available [facility] ([facility]) [address] [place], [address], 02/19/2024 08:31:49 02/18/20 24 02/19/2024 COMP. METAB OLIC PANEL (14) sodium 139 mmol/ L 134-14 4 Not Available [facility] ([facility]) [address] [place], [address], 02/19/2024 08:31:49 02/18/2002/19/2024 COMP. METAB OLIC PANEL (14) potassium 4.1 mmol/ L 3.5-5. 2 Not Available [facility] ([facility]) [address] [place], [address], 02/19/2024 08:31:49 02/18/2002/19/2024 COMP. METAB OLIC PANEL (14) chloride 99 mmol/ L 96-106 Not Available [facility] ([facility]) [address] [facility] [place], [address], 02/19/2024 08:31:49 02/18/2002/19/2024 COMP. METAB OLIC PANEL (14) carbon dioxide, total 23 mmol/ L 20-29 Not Available [facility] ([facility] [address] [facility] [place], [address], 02/19/2024 08:31:49 02/18/2002/19/2024 COMP. METAB OLIC PANEL (14) calcium 10.0 mg/dL 8.7-10 .3 Not Available [facility] ([facility]) [address], [place], [address], 02/19/2024 08:31:49 02/18/2002/19/2024 COMP. METAB OLIC PANEL (14) protein, total 7.8 g/dL 6.0-8. 5 Not Available [facility] ([facility]) [address] [facility] [place], [address], 02/19/2024 08:31:49 02/18/2002/19/2024 COMP. METAB OLIC PANEL (14) albumin 4.8 g/dL 3.9-4. 9 Not Available [facility] ([facility]) [address] [facility] [place], [address], 02/19/2024 08:31:49 02/18/2002/19/2024 COMP. METAB OLIC PANEL (14) globulin, total 3.0 g/dL 1.5-4. 5 Not Available [facility] ([facility]) [address] [facility] [place], [address], 02/19/2024 08:31:49 02/18/2002/19/2024 COMP. METAB OLIC PANEL (14) bilirubin, total 0.4 mg/dL 0.0-1. 2 Not Available [facility] ([facility]) [address] [facility], [place], [address], 02/19/2024 08:31:49 02/18/2002/19/2024 COMP. METAB OLIC PANEL (14) alkaline phosphatase 88 IU/L 44-121 Not Available [facility] ([facility]) [address] [facility], [place], [address], 02/19/2024 08:31:49 02/18/2002/19/2024 COMP. METAB OLIC PANEL (14) AST (SGOT) 18 IU/L 0-40 Not Available [facility] ([facility]) [address] [facility], [place], [address], 02/19/2024 08:31:49 02/18/2002/19/2024 COMP. METAB OLIC PANEL (14) ALT (SGPT) 24 IU/L 0-32 Not Available [facility] ([facility]) [address] [facility], [place], [address], 02/19/2024 08:31:49 02/18/2002/19/2024 CBC WITH DIFFE RENTI AL/PL ATELE T WBC 7.9 x10e3 /uL 3.4-10 .8 Not Available [facility] ([facility]) [address] [facility], [place], [address], 02/19/2024 08:31:50 02/18/2002/19/2024 CBC WITH DIFFE RENTI AL/PL ATELE T RBC 3.91 x10e6 /uL 3.77-5 .28 Not Available [facility] ([facility]) [address] [place], [address], 02/19/2024 08:31:50 02/18/2002/19/2024 CBC WITH DIFFE RENTI AL/PL ATELE T hemoglobin 11.9 g/dL 11.1-1 5.9 Not Available [facility] ([facility]) [address] [facility], [place], [address], 02/19/2024 08:31:50 02/18/2002/19/2024 CBC WITH DIFFE RENTI AL/PL ATELE T hematocrit 36.6 % 34.0-4 6.6 Not Available [facility] ([facility]) [address] [facility], [place], [address], 02/19/2024 08:31:50 02/18/2002/19/2024 CBC WITH DIFFE RENTI AL/PL ATELE T MCV 94 fL 79-97 Not Available [facility] ([facility]) [address] [facility], [place], [address], 02/19/2024 08:31:50 02/18/2002/19/2024 CBC WITH DIFFE RENTI AL/PL ATELE T MCH 30.4 pg 26.6-3 3.0 Not Available [facility] ([facility]) [address] [facility], [place], [address], 02/19/2024 08:31:50 02/18/2002/19/2024 CBC WITH DIFFE RENTI AL/PL ATELE T MCHC 32.5 g/dL 31.5-3 5.7 Not Available [facility] ([facility]) [address] [place], [address], 02/19/2024 08:31:50 02/18/2002/19/2024 CBC WITH DIFFE RENTI AL/PL ATELE T RDW 12.9 % 11.7-1 5.4 Not Available [facility] ([facility]) [address] [place], [address], 02/19/2024 08:31:50 02/18/2002/19/2024 CBC WITH DIFFE RENTI AL/PL ATELE T platelets 245 x10e3 /uL 150-45 0 Not Available [facility] ([facility]) [address] [place], [address], 02/19/2024 08:31:50 02/18/2002/19/2024 CBC WITH DIFFE RENTI AL/PL ATELE T neutrophils 66 % notest ab. Not Available [facility] ([facility]) [address] [facility], [place], [address], 02/19/2024 08:31:50 02/18/2002/19/2024 CBC WITH DIFFE RENTI AL/PL ATELE T lymphs 25 % notest ab. Not Available [facility] ([facility]) [address] [facility], [place], [address], 02/19/2024 08:31:50 02/18/2002/19/2024 CBC WITH DIFFE RENTI AL/PL ATELE T monocytes 5 % notest ab. Not Available [facility] ([facility]) [address] [facility], [place], [address], 02/19/2024 08:31:50 02/18/2002/19/2024 CBC WITH DIFFE RENTI AL/PL ATELE T eos 3 % notest ab. Not Available [facility] ([facility]) [address] [facility], [place], [address], 02/19/2024 08:31:50 02/18/2002/19/2024 CBC WITH DIFFE RENTI AL/PL ATELE T basos 1 % notest ab. Not Available [facility] ([facility]) [address] [facility], [place], [address], 02/19/2024 08:31:50 02/18/2002/19/2024 CBC WITH DIFFE RENTI AL/PL ATELE T neutrophils (absolute) 5.2 x10e3 /uL 1.4-7. 0 Not Available [facility] ([facility]) [address] [facility], [place], [address], 02/19/2024 08:31:50 02/18/2002/19/2024 CBC WITH DIFFE RENTI AL/PL ATELE T lymphs (absolute) 2.0 x10e3 /uL 0.7-3. 1 Not Available [facility] ([facility]) [address] [facility], [place], [address], 02/19/2024 08:31:50 02/18/2002/19/2024 CBC WITH DIFFE RENTI AL/PL ATELE T monocytes(ab solute) 0.4 x10e3 /uL 0.1-0. 9 Not Available [facility] ([facility]) [address] [place], [address], 02/19/2024 08:31:50 02/18/2002/19/2024 CBC WITH DIFFE RENTI AL/PL ATELE T eos (absolute) 0.3 x10e3 /uL 0.0-0. 4 Not Available [facility] ([facility]) [address] [facility], [place], [address], 02/19/2024 08:31:50 02/18/2002/19/2024 CBC WITH DIFFE RENTI AL/PL ATELE T baso (absolute) 0.1 x10e3 /uL 0.0-0. 2 Not Available [facility] ([facility]) [address] [place], [address], 02/19/2024 08:31:50 02/18/2002/19/2024 CBC WITH DIFFE RENTI AL/PL ATELE T immature granulocytes 0 % notest ab. Not Available [facility] ([facility]) [address] [place], [address], 02/19/2024 08:31:50 02/18/2002/19/2024 CBC WITH DIFFE RENTI AL/PL ATELE T immature grans (abs) 0.0 x10e3 /uL 0.0-0. 1 Not Available [facility] ([facility]) [address] [facility] [place], [address], 02/19/2024 08:31:50 02/18/2002/18/2024 HbA1c (hemo globi n A1c), blood HbA1c 6.5% Not Available In-Office Order Internal Use Only DO Not Attach Compendium DO Not Attach Compendium, Do Not Delete/merge, [id number] 02/18/2024 10:20:11 06/24/19 25 06/24/2024 HbA1c (hemo globi n A1c), blood HbA1c 6.7% Not Available In-Office Order Internal Use Only DO Not Attach Compendium DO Not Attach Compendium, Do Not Delete/merge, [id number] 06/24/2024 08:52:32 09/29/1909/29/2024 ALBUM IN/CR EAT RATIO , RANDO M UR creatinine, urine 43.2 mg/dL notest ab. Not Available [facility] ([facility]) [address] [facility], [place], [address], 09/29/2024 11:13:55 09/29/19 25 09/29/2024 ALBUM IN/CR EAT RATIO , RANDO M UR albumin, urine 11.7 ug/mL notest ab. Not Available [facility] ([facility]) [address] [facility], [place], [address], 09/29/2024 11:13:55 09/29/19 25 09/29/2024 ALBUM IN/CR EAT RATIO , RANDO M UR alb/creat ratio 27 mg/g_ creat 0-29 Irene l: 0 - 29 Moder ately incre ased: 30 - 300 Sever kiki incre ased: >300 Not Available [facility] ([facility]) [address] [place], [address], 09/29/2024 11:13:55 09/29/19 25 09/29/2024 TSH+F REE T4 TSH 3.400 uIU/m L 0.450- 4.500 Not Available [facility] ([facility]) [address] [facility], [place], [address], 09/29/2024 11:13:57 09/29/19 25 09/29/2024 TSH+F REE T4 T4,free(dire ct) 1.35 NG/dL 0.82-1 .77 Not Available [facility] ([facility]) [address] [place], [address], 09/29/2024 11:13:57 09/29/19 25 09/29/2024 LIPID PANEL WITH LDL/H DL RATIO cholesterol, total 151 mg/dL 100-19 9 Not Available [facility] ([facility]) [address] [place], [address], 09/29/2024 11:13:58 09/29/19 25 09/29/2024 LIPID PANEL WITH LDL/H DL RATIO triglyceride s 267 mg/dL 0-149 above high normal Not Available [facility] ([facility]) [address] [place], [address], 09/29/2024 11:13:58 09/29/19 25 09/29/2024 LIPID PANEL WITH LDL/H DL RATIO HDL cholesterol 53 mg/dL >39 Not Available [facility] ([facility]) [address] [place], [address], 09/29/2024 11:13:58 09/29/19 25 09/29/2024 LIPID PANEL WITH LDL/H DL RATIO VLDL cholesterol carole 42 mg/dL 5-40 above high normal Not Available [facility] ([facility]) [address] [place], [address], 09/29/2024 11:13:58 09/29/19 25 09/29/2024 LIPID PANEL WITH LDL/H DL RATIO LDL chol calc ([facility]) 56 mg/dL 0-99 Not Available [facility] ([facility]) [address] [place], [address], 09/29/2024 11:13:58 09/29/19 25 09/29/2024 LIPID PANEL WITH LDL/H DL RATIO LDL/HDL ratio 1.1 ratio 0.0-3. 2 LDL/H DL Ratio Men Women 1/2 Avg.R isk 1.0 1.5 Avg.R isk 3.6 3.2 2X Avg.R isk 6.2 5.0 3X Avg.R isk 8.0 6.1 Not Available [facility] ([facility]) [address] [place], [address], 09/29/2024 11:13:58 09/29/19 25 09/29/2024 COMP. METAB OLIC PANEL (14) glucose 124 mg/dL 70-99 above high normal Not Available [facility] ([facility]) [address] [place], [address], 09/29/2024 11:13:59 09/29/19 25 09/29/2024 COMP. METAB OLIC PANEL (14) BUN 27 mg/dL 8-27 Not Available [facility] ([facility]) [address] [place], [address], 09/29/2024 11:13:59 09/29/19 25 09/29/2024 COMP. METAB OLIC PANEL (14) creatinine 1.52 mg/dL 0.57-1 .00 above high normal Not Available [facility] ([facility]) [address] [place], [address], 09/29/2024 11:13:59 09/29/19 25 09/29/2024 COMP. METAB OLIC PANEL (14) eGFR 38 mL/mi n/1.7 3 >59 below low normal Not Available [facility] ([facility]) [address] [place], [address], 09/29/2024 11:13:59 09/29/19 25 09/29/2024 COMP. METAB OLIC PANEL (14) BUN/creatini ne ratio 18 12-28 Not Available [facility] ([facility]) [address] [place], [address], 09/29/2024 11:13:59 09/29/19 25 09/29/2024 COMP. METAB OLIC PANEL (14) sodium 131 mmol/ L 134-14 4 below low normal Not Available [facility] ([facility]) [address] [place], [address], 09/29/2024 11:13:59 09/29/19 25 09/29/2024 COMP. METAB OLIC PANEL (14) potassium 4.7 mmol/ L 3.5-5. 2 Not Available [facility] ([facility]) [address] [place], [address], 09/29/2024 11:13:59 09/29/19 25 09/29/2024 COMP. METAB OLIC PANEL (14) chloride 95 mmol/ L 96-106 below low normal Not Available [facility] ([facility]) [address] [place], [address], 09/29/2024 11:13:59 09/29/19 25 09/29/2024 COMP. METAB OLIC PANEL (14) carbon dioxide, total 13 mmol/ L 20-29 below low normal Abnor mal resul t has been verif ied by abbe t elías ng. If incon siste nt with clini carole condi tion, pleas e resub dai anoth er speci men for verif icati on and to rule out speci men handl ing probl ems for which this test is very sensi tive. Not Available [facility] ([facility]) [address] [place], [address], 09/29/2024 11:13:59 09/29/19 25 09/29/2024 COMP. METAB OLIC PANEL (14) calcium 9.6 mg/dL 8.7-10 .3 Not Available [facility] ([facility]) [address] [place], [address], 09/29/2024 11:13:59 09/29/19 25 09/29/2024 COMP. METAB OLIC PANEL (14) protein, total 7.1 g/dL 6.0-8. 5 Not Available [facility] ([facility]) [address] [facility], [place], [address], 09/29/2024 11:13:59 09/29/19 25 09/29/2024 COMP. METAB OLIC PANEL (14) albumin 4.4 g/dL 3.9-4. 9 Not Available [facility] ([facility]) [address] [facility], [place], [address], 09/29/2024 11:13:59 09/29/19 25 09/29/2024 COMP. METAB OLIC PANEL (14) globulin, total 2.7 g/dL 1.5-4. 5 Not Available [facility] ([facility]) [address] [facility], [place], [address], 09/29/2024 11:13:59 09/29/19 25 09/29/2024 COMP. METAB OLIC PANEL (14) bilirubin, total 0.4 mg/dL 0.0-1. 2 Not Available [facility] ([facility]) [address] [facility], [place], [address], 09/29/2024 11:13:59 09/29/19 25 09/29/2024 COMP. METAB OLIC PANEL (14) alkaline phosphatase 63 IU/L 44-121 Not Available [facility] ([facility]) [address] [facility], [place], [address], 09/29/2024 11:13:59 09/29/19 25 09/29/2024 COMP. METAB OLIC PANEL (14) AST (SGOT) 17 IU/L 0-40 Not Available [facility] ([facility]) [address] [facility], [place], [address], 09/29/2024 11:13:59 09/29/19 25 09/29/2024 COMP. METAB OLIC PANEL (14) ALT (SGPT) 16 IU/L 0-32 Not Available [facility] ([facility]) [address] [facility] [place], [address], 09/29/2024 11:13:59 09/29/19 25 09/29/2024 CBC WITH DIFFE RENTI AL/PL ATELE T WBC 6.2 x10e3 /uL 3.4-10 .8 Not Available [facility] ([facility]) [address] [facility], [place], [address], 09/29/2024 11:14:01 09/29/1909/29/2024 CBC WITH DIFFE RENTI AL/PL ATELE T RBC 3.48 x10e6 /uL 3.77-5 .28 below low normal Not Available [facility] ([facility]) [address] [place], [address], 09/29/2024 11:14:01 09/29/19 25 09/29/2024 CBC WITH DIFFE RENTI AL/PL ATELE T hemoglobin 9.8 g/dL 11.1-1 5.9 below low normal Not Available [facility] ([facility]) [address] [facility], [place], [address], 09/29/2024 11:14:01 09/29/1909/29/2024 CBC WITH DIFFE RENTI AL/PL ATELE T hematocrit 31.0 % 34.0-4 6.6 below low normal Not Available [facility] ([facility]) [address] [place], [address], 09/29/2024 11:14:01 09/29/19 25 09/29/2024 CBC WITH DIFFE RENTI AL/PL ATELE T MCV 89 fL 79-97 Not Available [facility] ([facility]) [address] [place], [address], 09/29/2024 11:14:01 09/29/19 25 09/29/2024 CBC WITH DIFFE RENTI AL/PL ATELE T MCH 28.2 pg 26.6-3 3.0 Not Available [facility] ([facility]) [address] [facility], [place], [address], 09/29/2024 11:14:01 09/29/19 25 09/29/2024 CBC WITH DIFFE RENTI AL/PL ATELE T MCHC 31.6 g/dL 31.5-3 5.7 Not Available [facility] ([facility]) [address] [facility], [place], [address], 09/29/2024 11:14:01 09/29/19 25 09/29/2024 CBC WITH DIFFE RENTI AL/PL ATELE T RDW 14.7 % 11.7-1 5.4 Not Available [facility] ([facility]) [address] [facility], [place], [address], 09/29/2024 11:14:01 09/29/19 25 09/29/2024 CBC WITH DIFFE RENTI AL/PL ATELE T platelets 231 x10e3 /uL 150-45 0 Not Available [facility] ([facility]) [address] [place], [address], 09/29/2024 11:14:01 09/29/19 25 09/29/2024 CBC WITH DIFFE RENTI AL/PL ATELE T neutrophils 41 % notest ab. Not Available [facility] ([facility]) [address] [place], [address], 09/29/2024 11:14:01 09/29/19 25 09/29/2024 CBC WITH DIFFE RENTI AL/PL ATELE T lymphs 44 % notest ab. Not Available [facility] ([facility]) [address] [place], [address], 09/29/2024 11:14:01 09/29/19 25 09/29/2024 CBC WITH DIFFE RENTI AL/PL ATELE T monocytes 9 % notest ab. Not Available [facility] ([facility]) [address] [place], [address], 09/29/2024 11:14:01 09/29/19 25 09/29/2024 CBC WITH DIFFE RENTI AL/PL ATELE T eos 5 % notest ab. Not Available [facility] ([facility]) [address] [facility], [place], [address], 09/29/2024 11:14:01 09/29/19 25 09/29/2024 CBC WITH DIFFE RENTI AL/PL ATELE T basos 1 % notest ab. Not Available [facility] ([facility]) [address] [facility], [place], [address], 09/29/2024 11:14:01 09/29/19 25 09/29/2024 CBC WITH DIFFE RENTI AL/PL ATELE T neutrophils (absolute) 2.6 x10e3 /uL 1.4-7. 0 Not Available [facility] ([facility]) [address] [place], [address], 09/29/2024 11:14:01 09/29/19 25 09/29/2024 CBC WITH DIFFE RENTI AL/PL ATELE T lymphs (absolute) 2.7 x10e3 /uL 0.7-3. 1 Not Available [facility] ([facility]) [address] [place], [address], 09/29/2024 11:14:01 09/29/19 25 09/29/2024 CBC WITH DIFFE RENTI AL/PL ATELE T monocytes(ab solute) 0.5 x10e3 /uL 0.1-0. 9 Not Available [facility] ([facility]) [address] [facility], [place], [address], 09/29/2024 11:14:01 09/29/19 25 09/29/2024 CBC WITH DIFFE RENTI AL/PL ATELE T eos (absolute) 0.3 x10e3 /uL 0.0-0. 4 Not Available [facility] ([facility]) [address] [facility], [place], [address], 09/29/2024 11:14:01 09/29/19 25 09/29/2024 CBC WITH DIFFE RENTI AL/PL ATELE T baso (absolute) 0.1 x10e3 /uL 0.0-0. 2 Not Available [facility] ([facility]) [address] [facility], [place], [address], 09/29/2024 11:14:01 09/29/19 25 09/29/2024 CBC WITH DIFFE RENTI AL/PL ATELE T immature granulocytes 0 % notest ab. Not Available [facility] ([facility]) [address] [facility], [place], [address], 09/29/2024 11:14:01 09/29/19 25 09/29/2024 CBC WITH DIFFE RENTI AL/PL ATELE T immature grans (abs) 0.0 x10e3 /uL 0.0-0. 1 Not Available [facility] ([facility]) [address] [facility], [place], [address], 09/29/2024 11:14:01 09/29/19 25 09/28/2024 HbA1c (hemo globi n A1c), blood HbA1C 7.1 % Not Available In-Office Order Internal Use Only DO Not Attach Compendium DO Not Attach Compendium, Do Not Delete/merge, [id number] 09/28/2024 09:18:50 08/19/1908/19/2023 MAMMO , tabitha edwardl No observ ation record ed. [email or web address] [place] [address] [address], [place], [address], 08/19/2023 16:43:25 09/24/19 24 09/23/2023 LDCT, chest , for lung cance r scree ashia No observ ation record ed. [email or web address], [place], [address], 09/29/2023 12:18:32 12/01/19 24 06/19/2023 diabe tic eye exam* No observ ation record ed. BARCODE Not Available 2023 15:23:35 12/07/19 24 06/19/2023 diabe tic eye exam* No observ ation record ed. BARCODE Not Available 2023 16:58:51 03/17/20 24 03/17/2024 DEXA, axial skele ton + verte bral fract ure asses sment No observ ation record ed. [facility] [address] [place], [address], 06/24/2024 09:00:03 03/25/20 24 03/23/2024 lab* No observ ation record ed. [email or web address], [place], [address], 04/05/2024 16:37:44 03/26/20 24 03/26/2024 lab* No observ ation record ed. [address], [place], [address], 04/05/2024 16:38:49 Result Notes None recorded. Problems Name Problem SNOMED Code Status Onset Date Resolution Date Notes Provider Name and Address Organization Details Recorded Time Atrial fibrillat ion 76231113 Active 2021 Not Available [facility] 3 00:58:34 Essential hypertens ion 71894376 Active 2021 Not Available [facility] 3 00:58:34 Gastroeso phageal reflux disease 067869813 Active 2021 Not Available [facility] 3 00:58:34 Generaliz ed anxiety disorder 06088069 Active 2021 Not Available [facility] 3 00:58:34 Screening for malignant neoplasm of colon Active 2021 next colonosco py 2026 Not Available [facility] 3 00:58:34 Type 2 diabetes mellitus without complicat ion 857585884 Active 2021 Not Available [facility] 3 00:58:34 Chronic neck pain 96876261455 07 Active 2021 Not Available [facility] 3 00:58:34 Prediabet es 949101707 Active 2022 Not Available [facility] 3 00:58:34 Automatic implantab le cardiac defibrill ator in situ 112783321 Active 2023 NELA BECKHAM Attn: Accounting ,[address] [facility], [place], [address] , [place] [facility] 4 15:53:54 Osteoporo sis 95316291 Active 2023 NELA BECKHAM Attn: Accounting ,[address] [place], [address] , [place] [facility] 4 12:11:16 History of total hip arthropla sty 72079647723 6 Active 2024 NELA BECKHAM Attn: Accounting ,[address] [place], [address] , [place] [facility] 5 10:29:52 Chronic kidney disease stage 3B 463881062 Active 2024 NELA BECKHAM Attn: Accounting ,[address] [place], [address] , [place] [facility] 5 14:55:11 Notes:Some problems listed i n Document: #[id number] could not be added to this patient's chart. Please review this document and add these problems to the patient's chart manually as needed. Problem Notes None recorded. Procedures Surgical History Date Name Laterality Status Provider Name and Address Organization Details Recorded Time 03/23/20 24 total replacement of right hip joint completed NELA BECKHAM Attn: Accounting, [address] [place], [address], [place] [facility] 06/24/2024 10:30:04 02/06/20 21 Date of Last Mammogram completed NELA BECKHAM Attn: Accounting, [address] [facility], [place], [address], [facility] - [facility] 06/18/2021 10:33:23 04/27/18 96 Date of Last Pap Smear completed Karine Barakat [place] [facility] 07/20/2020 10:08:47 04/27/18 88 Tubal Ligation completed Karine Barakat [place] [facility] 07/20/2020 10:12:02 Cholecystectomy completed Karine Barakat [place] [facility] 11/01/2019 16:44:27 Caesarean Section completed Erica Barakat [place] [facility] 11/01/2019 16:44:31 Imaging Results None recorded. Procedure Notes None recorded. Medical Equipment None Reported. Allergies Allergen ID Allergen Name Allergen Category Reaction Reaction Severity Criticality Documentation Date Start Date Code Code System Note Provider Name and Address Organization Details Recorded Time 098092 codeine medicatio n Not available Not available Not available 06/11/[address] [place], [place] - [facility] 9 12:16:21 851686 iodine medicatio n Not available Not available Not available 10/22/[address] [place], [place] - [facility] 1 10:11:16 Medications Name Sig Start Date Stop Date Status Note LastModified by Organization Details LastModified Time Prescript ion - Renewal 08/19 completed Not Available Not Available Not Available Prescript ion - Change 09/30 completed Not Available Not Available Not Available cyclobenz aprine 10 mg tablet TAKE 1 TABLET BY MOUTH THREE TIMES DAILY. DO NOT TAKE MUSCLE SPASMS OR TIGHTNES S AND OXYCODON E AT THE SAME TIME 02/20 completed Not Available Not Available Not Available buspirone 5 mg tablet Take 1 tablet twice a day by oral route as directed for 30 days. 06/24 completed nausea and headache s Not Available Not Available Not Available metformin 500 mg tablet TAKE 2 TABLETS BY MOUTH TWICE DAILY WITH MEALS 2024 active Not Available Not Available Not Avai lable BD Alcohol Swabs active Not Available Not Available Not Available atorvasta tin 20 mg tablet TAKE 1 TABLET BY MOUTH DAILY AT BEDTIME 2024 active Not Available Not Available Not Avai lable atorvasta tin 10 mg tablet TAKE 1 TABLET BY MOUTH EVERY DAY AT BEDTIME 01/24 completed Not Available Not Available Not Available tizanidin e 4 mg tablet Take 1 tablet every 6 hours by oral route as needed for 30 days, for chronic neck pain. active Not Available Not Available No t Available meloxicam 15 mg tablet TAKE 1 TABLET BY MOUTH DAILY 01/24 completed Not Available Not Available Not Available lisinopri l 20 mg tablet Take 1 tablet every day by oral route. 07/16 completed Not Available Not Available Not Available alendrona te 70 mg tablet TAKE 1 TABLET ONCE A WEEK WITH FULL GLASS OF WATER AND SIT UP FOR 30 MINUTES AFTER TAKING active Not Available Not Available No t Available amlodipin e 5 mg tablet TAKE 1 TABLET BY MOUTH AT BEDTIME active Not Available Not Available No t Available sulfameth oxazole 800 mg-trimet hoprim 160 mg tablet TAKE 1 TABLET BY MOUTH EVERY 12 HOURS 06/18 completed Not Available Not Available Not Available acetamino phen 500 mg tablet 06/18 completed Not Available Not Available Not Available oxycodone -acetamin ophen 5 mg-325 mg tablet TAKE 1 TO 2 TABLETS BY MOUTH EVERY 4 TO 6 HOURS NEEDED FOR PAIN. MAXIMUM DAILY DOSE IS 6 TABLETS 02/19 completed Not Available Not Available Not Available amitripty line 25 mg tablet 2024 active Not Available Not Available Not Avai lable methocarb pardeep 750 mg tablet TAKE 2 TABLETS BY MOUTH THREE TIMES DAILY 02/20 completed Not Available Not Available Not Available pantopraz ole 40 mg tablet,de layed release TAKE 1 TABLET BY MOUTH TWICE DAILY DIRECTED 2024 active Not Available Not Available Not Avai lable metformin 1,000 mg tablet TAKE 1 TABLET BY MOUTH TWICE DAILY 08/19 completed Not Available Not Available Not Available lidocaine 5 % topical patch 06/18 completed Not Available Not Available Not Available bupropion HCl 75 mg tablet Take 1 tablet every day by oral route in the morning for 90 days. 06/24 completed Not Available Not Available Not Available metoprolo l tartrate 50 mg tablet TAKE 2 TABLETS BY MOUTH TWICE DAILY active Not Available Not Available No t Available oxybutyni n chloride ER 5 mg tablet,ex tended release 24 hr TAKE 1 TABLET BY MOUTH DAILY IN THE MORNING 2024 active Not Available Not Available Not Avai lable folic acid 1 mg tablet TAKE 1 TABLET BY MOUTH DAILY 05/21 completed Not Available Not Available Not Available hydrochlo rothiazid e 25 mg tablet TAKE 1 TABLET BY MOUTH EVERY DAY 2024 active Not Available Not Available Not Avai lable Vitamin D2 1,250 mcg (50,000 unit) capsule TAKE 1 CAPSULE BY MOUTH WEEKLY 09/30 completed Not Available Not Available Not Available lisinopri l 40 mg tablet TAKE 1 TABLET BY MOUTH DAILY 2024 active Not Available Not Available Not Avai lable amoxicill in 875 mg-potass ium clavulana te 125 mg tablet 11/26 completed Not Available Not Available Not Available oxycodone 5 mg tablet TAKE 1 TABLET BY MOUTH EVERY 4 HOURS NEEDED FOR PAIN 02/19 completed Not Available Not Available Not Available calcium 600 mg (as carbonate )-vitamin D3 10 mcg (400 unit) tablet Take 2 tablets every day by oral route as directed for 30 days. 2023 active Not Available Not Available Not Avai lable Xarelto 20 mg tablet TAKE 1 TABLET BY MOUTH DAILY active Not Available Not Available No t Available OneTouch Verio test strips CHECK BLOOD SUGAR TWICE DAILY IN INSULIN TREATED TYPE 2 DIABETES MELLITUS WITH CIRCULAT ORY PROBLEMS active Not Available Not Available No t Available Levemir FlexTouch U-100 Insulin 100 unit/mL (3 mL) subcutane ous pen INJECT SUBCUTAN EOUSLY 20 UNITS IN THE MORNING 01/24 completed Not Available Not Available Not Available Jardiance 10 mg tablet TAKE 1 TABLET BY MOUTH DAILY 01/24 completed Not Available Not Available Not Available Jardiance 25 mg tablet TAKE 1 TABLET BY MOUTH DAILY IN THE MORNING FOR DIABETES 2024 active Not Available Not Available Not Avai lable TechLITE Pen Needle 31 gauge x 5/16 USE DIRECTED active Not Available Not Available No t Available TechLITE Pen Needle 29 gauge x 1/2 USE ONCE DAILY DIRECTED active Not Available Not Available No t Available OneTouch Delica Plus Lancet 33 gauge CHECK BLOOD SUGAR TWICE DAILY active Not Available Not Available No t Available OneTouch Delica Plus Lancing Device kit active Not Available Not Available Not Available OneTouch Verio Reflect Meter active Not Available Not Available Not Available Vitals Date Recorded Systolic And Diastolic Provider Name and Address Organization Details Last Updated DateTime 06/24/2024 90/60 mm[Hg] NELA BECKHAM Attn: Accounting,[address] [place], [address], [facility] 06/24/2024 10:21:01 Date Recorded Body height Body mass index (BMI) Body weight Oxygen saturation Oxygen saturation in Arterial blood by Pulse oximetry Heart rate Respiratory rate Systolic And Diastolic Provider Name and Address Organization Details Last Updated DateTime 5 162.56 cm 25.2 kg/m2 23108.0 8 g 95 % 95 % 80 /min 20 /min 91/61 mm[Hg] Fouzia Vanegas MA [facility] 5 08:48:31 Date Recorded Body height Body mass index (BMI) Body weight Oxygen saturation Oxygen saturation in Arterial blood by Pulse oximetry Heart rate Respiratory rate Systolic And Diastolic Provider Name and Address Organization Details Last Updated DateTime 4 162.56 cm 27.6 kg/m2 75091.3 7 g 97 % 97 % 77 /min 16 /min 114/75 mm[Hg] Fouzia Vanegas MA [facility] 4 09:38:05 Date Recorded Body height Body mass index (BMI) Body weight Oxygen saturation Oxygen saturation in Arterial blood by Pulse oximetry Heart rate Respiratory rate Systolic And Diastolic Provider Name and Address Organization Details Last Updated DateTime 5 162.56 cm 26.1 kg/m2 91049.7 4 g 97 % 97 % 74 /min 18 /min 92/62 mm[Hg] Fouzia Vanegas MA [facility] 5 08:54:27 Date Recorded Body height Body mass index (BMI) Body weight Oxygen saturation Oxygen saturation in Arterial blood by Pulse oximetry Heart rate Respiratory rate Systolic And Diastolic Provider Name and Address Organization Details Last Updated DateTime 4 162.56 cm 26.4 kg/m2 96609.2 2 g 97 % 97 % 73 /min 18 /min 124/84 mm[Hg] Fouzia Vanegas MA [facility] 4 09:42:44 Date Recorded Body height Body mass index (BMI) Body weight Oxygen saturation Oxygen saturation in Arterial blood by Pulse oximetry Heart rate Respiratory rate Systolic And Diastolic Systolic And Diastolic Provider Name and Address Organization Details Last Updated DateTime 4 162.56 cm 26.3 kg/m2 49354.4 3 g 100 % 100 % 61 /min 17 /min 96/66 mm[Hg] 124/84 mm[Hg] Katheryn Caro MA [facility] 4 10:17:22 Social History Question Answer Notes LastModified by Organizat ion Details LastModified Time Tobacco Smoking Status Former Smoker Quit June 2020 Karine Barakat MA [facility] 07/20/2020 10:09:44 Do You Have An Advance Directive? No Information not available 07/20/2020 Are You Blind Or Do You Have Difficulty Seeing? No Glasses Information not available 05/06/2021 What Is Your Level Of Caffeine Consumption? Occasional Information not available 07/20/2020 In The 14 Days Before Symptom Onset, Have You Had Close Contact With A Laboratory-confir med COVID-19 While That Case Was Ill? No Information not available 05/06/2021 In The 14 Days Before Symptom Onset, Have You Had Close Contact With A Person Who Is Under Investigation For COVID-19 While That Person Was Ill? No Information not available 05/06/2021 Have You Been To An Area Known To Be High Risk For COVID-19? No Information not available 07/20/2020 Are You Deaf Or Do You Have Serious Difficulty Hearing? No Information not available 07/20/2020 What Type Of Diet Are You Following? DIABETIC Information not available 07/20/2020 Are There Any Guns Present In Your Home? No Information not available 05/06/2021 On They Days When You Drank Alcohol, How Often Did You Have 4 Or More Drinks At A Time? Never Information no t available 05/06/2021 # Alcohol Drinks Per Week 1 Information not available 05/06/2021 What Was The Date Of Your Most Recent Tobacco Screening? 06/24/2024 [email or web address] Information not available 06/24/2024 How Many Children Do You Have? 3 Information not available 05/06/2021 What Is Your Current Pack Years? 20-29packyear s Information not available 07/20/2020 What Is Your Relationship Status? Information not available 05/06/2021 Do You Use Your Seat Belt Or Car Seat Routinely? Yes Information not available 05/06/2021 Are You Sexually Active? No Information not available 05/06/2021 Do You Have Smoke And Carbon Monoxide Detectors In Your Home? Yes Information not available 07/20/2020 At What Age Did You Start Smoking Tobacco? 16 Information not available 07/20/2020 Are You Passively Exposed To Smoke? No Information no t available 07/20/2020 How Much Tobacco Do You Smoke? 0.5 PPD Information not available 07/20/2020 Do You Use Sunscreen Routinely? Yes Information not available 05/06/2021 Has Tobacco Cessation Counseling Been Provided? Yes [email or web address] Information not available 09/04/2018 On What Date Was Tobacco Cessation Counseling Provided? 06/24/2024 [email or web address] Information not available 06/24/2024 Sex: Female Functional Status Question Answer Note LastModified by Organizat ion Details LastModified Time Do you use any illicit or recreational drugs? Yes Information not available 05/06/2021 Do you or have you ever used any other forms of tobacco or nicotine? No Information not available 07/20/2020 What is your level of alcohol consumption? Occasional Information not available 05/06/2021 Do you or have you ever used smokeless tobacco? Never used smokeless tobacco [email or web address] Information not available 11/27/2018 Are you currently employed? No Information not available 07/20/2020 Are you able to care for yourself? Yes Information not available 07/20/2020 Do you or have you ever used e-cigarettes or vape? Never used electronic cigarettes [email or web address] Information not available 11/27/2018 What is your exercise level? Heavy Information not available 05/06/2021 Mental Status Question Answer Note LastModified by Organization D etails LastModified Time Do you feel stressed (tense, restless, nervous, or anxious, or unable to sleep at night)? [id number] Information not available 05/06/2021 Family History Nothing Reported. Medical History Condition Response Coronary Artery Disease N Other N Atrial Fibrillation N High Blood Pressure N Thyroid Problems N Kidney or Bladder Problems N Depression Y COPD N Blood Clots N GI Problems N Skin Problems N Eating Disorder N Anemia N Heart Attack (CA) N Diabetes N Anxiety Disorder Y Muscle, Joint, or Bone Problems N Seizures/Epilepsy N Acid Reflux (GERD) N Cancer N Stroke N Allergies Y Asthma N ADHD N Substance Abuse N High Cholesterol N Hepatitis N Liver Disease N Schizophrenia N Headaches N Osteoporosis N Heart Failure N Gynecological History Statement/Question Response Date of Last Mammogram 02/05/2021 Date of Last Pap Smear 04/27/1995 Age at Menarche 13 Current Control Method Menopause Age at First Child 19 LMP Unknown Obstetrics History GPAL:G 3 P 3 0 0 3 Type Value Multiple Births 0 Full Term 3 Induced 0 Spontaneous 0 Premature 0 Living 3 Ectopics 0 Total 3 Immunizations Vaccine Type Date Status Note Provider Nam e and Address Organization Details Recorded Time COVID-19, mRNA, LNP-S, PF, 30 mcg/0.3 mL dose 1 completed Not Available [facility] 04/05/2023 00:58:34 COVID-19, mRNA, LNP-S, PF, 30 mcg/0.3 mL dose 1 completed Not Available [facility] 04/05/2023 00:58:34 Tdap 9 completed Not Available [facility] 09/28/2024 08:33:46 COVID-19, mRNA, LNP-S, PF, 30 mcg/0.3 mL dose 2 completed Not Available [facility] 09/28/2024 08:33:46 Influenza, split virus, quadrivalent, preservative 9 completed Not Available [facility] 05/14/2019 02:38:14 Influenza, split virus, quadrivalent, preservative 0 completed Karine Barakat [place], [place] [facility] 03/19/2020 11:09:11 Pneumococcal conjugate PCV 13 0 completed Karine Barak[place] [facility] 03/19/2020 11:08:39 Influenza, split virus, quadrivalent, PF 2 completed Ольга Galindo CMA [place], [place] [facility] 03/13/2022 12:57:03 Influenza, split virus, quadrivalent, PF 3 completed Luz Maria Tolentino [place] [facility] 02/20/2023 10:20:49 Pneumococcal conjugate PCV20, polysaccharide [id number] conjugate, adjuvant, PF 4 completed NELA BECKHAM Attn: Accounting[address] [place], [address], [place] [facility] 08/21/2023 11:06:02 Influenza, split virus, trivalent, PF 4 completed NELA BECKHAM Attn: Accounting[address] [place], [address], [place] [facility] 02/19/2024 10:54:23 Past Encounters Encounter ID Performer Location Encounter Start Date Encounter Closed Date Diagnosis/Indication Diagnosis SNOMED-CT Code Diagnosis ICD10 Code Diagnosis Note [id number] Rashmi Purvis MD [facility] [address] [place] [address] 06/11/2018 10:39:39 06/21/2018 09:26:19 Essential hypertension 74596772 I10 Mitral valve prolapse 40 7400252 I34.1 antibiotic s before contaminat ed surgery. Screening mammography 24 582417 Z12.31 Impaired dentition 94508 4008 K03.9 needs dentist, transporta tion to dentist and to other specialist s in [place], Medicaid applicatio n. 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 Patient wears a cervical collar at all times. Essential hypertension 11827704 I10 Patient advised to limit salt and caffeine intake to maintain good blood pressure. 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 Memory lapses 852159652 R41.3 forgets things easily, has trouble rememberin g new informatio n. Prediabetes 447853350 R7 3.03 Postural dizziness 40114 7008 R42 [id number] Rashmi Purvis MD [facility] [address] [place] [address] 10/31/2019 09:56:47 10/31/2019 15:49:35 [id number] Rashmi Purvis MD [facility] [address] [place] [address] 11/01/2019 10:10:25 11/07/2019 13:38:42 Depressive disorder 21096550 F32.9 Spasm 34205276 R25.2 Vitamin D deficiency 347 30037 E55.9 Essential hypertension 19306978 I10 Patient advised to limit salt and caffeine intake to maintain good blood pressure. Hyperlipidemia 45613722 E78.5 [id number] Rashmi Purvis MD [facility] [address] [place] [address] 03/19/2020 10:13:34 03/26/2020 07:53:36 Administration of influenza vaccine 24397826 Z23 risks and benefits of immunizati ons reviewed, and patient agreed to receive shot Pain in left knee 456147 2259 43039 M25.562 falls with knee giving way Contusion of rib 5705490 06 S20.20XA Administra tion of pneumococcal vaccine 48442519 Z23 Depressive disorder 3548 9007 F32.9 Spasm 24289965 R25.2 Vitamin D deficiency 347 73166 E55.9 Essential hypertension 75819261 I10 Patient advised to limit salt and caffeine intake to maintain good blood pressure. Mixed hyperlipidemia 267 599962 E78.2 Adult heal th examination 955306966 Z00.01 Medicare annual wellness exam [id number] Baudilio Rubin MD [facility] [address] [place] [address] 05/10/2020 10:40:33 05/15/2020 08:25:35 Pain in left knee 3428652813 24410 M25.562 Osteoarthr itis of left knee joint 9440272194 24734 M17.12 Chondromal acia of left patella [id number] 96802 M22.42 Trochanter ic bursitis of right hip [id number] 44829 M70.61 Inflammati on of sacroiliac joint 11985729 M46.1 [id number] Rashmi Purvis MD [facility] [address] [place] [address] 07/20/2020 09:28:17 07/23/2020 22:36:29 Type 2 diabetes mellitus 04779615 E11.65 reviewed diabetic diet, goals of therapy. [id number] Rashmi Purvis MD [facility] [address] [place] [address] 08/10/2020 16:34:37 08/12/2020 03:46:55 [id number] Baudilio Rubin MD [facility] [address] [address] 09/13/2020 10:16:45 09/13/2020 16:50:51 Pain in left knee 6155262426 72167 M25.562 Osteoarthr itis of left knee joint 6171485339 31386 M17.12 Chondromal acia of left patella 0732152932 62851 M22.42 Trochanter ic bursitis of right hip 4214733516 08470 M70.61 Inflammati on of sacroiliac joint 85857884 M46.1 Closed fra cture of left tibial plateau 6793681714 7718833 S82.142P Neuropathy 995341369 G62 .9 [id number] Rashmi Purvis MD [facility] [address] [place] [address] 10/22/2020 09:41:43 10/24/2020 09:23:14 Type 2 diabetes mellitus 54230314 E11.65 reviewed diabetic diet, goals of therapy. Hordeolum externum of lower eyelid of left eye [id number] 46856 H00.025 cool compresses to relieve swelling. Follow up with eye doctor if not improving. 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 [id number] Santos Chávez MD [facility] [address] [place] [address] 01/07/2021 14:15:30 01/09/2021 08:25:21 Diabetes mellitus 38857352 E11.9 check A1C after levemir increase Essential hypertension 20257762 I10 refill and follow as out-patien t... Hyperlipidemia 71180408 E78.5 refill and increase.. . Gastroesop hageal reflux disease 393019154 K21.9 meds and follow up.. Screening colonoscopy 44 8645889 Z12.11 refer Migraine 06692727 G43.90 9 helps with migraines Vitamin D deficiency 347 47516 E55.9 meds and follow up Folic acid deficiency 19 4386131 E53.8 [id number] TRISTA HERCULES DPM [facility] [address] [place] [address] 03/13/2021 09:47:22 03/15/2021 11:29:04 Disorder of nervous system due to type 2 diabetes mellitus 173343648 E11.49 Onychomycosis 132796894 B35.1 Metatarsalgia 05212461 M 77.41 M77.42 Osteoarthritis 899532841 M19.90 dorsal left foot [id number] Baudilio Rubin MD [facility] [address] [place] [address] 03/28/2021 10:30:19 03/29/2021 11:06:34 Pain in left knee 8386338136 30252 M25.562 Osteoarthr itis of left knee joint 6703584546 11299 M17.12 Chondromal acia of left patella 8541973220 08731 M22.42 Trochanter ic bursitis of right hip 3049058251 58332 M70.61 Inflammati on of sacroiliac joint 49518439 M46.1 Closed fra cture of left tibial plateau 2850627425 2582099 S82.142P Neuropathy 029296140 G62 .9 [id number] Santos Chávez MD [facility] [address] [place] [address] 05/06/2021 11:10:35 05/08/2021 09:42:15 Diabetes mellitus 20007785 E11.9 refill and follow up.. Screening for malignant neoplasm of colon 008148276 Z12.11 order Musculoskeletal pain 279 228145 M79.10 meds an follow up... Hyperlipidemia 09274380 E78.5 refill and follow up... Essential hypertension 03521828 I10 refill and follow as out-patien t... [id number] Rayray deleon MD [facility] [address] [place] [address] 06/18/2021 09:16:03 06/19/2021 08:56:45 Diabetes mellitus 53894879 E11.9 09/2020 a1c 8.7taking metformin 2000 and jardiance 10repeat a1c Colorectal cancer detected by DNA-based stool screening 532996682 R19.5 positive cologuard 04/2021has upcming consult with Dr. Buitrago (GI) at [place] Tachycardia 2968578 R00. 0 HR 136 on initial vitalshad pt sit for 5 minutes and took off mask, HR 137denies chest pain, SOB, palpitatio nsreports she was amped up this morning due to ride being late to pick her upprevious visit showed HR 130, 130, 96 - since FebP normotensi ve on amlodipine , HCTZ, lisinopril TSH nl ec' d pt start recording HR when she checks BP dailyf/u in 1 wk Depression screening 171 971495 Z13.31 PHQ 13 [id number] Rayray deleon MD [facility] [address] [place] [address] 09/30/2021 09:44:56 10/01/2021 12:25:12 Type 2 diabetes mellitus without complication 670172691 E11.9 09/30/21: re-check a1c and lipids todayadvis ed pt to stop levemir 07/01/21: a1c 6.0 09/2020 a1c 8.7taking metformin 2000 and jardiance 10repeat a1c Atrial fibrillation 4943 6004 I48.91 07/24/21: EKG showed A flutter with RVR, advised pt to go to ED [facility] ed to [facility] tablished with Dr. Desai, on metoprolol and xarelto, f/u in 2 Alondra on average 125 , this AM 75, can go 2-3 days with normal HRc/w metoprolol Essential hypertension 71587470 I10 BP 122/84HCTZ 25, lisinopril 40 Generalize d anxiety disorder 08322286 F41.1 controlled with amitriptyl ine Colorectal cancer detected by DNA-based stool screening 934498922 R19.5 09/30/21: colonoscop y scheduled 11/01/[address] Bridges in [place] 06/18/21:po sitive cologuard 04/2021has upcoming consult with Dr. Buitrago (GI) at [place] Depression screening 171 725190 Z13.31 PHQ 13 [id number] Rayray deleon MD [facility] [address] [place] [address] 10/07/2021 09:39:32 10/08/2021 09:10:05 Female stress incontinence 97409263 N39.3 3 c-sections x 8 yrsreceivi ng depends for 2 yrs and needs paperwork completedC /o urinary continence with coughing, laughing, and urinary leakage at nightNo incontinen ce with walkinguri nates 6-7x/dayPt wears depends at night and when she is running errandshas not tried pelvic floor therapy or bladder medication strial oxybutynin 5 mgf/u if need to increase dose or no relief with medication Depression screening 171 994646 Z13.31 PHQ 5 [id number] Rayray deleon MD [facility] [address] [place] [address] 01/24/2022 10:11:18 01/27/2022 13:08:18 Atrial fibrillation 84527696 I48.91 01/24/22:baum s f/u with Cardio 04/18/22on metoprolol 50 BID and xarelto 20HR 63 today, regular rhythm 07/24/21: EKG showed A flutter with RVR, advised pt to go to ED ASAPadmitt ed to [facility]ablished with Dr. Desai, on metoprolol and xarelto, f/u in 2 Alondra on average 125 , this AM 75, can go 2-3 days with normal HRc/w metoprolol Chronic neck pain 911304 9131 107 M54.2 taking tylenol w/ some relieffell in 2019, fractured C3, C4went to PT at that timec/o chronic neck painstoppe d flexeril due to CI with A fibtrial tizanidine Type 2 brigitte betes mellitus without complication 975223755 E11.9 01/24/22:a1 c 5.9stop jardiance, c/w metformins table pre-diabet es range for the past 6 more-check in 6 mo 09/30/21: re-check a1c and lipids todayadvis ed pt to stop levemir 07/01/21: a1c 6.0 09/2020 a1c 8.7taking metformin 2000 and jardiance 10repeat a1c Generalize d anxiety disorder 48360991 F41.1 controlled with amitriptyl ine Colorectal cancer detected by DNA-based stool screening 595812769 R19.5 01/24/22:po sitive cologuardh ad colonoscop y 11/2021next colonoscop y in 5 yrs 09/30/21: colonoscop y scheduled 11/01/[address] Bridges in [place] 06/18/21:po sitive cologuard 04/2021has upcoming consult with Dr. Buitrago (GI) at [place] Screening for malignant neoplasm of breast 632841649 Z12.39 due for mammogram [id number] Rayray deleon MD [facility] [address] [place] [address] 03/12/2022 12:16:16 03/13/2022 14:23:19 Screening for malignant neoplasm of cervix 375389688 Z12.4 last pap 1997tubal ligation 1998pt is not sexually activePEx- sample taken for pap, scarring of cervical os, difficult to obtain sample, retroverte d uterus Screening for malignant neoplasm of breast 930360554 Z12.39 due for mammograms cheduled on 05/11/22 Administra tion of influenza vaccine 94941010 Z23 [id number] Rayray deleon MD [facility] [address] [place] [address] 05/26/2022 10:38:18 05/29/2022 09:23:37 Depression screening 761671913 Z13.31 PHQ 8 Atrial fibrillation 4943 6004 I48.91 05/26/22:co nsult note 04/18/22: A fib controlled , c/w meds, f/u in 6 months 01/24/22:baum s f/u with Cardio 04/18/22on metoprolol 50 BID and xarelto 20HR 63 today, regular rhythm 07/24/21: EKG showed A flutter with RVR, [facility] Dr. Desai, on metoprolol and xarelto, f/u in 2 Alondra on average 125 , this AM 75, can go 2-3 days with normal HRc/w metoprolol Generalize d anxiety disorder 56946575 F41.1 05/26/22:tr ial bupropionw ill send to [facility] 05/19/22:[facility] out of amitriptyl inerequest ing medication changetria l bupropion 75 mgadvised pt of ADR, call with any side effects or questionsp t has f/u in 1 wk Prediabetes 310757051 R7 3.03 pt taking metformin 2000f/u in 5 mo for a1c and labs 01/24/22: a1c 5.96/6: 5.93/11/15: 6.0 Gastroesop hageal reflux disease without esophagitis 111459117 K21.9 pt taking pantoprazo le 80 mgunknown why is she is taking ithas script since dvise d to taper off it and to see if she develops GERD sx [id number] Rayray deleon MD [facility] [address] [place] [address] 11/11/2022 09:14:17 11/11/2022 10:22:10 Atrial fibrillation 29513762 I48.91 7/18/23:Fo llowing with cardiology C/w meds 05/26/22:co nsult note 04/18/22: A fib controlled , c/w meds, f/u in 6 months 01/24/22:baum s f/u with Cardio 04/18/22on metoprolol 50 BID and xarelto 20HR 63 today, regular rhythm 07/24/21: EKG showed A flutter with RVR, advised pt to go to ED [facility] ed to [facility] tablished with Dr. Desai, on metoprolol and xarelto, f/u in 2 Alondra on average 125 , this AM 75, can go 2-3 days with normal HRc/w metoprolol Screening for malignant neoplasm of breast 712832044 Z12.39 11/11/22:Wo rried about having a mammogram with pacemaker, reassured pt it is safenormal mammogram 04/2022 Screening for malignant neoplasm of colon 030776776 Z12.11 11/11/22:Ne xt due 2026 (needs q 5 years) Type 2 brigitte betes mellitus without complication 931771258 E11.9 11/11/22:A1 c today 6.5Pt taking not taking metformin 2000 for 1 mo, working on diet and exerciseDi scussed watching sugar intake, especially fruits like pineapple, avoid juiceF/u in 3 mo for A1c and labs 01/24/22:a1 c 5.9stop jardiance, c/w metformins table pre-diabet es range for the past 6 more-check in 6 mo 09/30/21: re-check a1c and lipids todayadvis ed pt to stop levemir 07/01/21: a1c 6.0 09/2020 a1c 8.7taking metformin 2000 and jardiance 10repeat a1c Automatic implantable cardiac defibrillator in situ 040594120 Z95.810 11/11/22:Du al chamber Biotronik pacemaker implanted by Dr. Hansen on 10/27/22Was in A flutter with RVR at time of implantati onPrior to pacemaker- Dr. Desai stopped her HCTZ due to symptomati c bradycardi a. She has remained off HCTZ, deferred to PCP. Remains on lisinopril and metoprolol for HTNOn 100 BID of metoprolol Following with cardiology Generalize d anxiety disorder 92953181 F41.1 11/11/22:Am itriptylin e working okaySinc e her pacemaker, she has more energy which she believes has made her anxiety worseWants to try CBD oil, cardiology said it was okay as long as it didn't have THCWill follow-up in 1 month if anxiety still worsening 06/23/22:na usea and headache with buspirones topped taking 2 days ago 06/09/22:no t tolerating bupropiond ecreased appetite, making irritabili ty and anger worseadvis ed pt to stop medication trial buspirone 05/26/22:tr saleeml bupropionw ill send to [facility] 05/19/22:ph armacy out of amitriptyl inerequest ing medication changetria l bupropion 75 mgadvised pt of ADR, call with any side effects or questionsp t has f/u in 1 wk Chronic neck pain 885337 7911 107 M54.2 11/11/22:Un sure if she is allowed to take tizanidine has been taking at night to help her sleepadvis ed pt to hold tizanidine , will discuss with Dr. Marvin deleon taking tylenol w/ some relieffell in 2019, fractured C3, C4went to PT at that timec/o chronic neck painstoppe d flexeril due to CI with A fibtrial tizanidine Depression screening 171 295064 Z13.31 PHQ 8will discuss at f/u visit [id number] Rayray deleon MD [facility] [address] [place] [address] 02/19/2023 14:35:15 02/24/2023 10:24:46 Folic acid deficiency 883935115 E53.8 re-check level today Type 2 brigitte betes mellitus without complication 998208937 E11.9 02/19/23:r e-check a1c todayf/u in 3 months 11/11/22:A1 c today 6.5Pt taking not taking metformin 1999 for 1 mo, working on diet and exerciseDi scussed watching sugar intake, especially fruits like pineapple, avoid juiceF/u in 3 mo for A1c and labs 01/24/22:a1 c 5.9stop jardiance, c/w metformins table pre-diabet es range for the past 6 more-check in 6 mo 09/30/21: re-check a1c and lipids todayadvis ed pt to stop levemir 07/01/21: a1c 6.0 09/2020 a1c 8.7taking metformin 2000 and jardiance 10repeat a1c Administra tion of influenza vaccine 58397885 Z23 Generalize d anxiety disorder 89415721 F41.1 02/19/23:r efill 11/11/22:Am itriptylin e working okaySinc e her pacemaker, she has more energy which she believes has made her anxiety worseWants to try CBD oil, cardiology said it was okay as long as it didn't have THCWill follow-up in 1 month if anxiety still worsening 06/23/22:na usea and headache with buspirones topped taking 2 days ago 06/09/22:no t tolerating bupropiond ecreased appetite, making irritabili ty and anger worseadvis ed pt to stop medication trial buspirone 05/26/22:tr ial bupropionw ill send to [facility] 05/19/22:ph armacy out of amitriptyl inerequest ing medication changetria l bupropion 75 mgadvised pt of ADR, call with any side effects or questionsp t has f/u in 1 wk Closed tri malleolar fracture of right ankle [id number] 2073169 S82.851A tripped and fell at homehad surgery 12/16/22: ORIF trimalleol ar ankle fracture dislocatio n with internal fixation of the medial and lateral malleolihe aling well, using cane to ambulateco mpleted in home PThas follow-up with ortho 02/25/2023 Depression screening 171 974300 Z13.31 PHQ 0 [id number] NELA BECKHAM [facility] [address] [place] [address] 05/21/2023 11:00:50 05/21/2023 11:47:29 Type 2 diabetes mellitus without complication 775204920 E11.9 05/21/23: a1c today 8. a1c 6.5, 01/2023 a1c did not [id number] s fastingnot taking metforminr e-start metformin, titrate upprevnar 13 given 03/19/2020 PREVNAR 20 NEXT VISITmicro albumin pendingf/u in 3 months 02/19/23:r e-check a1c todayf/u in 3 months 11/11/22:A1 c today 6.5Pt taking not taking metformin 1999 for 1 mo, working on diet and exerciseDi scussed watching sugar intake, especially fruits like pineapple, avoid juiceF/u in 3 mo for A1c and labs 01/24/22:a1 c 5.9stop jardiance, c/w metformins table pre-diabet es range for the past 6 more-check in 6 mo 09/30/21: re-check a1c and lipids todayadvis ed pt to stop levemir 07/01/21: a1c 6.0 09/2020 a1c 8.7taking metformin 1999 and jardiance 10repeat a1c Atrial fibrillation 4943 6004 I48.91 05/21/23: consult note in chart 03/18/23: A fib- persistent , asymptomat ic, c/w meds, CHADS2 Vasc score 3, c/w metoprolol 100 mg BID and xarelto 20 mg, PPM nl, function check on pace maker 01/2023, SUSTAINABILITY PROJECT COORDINATOR 35%, 100% A fib, f/u in 6 monthsecho 02/04/23: Normal left ventricula r size. Moderate concentric left ventricula r hypertroph y. Ejection fraction is visually estimated at 55 %. Global Longitudin al Strain is -11 %. GLS isabnormal . There is mild enlargemen t of left atrium.f/u appt 09/23/23 11/11/22:Fo llowing with cardiology C/w meds 05/26/22:co nsult note 04/18/22: A fib controlled , c/w meds, f/u in 6 months 01/24/22:baum s f/u with Cardio 04/18/22on metoprolol 50 BID and xarelto 20HR 63 today, regular rhythm 07/24/21: EKG showed A flutter with RVR, advised pt to go to ED ASAPadmitt ed to [facility] tablished with Dr. Desai, on metoprolol and xarelto, f/u in 2 Alondra on average 125 , this AM 75, can go 2-3 days with normal HRc/w metoprolol Essential hypertension 49384157 I10 BP 100/50 todaypt states that she didn't sleep well last night and feels tiredtook BP meds this morningden ies dizziness/ light headedness advised to check BP at home Screening for malignant neoplasm of breast 350847202 Z12.39 08/19/23 mammogram scheduled Hyperlipidemia 82981526 E78.5 refill Postmenopausal state 764 94136 Z78.0 ordered before age 66 DEXA due to ankle fracture, tobacco dependence in remissionw ill see if insurance will cover Automatic implantable cardiac defibrillator in situ 667798037 Z95.810 05/21/23: PPM nl, function check on pace maker 01/2023- Office DDD Pacemaker evaluation demonstrat ed appropriat e device function. Left pectoral incision healing well without signs of infection noted. Battery function-O k, 7.0 years 6 months remaining battery life to JORDAN. Appropriat e lead measuremen ts noted. Presenting rhythm-AT/ AF Vsensed. Underlying rhythm-Afl utter. AP-0%, SUSTAINABILITY PROJECT COORDINATOR-35%. 176 Atrial high rate episodes noted. AF [place] 100%. 95 Ventricula r high rate episodes noted 11/11/22:Du al chamber Biotronik pacemaker implanted by Dr. Hansen on 10/27/22Was in A flutter with RVR at time of implantati onPrior to pacemaker- Dr. Desai stopped her HCTZ due to symptomati c bradycardi a. She has remained off HCTZ, deferred to PCP. Remains on lisinopril and metoprolol for HTNOn 100 BID of metoprolol Following with cardiology Depression screening 171 764122 Z13.31 PHQ 0 [id number] Rayray deleon MD [facility] [address] [place] [address] 08/20/2023 09:28:47 08/20/2023 10:07:31 Type 2 diabetes mellitus without complication 879990795 E11.9 a1c 8.2, add jardiance 25, left VM for patient4/2 09/17: a1c pendingfas ting 170-180, throughout the daycontinu e metformind iscussed with pt restarting jardianceP revnar 20 given todayf/u in 3 mo 05/21/23: a1c today 8. a1c 6.5, 01/2023 a1c did not s fastingnot taking metforminr e-start metformin, titrate upprevnar 13 given 03/19/2020 PREVNAR 20 NEXT VISITmicro albumin pendingf/u in 3 months 02/19/23:r e-check a1c todayf/u in 3 months 11/11/22:A1 c today 6.5Pt taking not taking metformin 2000 for 1 mo, working on diet and exerciseDi scussed watching sugar intake, especially fruits like pineapple, avoid juiceF/u in 3 mo for A1c and labs 01/24/22:a1 c 5.9stop jardiance, c/w metformins table pre-diabet es range for the past 6 more-check in 6 mo 09/30/21: re-check a1c and lipids todayadvis ed pt to stop levemir 07/01/21: a1c 6.0 09/2020 a1c 8.7taking metformin 2000 and jardiance 10repeat a1c Atrial fibrillation 4943 6004 I48.91 08/20/23: following with cardio, has f/u in Octoberc/w meds 05/21/23: consult note in chart 03/18/23: A fib- persistent , asymptomat ic, c/w meds, CHADS2 Vasc score 3, c/w metoprolol 100 mg BID and xarelto 20 mg, PPM nl, function check on pace maker 01/2023, SUSTAINABILITY PROJECT COORDINATOR 35%, 100% A fib, f/u in 6 monthsecho 02/04/23: Normal left ventricula r size. Moderate concentric left ventricula r hypertroph y. Ejection fraction is visually estimated at 55 %. Global Longitudin al Strain is -11 %. GLS isabnormal . There is mild enlargemen t of left atrium.f/u appt 09/23/23 11/11/22:Fo llowing with cardiology C/w meds 05/26/22:co nsult note 12/23/22: A fib controlled , c/w meds, f/u in 6 months 01/24/22:baum s f/u with Cardio 04/18/22on metoprolol 50 BID and xarelto 20HR 63 today, regular rhythm 07/24/21: EKG showed A flutter with RVR, advised pt to go to ED [facility] ed to [facility] tablished with Dr. Desai, on metoprolol and xarelto, f/u in 2 Alondra on average 125 , this AM 75, can go 2-3 days with normal HRc/w metoprolol Depression screening 171 541199 Z13.31 PHQ 8 Generalize d anxiety disorder 90912057 F41.1 08/20/23: AMINTA 13difficul ty sleeping x2 months, mind racing, can't fall asleep at nighttakes amitriptyl ine BID, will increase nightime dosef/u if no improvemen t in with sleep 02/19/23:r efill 11/11/22:Am itriptylin e working okaySinc e her pacemaker, she has more energy which she believes has made her anxiety worseWants to try CBD oil, cardiology said it was okay as long as it didn't have THCWill follow-up in 1 month if anxiety still worsening 06/23/22:na usea and headache with buspirones topped taking 2 days ago 06/09/22:no t tolerating bupropiond ecreased appetite, making irritabili ty and anger worseadvis ed pt to stop medication trial buspirone 05/26/22:tr yuliana bupropionw ill send to [facility] 05/19/22:ph armacy out of amitriptyl inerequest ing medication changetria l bupropion 75 mgadvised pt of ADR, call with any side effects or questionsp t has f/u in 1 wk Nicotine d ependence in remission 382681299 F17.201 hx of smoking, 20-29 pack years, quit 2020order low dose CT scan for lung cancer screening [id number] Rayray deleon MD [facility] [address] [place] [address] 11/18/2023 09:31:10 11/18/2023 10:18:45 Type 2 diabetes mellitus without complication 166771441 E11.9 11/18/23: a1c today 6.6last a1c: 8.2continu e jardiance 25 and metformin 2000fastin g BS 150sstates that she had DM [facility] 3 mo for a1c and routine labs a1c 8.2, add jardiance 25, left VM for patient4/2 09/17: a1c pendingfas ting 170-180, throughout the daycontinu e metformind iscussed with pt restarting jardianceP revnar 20 given todayf/u in 3 mo 05/21/23: a1c today 8. a1c 6.5, 01/2023 a1c did not [id number] s fastingnot taking metforminr e-start metformin, titrate upprevnar 13 given 03/19/2020 PREVNAR 20 NEXT VISITmicro albumin pendingf/u in 3 months 02/19/23:r e-check a1c todayf/u in 3 months 11/11/22:A1 c today 6.5Pt taking not taking metformin 2000 for 1 mo, working on diet and exerciseDi scussed watching sugar intake, especially fruits like pineapple, avoid juiceF/u in 3 mo for A1c and labs 01/24/22:a1 c 5.9stop jardiance, c/w metformins table pre-diabet es range for the past 6 more-check in 6 mo 09/30/21: re-check a1c and lipids todayadvis ed pt to stop levemir 07/01/21: a1c 6.0 09/2020 a1c 8.7taking metformin 2000 and jardiance 10repeat a1c Atrial fibrillation 4943 6004 I48.91 11/18/23: saw cardio 10/26/23, Dr. Foote - In regards to atrial fibrillati on, persistent , asymptomat ic. Rate controlled . Continue metoprolol and Xarelto. EKG done in our office today October 26, 2023 showed either sinus tachycardi a with first-degr ee heart block or it could be flutter. She has a device interrogat ion October and we will see what the rhythm. Previous device interrogat ions shows persistent atrial fibrillati on. Last echo done January 2023 shows mild left atrial enlargemen t and moderate LVH. I would like to try at least 1 time to cardiovert , will schedule for Apr 2024. 08/20/23: following with cardio, has f/u in Octoberc/w meds 05/21/23: consult note in chart 03/18/23: A fib- persistent , asymptomat ic, c/w meds, CHADS2 Vasc score 3, c/w metoprolol 100 mg BID and xarelto 20 mg, PPM nl, function check on pace maker 01/2023, SUSTAINABILITY PROJECT COORDINATOR 35%, 100% A fib, f/u in 6 monthsecho 02/04/23: Normal left ventricula r size. Moderate concentric left ventricula r hypertroph y. Ejection fraction is visually estimated at 55 %. Global Longitudin al Strain is -11 %. GLS isabnormal . There is mild enlargemen t of left atrium.f/u appt 09/23/23 11/11/22:Fo llowing with cardiology C/w meds 05/26/22:co nsult note 04/18/22: A fib controlled , c/w meds, f/u in 6 months 01/24/22:baum s f/u with Cardio 04/18/22on metoprolol 50 BID and xarelto 20HR 63 today, regular rhythm 07/24/21: EKG showed A flutter with RVR, [facility] [place] [facility]. Desai, on metoprolol and xarelto, f/u in 2 Alondra on average 125 , this AM 75, can go 2-3 days with normal HRc/w metoprolol Generalize d anxiety disorder [id number] F41.1 11/18/23: taking 2 amitriptyl ine at night, helps shut off the movie jimmy ng better at night 08/20/23: AMINTA 13difficul ty sleeping x2 months, mind racing, can't fall asleep at nighttakes amitriptyl ine BID, will increase night time dosef/u if no improvemen t in with sleep 02/19/23:r efill 11/11/22:Am itriptylin e working okaySinc e her pacemaker, she has more energy which she believes has made her anxiety worseWants to try CBD oil, cardiology said it was okay as long as it didn't have THCWill follow-up in 1 month if anxiety still worsening 06/23/22:na usea and headache with buspirones topped taking 2 days ago 06/09/22:no t tolerating bupropiond ecreased appetite, making irritabili ty and anger worseadvis ed pt to stop medication trial buspirone 05/26/22:tr yuliana bupropionw ill send to [facility] 05/19/22:ph armacy out of amitriptyl inerequest ing medication changetria l bupropion 75 mgadvised pt of ADR, call with any side effects or questionsp t has f/u in 1 wk Screening for osteoporosis [id number] Z13.820 DEXA scan scheduled for 11/19/23 Depression screening 171 545027 Z13.31 PHQ 0 [id number] Stiven Husain MD [facility] [address] [place] [address] 02/18/2024 10:09:45 02/18/2024 10:47:57 Type 2 diabetes mellitus without complication [id number] E11.9 02/18/24: a1c today 6.5last a1c 6.6routine labs todayno med changes, f/u in 3 mo 11/18/23: a1c today 6.6last a1c: 8.2continu e jardiance 25 and metformin 2000fastin g BS 150sstates that she had DM eye exam this year at her [facility] exam nlf/u in 3 mo for a1c and routine labs a1c 8.2, add jardiance 25, left VM for patient/09/17: a1c pendingfas ting 170-180, throughout the daycontinu e metformind iscussed with pt restarting jardianceP revnar 20 given todayf/u in 3 mo 05/21/23: a1c today 8. a1c 6.5, 01/2023 a1c did not [id number] s fastingnot taking metforminr e-start metformin, titrate upprevnar 13 given 03/19/2020 PREVNAR 20 NEXT VISITmicro albumin pendingf/u in 3 months 02/19/23:r e-check a1c todayf/u in 3 months 11/11/22:A1 c today 6.5Pt taking not taking metformin 1999 for 1 mo, working on diet and exerciseDi scussed watching sugar intake, especially fruits like pineapple, avoid juiceF/u in 3 mo for A1c and labs 01/24/22:a1 c 5.9stop jardiance, c/w metformins table pre-diabet es range for the past 6 more-check in 6 mo 09/30/21: re-check a1c and lipids todayadvis ed pt to stop levemir 07/01/21: a1c 6.0 09/2020 a1c 8.7taking metformin 1999 and jardiance 10repeat a1c Atrial fibrillation 4943 6004 I48.91 02/18/24: has pacemaker interrogat ion on 03/02/24 11/18/23: saw cardio 10/26/23, Dr. Foote - In regards to atrial fibrillati on, persistent , asymptomat ic. Rate controlled . Continue metoprolol and Xarelto. EKG done in our office today October 26, 2023 showed either sinus tachycardi a with first-degr ee heart block or it could be flutter. She has a device interrogat ion October and we will see what the rhythm. Previous device interrogat ions shows persistent atrial fibrillati on. Last echo done January 2023 shows mild left atrial enlargemen t and moderate LVH. I would like to try at least 1 time to cardiovert , will schedule for Apr 2024. 08/20/23: following with cardio, has f/u in /w meds 05/21/23: consult note in chart 03/18/23: A fib- persistent , asymptomat ic, c/w meds, CHADS2 Vasc score 3, c/w metoprolol 100 mg BID and xarelto 20 mg, PPM nl, function check on pace maker 01/2023, SUSTAINABILITY PROJECT COORDINATOR 35%, 100% A fib, f/u in 6 monthsecho 02/04/23: Normal left ventricula r size. Moderate concentric left ventricula r hypertroph y. Ejection fraction is visually estimated at 55 %. Global Longitudin al Strain is -11 %. GLS isabnormal . There is mild enlargemen t of left atrium.f/u appt 09/23/23 11/11/22:Fo llowing with cardiology C/w meds 05/26/22:co nsult note 04/18/22: A fib controlled , c/w meds, f/u in 6 months 01/24/22:baum s f/u with Cardio 04/18/22on metoprolol 50 BID and xarelto 20HR 63 today, regular rhythm 07/24/21: EKG showed A flutter with RVR, advised pt to go to ED [facility] ed to [facility] tablished with Dr. Desai, on metoprolol and xarelto, f/u in 2 Alondra on average 125 , this AM 75, can go 2-3 days with normal HRc/w metoprolol Screening for osteoporosis [id number] Z13.820 Unable to do DEXA at [facility] pt has pacemakerp t refuses to go to [facility] call [facility] and [facility], sending to [facility], [facility] and left for patient Depression screening 171 749672 Z13.31 PHQ 1 Long-term drug therapy 105234727 Z79.891 routine labs Administra tion of influenza vaccine 93260126 Z23 Hordeolum externum of lower eyelid of left eye [id number] 11817 H00.015 x3 wksusing eye drops w/ mild reliefno pain or blurred visionrec' d warm compresses twice a day Overweight 128624165 E66 .3 BMI 26.3 [id number] Stiven Husain MD [facility] [address] [place] [address] 06/24/2024 08:43:12 06/24/2024 09:25:31 Type 2 diabetes mellitus without complication 660496700 E11.9 06/23/24: A1c today 6.7last a1c 6.5fasting 137-147no med changeswil l complete urine at f/u visit, too dizzy for labs 02/18/24: a1c today 6.5last a1c 6.6routine labs todayno med changes, f/u in 3 mo 11/18/23: a1c today 6.6last a1c: 8.2continu e jardiance 25 and metformin 2000fastin g BS 150sstates that she [facility] mo for a1c and routine labs a1c 8.2, add jardiance 25, left VM for patient4/2 09/17: a1c pendingfas ting 170-180, throughout the daycontinu e metformind iscussed with pt restarting jardianceP revnar 20 given todayf/u in 3 mo 05/21/23: a1c today 8. a1c 6.5, 01/2023 a1c did not [id number] s fastingnot taking metforminr e-start metformin, titrate upprevnar 13 given 03/19/2020 PREVNAR 20 NEXT VISITmicro albumin pendingf/u in 3 months 02/19/23:r e-check a1c todayf/u in 3 months 11/11/22:A1 c today 6.5Pt taking not taking metformin 2000 for 1 mo, working on diet and exerciseDi scussed watching sugar intake, especially fruits like pineapple, avoid juiceF/u in 3 mo for A1c and labs 01/24/22:a1 c 5.9stop jardiance, c/w metformins table pre-diabet es range for the past 6 more-check in 6 mo 09/30/21: re-check a1c and lipids todayadvis ed pt to stop levemir 07/01/21: a1c 6.0 09/2020 a1c 8.7taking metformin 2000 and jardiance 10repeat a1c Atrial fibrillation 4943 6004 I48.91 06/24/24: OV with Dr. Foote (Cardio) on 05/16/24--i n regards to pacemaker, last interrogat ion was done February 2024 shows 74% paced atrium and 6% paced ventricle. Reported AFib burden 0%?? Will follow up on further device interrogat ionsBP 106/60 in office, pt lost 10 lbs since last visitFollo w up in the office in 6 months or sooner as needed. 05/19/24- SPECT: Global left ventricula r function is normal. Left ventricula r ejection fraction is 71 %.Normal perfusion imaging. No definite fixed or reversible defects. A TID of 0.90 wasautomat ically calculated .Negative EKG portion of stress test. 02/18/24: has pacemaker interrogat ion on 03/02/24 11/18/23: saw cardio 10/26/23, Dr. Foote - In regards to atrial fibrillati on, persistent , asymptomat ic. Rate controlled . Continue metoprolol and Xarelto. EKG done in our office today October 26, 2023 showed either sinus tachycardi a with first-degr ee heart block or it could be flutter. She has a device interrogat ion October and we will see what the rhythm. Previous device interrogat ions shows persistent atrial fibrillati on. Last echo done January 2023 shows mild left atrial enlargemen t and moderate LVH. I would like to try at least 1 time to cardiovert , will schedule for Apr 2024. 08/20/23: following with cardio, has f/u in Octoberc/w meds 05/21/23: consult note in chart 03/18/23: A fib- persistent , asymptomat ic, c/w meds, CHADS2 Vasc score 3, c/w metoprolol 100 mg BID and xarelto 20 mg, PPM nl, function check on pace maker 01/2023, SUSTAINABILITY PROJECT COORDINATOR 35%, 100% A fib, f/u in 6 monthsecho 02/04/23: Normal left ventricula r size. Moderate concentric left ventricula r hypertroph y. Ejection fraction is visually estimated at 55 %. Global Longitudin al Strain is -11 %. GLS isabnormal . There is mild enlargemen t of left atrium.f/u appt 09/23/23 11/11/22:Fo llowing with cardiology C/w meds 05/26/22:co nsult note 04/18/22: A fib controlled , c/w meds, f/u in 6 months 01/24/22:baum s f/u with Cardio 04/18/22on metoprolol 50 BID and xarelto 20HR 63 today, regular rhythm 07/24/21: EKG showed A flutter with RVR, [facility] Dr. Desai, on metoprolol and xarelto, f/u in 2 Alondra on average 125 , this AM 75, can go 2-3 days with normal HRc/w metoprolol Osteoporosis [id number] M8 1.0 fell and broke L hip on 03/23/24a d total R hip replacemen t DEXA 03/17/24- to L femoral neck and AP lumbarstar t alendronat e, calcium and Vit D Serum crea tinine above reference range 036321051 R79.89 02/2024: Cr 1.4 in [id number] /2024: Cr 1.53no labs today due to pt feeling dizzy, will complete at f/u visit Screening for malignant neoplasm of breast 538755828 Z12.39 mammogram scheduled 10/2024 Nicotine d ependence in remission 486611498 F17.201 due 08/2024 for repeat LDCT hx of smoking, 20-29 pack years, quit 2020 Generalize d anxiety disorder 34157457 F41.1 06/24/24: refill 11/18/23: taking 2 amitriptyl ine at night, helps shut off the movie Study[employer] ng better at night 08/20/23: AMINTA 13difficul ty sleeping x2 months, mind racing, can't fall asleep at nighttakes amitriptyl ine BID, will increase night time dosef/u if no improvemen t in with sleep 02/19/23:r efill 11/11/22:Am itriptylin e working okaySinc e her pacemaker, she has more energy which she believes has made her anxiety worseWants to try CBD oil, cardiology said it was okay as long as it didn't have THCWill follow-up in 1 month if anxiety still worsening 06/23/22:na usea and headache with buspirones topped taking 2 days ago 06/09/22:no t tolerating bupropiond ecreased appetite, making irritabili ty and anger worseadvis ed pt to stop medication trial buspirone 05/26/22:tr ial [facility]ionw [facility] 05/19/22:ph armacy out of amitriptyl inerequest ing medication changetria l bupropion 75 mgadvised pt of ADR, call with any side effects or questionsp t has f/u in 1 wk Hypotensive episode 6776 3001 I95.9 BP 90/60 x2BP at cardio on 04/2024: 106/60pt c/o feeling dizzy and light headeddid not eat or drink anything but water this morningtoo k lisinopril 40, HCTZ 25, and metoprolol 100 1 hr before apptchecks BP at home 110s/80sdi d not complete labs today due to pt's sxencourag ed her to increase fluid intake, eat breakfast when she gets home and call with BP readings at 12, may need to hold afternoon metoprolol Depression screening 171 675483 Z13.31 PHQ 0 History of total hip arthroplasty 5853304650 06 Z96.649 Z96.641 03/23/24 [id number] Stiven Husain MD [facility] [address] [place] [address] 09/28/2024 08:33:12 09/28/2024 09:31:23 Type 2 diabetes mellitus without complication 324764056 E11.9 09/28/24: a1c 7.1pt attributes higher sugar levels due to bbqDF exam nlmicroalb umin pendingf/u in 3 mo for a1c 06/23/24: A1c today 6.7last a1c 6.5fasting 137-147no med changeswil l complete urine at f/u visit, too dizzy for labs 02/18/24: a1c today 6.5last a1c 6.6routine labs todayno med changes, f/u in 3 mo 11/18/23: a1c today 6.6last a1c: 8.2continu e jardiance 25 and metformin 2000fastin g BS 150sstates that she had DM eye exam this year at her [facility] exam nlf/u in 3 mo for a1c and routine labs a1c 8.2, add jardiance 25, left VM for patient4/2 09/17: a1c pendingfas ting 170-180, throughout the daycontinu e metformind iscussed with pt restarting jardianceP revnar 20 given todayf/u in 3 mo 05/21/23: a1c today 8. a1c 6.5, 01/2023 a1c did not [id number] s fastingnot taking metforminr e-start metformin, titrate upprevnar 13 given 03/19/2020 PREVNAR 20 NEXT VISITmicro albumin pendingf/u in 3 months 02/19/23:r e-check a1c todayf/u in 3 months 11/11/22:A1 c today 6.5Pt taking not taking metformin 1999 for 1 mo, working on diet and exerciseDi scussed watching sugar intake, especially fruits like pineapple, avoid juiceF/u in 3 mo for A1c and labs 01/24/22:a1 c 5.9stop jardiance, c/w metformins table pre-diabet es range for the past 6 more-check in 6 mo 09/30/21: re-check a1c and lipids todayadvis ed pt to stop levemir 07/01/21: a1c 6.0 09/2020 a1c 8.7taking metformin 2000 and jardiance 10repeat a1c Essential hypertension 10484739 I10 out of HCTZ for a couple wkswould rec'd stopping due to normotensi ve/hypoten sive BP Generalize d anxiety disorder 88133671 F41.1 09/28/24: refill 06/24/24: refill 11/18/23: taking 2 amitriptyl ine at night, helps shut off the movie jimmy ng better at night 08/20/23: AMINTA 13difficul ty sleeping x2 months, mind racing, can't fall asleep at nighttakes amitriptyl ine BID, will increase night time dosef/u if no improvemen t in with sleep 02/19/23:r efill 11/11/22:Am itriptylin e working okaySinc e her pacemaker, she has more energy which she believes has made her anxiety worseWants to try CBD oil, cardiology said it was okay as long as it didn't have THCWill follow-up in 1 month if anxiety still worsening 06/23/22:na usea and headache with buspirones topped taking 2 days ago 06/09/22:no t tolerating bupropiond ecreased appetite, making irritabili ty and anger worseadvis ed pt to stop medication trial buspirone 05/26/22:tr ial bupropionw ill send to [facility] 05/19/22:ph armacy out of amitriptyl inerequest ing medication changetria l bupropion 75 mgadvised pt of ADR, call with any side effects or questionsp t has f/u in 1 wk Screening for malignant neoplasm of breast [id number] Z12.39 mammogram scheduled 10/2024 Overweight 147095740 E66 .3 BMI 26.1 Health Concerns Section Related Observation LastModified by Organization Detai ls LastModified Time None Recorded Concern Status LastModified by Organization Details LastModified Time None Recorded Advance Directives Directive N: Payers Insurance Date Sequence Insurance Name Policy Number Policy Archuleta Covered Member ID Archuleta Member ID Guarantor Name 06/24/2024 4 [facility]LY [facility] (MEDICAID HMO) [id number] Katherine Beckett [id number] Katherine Beckett 09/25/2024 1 [facility] (MEDICARE REPLACEMENT/AD VANTAGE - HMO) [id number] Katherine Beckett [id number] Katherine Beckett 06/24/2024 1 [place] Katherine Beckett [id number] Katherine Beckett 06/24/2024 [place] [facility] Katherine Beckett [id number] Katherine Beckett 06/24/2024 3 [facility] (MEDICARE REPLACEMENT/AD VANTAGE - HMO) [id number] Katherine Beckett [id number] Katherine Beckett 06/24/2024 2 [place] Katherine Beckett [id number] Katherine Beckett 09/25/2024 2 [place] WHEN [place]ARE OR MEDICARE REPLACEMENT PRIMARY) Katherine Beckett [id number] Katherine Beckett 08/27/2018 2 *SELF PAY* Luis M Beckett 03/16/2020 SLIDING FEE SCHEDULE - DISCOUNT Katherine Beckett 06/24/2024 [place] [facility] EM[facility] DEPARTMENT OF PUBLIC AID Katherine Beckett [id number] Katherine Beckett 06/24/2024 1 [facility] (MEDICAID HMO) [id number] Katherine Beckett [id number] Katherine Beckett 09/25/2024 [place] [facility] Katherine Beckett [id number] Katherine Beckett Notes Date Note Type Note Provider Name and Address Organization Details Recorded Time 08/20/2023 text/html Katherine is a 63 y/ o F here for a f/u on DMII. She reports she has been checking blood sugars at home, fasting is in the 170s and after meals is in the 200s. Pt is taking all her meds as prescribed. She is seeing cardio in October. She has had trouble sleeping due to racing thoughts, states she typically gets 4 hours a night. Pt is taking amitriptyline at night which helps her feel sleepy. She denies any chest pain, SOB, dizziness, fever, nausea, vomiting, diarrhea. NELA BECKHAM Attn: Accounting, [address] [facility], [place], [address], [facility] 08/21/2023 11:12:39 11/18/2023 text/html Patient presents today for DM f/u. She is taking jardiance and max dose of metformin. Patient's fasting BS are around 150s. She reports that the increased amitriptyline dose has helped her sleep and decreased racing thoughts. Patient saw cardiology recently for her a-fib, and is planned to electrically cardiovert her in 04/2024. She still reports dyspnea on exertion, but it is better with the pacemaker. She has a DEXA scan scheduled for tomorrow. NELA BECKHAM Attn: Accounting, [address] [facility], [place], [address], [facility] 11/19/2023 09:42:26 02/18/2024 text/html Pt presents for T2DM f/u. States that she is tolerating increased jardiance dose well. C/o stye to L lower eye lid x3 wks. Denies pain or vision changes. She has been using eye drops w/ mild improvement. NELA BECKHAM Attn: Accounting, [address] [facility], [place], [address], [place] [facility] 02/19/2024 10:55:42 06/24/2024 text/html Pt presents for T2DM, hospital f/u and A fib. States that the day before she fell on stairs in her home and broke her R hip. She had total hip replacement and sent to rehab at [facility]. Pt is using cane to walk and c/o intermittent R knee and R foot pain. Reports that she had stress test due to SOB and was told everything is normal. NELA BECKHAM Attn: Accounting,[address] [place], [address], [facility] 06/24/2024 10:31:38 09/28/2024 text/html Pt presents for Type 2 diabetes and HTN f/u. States that her BP at home is 130s/80s. NELA BECKHAM Attn: Accounting[address] [place], [address], [facility] 09/28/2024 21:11:41 OBGyn Episode No OBEpisode recorded.
--- OUTSIDE RECORDS SUMMARY | 2024-11-03 07:07 | XMS_ITS | Clinical Summary ---
Author Organization [facility] Address [address] [place] [address] Care Team Providers Care Special Services Director Name Role Phone Rashmi Purvis MD Primary Care Provider [phone] Source Comments [facility],non-owned Affiliates and Associated Physician Practices is amultiple site organization consisting of ambulatory clinics and hospital sitesin [place], [place], [place] and [place]. This disclosure is being madepursuant to the Care Everywhere program and may not contain all information available regarding this patient. Last updated 18.[facility] Allergies Active Allergy Reactions Criticality Noted Date Comments Gramineae Pollens Shortness of Breath High 9 Povidone Iodine Urticaria Medium 12/23/2018 Shellfish Allergy Shortness of Breath High 9 Medications * Be aware that medications may not be up to date on this document. Alwaysverify current medications with the patient. diphenhydrAMINE HCl, Sleep, 25 MG Active amitriptyline (ELAVIL) 25 MG tablet Take 25 mg by mouth 2 times daily Active lisinopril (PRINIVIL; ZESTRIL) 40 MG tablet Take 40 mg by mouth once daily Active cyclobenzaprine (FLEXERIL) 10 MG tablet Take 10 mg by mouth 3 times daily as needed Active hydroCHLOROthia zide (HYDRODIURIL) 25 MG tablet Take 25 mg by mouth once daily Active Ergocalciferol (VITAMIN D2) 2000 units Active atorvastatin (LIPITOR) 10 MG tablet Take 10 mg by mouth at bedtime Active metFORMIN (GLUCOPHAGE) 500 MG tablet Take 1 (one) tablet by mouth 2 times daily Take with meals to decrease nausea and stomach upset. 60 tablet 07/15/2020 Active Blood Glucose Monitoring Suppl (Souche FREEDOM LITE) w/Device KIT Use 1 Bag as directed 1 kit 07/15/2020 Active insulin pen needle (BD U/F) 29G X 12MM needle 1 (one) Each once daily 100 Each 07/15/2020 Active Active Problems Problem Noted Date Diagnosed Date Junctional rhythm 07/13/2020 Lactic acidosis 07/11/2020 Family History Medical History Relation Name Comments CAD (Coronary Artery Disease) Father CVA Father Diabetes - Type 2 Father Other - Cardiac Mother Mitral valve prolapse Other - Cardiac Sister 1 Mitral valve prolapse Other - Cardiac Sister 2 Mitral valve prolapse Relation Name Status Comments Father Mother Sister 1 Alive Sister 2 Alive Social History Tobacco Use Types Packs/Day Years Used Date Smoking Tobacco: Every Day Cigarettes 0.5 20 Cigars Smokeless Tobacco: Never Tobacco Cessation:Ready to Q uit: No; Counseling Given: No Alcohol Use Standard Drinks/Week Comments Yes 16 (1 standard drink = 0.6 oz pu re alcohol) AUDIT-C Answer Date Recorded Frequency of Alcohol Consumption 4 or more times a week 07/11/2020 Average Number of Drinks 10 or more 021 Frequency of Binge Drinking Not on file 06/25 Comments No Sex and Gender Information Value Date Recorded Sex Assigned at Not on file Legal Sex Female 3:43 PM CDT Gender Identity Not on file Sexual Orientation Not on file Last Filed Vital Signs Vital Sign Reading Time Taken Comments Blood Pressure 160/82 07/15/2020 1:05 PM CDT Pulse 78 07/15/2020 1:05 PM CDT Temperature 36.7 C (98.1 F) 07/15/2020 1:05 PM CDT Respiratory Rate 18 07/15/2020 1:05 PM CDT Oxygen Saturation 95% 07/15/2020 1:05 PM CDT Inhaled Oxygen Concentration - - Weight 74.8 kg (164 lb 14.4 oz) 07/15/2020 4:34 AM CDT Height 162.6 cm (5' 4) 07/13/2020 10:4 3 PM CDT Body Mass Index 28.31 07/13/2020 10:43 PM CDT Plan of Treatment Health Maintenance Due Date Last Done Comments COLOGUARD (AGES 45-75) - COLON CA SCREENING 1961 COLON MONITORING 1961 COLONOSCOPY - COLON CA SCREENING 1961 CT COLONOGRAPHY - COLON CA SCREENING 1961 Colorectal Cancer Screening 1961 FIT - COLON CA SCREENING 1961 FLEX SIG - COLON CA SCREENING 1961 MAMMOGRAM 1961 HIV SCREENING 1976 HEPATITIS C SCREENING 07/18/1979 DTAP/TDAP/TD VACCINES (1 - Tdap) 1980 PNEUMOCOCCAL VACCINE 50+ (1 of 1 - PCV) 07/23/2011 ZOSTER VACCINE (1 of 2) 07/23/2011 SCREENING FOR DIABETES 07/16/2023 , 07/15/2020, 07/15/2020, Additional history exists COVID-19 VACCINE ( - ) 12/27/2023 DEPRESSION SCREENING 04/27/2024 INFLUENZA VACCINE (#1) 2024 Respiratory Syncytial Virus (RSV) Vaccine Pt: or over 60 yrs (1 - 1-dose 75+ series) 2036 HEPATITIS B VACCINE Aged Out No longe r eligible based on patient's age to complete this topic HIB VACCINE Aged Out No longer eligi ble based on patient's age to complete this topic HPV VACCINE Aged Out No longer eligi ble based on patient's age to complete this topic MENINGOCOCCAL (Group B) VACCINE SHARED DECISION-MAKING Aged Out No longer eligible based on patient's age to complete this topic MENINGOCOCCAL GROUPS A/C/Y/W VACCINE Aged Out No longer eligible based on patient's age to complete this topic Procedures Procedure Name Priority Date/Time Associated Diagnosis Comments GLUCOSE - POINT OF CARE Routine 07/15/2020 7:44 AM CDT from Last 3 Months or Most Recently Relevant to Health Maintenance Results * (ABNORMAL) GLUCOSE - POINT OF CARE (07/15/2020 7:44 AM CDT) [facility] Glucose WB/POC 183(H) 70 - 115 mg/dL 07/15/2020 7:51 AM CDT [facility] Specimen Type Arterial/C apillary 07/15/2020 7:51 AM CDT [facility] Blood BLOOD SPECIMEN / Unknown 07/15/2020 7:44 AM CDT 07/15/2020 7:51 AM CDT Billy Grijalva MD LAB - POINT OF CARE ORDERABLES Final Result [facility] [address] [place] [address], [facility] [phone] from Last 3 Months or Most Recently Relevant to Health Maintenance Insurance [facility] MEDICARE [facility] MEDICAID - OUT OF STATE Advance Directives * Full Code (Latest Code Status on File) Date Activated Date Inactivated Comments 07/11/2020 11:54 PM 07/15/2020 6:59 PM Care Teams Special Services Director Relationship Specialty Start Date End Date Rashmi Purvis MD [address] [place] [phone] PCP - General Family Medicine 12/23/18
== END 2024-11-03 07:02 | disposition home or self-care (01) ==
LOC: ANHIMG 07:04
PROVIDERS: PCP Physician Assistant; Visit Provider Physician Assistant
DX: Z12.31 Encounter for screening mammogram for malignant neoplasm of breast (principal)
CPT/HCPCS: 77063; 77067

== ENCOUNTER 2024-12-28 08:25 | Outpatient (CLI) | payer MEDICARE, MEDICAID, SELFPAY ==
--- OUTSIDE RECORDS SUMMARY | 2024-12-28 08:49 | XMS_ITS | Clinical Summary ---
Author Organization [facility] [address] Address [address] [place] [address] Care Team Providers Care Community Services Manager Name Role Phone Kathleen Perera Primary Care Provider [phone] Unknown, Notinfile Unavailable Unavailable Allergies Active Allergy Reactions Criticality Noted Date Comments Codeine Nausea & Vomiting,Hives Medium 05/18/2018 Grass Pollen-Red Top, Standard Shortness of breath High 12/23/2018 Hydrocodone Rash,Nausea only Medium 08/16/2021 Iodinated Contrast Media Nausea & Vomiting Low 04/28 Iodine Itching Low 08/16/2021 Povidone-Iodine Urticaria Medium 12/23/2018 Shellfish Containing Products Shortness of breath High 12/23/2018 Medications diphenhydrAMINE (diphenhydrAMINE ) 25 mg capsule Take 1 tablet/capsu le (25 mg total) by mouth every 6 (six) hours as needed for itching Active acetaminophen 500 mg capsuleIndicatio ns:Pain Take 2 capsules (1,000 mg total) by mouth every 6 (six) hours. 60 tablet 9 Active amitriptyline (ELAVIL) 25 mg tablet 2 Active folic acid (FOLVITE) 1 mg tablet 2 Active lisinopriL (PRINIVIL,ZESTRI L) 40 mg tablet [address] (PROTONIX) 40 mg EC tablet 2 Active hydroCHLOROthiaz lauren (HYDRODIURIL) 25 mg tablet 2 Active oxybutynin XL (DITROPAN-XL) 5 mg 24 hr tablet 2 Active atorvastatin (LIPITOR) 20 mg tablet 3 Active Jardiance 25 mg tablet TAKE 1 TABLET BY MOUTH EVERY DAY IN THE MORNING FOR DIABETES 4 Active rivaroxaban (Xarelto) 20 mg tabletIndication s:Paroxysmal atrial fibrillation (HCC) TAKE 1 TABLET BY MOUTH DAILY WITH DINNER 100 tablet 1 5 Active metoprolol tartrate (LOPRESSOR) 50 mg immediate release tabletIndication s:Paroxysmal atrial flutter (HCC),Paroxysmal atrial fibrillation (HCC) TAKE 2 TABLETS BY MOUTH TWICE DAILY 400 tablet 3 5 Active metFORMIN (GLUCOPHAGE) 1,000 mg tablet Take 1 tablet (1,000 mg total) by mouth 2 (two) times a day Active OneTouch Delica Plus Lancet 33 gauge misc 5 Active ergocalciferol, vitamin D2, 50 mcg (2,000 unit) tablet Take by mouth Active cyclobenzaprine (FLEXERIL) 10 mg tablet Take 1 tablet (10 mg total) by mouth 3 (three) times a day as needed Active calcium carbonate-vitami n D3 (CALTRATE 600 + D) 1500 mg (600 mg elemental) -400 units per tablet Take 1 tablet by mouth daily 4 Active amLODIPine (NORVASC) 5 mg tablet Take 1 tablet (5 mg total) by mouth nightly Active alendronate (FOSAMAX) 70 mg tablet Take 1 tablet (70 mg total) by mouth every 7 days Active tiZANidine (ZANAFLEX) 4 mg tablet 4 12/13/19 25 Discontinu ed(Patient Reported) Active Problems Problem Noted Date Diagnosed Date [...] Encounters Date Type Department Care Team Description 12/13/2024 8:45 AM CDT Ancillary Procedure [facility] [address], [place] [address] Cardiac pacemaker in situ [Z95.0] (Primary Dx); Jorge-tachy syndrome; Atrial fibrillation, unspecified type (HCC) 12/12/2024 2:15 PM CDT Office Visit [facility] [address] [place] [id number] Jann Foote MD Paroxysmal atrial fibrillation (HCC) (Primary Dx); Mixed diabetic hyperlipidemia associated with type 2 diabetes mellitus (HCC); Hypertension associated with diabetes (HCC); Cardiac pacemaker in situ; Sinus node dysfunction (HCC) from Last 3 Months Surgical History [...] Used Date Smoking Tobacco: Former Cigarettes 1 4.5 S tarted: 07/16/2020 Smokeless Tobacco: Never Tobacco [...] on file Legal Sex Female 12:00 AM LOSS CONTROL ENGINEER Gender Identity Not on file Sexual Orientation Not on file Obstetrics History Last Filed Vital Signs Vital Sign Reading Time Taken Comments Blood Pressure 112/62 12/12/2024 2:04 PM CDT Pulse 71 12/12/2024 2:04 PM CDT Temperature 36.6 C (97.9 F) 05/19/2018 5:48 AM LOSS CONTROL ENGINEER Respiratory Rate 16 12/12/2024 2:04 PM CDT Oxygen Saturation 98% 12/12/2024 2:04 PM CDT Inhaled Oxygen Concentration - - Weight 69.9 kg (154 lb) 12/12/2024 2:04 PM CDT Height 162.6 cm (5' 4) 12/12/2024 2:04 PM CDT Body Mass Index 26.43 12/12/2024 2:04 PM CDT Plan of Treatment Health Maintenance Due Date Last Done Comments Albumin Creatinine Ratio, Urine 1961 Cervical Cancer Screening 1961 Colon Cancer Screening-Colonoscopy 1961 Depression Screening 1961 Hepatitis C Screening 1961 eGFR 1961 Dilated Eye Exam 1961 Foot Exam 1961 Hepatitis B Screening 07/23/1979 Regular Well Visit/Exam 18-64 07/23/1979 Zoster Vaccine (1 of 2) 07/23/2011 Pneumococcal vaccine <65 (2 of 2 - PPSV23, PCV20, or PCV21) 05/14/2020 03/19/2020 Hemoglobin A1C 01/12/2021 07/12/2020, 07/11/2020 Breast Cancer Screening-Mammogram 08/18/2024 08/19/2023, 05/14/2022, 11/02/2020 Covid-19 Vaccine ( - 2024-2 6 season) 2024 05/22/2021, 08/24/2020, 08/03/2020 Influenza Vaccine (#1) 2024 , 02/20/2023, 03/13/2022, Additional history exists Lipid Panel 05/16/2025 05/16/2024, 07/0 04/2023, 10/22/2022, Additional history exists DTaP/Tdap/Td Vaccine (2 - Td or Tdap) 05/18/2028 05/18/2018 Procedures Procedure Name Priority Date/Time Associated Diagnosis Comments DEVICE CHECK - REMOTE Routine 12/13/2024 8:20 AM CDT Jorge-tachy syndrome Atrial fibrillation, unspecified type (HCC) POCT LIPID PANEL Routine 05/16/2024 12:2 2 PM LOSS CONTROL ENGINEER Essential hypertension from Last 3 Months or Most Recently Relevant to Health Maintenance Results * DEVICE CHECK - REMOTE (12/13/2024 8:20 AM CDT) Anatomical Region Laterality Modality Other Narrative 12/22/2024 8:08 PM CDT Biotronik Edora Dual Pacemaker. Dx; Jorge/Tachy, Afib/Aflutter. DOI 10/27/2022-Jade. Biotronik remote monitoring. Routine DDD Pacemaker Remote. Transmission attached. Battery status-Ok, 85% remaining to JORDAN. Stable lead impedances, pacing and sensing thresholds. Presenting rhythm: AP-VS. AP-99 %, ACCOUNTING SPECIALIST-3 %. No AT/AF episodes noted. No Ventricular arrhythmias detected. Medication: Xarelto, Lopressor. Follow up: biotronik remote f/u 03/14/2025. Bernice Vazquez RN us Wilmer Hansen MD [facility] C[facility]IAC SERVICES PROC EDURES Final Result * POCT lipid panel (05/16/2024 12:22 PM LOSS CONTROL ENGINEER) Cholesterol, POC 173 mg/dL Comment:GLU = 201 HDL, POC 40 mg/dL Triglycerides, POC 427 mg/dL LDL Cholesterol POC 80 mg/dL Chol/HDL Ratio, POC N/A Non-HDL Cholesterol, POC 133 mg/dL Cholesterol Total, POC 173 mg/dL Capillary blood 05/16/2024 1 2:22 PM LOSS CONTROL ENGINEER Jann Foote MD POINT OF CARE TEST O RDERABLES Final Result from Last 3 Months or Most Recently Relevant to Health Maintenance Insurance [facility] MEDICARE ADVANTAGE IDPA IDNJ [facility] MEDICARE ADVANTAGE IDPA Advance Directives For more information, please contact: [phone] * Full Code (Latest Code Status on File) Date Activated Date Inactivated Comments 05/19/2018 5:48 AM 05/19/2018 9:14 PM Care Teams Community Services Manager Relationship Specialty Start Date End Date Kathleen Perera PA [address] [place] [phone] PCP - General Physician Packager 12/09/21 Unknown, Notinfile 05/20/18
--- OUTSIDE RECORDS SUMMARY | 2024-12-28 08:50 | XMS_ITS | Clinical Summary ---
Author Organization [facility] Address [address] [address] Phone Care Team Providers Care Banquet Supervisor Name Role Phone Kathleen Perera Primary Care Provider [phone] Allergies Active Allergy Reactions Criticality Noted Date Comments Codeine 12/20/2024 Iodine 12/20/2024 Medications atorvastatin (LIPITOR) 20 MG tablet Take 20 mg by mouth at bed time Active tiZANidine (ZANAFLEX) 4 MG capsule Take 4 mg by mouth every 6 (six) hours if needed for muscle spasms Active amitriptyline (ELAVIL) 25 MG tablet Take 25 mg by mouth in the morning and 25 mg in the evening. Active pantoprazole (PROTONIX) 40 MG EC tablet Take 40 mg by mouth in the morning and 40 mg in the evening. Active oxybutynin XL (DITROPAN-XL) 5 MG 24 hr tablet Take 5 mg by mouth 1 (one) time each day Active Empagliflozin (Jardiance) 25 MG tablet Take by mouth in the morning. Active acetaminophen (TYLENOL) 500 MG tablet Take 1,000 mg by mouth in the morning and 1,000 mg in the evening. Active diphenhydrAMIN E (BENADRYL) 25 MG capsule Take 25 mg by mouth in the morning and 25 mg in the evening. Active folic acid (FOLVITE) 1 MG tablet Take 1 mg by mouth in the morning and 1 mg in the evening. Active metoprolol tartrate (LOPRESSOR) 50 MG tablet Take 50 mg by mouth in the morning and 50 mg in the evening. Active rivaroxaban (Xarelto) 20 MG tablet Take 20 mg by mouth 1 (one) time each day Take with food. Active lisinopril (PRINIVIL) 20 MG tablet Take 20 mg by mouth 1 (one) time each day Active alendronate (FOSAMAX) 35 MG tablet Take 35 mg by mouth every 7 (seven) days Take in the morning with a full glass of water, on an empty stomach, and do not take anything else by mouth or lie down for the next 30 min. Active metFORMIN (GLUCOPHAGE) 500 MG tablet Take 500 mg by mouth in the morning and 500 mg in the evening. Take with meals. 025 Discontinued alendronate (FOSAMAX) 70 MG tablet Take 70 mg by mouth every 7 (seven) days Take in the morning with a full glass of water, on an empty stomach, and do not take anything else by mouth or lie down for the next 30 min. 025 Discontinued amLODIPine (NORVASC) 5 MG tablet Take 5 mg by mouth 1 (one) time each day 025 Discontinued metoprolol tartrate (LOPRESSOR) 50 MG tablet Take 50 mg by mouth in the morning and 50 mg in the evening. 025 Discontinued hydroCHLOROthi azide (HYDRODIURIL) 25 MG tablet Take 25 mg by mouth 1 (one) time each day 025 Discontinued(St op Taking at Discharge) lisinopril (PRINIVIL) 40 MG tablet Take 40 mg by mouth 1 (one) time each day 025 Discontinued(Do se adjustment) Calcium Carb-Cholecalc iferol (Calcium 600+D) 600-10 MG-MCG tablet Take 2 tablets by mouth 1 (one) time each day 025 Discontinued Active Problems Problem Noted Date Diagnosed Date Acute nontraumatic kidney injury 12/21/2024 Atrial fibrillation 12/21/2024 H/O: hip fracture 12/21/2024 Closed fracture of fourth cervical vertebra 11/26 Essential hypertension 12/20/2024 Type 2 diabetes mellitus 12/20/2024 Stage 3b chronic kidney disease 12/20/2024 Encounters Date Type Department Care Team Description 12/21/2024 3:20 PM CDT Office Visit [facility] [address] [place] [id number] Radha Nunez MD Other acute kidney failure ([facility]-HCC) (Primary Dx); Stage 3b chronic kidney disease (CMS-HCC); Type 2 diabetes mellitus, not otherwise specified (CMS-HCC); Essential hypertension; Paroxysmal atrial fibrillation ([facility]-HCC); H/O: hip fracture; Closed fracture of fourth cervical vertebra <Nondisplaced; Sequela> from Last 3 Months Social History Tobacco Use Types Packs/Day Years Used Date Smoking Tobacco: Former Cigarettes Smokeless Tobacco: Never Alcohol Use Standard Drinks/Week Comments Yes 0 (1 standard drink = 0.6 oz pur e alcohol) Occasionally Comments Unknown Sex and Gender Information Value Date Recorded Sex Assigned at Not on file Legal Sex Female 1:25 PM MDT Gender Identity Not on file Sexual Orientation Not on file Last Filed Vital Signs Vital Sign Reading Time Taken Comments Blood Pressure 121/78 12/21/2024 3:35 PM CDT Pulse 66 12/21/2024 3:35 PM CDT Temperature - - Respiratory Rate - - Oxygen Saturation - - Inhaled Oxygen Concentration - - Weight 68.5 kg (151 lb) 12/21/2024 3:35 PM CDT Height 162.6 cm (5' 4) 12/21/2024 3:35 PM CDT Body Mass Index 25.92 12/21/2024 3:35 PM CDT Plan of Treatment Upcoming Encounters Date Type Department Care Team (Late st Contact Info) Description 01/11/2025 12:40 PM CDT Office Visit [facility] [address] [address] [place] [address] [place] [phone] Health Maintenance Due Date Last Done Comments Diabetic Foot Exam 07/23/1971 Ophthalmology Exam 07/23/1971 Pneumococcal PPSV23 Highest Risk Adult (2 of 3 - PPSV23) 05/14/2020 03/19/2020 Influenza Vaccine (#1) 2024 [place] [address] [employer] MEDICARE [facility] Care Teams Banquet Supervisor Relationship Specialty Start Date End Date Kathleen Perera PA [address] [place] [phone] PCP - General Family Medicine 12/21/24
--- OUTSIDE RECORDS SUMMARY | 2024-12-28 08:50 | XMS_ITS | Clinical Summary ---
Author Organization [facility] Address [address] [place] [address] Care Team Providers Care Electrotyper Apprentice Name Role Phone Rashmi Purvis MD Primary Care Provider [phone] Source Comments [facility],non-owned Affiliates and Associated Physician Practices is amultiple site organization consisting of ambulatory clinics and hospital sitesin [place], [place], [place] and [place]. This disclosure is being madepursuant to the Care Everywhere program and may not contain all information available regarding this patient. Last updated 18.[facility] Allergies Active Allergy Reactions Criticality Noted Date [...] tablet 07/15/2020 Active Blood Glucose Monitoring Suppl ([employer] FREEDOM LITE) w/Device KIT Use 1 Bag [...] POINT OF CARE (07/15/2020 7:44 AM CDT) [facility] Glucose WB/POC 183(H) 70 - 115 mg/dL 07/15/2020 7:51 AM CDT [facility] Specimen Type Arterial/C apillary 07/15/2020 7:51 AM CDT [facility] Blood BLOOD SPECIMEN / Unknown 07/15/2020 7:44 AM CDT 07/15/2020 7:51 AM CDT Billy Grijalva MD LAB - POINT OF CARE ORDERABLES Final Result [facility] [address] [place] [address], [facility] [phone] from Last 3 Months or Most Recently Relevant to Health Maintenance Insurance [facility] MEDICARE [facility] MEDICAID - OUT OF STATE Advance Directives * Full Code (Latest Code Status on File) Date Activated Date Inactivated Comments 07/11/2020 11:54 PM 07/15/2020 6:59 PM Care Teams Electrotyper Apprentice Relationship Specialty Start Date End Date Rashmi Purvis MD [address] [place] [phone] PCP - General Family Medicine 12/23/18
[2024-12-28 09:09] LABS: Hematocrit 33.6 % (37.0-47.0); Hemoglobin 10.4 g/dL (12.0-15.0); Immature Granulocyte Percent A 0.2 % (0-0.5); Lymphocytes Absolute Auto 2.00 K/mm3 (0.9-3.2); Mean Corpuscular HGB Conc 31.0 g/dl (32-36); Mean Corpuscular Hemoglobin 28.2 pg (26-34); Mean Corpuscular Volume 91.1 fl (80-100); Nucleated Red Blood Cells Absolute Auto 0.000 K/mm3 (0.0-0.012); Nucleated Red Blood Cells Perc 0.0 % (0.0-0.2); Platelet Count Result 233 k/mm3 (150-375); Red Blood Count 3.69 M/mm3 (4.2-5.4); White Blood Count 5.8 K/mm3 (4.5-10.0)
[2024-12-28 09:28] LABS: Add Urine Microscopic? YES; Appearance Urine Turbid (Clear); Glucose Urine UA 3+ mg/dL (Negative); Leukocyte Esterase Ur 3+ LEU/UL (Negative); Need Manual Microscopic Reviewed; Nitrate Urine Negative (Negative); Non Pathogenic Casts 0-2; Specific Grav Ur 1.016 (1.001-1.035)
[2024-12-28 09:29] LABS: Alanine Aminotransferase 23 U/L (6-35); Albumin Level 4.7 g/dL (3.5-5.1); Alkaline Phosphatase 74 U/L (38-126); Anion Gap 14 mmol/L (4-12); Aspartate Amino Transferase 28 U/L (14-36); Bilirubin,Total 0.4 mg/dL (0.2-1.3); Blood Urea Nitrogen 26 mg/dL (7-17); Calcium 9.9 mg/dL (8.4-10.2); Carbon Dioxide 22 mmol/L (22-30); Chloride 101 mmol/L (98-107); Cholesterol 197 mg/dL (0-200); Estimated Glomerular Filt Rate 41; Glucose 153 mg/dL (65-110); HDL Direct 68 mg/dL; Potassium 4.7 mmol/L (3.4-5.0); Sodium 137 mmol/L (137-145); Total Protein 8.5 g/dL (6.3-8.2); Triglycerides 312 mg/dL (<150); Uric Acid 7.3 mg/dL (2.5-7.5)
[2024-12-28 09:31] LABS: Hemoglobin A1C 7.2 % (<5.7)
[2024-12-28 09:47] LABS: Total Protein Urine Random 12 mg/dL; Ur Ttl Prot Creatinine Ratio 0.24 mg/mg (0-0.20)
== END 2024-12-28 08:26 | disposition home or self-care (01) ==
LOC: ANHLAB 08:30
PROVIDERS: PCP Physician Assistant; Visit Provider Internal Medicine Nephrology
DX: I12.9 Hypertensive chronic kidney disease with stage 1 through stage 4 chronic kidney disease, or unspecified chronic kidney disease (principal); N18.32 Chronic kidney disease, stage 3b; E11.21 Type 2 diabetes mellitus with diabetic nephropathy
CPT/HCPCS: 36415; 80053; 80061; 81001; 82570; 83036; 84156; 84550; 85025